=== PATIENT | male | born 1955 | race Caucasian/White ===

== ENCOUNTER → 2020-09-15 14:25 | Outpatient (BNVA) | payer BC, MEDICARE, SELFPAY | PROVIDERS: PCP Internal Medicine; Referring Provider Internal Medicine; Visit Provider Internal Medicine | DX: Z76.89 Persons encountering health services in other specified circumstances (principal) ==

== ENCOUNTER 2020-09-28 11:38 | Outpatient (REF) | payer MEDICARE, BC, SELFPAY ==
--- NOTE | 2020-09-28 11:44 | XR_ITS ---
EXAMINATION: XR HAND, LEFT CLINICAL INFORMATION: Left thumb injury COMPARISON: None TECHNIQUE: PA, lateral, and oblique views of the left hand. FINDINGS: Bone alignment is normal. No fracture or dislocation is seen. There is mild arthritis at the first FCI and MCP joints. There is a small soft tissue ossification or calcification adjacent to the medial side of the MCP joint probably related to old trauma. Soft tissues are otherwise unremarkable. XR/XR hand LT 2V IMPRESSION: Arthritis at the first MCP and FCI joints.
== END 2020-09-28 11:39 | disposition home or self-care (01) ==
LOC: HO.XRAY 11:38
PROVIDERS: PCP Internal Medicine; Visit Provider Internal Medicine
DX: S69.92XA Unspecified injury of left wrist, hand and finger(s), initial encounter (principal)
CPT/HCPCS: 73120

== ENCOUNTER 2020-09-29 10:48 | Outpatient (REF) | payer MEDICARE, BC, SELFPAY ==
--- NOTE | 2020-09-29 12:50 | PFT_ITS ---
INDICATION: MANDI. SPIROMETRY: The FEV1 to FVC of 71% with an FEV1 of 2.89 L, which is 71% predicted and an FVC of 4.08 L, which is 74% predicted. No significant response to bronchodilators noted. To note, the patient does have some small airways disease. Maximum voluntary ventilation 67% predicted. LUNG VOLUMES: Total lung capacity 90% predicted with a residual volume of 122% predicted. DIFFUSION CAPACITY: DLCO 70% predicted. Flow volume loop appears to have some concavity to the expiratory limb suggestive of an obstructive process. INTERPRETATION: There appears to be an obstructive process consistent with iqdv-oc-wgwxylsf chronic obstructive pulmonary disease. The patient also has some slight amount of small airways disease. No significant response to bronchodilators noted. There is a mild decrease in maximum voluntary ventilation secondary to deconditioning. Lung volumes did demonstrate a trend of air trapping and the patient also has a mild diffusion impairment. This could be secondary to emphysematous changes and all other parenchymal lung conditions should be considered. Clinical correlation warranted. MD ALEXANDR Lancaster/BIANKA / [phone]
== END 2020-09-29 10:49 | disposition home or self-care (01) ==
LOC: HO.RESP 10:48
PROVIDERS: Visit Provider Internal Medicine
DX: R59.0 Localized enlarged lymph nodes (principal); R91.8 Other nonspecific abnormal finding of lung field
CPT/HCPCS: 94060; 94727; 94729

== ENCOUNTER → 2020-11-05 12:28 | Outpatient (BNVA) | payer MEDICARE, BC, SELFPAY | PROVIDERS: PCP Internal Medicine; Referring Provider Internal Medicine; Visit Provider Internal Medicine Cardiovascular Disease | DX: I25.10 Atherosclerotic heart disease of native coronary artery without angina pectoris (principal) | CPT/HCPCS: 93005; 99212 ==

== ENCOUNTER 2020-11-09 06:19 | Outpatient (REF) | payer MEDICARE, BC, SELFPAY ==
[2020-11-09 07:21] LABS: Hematocrit 38.9 % (42-52); Mean Corpuscular HGB Conc 33.4 g/dl (31.0-36.0); Mean Corpuscular Hemoglobin 30.9 pg (27.0-33.0); Mean Corpuscular Volume 92.4 fL (80-98); Mean Platelet Volume 9.7 fL (9.4-12.4); Platelet Count 139 X10*3/uL (160-400); Red Blood Count 4.21 X10*6/uL (4.60-5.80); Red Cell Distribution Width 13.6 % (11.0-16.0); White Blood Count 4.1 X10*3/uL (4.8-10.8)
[2020-11-09 07:43] LABS: Anion Gap 10 (12-20); Blood Urea Nitrogen 16 mg/dL (9-16); Calcium 8.8 mg/dL (8.4-10.2); Carbon Dioxide 30 mmol/L (22-29); Chloride 102 mmol/L (96-108); Cholesterol 116 mg/dL; Estimated Glomerular Filt Rate > 60; Glucose Random 89 mg/dL (60-115); HDL Cholesterol 36 mg/dL; LDL Cholesterol Calculated 68 mg/dl; Sodium 138 mmol/L (135-145); Triglycerides 61 mg/dL
[2020-11-09 07:57] LABS: TSH reflex Free T4 1.31 mIU/mL (0.32-4.0)
== END 2020-11-09 06:20 | disposition home or self-care (01) ==
LOC: HO.LAB 06:19
PROVIDERS: PCP Internal Medicine; Visit Provider Internal Medicine Cardiovascular Disease
DX: I25.10 Atherosclerotic heart disease of native coronary artery without angina pectoris (principal); E78.5 Hyperlipidemia, unspecified
CPT/HCPCS: 36415; 80048; 80061; 84443; 85027

== ENCOUNTER → 2021-03-11 09:58 | Outpatient (BNVA) | payer MEDICARE, BC, SELFPAY | PROVIDERS: PCP Internal Medicine; Visit Provider Internal Medicine | DX: G47.33 Obstructive sleep apnea (adult) (pediatric) (principal); R91.8 Other nonspecific abnormal finding of lung field; J44.9 Chronic obstructive pulmonary disease, unspecified | CPT/HCPCS: 99212 ==

== ENCOUNTER → 2021-09-14 09:25 | Outpatient (BNVA) | payer MEDICARE, BC, SELFPAY | PROVIDERS: PCP Internal Medicine; Visit Provider Internal Medicine | DX: G47.33 Obstructive sleep apnea (adult) (pediatric) (principal); J44.9 Chronic obstructive pulmonary disease, unspecified | CPT/HCPCS: 99212 ==

== ENCOUNTER → 2021-11-23 14:42 | Outpatient (BNVA) | payer MEDICARE, BC, SELFPAY | PROVIDERS: PCP Internal Medicine; Referring Provider Internal Medicine; Visit Provider Internal Medicine Cardiovascular Disease | DX: I25.10 Atherosclerotic heart disease of native coronary artery without angina pectoris (principal) | CPT/HCPCS: 93005; 99212 ==

== ENCOUNTER 2022-01-20 15:04 | Outpatient (REF) | payer MEDICARE, BC, SELFPAY ==
--- NOTE | ~2022-01-20 | XR_ITS ---
EXAMINATION: XR CHEST CLINICAL INFORMATION: Cough COMPARISON: CT chest dated 07/25/2019 TECHNIQUE: 2 views of the chest were obtained. FINDINGS: Normal heart size. Kary are somewhat indistinct. Bilateral perihilar hazy opacity. No pleural effusion or pneumothorax. No acute or suspicious osseous abnormalities. XR/XR chest 2V IMPRESSION: Nonspecific mild perihilar hazy opacity could reflect an element of interstitial edema or atypical pneumonitis. Technique may be contributing. No focal consolidation
[2022-01-20 15:17] LABS: MANUAL DIFF FLAG NO
[2022-01-20 15:39] LABS: Basophils Percent Auto 0.4 % (0-2); Eosinophils Percent Auto 0.8 % (0-4); Hematocrit 36.9 % (42.0-52.0); Hemoglobin 12.3 g/dl (14.0-18.0); Imm Gran Abs Auto 0.02 X10*3/uL (0.00-0.03); Imm Gran Pct Auto 0.4 % (0.0-0.4); Lymphocytes Absolute Auto 0.5 X10*3/uL (1.2-4.9); Mean Corpuscular HGB Conc 33.3 g/dl (31.0-36.0); Mean Corpuscular Hemoglobin 30.8 pg (27.0-33.0); Mean Corpuscular Volume 92.3 fL (80.0-98.0); Mean Platelet Volume 9.2 fL (9.4-12.4); Monocytes Absolute Auto 0.4 X10*3/uL (0.1-1.2); Monocytes Percent Auto 7.9 % (2-11); Neutrophils Absolute Auto 4.2 x10*3/uL (2.0-8.3); Neutrophils Percent Auto 80.5 % (45-73); Platelet Count 214 X10*3/uL (160-400); Red Cell Distribution Width 12.1 % (11.0-16.0); White Blood Count 5.2 X10*3/uL (4.8-10.8)
[2022-01-20 16:11] LABS: Alanine Aminotransferase 25 U/L (0-40); Alkaline Phosphatase 82 U/L (39-117); Anion Gap 12 (12-20); Aspartate Amino Transferase 35 U/L (5-37); Bilirubin Total 0.9 mg/dL (0.0-1.0); Blood Urea Nitrogen 16 mg/dL (9-16); C Reactive Protein 4.93 mg/dL (< or = 0.50); Calcium 9.4 mg/dL (8.4-10.2); Carbon Dioxide 29 mmol/L (22-29); Chloride 99 mmol/L (96-108); Cholesterol 114 mg/dL; Estimated Glomerular Filt Rate > 60; Glucose Random 91 mg/dL (60-115); Potassium 4.9 mmol/L (3.3-5.1); Sodium 135 mmol/L (135-145); Total Protein 7.3 g/dL (6.5-8.0)
[2022-01-20 16:14] LABS: Influenza A PCR NEGATIVE (Negative); Influenza B PCR NEGATIVE (Negative); Resp Syncy Virus RNA Qual PCR NEGATIVE (Negative); SARS COV2 PCR INHOUSE NEGATIVE (Negative)
[2022-01-20 16:24] LABS: Appearance Urine CLEAR; Color Urine YELLOW; Glucose Urine UA NEG (NEG); Leukocyte Esterase Urine NEG (NEG); Nitrite Urine NEG (NEG); PH 6.5 (5.0-8.0); Specific Gravity - Urine <= 1.005 (1.005-1.025); Urine Blood NEG (NEG); Urine Ketones 5 MG/DL (NEG); Urine Protein NEG (NEG-TRACE)
[2022-01-20 16:33] LABS: Prostate Specific Antigen 0.76 ng/mL (<0.05-4.0)
== END 2022-01-20 15:05 | disposition home or self-care (01) ==
LOC: HO.XRAY 15:04
PROVIDERS: PCP Internal Medicine; Visit Provider Internal Medicine
DX: R50.9 Fever, unspecified (principal); R05.9 Cough, unspecified; I10 Essential (primary) hypertension; K21.9 Gastro-esophageal reflux disease without esophagitis; E78.00 Pure hypercholesterolemia, unspecified; Z12.5 Encounter for screening for malignant neoplasm of prostate
CPT/HCPCS: 0241U; 71046; 80053; 81003; 82465; 84153; 85025; 86140; 87086

== ENCOUNTER → 2022-01-25 13:42 | Outpatient (BNVA) | payer MEDICARE, BC, SELFPAY | PROVIDERS: PCP Internal Medicine; Visit Provider Internal Medicine | DX: J44.9 Chronic obstructive pulmonary disease, unspecified (principal); J18.9 Pneumonia, unspecified organism; R91.8 Other nonspecific abnormal finding of lung field; G47.33 Obstructive sleep apnea (adult) (pediatric) | CPT/HCPCS: 99212 ==

== ENCOUNTER 2022-02-15 14:41 | Outpatient (REF) | payer MEDICARE, BC, SELFPAY ==
--- NOTE | ~2022-02-15 | XR_ITS ---
EXAMINATION: XR CHEST CLINICAL INFORMATION: Pneumonia COMPARISON: Previous chest x-ray most recent 01/20/2022 TECHNIQUE: 2 views of the chest were obtained. FINDINGS: The cardiac and mediastinal contours are stable. There are still increased perihilar markings, particularly in the upper lobes questionable for airways disease or small pneumonia. This does not appear appreciably changed from recent exam. The lungs are otherwise clear. There is no pleural effusion or pneumothorax. There are mild degenerative changes of the spine. XR/XR chest 2V IMPRESSION: Increased perihilar markings similar to 01/20/2022 exam again suggestive of airways disease or mild pneumonia.
== END 2022-02-15 14:42 | disposition home or self-care (01) ==
LOC: HO.XRAY 14:41
PROVIDERS: PCP Internal Medicine; Visit Provider Internal Medicine
DX: J44.9 Chronic obstructive pulmonary disease, unspecified (principal); J18.9 Pneumonia, unspecified organism; G47.33 Obstructive sleep apnea (adult) (pediatric)
CPT/HCPCS: 71046; 99212

== ENCOUNTER 2022-03-08 11:48 | Outpatient (REF) | payer MEDICARE, BC, SELFPAY ==
--- NOTE | ~2022-03-08 | XR_ITS ---
EXAMINATION: XR LUMBOSACRAL SPINE CLINICAL INFORMATION: Left-sided pain COMPARISON: None TECHNIQUE: Three views of the lumbosacral spine. FINDINGS: No acute fracture or traumatic malalignment. There is a 1 anterolisthesis of L4 over L5 related to bulky hypertrophic facet arthropathy which is present throughout the lumbar spine. Near complete loss of disc space height at L2-3, L3-4 and L5-S1. Moderate loss of disc space height at L1-2. Associated endplate osteophytes and sclerosis present. Paraspinal soft tissues unremarkable. XR/XR lumbar spine 2-3V IMPRESSION: No acute findings. Lumbar spondylosis as described.
== END 2022-03-08 11:49 | disposition home or self-care (01) ==
LOC: HO.XRAY 11:48
PROVIDERS: PCP Internal Medicine; Visit Provider Internal Medicine
DX: M54.50 Low back pain, unspecified (principal)
CPT/HCPCS: 72100

== ENCOUNTER 2022-04-28 07:21 | Outpatient (REF) | payer MEDICARE, BC, SELFPAY ==
--- NOTE | ~2022-04-28 | MR_ITS ---
EXAMINATION: MR HIP WITHOUT CONTRAST, LEFT CLINICAL INFORMATION: Back pain radiating to left leg COMPARISON: None TECHNIQUE: MRI of the left hip was obtained using routine sequences on a high-field magnet. FINDINGS: BONE/JOINTS: There is acetabular rim osteophytes, with subchondral cyst/edema in the lateral acetabulum, areas of cartilage heterogeneity. Findings correlate with mild arthritis. No evidence of fracture, avascular necrosis or stress reaction. No subchondral cyst in the anterior femoral head and neck junction. No significant joint effusion. On the coronal sequence of the pelvis, there is normal alignment of the right hip joint. There is right hip arthritis present, appearing mild in nature. Symphysis pubis degeneration. SI joints are intact. There are degenerative changes in the visualized lower lumbar spine. LABRUM: Irregular undersurface degenerative tear in the anterosuperior labrum. Posterosuperior labral degeneration with undersurface fraying/ill-defined tear. MUSCLES/TENDONS: Gluteus minimus, gluteus medius, common hamstring, iliopsoas tendons intact. No evidence of significant muscle strain or tear. Visualized left piriformis muscle demonstrates signal within normal limits. MISCELLANEOUS: Subcentimeter left groin lymph nodes. Sigmoid diverticulosis.. MR/MR hip LT wo con IMPRESSION: 1. Mild left hip arthritis. 2. Irregular tearing of the anterosuperior labrum. Posterosuperior labral degeneration with undersurface fraying/ill-defined tear. 3. Additional findings and details as above.
== END 2022-04-28 07:22 | disposition home or self-care (01) ==
LOC: HO.MRI 07:21
PROVIDERS: Visit Provider Internal Medicine
DX: M54.50 Low back pain, unspecified (principal)
CPT/HCPCS: 73721

== ENCOUNTER 2022-08-02 08:11 | Outpatient (REF) | payer MEDICARE, BC, SELFPAY ==
--- NOTE | ~2022-08-02 | MR_ITS ---
EXAMINATION: MR LUMBAR SPINE WITHOUT CONTRAST CLINICAL INFORMATION: Low back pain and left-sided sciatica. COMPARISON: X-ray dated 03/08/2022. TECHNIQUE: Multiplanar, multisequence imaging was obtained. FINDINGS: VERTEBRAL BODIES AND PARASPINAL STRUCTURES: There is significant disc space narrowing with mild posterior subluxations and fatty marrow endplate changes at the L2-L3 and L3-L4 levels. Additional mild edematous endplate changes visible at the L3-L4 level. There is wqlvpvbn-bj-ghpfsd disc space narrowing and a posterior subluxation at the L1-L2 level. There are no compression fractures. A grade 1 anterolisthesis is noted at the L4-L5 level with unroofing of disc posteriorly. Severe loss of disc height and posterior subluxation noted at the L5-S1 level. The paraspinal soft tissues are unremarkable. Extensive sigmoid colonic diverticulosis noted. There are upga-rh-amtqbvsg degenerative changes of the sacroiliac joints bilaterally. CONUS MEDULLARIS AND CAUDA EQUINE: The distal cord, conus tip, and cauda equina nerve roots are normal. SPINAL LEVELS: L1-L2: Retrosubluxation and broad-based disc bulge with mild endplate spurring. No central canal stenosis. Patent foramina. L2-L3: Severe loss of disc height with chronic fatty marrow endplate changes and a diffuse disc bulge. Mild facet arthropathy. Mild bilateral foraminal narrowing. L3-L4: Mixed chronic and edematous endplate changes with a slight retrosubluxation and concentric disc bulge. Hypertrophic facet arthropathy and endplate spurring. No central canal stenosis. Aqvl-hb-uuvfwrwf bilateral foraminal narrowing. L4-L5: Anterolisthesis and unroofing of the disc with a broad-based left paracentral to left subarticular zone disc protrusion compressing the left L5 nerve root and distorting the ventral thecal sac. Severe facet arthropathy as well with a left-sided facet joint effusion. Findings in combination result in eldlmbrt-ar-fokesv central canal stenosis. Unroofed disc and facet spurring moderately encroach upon the right neural foramen with mild distortion of the exiting right L4 nerve root. Mild left foraminal narrowing. L5-S1: Posterior subluxation and mtzrelmf-ez-ibzdla loss of disc height with a generalized disc bulge and aewj-iw-gxlgesde facet arthropathy. No central canal stenosis. Vjuf-sd-qvzojvny bilateral foraminal narrowing. MR/MR lumbar spine wo con IMPRESSION: Grade 1 anterolisthesis with severe facet arthropathy at the L4-L5 level. Broad-based left paracentral to left subarticular zone disc protrusion distorting the ventral thecal sac and impinging upon the left L5 nerve root. Xvdjksnr-aq-asuodj central canal stenosis. Unroofed bulging disc and facet spurring moderately encroach upon the right neural foramen mildly distorting the right L4 nerve root. Severe chronic degenerative disc disease at the L2-L3 and L5-S1 levels without central canal stenosis. Mixed chronic and mild edematous endplate changes at the L3-L4 level with dvzy-nf-uchsatzg foraminal narrowing.
== END 2022-08-02 08:12 | disposition home or self-care (01) ==
LOC: HO.MRI 08:11
PROVIDERS: Visit Provider Physical Medicine & Rehabilitation Pain Medicine
DX: M54.16 Radiculopathy, lumbar region (principal); G47.33 Obstructive sleep apnea (adult) (pediatric); J44.9 Chronic obstructive pulmonary disease, unspecified
CPT/HCPCS: 72148; 99212

== ENCOUNTER → 2023-01-30 14:13 | Outpatient (BNVA) | payer MEDICARE, BC, SELFPAY | PROVIDERS: PCP Internal Medicine; Visit Provider Internal Medicine | DX: J44.9 Chronic obstructive pulmonary disease, unspecified (principal); R91.8 Other nonspecific abnormal finding of lung field; G47.33 Obstructive sleep apnea (adult) (pediatric); Z99.89 Dependence on other enabling machines and devices | CPT/HCPCS: 99212 ==

== ENCOUNTER 2023-05-02 10:23 | Outpatient (REF) | payer MEDICARE, BC, SELFPAY | END 2023-05-02 10:24 | disposition home or self-care (01) | LOC: HO.HOSX 10:23 | PROVIDERS: Visit Provider Physician Assistant | DX: Z13.89 Encounter for screening for other disorder (principal) ==

== ENCOUNTER 2023-05-03 07:27 | Outpatient (REF) | payer MEDICARE, BC, SELFPAY ==
--- NOTE | ~2023-05-03 | XR_ITS ---
EXAMINATION: XR PELVIS CLINICAL INFORMATION: Pain COMPARISON: MRI hip 04/28/2022 TECHNIQUE: AP view of the pelvis. FINDINGS: No acute fracture or dislocation appreciated on this limited single view. Atherosclerotic vascular calcification. Mild degenerative changes of the left hip with borderline loss of joint space. Moderate to advanced degenerative changes of the right hip with near complete loss of joint space, subchondral sclerosis and cystic change. Sacroiliac joint spaces are maintained. XR/XR pelvis 1-2V IMPRESSION: Mild degenerative changes of the left hip and moderate to advanced degenerative changes of the right hip with near complete loss of joint space.
== END 2023-05-03 07:28 | disposition home or self-care (01) ==
LOC: HO.HOSX 07:27
PROVIDERS: Visit Provider Physician Assistant
DX: M16.11 Unilateral primary osteoarthritis, right hip (principal); M76.891 Other specified enthesopathies of right lower limb, excluding foot
CPT/HCPCS: 72170; 99202

== ENCOUNTER 2023-05-30 09:28 | Outpatient (REF) | payer MEDICARE, BC, SELFPAY ==
[2023-05-30 09:55] LABS: MANUAL DIFF FLAG NO
[2023-05-30 10:27] LABS: Basophils Percent Auto 0.7 % (0-2); Eosinophils Absolute Auto 0.1 X10*3/uL (0.0-0.4); Eosinophils Percent Auto 2.3 % (0-4); Hematocrit 40.2 % (42.0-52.0); Hemoglobin 13.3 g/dl (14.0-18.0); Imm Gran Abs Auto 0.01 X10*3/uL (0.00-0.03); Imm Gran Pct Auto 0.3 % (0.0-0.4); Lymphocytes Absolute Auto 0.8 X10*3/uL (1.2-4.9); Lymphocytes Percent Auto 24.4 % (20-40); Mean Corpuscular HGB Conc 33.1 g/dl (31.0-36.0); Mean Corpuscular Hemoglobin 29.4 pg (27.0-33.0); Mean Corpuscular Volume 88.7 fL (80.0-98.0); Mean Platelet Volume 9.5 fL (9.4-12.4); Monocytes Absolute Auto 0.4 X10*3/uL (0.1-1.2); Monocytes Percent Auto 11.7 % (2-11); Neutrophils Absolute Auto 1.9 x10*3/uL (2.0-8.3); Neutrophils Percent Auto 60.6 % (45-73); Platelet Count 176 X10*3/uL (160-400); Red Blood Count 4.53 X10*6/uL (4.60-5.80); Red Cell Distribution Width 12.5 % (11.0-16.0); White Blood Count 3.1 X10*3/uL (4.8-10.8)
[2023-05-30 11:10] LABS: Alanine Aminotransferase 19 U/L (0-40); Alkaline Phosphatase 90 U/L (39-117); Anion Gap 14 (12-20); Aspartate Amino Transferase 23 U/L (5-37); Blood Urea Nitrogen 15 mg/dL (9-16); Calcium 9.4 mg/dL (8.4-10.2); Carbon Dioxide 26 mmol/L (22-29); Chloride 99 mmol/L (96-108); Cholesterol 131 mg/dL; Estimated Glomerular Filt Rate > 60; Glucose Fasting 91 mg/dL (60-99); HDL Cholesterol 36 mg/dL; LDL Cholesterol Calculated 83 mg/dl; Potassium 4.5 mmol/L (3.3-5.1); Sodium 134 mmol/L (135-145); Total Protein 7.4 g/dL (6.5-8.0); Triglycerides 61 mg/dL
[2023-05-30 11:21] LABS: Prostate Specific Antigen 0.64 ng/mL (<0.05-4.0)
== END 2023-05-30 09:29 | disposition home or self-care (01) ==
LOC: HO.LAB 09:28
PROVIDERS: PCP Internal Medicine; Visit Provider Internal Medicine
DX: Z12.5 Encounter for screening for malignant neoplasm of prostate (principal); K21.9 Gastro-esophageal reflux disease without esophagitis; E78.00 Pure hypercholesterolemia, unspecified; I10 Essential (primary) hypertension
CPT/HCPCS: 36415; 80053; 80061; 84153; 85025

== ENCOUNTER 2023-06-15 10:24 | Outpatient (AMB) | payer MEDICARE, BC, SELFPAY ==
--- NOTE | 2023-06-15 10:33 | MHC.OFFVIS ---
Intake Vital Signs 06/15/23 10:45 Height 6 ft 3 in Weight 182 lb BMI 22.7 Intake Visit Reasons: OV-Right hip injection Intake Note: Foster a 67 year old male who presents today for a follow up of right hip. Patient reports has tried working with PT but found no relief. He is requesting to have an injection. Allergies COW HAIR Allergy (Unknown, Uncoded 06/15/23 10:36) + IN ALLERGY TESTING HPI OV-Right hip injection HPI Details 67-year-old male who returns to the office today for a follow-up of right hip pain. He states he had undergone physical therapy with no relief. He continues to have pain with ambulating and getting in and out of a car. He states the pain is within the groin but he does not experience limited motion. [facility] Medical History CAD (coronary artery disease) COPD (chronic obstructive pulmonary disease) Hyperlipidemia Mediastinal lymphadenopathy MANDI (obstructive sleep apnea) Pneumonitis Pulmonary nodules Surgical History History of total knee replacement Family History Father Cancer Mother No problems noted. 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 Review of Systems Const All systems reviewed & are unremarkable except as noted in HPI and below Physical Exam Vital Signs: BMI result Body Mass Index 22.7 Const General: cooperative, healthy appearing, comfortable, no acute distress, well developed and alert Orientation/consciousness: patient oriented x3 HEENT Head: Yes normal to inspection, Yes normocephalic and Yes atraumatic Eyes General: appearance normal, both eyes and all related structures Resp Effort & Inspection: normal respiratory effort and able to speak in complete sentences Cardio Rate: regular rate Peripheral pulses: Peripheral pulses 2+ throughout GI Palpation (GI): Soft to palpation Skin Lesions: no lesions Rashes: no rashes Neuro General: patient oriented x3 Extrem Other: Right hip: Normal to inspection. No tenderness over great trochanter, no pain with ROM of the hip. He does have pain with hip flexion with or without resistance. NVI. Assessment & Plan Assessment & Plan (1) Osteoarthritis of right hip: Code(s): M16.11 - Unilateral primary osteoarthritis, right hip (2) Tendonitis of right hip flexor: Code(s): M76.891 - Other specified enthesopathies of right lower limb, excluding foot Plan We discussed options which include steroid injection which would be intraarticular along with an MRI to further evaluate the source of his pain. He does present today with pain that limit him with activity, however on exam I cannot reproduce this pain. Once the scan is complete, I will see him back to review the results. He is content with this plan. Orders: Orders FL arthrogram hip RT Today M16.11 - Unilateral primary osteoarthritis, right hip MR hip RT wo con Today M16.11 - Unilateral primary osteoarthritis, right hip Patient Instructions: Scribed for Sheeba Falcon PA-C, by Siddharth Peña durable medical equipment technician, on 06/15/2023 at 10:45 AM GREGORIA. Sheeba Hicks PA-C, have personally reviewed and agree with the information entered by the scribe. Coding Level of Care Code Est Pt Level 3 (28751) Diagnoses Osteoarthritis of right hip M16.11 Tendonitis of right hip flexor M76.891
[2023-06-15 10:45] VITALS: BMI 22.7
== END 2023-06-15 11:00 | disposition home or self-care (01) ==
PROVIDERS: PCP Internal Medicine; Visit Provider Physician Assistant
DX: M16.11 Unilateral primary osteoarthritis, right hip (principal); M76.891 Other specified enthesopathies of right lower limb, excluding foot
CPT/HCPCS: 99213

== ENCOUNTER → 2023-06-15 10:24 | Outpatient (BNVA) | payer MEDICARE, BC, SELFPAY | PROVIDERS: PCP Internal Medicine; Visit Provider Physician Assistant | DX: M16.11 Unilateral primary osteoarthritis, right hip (principal); M76.891 Other specified enthesopathies of right lower limb, excluding foot | CPT/HCPCS: 99212 ==

== ENCOUNTER 2023-06-30 10:41 | Outpatient (REF) | payer MEDICARE, BC, SELFPAY ==
--- NOTE | ~2023-06-30 | FL_ITS ---
EXAMINATION: XR ARTHROGRAM HIP, RIGHT CLINICAL INFORMATION: Unilateral primary osteoarthritis, right hip. COMPARISON: None available. TECHNIQUE: Following explaining fluoroscopy-guided right hip steroid injection procedure, benefits and risk, a written consent was obtained. Patient was placed supine on fluoroscopy table and preliminary imaging was obtained through the right hip and an optimal site was selected and marked on the skin. The marked site was cleaned and draped in the usual sterile manner with 2% chlorhexidine solution. 1% lidocaine was injected at puncture site. A 22-gauge spinal needle was then inserted from the skin into the lateral border of right femoral neck and 2-3 mL of nonionic contrast was injected and a single image obtained. After confirming contrast into the joint space, 80 mg of Celestone and 8 mL of 1% lidocaine was injected as combination and needle withdrawn. Complete hemostasis achieved at puncture site. Sterile Band-Aid applied postprocedure. Patient tolerated procedure extremely well. FINDINGS: On the right hip x-ray there is moderate periarticular spurring along the lateral hip joint. Also visualized is mild loss of right hip joint space. There is contrast visualized along the right base of the femoral neck following placement of needle in the joint space. 80 mg of Depo-Medrol was injected with 1% lidocaine in the right hip joint. FLUOROSCOPY TIME: 1.1 minutes DOSE AREA PRODUCT: 6.331 uGy-m2 (microgray-meter squared) FL/FL arthrogram hip RT IMPRESSION: Successful fluoroscopy-guided right hip steroid injection performed without immediate complications.
== END 2023-06-30 10:42 | disposition home or self-care (01) ==
LOC: HO.XRAY 10:41
PROVIDERS: PCP Internal Medicine; Visit Provider Physician Assistant
DX: M16.11 Unilateral primary osteoarthritis, right hip (principal)
CPT/HCPCS: 27093; 73525

== ENCOUNTER → 2023-06-30 10:41 | Outpatient (BNV) | payer MEDICARE, BC, SELFPAY | PROVIDERS: PCP Internal Medicine; Visit Provider Radiology Diagnostic Radiology | DX: M16.11 Unilateral primary osteoarthritis, right hip (principal) | CPT/HCPCS: 27093; 73525 ==

== ENCOUNTER 2023-07-21 10:25 | Outpatient (REF) | payer MEDICARE, BC, SELFPAY ==
[2023-07-21 11:02] LABS: MANUAL DIFF FLAG NO
[2023-07-21 11:06] LABS: Basophils Percent Auto 0.6 % (0-2); Eosinophils Percent Auto 1.1 % (0-4); Hematocrit 40.4 % (42.0-52.0); Hemoglobin 13.6 g/dl (14.0-18.0); Imm Gran Abs Auto 0.03 X10*3/uL (0.00-0.03); Imm Gran Pct Auto 0.9 % (0.0-0.4); Lymphocytes Absolute Auto 0.7 X10*3/uL (1.2-4.9); Lymphocytes Percent Auto 19.4 % (20-40); Mean Corpuscular HGB Conc 33.7 g/dl (31.0-36.0); Mean Corpuscular Hemoglobin 30.2 pg (27.0-33.0); Mean Corpuscular Volume 89.8 fL (80.0-98.0); Mean Platelet Volume 8.9 fL (9.4-12.4); Monocytes Absolute Auto 0.3 X10*3/uL (0.1-1.2); Monocytes Percent Auto 9.1 % (2-11); Neutrophils Absolute Auto 2.4 x10*3/uL (2.0-8.3); Neutrophils Percent Auto 68.9 % (45-73); Platelet Count 138 X10*3/uL (160-400); Red Cell Distribution Width 13.8 % (11.0-16.0); White Blood Count 3.5 X10*3/uL (4.8-10.8)
[2023-07-21 11:09] LABS: Appearance Urine Clear; Color Urine Yellow; Glucose Urine UA Negative (Negative); Leukocyte Esterase Urine Negative (Negative); Nitrite Urine Negative (Negative); Urine Blood Negative (Negative); Urine Ketones Negative (Negative); Urine Protein Negative (Neg-Trace)
[2023-07-21 11:36] LABS: Anion Gap 16 (12-20); Blood Urea Nitrogen 19 mg/dL (9-16); Calcium 9.5 mg/dL (8.4-10.2); Carbon Dioxide 25 mmol/L (22-29); Chloride 99 mmol/L (96-108); Estimated Glomerular Filt Rate > 60; Glucose Random 86 mg/dL (60-115); Potassium 3.8 mmol/L (3.3-5.1); Sodium 136 mmol/L (135-145)
[2023-07-21 11:45] LABS: Free T4 (Free Thyroxine) 1.05 ng/dL (0.71-1.85); Thyroid Stimulating Hormone 1.36 uIU/mL (0.32-4.0)
[2023-07-21 11:50] LABS: Vitamin B12 345 pg/mL (200-900)
== END 2023-07-21 10:26 | disposition home or self-care (01) ==
LOC: HO.10HDL 10:25
PROVIDERS: Visit Provider Internal Medicine
DX: R63.4 Abnormal weight loss (principal); I10 Essential (primary) hypertension; K21.9 Gastro-esophageal reflux disease without esophagitis; E87.1 Hypo-osmolality and hyponatremia
CPT/HCPCS: 36415; 80048; 81003; 82550; 82607; 84439; 84443; 85025; 86140

== ENCOUNTER 2023-07-28 09:05 | Outpatient (REF) | payer MEDICARE, BC, SELFPAY ==
--- NOTE | ~2023-07-28 | MR_ITS ---
EXAMINATION: MR LUMBAR SPINE WITHOUT CONTRAST CLINICAL INFORMATION: Lumbar radiculopathy. Low back pain on left side. Leg pain. COMPARISON: MRI dated 08/02/2022. TECHNIQUE: Multiplanar, multisequence imaging was obtained. FINDINGS: VERTEBRAL BODIES AND PARASPINAL STRUCTURES: Anterolisthesis at the L4-L5 level has slightly worsened with a 9 mm slippage, previously measuring 8 mm. Mild edematous endplate changes are lateralized to the right side. There is also mild marrow edema in the right articular processes and adjacent right posterior paraspinal soft tissues, presumably stress-related in etiology. Advanced degenerative endplate changes and disc space narrowing again evident at the L2-L3 and L3-L4 levels with mild posterior subluxations. Moderate degenerative disc disease and posterior subluxation are stable at the L1-L2 level. Posterior subluxation and significant loss of disc height also is relatively stable at the L5-S1 level. There are no compression fractures or new subluxations elsewhere. Aside from chronic fatty marrow degenerative endplate changes in the lumbar spine, the remainder of the marrow signal is within normal limits. The paraspinal soft tissues are unremarkable. There are ugwe-wz-uafjfgqe degenerative changes of the sacroiliac joints. CONUS MEDULLARIS AND CAUDA EQUINA: The distal cord, conus tip, and cauda equina nerve roots are normal. SPINAL LEVELS: L1-L2: Significant loss of disc height and retrosubluxation with a disc bulge again evident. Stable mild right foraminal narrowing. No central canal stenosis. L2-L3: Severe loss of disc height with endplate ridging and a posterior subluxation. No central canal stenosis. Stable mild bilateral foraminal narrowing. L3-L4: Severe loss of disc height and posterior subluxation again evident with a generalized disc bulge and facet arthropathy. No central canal stenosis. Stable walr-wf-quurvrgq foraminal narrowing, worse on the right side. L4-L5: Worsened anterolisthesis and unroofing of the disc with increased size of a broad-based central to left subarticular zone disc protrusion moderately compressing the thecal sac and impinging upon the left greater than right L5 nerve roots. Advanced facet arthropathy and moderate to severe central canal stenosis. Unroofed right foraminal disc protrusion and severe facet arthropathy results in significant right foraminal encroachment and slightly worsened mass effect upon the exiting right L4 nerve root. L5-S1: Retrosubluxation and significant loss of disc height with a mild disc bulge. No central canal stenosis. Stable kczm-sy-utrmgxci foraminal narrowing. MR/MR lumbar spine wo con IMPRESSION: 1. Slightly worsened anterolisthesis at the L4-L5 level with increased size of a broad-based central to left subarticular zone disc protrusion moderately compressing the thecal sac and impinging upon the left greater than right L5 nerve roots. Moderate to severe central canal stenosis and advanced facet arthropathy. Unroofed right foraminal disc protrusion and severe facet arthropathy with significant right foraminal encroachment and mass effect upon the right L4 nerve root. New edema in the right articular processes and right posterior paraspinal soft tissues, presumably stress-related in etiology. 2. Moderate multilevel lumbar spondylosis at the remaining levels is relatively stable compared to prior imaging.
== END 2023-07-28 09:06 | disposition home or self-care (01) ==
LOC: HO.MRI 09:05
PROVIDERS: PCP Internal Medicine; Visit Provider Physical Medicine & Rehabilitation Pain Medicine
DX: M54.16 Radiculopathy, lumbar region (principal)
CPT/HCPCS: 72148

== ENCOUNTER 2023-09-06 13:10 | Outpatient (REF) | payer MEDICARE, BC, SELFPAY ==
--- NOTE | ~2023-09-06 | XR_ITS ---
EXAMINATION: XR LUMBOSACRAL SPINE WITH OBLIQUES CLINICAL INFORMATION: Spondylolisthesis lumbar region. COMPARISON: MR lumbar spine 07/28/2023. X-ray lumbar spine 03/08/2022. TECHNIQUE: 4 views of the lumbar spine including AP, lateral, flexion and extension. FINDINGS: Levoscoliosis of the lumbar spine. Facet arthritis in the mid to lower lumbar spine. Advanced multilevel degenerative changes in the lumbar spine with loss of disc space height and subchondral sclerosis most notable at L2-L3, L3-L4 and L5-S1. Mild retrolisthesis of L1 on L2, L2 on L3 and L3 on L4. Anterolisthesis of L4 on L5 measures approximately 1.1 cm with flexion and extension. Mild retrolisthesis of L5 on S1. Multilevel spondylolysis difficult to confirm. XR/XR lumbar spine 4V min IMPRESSION: Advanced multilevel degenerative changes with multilevel spondylolisthesis in the lumbar spine as detailed above.
== END 2023-09-06 13:11 | disposition home or self-care (01) ==
LOC: HO.HOSX 13:10
PROVIDERS: PCP Internal Medicine; Visit Provider Neurological Surgery
DX: M48.062 Spinal stenosis, lumbar region with neurogenic claudication (principal); M43.16 Spondylolisthesis, lumbar region
CPT/HCPCS: 72110

== ENCOUNTER 2023-09-06 13:10 | Outpatient (AMB) | payer MEDICARE, BC, SELFPAY ==
--- NOTE | 2023-09-06 13:55 | HO.SPINEOV ---
Intake Intake Visit Reasons: Lt. Sciatica Intake Note: Mr. Clarke is here today c/o left-sided sciatica pain. MRI done @ [facility]. 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 HPI: This 67-year-old male developed pain radiating down his left leg 19 months ago. He was carrying a stereo amp up the stairs and felt a sudden pain in his left buttock. This progressed to pain radiating down his leg. The pain radiates to the outside of his left thigh to the joiner and top of his foot. He had an injection done in September 2022 which gave him 30% improvement. Second injection provided no further relief. The pain increases with walking and standing. Sitting, cycling or bending forward improves the pain. He denies back pain. The following conservative treatment options were tried without success antiinflammatories, tylenol, physical therapy, cortisone shots PMH: Hypertension, hyperlipidemia, osteoarthritis. Medications: Lisinopril, add Avastin, omeprazole, aspirin Allergies: NKDA Social history: . Retired. Nonsmoker Review of systems: Never chest pain or shortness of breath. Was seen by a mine laborer in the past for incidental finding on a chest x-ray. Last visit was more than 1 year ago and no follow-up scheduled as he has no cardiological symptoms. Physical Exam: Pleasant male. Walks in a flexed position. Straight leg raise is negative. No sensory or motor changes. No pathological reflexes. Radiological Studies: MRI done at a [facility] on 07/28/2023 shows severe lumbar degenerative disc disease L2-3 L3-4 and L5-S1 and more importantly severe spinal stenosis L4-5 due to an anterolisthesis with a disc herniation compressing the central canal and exiting nerve root. An x-ray of the lumbar spine with dynamic views was obtained today and compared to an x-ray of the lumbar spine 03/08/2022. Today's x-ray shows an unstable L4-5 grade 2 anterolisthesis that has progressed compared to the x-ray of 2021 Impression/Plan: This patient is suffering from unilateral neurogenic claudication due to an unstable L4-5 progressive lumbar spondylolisthesis the causes severe L5 nerve root compression. The instability of the lumbar spine prevents me from offering a simple decompression of the nerve root. Unfortunately, a fusion is required to realign the spine and to indirectly decompress the central canal and nerve root. Therefore offered him an oblique lumbar interbody fusion L4-5. He is going to see Dr. Reno at [facility] for 2nd opinion on September 20. He did want to secure surgical date for 11/07/2023 in the meantime. He will cancel if he decides to go to [facility]. Thank you for allowing me to participate in your patients care. total time spent was 50 minutes in counseling ,coordination of plan, personal review of imaging, surgical decision making and subsequent plan Carroll Ozuna MD, PhD Spine Fellowship Trained Neurosurgeon Director, [facility] Code(s): M48.062 - Spinal stenosis, lumbar region with neurogenic claudication (2) Spondylolisthesis, lumbar region: Code(s): M43.16 - Spondylolisthesis, lumbar region Orders: Orders XR lumbar spine 4V min Today M43.16 - Spondylolisthesis, lumbar region, M48.062 - Spinal stenosis, lumbar region with neurogenic claudication Coding Level of Care Code New Pt Level 4 (77339) Diagnoses Lumbar stenosis with neurogenic claudication M48.062 Spondylolisthesis, lumbar region M43.16
== END 2023-09-06 15:25 | disposition home or self-care (01) ==
PROVIDERS: PCP Internal Medicine; Visit Provider Neurological Surgery
DX: M48.062 Spinal stenosis, lumbar region with neurogenic claudication (principal); M43.16 Spondylolisthesis, lumbar region
CPT/HCPCS: 99204

== ENCOUNTER → 2023-10-20 13:08 | Outpatient (BNV) | payer MEDICARE, BC, SELFPAY | PROVIDERS: PCP Internal Medicine; Visit Provider Internal Medicine Cardiovascular Disease | DX: I44.4 Left anterior fascicular block (principal); R94.31 Abnormal electrocardiogram [ECG] [EKG] | CPT/HCPCS: 93010 ==

== ENCOUNTER 2023-11-11 12:48 | Outpatient (REF) | payer MEDICARE, BC, SELFPAY ==
--- NOTE | ~2023-11-11 | MR_ITS ---
EXAMINATION: MR HIP WITHOUT CONTRAST, RIGHT CLINICAL INFORMATION: Osteoarthritis. COMPARISON: None available. TECHNIQUE: MRI of the right hip was obtained using routine sequences on a high-field strength magnet. FINDINGS: BONE/JOINTS: Severe right hip joint space narrowing, with diffuse nonuniform, high-grade/full-thickness cartilage loss, subchondral cysts and edema. There is lateral uncovering of the femoral head. Findings are consistent with severe osteoarthritis. In the subchondral femoral head, there is a confluent T2 bright focus with well-defined margins measuring 1.3 x 1.6 cm which appears to be related to confluent subchondral cysts, less likely focus of avascular necrosis. There is edema extending into the femoral neck. No evidence of acute fracture. LABRUM: Diffuse labral degenerative tearing, more prominently involving the anterosuperior and posterosuperior labrum. MUSCLES/TENDONS: Mild distal gluteus medius tendinosis. Minimal right common hamstring tendinosis. Mild iliopsoas tendinosis. No muscle tear is seen. JOINT FLUID/BURSA: Small hip joint effusion with low signal foci in the joint space from synovitis/debris/loose bodies. No significant greater trochanteric or iliopsoas bursitis. INTRAPELVIS STRUCTURES: Subcentimeter right groin lymph nodes. Urinary bladder appears unremarkable. On the coronal T1 sequence of the pelvis, there appears be left hip arthritis. SI joints and symphysis pubis intact. Spondylosis in the visualized lower lumbar spine. Sigmoid diverticulosis. MR/MR hip RT wo con IMPRESSION: 1. Severe right hip arthritis. Confluent T2 bright foci in the subchondral femoral head, appearance more suggestive of confluent degenerative cysts rather than focus of avascular necrosis. Follow-up imaging for reassessment as clinically indicated. 2. Small hip joint effusion with synovitis/debris/loose bodies. 3. Anterosuperior and posterosuperior labral degenerative tearing. 4. Mild distal gluteus medius tendinosis. Minimal right common hamstring tendinosis. Mild right iliopsoas tendinosis.
== END 2023-11-11 12:49 | disposition home or self-care (01) ==
LOC: HO.MRI 12:48
PROVIDERS: PCP Internal Medicine; Visit Provider Physician Assistant
DX: M16.11 Unilateral primary osteoarthritis, right hip (principal)
CPT/HCPCS: 73721

== ENCOUNTER 2023-11-24 10:46 | Outpatient (AMB) | payer MEDICARE, BC, SELFPAY ==
[2023-11-24 10:50] VITALS: BP 160/90; PULSE 86; BMI 23.1
--- NOTE | 2023-11-24 10:50 | MHC.OFFVIS ---
Intake Vital Signs 11/24/23 10:50 Height 6 ft 3 in Weight 184 lb 11.958 oz BMI 23.1 BP 160/90 H Blood Pressure Location Lt brachial Position Sitting Pulse 86 Intake Visit Reasons: 2 years followup w/ekg dx: cad Intake Note: 2 yr f/up pt is feeling fine Freight Manager Required: No Accompanied by: Self / Same As Patient Allergies COW HAIR Allergy (Unknown, Uncoded 10/20/23 12:03) + IN ALLERGY TESTING Medication List - Last Reconciled 11/24/23 by Christian Ellis MD albuterol sulfate 90 mcg/actuation (ProAir HFA) 2 puffs inhalation Q4-6H PRN amlodipine 2.5 mg PO DAILY aspirin 81 mg PO DAILY 90 days atorvastatin 40 mg PO BEDTIME betamethasone valerate 0.1% appl topical BID PRN lisinopril 30 mg PO DAILY omeprazole 20 mg PO .qod HPI HPI Comments History of Present Illness Details Foster comes for follow-up. This is a 2 year follow-up for his coronary artery disease although he has significant issues with his lumbar spine with neurogenic claudication. He said this problem started January of 2022 and has been intermittently progressive. He said starting September he has had flare-up of his discomfort and his very minimal functionality and has been seen [facility] and is recommended surgery. However preoperatively was noted to have significantly elevated blood pressure and was advised at this needs better control. His surgery is scheduled now in December. His lisinopril was increased to 30 mg daily and amlodipine was added. However blood pressure still remains elevated and is labile. He said he has had lot of pain and is stressed out over due to pain as well as upcoming surgery. This might be contributing to his elevated blood pressure. He has been watching the salt in his diet. He denies any significant cardiac symptoms although is limited activity level. EKG done in October at shown left anterior fascicular block. EKG done today actually shows bifascicular block including right bundle-branch block and left anterior fascicular block which is a new finding for him. He denies any lightheadedness, syncope. Denies any heart failure symptoms. [facility] Medical History (Updated 11/24/23 @ 11:29 by Christian Ellis MD) HTN (hypertension) GERD (gastroesophageal reflux disease) Pneumonitis COPD (chronic obstructive pulmonary disease) Hyperlipidemia CAD (coronary artery disease) Mediastinal lymphadenopathy Pulmonary nodules MANDI (obstructive sleep apnea) Surgical History History of arthroscopy of both knees Hx of colonoscopy Hx of vein stripping Hx of bilateral cataract extraction Hx of bilateral inguinal hernia repair History of total knee replacement Family History Father Cancer Mother No problems noted. 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 Review of Systems Const Reports chills, Reports fatigue, Reports fever(s), Reports frequent falls, Reports weakness, Reports weight gain and Reports weight loss ENT Reports dizziness Card Reports chest pain, Reports leg edema, Reports lightheadedness, Reports palpitations, Reports dyspnea and Reports dyspnea on exertion Resp Reports cough, Reports dyspnea and Reports dyspnea on exertion GI Reports hematochezia Musc Reports abnormal gait, Reports muscle weakness, Reports numbness, Reports radiating pain into limb and Reports tingling Neuro Reports abnormal gait, Reports dizziness, Reports frequent falls, Reports numbness, Reports tingling and Reports weakness Endo Reports fatigue and Reports palpitations Physical Exam Vital Signs: Last Vital Signs Pulse 86 11/24/23 10:50 BP 160/90 H 11/24/23 10:50 BMI result Body Mass Index 23.1 Const General: cooperative, comfortable, no acute distress, alert, awake and anxious Nutritional Appearance: thin Orientation/consciousness: patient oriented x3 Limitations: no limitations Neck Neck: Yes trachea midline, Yes supple and Yes no JVD Resp Effort & Inspection: normal respiratory effort Auscultation: clear to auscultation bilaterally Cardio Jugular venous distension: no JVD Palpation: normal PMI Rate: regular rate Rhythm: regular rhythm Heart sounds: S1 normal heart sound present, S2 normal heart sound present, no click, no gallops and no murmurs GI Auscultation: normal bowel sounds Skin General skin exam: no rashes or lesions noted Neuro General: patient oriented x3 and no focal motor deficits Extrem General: Yes no clubbing, cyanosis or edema Assessment & Plan Assessment & Plan (1) Preoperative cardiovascular examination: Code(s): Z01.810 - Encounter for preprocedural cardiovascular examination Plan: Patient presents here for follow-up of CAD but is scheduled for undergoing spine surgery under general anesthesia, intermediate risk surgery with new findings of bifascicular block on the EKG with prior history of nonobstructive CAD by coronary calcium score with limited exercise activity. I would suggest him to undergo vasodilating myocardial perfusion imaging for further risk stratification to rule out myocardial ischemia as a cause of his abnormal EKG as well as an echocardiogram to evaluate for any LV systolic dysfunction and suggestion of infiltrative cardiac disease as a cause of his abnormal EKG. These tests will be scheduled in near future. These are within reasonable limits, he would be considered low risk for perioperative cardiovascular morbidity mortality. However given his high blood pressure and elevated heart rate will add Toprol-XL 50 mg to his regimen to keep his resting heart rate on 60-70 beats per minute. We discussed about stress mitigation strategies as well. (2) CAD (coronary artery disease): Code(s): I25.10 - Atherosclerotic heart disease of [place] coronary artery without angina pectoris Plan: CAD in the past based on coronary calcium score. No recent symptoms although new abnormal EKG. Will suggest vasodilating myocardial perfusion imaging as above. Meanwhile continue low-dose aspirin therapy and statin therapy with target goal LDL closer to 60 mg/dL. Aggressive blood pressure control, see below. (3) Bifascicular block: Code(s): I45.2 - Bifascicular block Plan: Bifascicular block which is new finding. Patient had normal EKG about 2 years ago followed by EKG in October showing left anterior fascicular block an EKG today showing bifascicular block. Structural heart disease needs to be ruled out. Echocardiogram to evaluate for LV systolic function to evaluate for infiltrative cardiomyopathy such as sarcoidosis given his prior COPD and pneumonitis and mediastinal lymphadenopathy this is a possibility and may need workup further for the same. No intervention per se for bifascicular block was discussed with him. (4) HTN (hypertension): Code(s): I10 - Essential (primary) hypertension Plan: Hypertension which is labile and could be difficult control probably suggestive of diffuse vascular disease. I have discussed stress mitigation strategies. Most likely precipitated due to stress of pain as well as upcoming surgery. Have advised him to split his lisinopril to 20 mg b.i.d. and amlodipine 2.5 mg b.i.d. and add Toprol-XL 50 mg to his regimen. He is not very happy that he has to use multiple medications to control blood pressure although suggested that this might be temporary related to his ongoing stress and pain. Will follow up in 3 months time, sooner p.r.n.. Thank you for allowing me to partake in his care Orders: Orders CA echo transthoracic complete Today I45.2 - Bifascicular block CA lexiscan stress w aba Today Z01.810 - Encounter for preprocedural cardiovascular examination Medications: New lisinopril 20 mg PO BID 60 tabs 2RF amlodipine 2.5 mg PO BID 60 tabs 2RF metoprolol succinate ER (Toprol XL) 50 mg PO DAILY 30 tabs 1RF Coding Level of Care Code Est Pt Level 4 (54071) Diagnoses Preoperative cardiovascular examination Z01.810 CAD (coronary artery disease) I25.10 Bifascicular block I45.2 HTN (hypertension) I10
== END 2023-11-24 11:27 | disposition home or self-care (01) ==
PROVIDERS: PCP Internal Medicine; Visit Provider Internal Medicine Cardiovascular Disease
DX: Z01.810 Encounter for preprocedural cardiovascular examination (principal); I25.10 Atherosclerotic heart disease of native coronary artery without angina pectoris; I45.2 Bifascicular block; I10 Essential (primary) hypertension
CPT/HCPCS: 99214

== ENCOUNTER → 2023-11-24 10:46 | Outpatient (BNVA) | payer MEDICARE, BC, SELFPAY | PROVIDERS: PCP Internal Medicine; Visit Provider Internal Medicine Cardiovascular Disease | DX: Z01.810 Encounter for preprocedural cardiovascular examination (principal); I25.10 Atherosclerotic heart disease of native coronary artery without angina pectoris; I45.2 Bifascicular block; I10 Essential (primary) hypertension | CPT/HCPCS: 99212 ==

== ENCOUNTER 2023-12-04 13:13 | Outpatient (AMB) | payer MEDICARE, BC, SELFPAY ==
--- NOTE | 2023-12-04 13:18 | MHC.OFFVIS ---
Intake Vital Signs 12/04/23 13:20 Height 6 ft 3 in Weight 184 lb BMI 23.0 Intake Visit Reasons: OV- MRI Review RT Hip Intake Note: Foster is a 68 year old male who presents today for an MRI follow up of his right hip. MRI Arthrogram 06/30/23. Patient reports that the injection provided mild relief, but he continues to have pain with walking and daily acitivty. Allergies COW HAIR Allergy (Unknown, Uncoded 10/20/23 12:03) + IN ALLERGY TESTING HPI OV- MRI Review RT Hip HPI Details Foster is a 68 year old man who returns for an MRI review of his right hip pain. He is S/P hip arthrogram on 06/30/23. He complains of pain with daily activity, localized to the groin, and worse with activities such as climbing in/out of a car or prolonged walking. He found no relief from PT in the past, and temporary relief from the arthrogram injection. [facility] Medical History HTN (hypertension) GERD (gastroesophageal reflux disease) Pneumonitis COPD (chronic obstructive pulmonary disease) Hyperlipidemia CAD (coronary artery disease) Mediastinal lymphadenopathy Pulmonary nodules MANDI (obstructive sleep apnea) Surgical History History of arthroscopy of both knees Hx of colonoscopy Hx of vein stripping Hx of bilateral cataract extraction Hx of bilateral inguinal hernia repair History of total knee replacement Family History Father Cancer Mother No problems noted. 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 Review of Systems Const All systems reviewed & are unremarkable except as noted in HPI and below Physical Exam Vital Signs: BMI result Body Mass Index 23.0 Const General: no acute distress, alert and awake Orientation/consciousness: patient oriented x3 HEENT Head: Yes normocephalic and Yes atraumatic Eyes EOM: EOMs intact bilaterally Resp Effort & Inspection: normal respiratory effort and able to speak in complete sentences Cardio Jugular venous distension: no JVD Skin General skin exam: turgor normal Rashes: no rashes Neuro General: patient oriented x3 Extrem Other: + Impingement and + [place] Psych Appearance: grossly normal Affect: normal affect Attitude: cooperative Results Reviewed Results Reviewed: I personally reviewed relevant radiographs. Mild degenerative changes of the left hip and moderate to advanced degenerative changes of the right hip with near complete loss of joint space. Assessment & Plan Assessment & Plan (1) Osteoarthritis of right hip: Code(s): M16.11 - Unilateral primary osteoarthritis, right hip Plan: This is an active 68 yo M with right hip OA that is severe and affects his daily life adversely. He also has L4/5 spondylolisthesis with claudication and is scheduled for lumbar fusion. I had a long discussion with him regarding his hip. He describes having has a steroid injection that was helpful very minimally. I reviewed the images and I am not convinced that the injection was in the joint. I will schedule an injection for his right hip again. With respect to the assisted plan for his right hip, I believe he will want a SHRUTHI after his lumbar fusion especially as his goals are to return to tennis. He is scheduled to undergo lumbar fusion ~ December and I would expect hip arthroplasty to be possible about 6 weeks after lumbar fusion. I will see him back in ~ 3 months or sooner should questions arise. Plan Scribed for Gordo Ibarra MD by Shabbir Corbett, medical records secretary, on 12/04/23 at 1:24 PM, EST. Coding Level of Care Code Est Pt Level 4 (07811) Diagnoses Osteoarthritis of right hip M16.11
[2023-12-04 13:20] VITALS: BMI 23.0
== END 2023-12-04 13:53 | disposition home or self-care (01) ==
PROVIDERS: PCP Internal Medicine; Visit Provider Orthopaedic Surgery
DX: M16.11 Unilateral primary osteoarthritis, right hip (principal)
CPT/HCPCS: 99213

== ENCOUNTER → 2023-12-04 13:13 | Outpatient (BNVA) | payer MEDICARE, BC, SELFPAY | PROVIDERS: PCP Internal Medicine; Visit Provider Orthopaedic Surgery | DX: M16.11 Unilateral primary osteoarthritis, right hip (principal) | CPT/HCPCS: 99212 ==

== ENCOUNTER 2023-12-22 12:36 | Outpatient (AMB) | payer MEDICARE, BC, SELFPAY ==
--- NOTE | 2023-12-22 12:36 | A.OFFVIS_ITS ---
Intake Intake Visit Reasons: Tel-discuss injection/Dr. herrera, RT hip Intake Note: Foster is a 68 year old male who presents today VIA telehealth for an MRI review . Allergies COW HAIR Allergy (Unknown, Uncoded 12/22/23 12:37) + IN ALLERGY TESTING HPI Tel-discuss injection/Dr. herrera, RT hip HPI Details Foster having worsening right hip pain. Is very uncomfortable. Spine surgery planned for ~3 weeks [facility] Medical History HTN (hypertension) GERD (gastroesophageal reflux disease) Pneumonitis COPD (chronic obstructive pulmonary disease) Hyperlipidemia CAD (coronary artery disease) Mediastinal lymphadenopathy Pulmonary nodules MANDI (obstructive sleep apnea) Surgical History History of arthroscopy of both knees Hx of colonoscopy Hx of vein stripping Hx of bilateral cataract extraction Hx of bilateral inguinal hernia repair History of total knee replacement Family History Father Cancer Mother No problems noted. 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 I spoke with Dr Herrera and he estimates 4-6 weeks post op will be able to undergo SHRUTHI. I will have our nurse navigator reach out to Foster and schedule right SHRUTHI for ~ mid february. I spoke with Foster about this and we eugenio lcnacel the hip injection. Telehealth Telehealth Location of provider rendering services: practice address Location of patient: address on file Patient Identification confirmed using: Name, : Yes Telehealth method: voice only Patient verbally consented to treatment: Yes Patient verbally consented to billing insurance company: Yes Patient informed of any privacy concerns related to visit: Yes Coding Level of Care Code Tele Est Pt Level 4 (71885) Diagnoses Osteoarthritis of right hip M16.11
== END 2023-12-22 13:02 | disposition home or self-care (01) ==
LOC: HO.HOS 12:36
PROVIDERS: PCP Internal Medicine; Visit Provider Orthopaedic Surgery
DX: M16.11 Unilateral primary osteoarthritis, right hip (principal)
CPT/HCPCS: 99441

== ENCOUNTER → 2023-12-22 12:36 | Outpatient (BNVA) | payer MEDICARE, BC, SELFPAY | PROVIDERS: PCP Internal Medicine; Visit Provider Orthopaedic Surgery ==

== ENCOUNTER → 2024-01-04 09:00 | Outpatient (REF) | payer MEDICARE, BC, SELFPAY ==
--- NOTE | ~2024-01-04 | NM_ITS ---
Myocardial perfusion study Indication: Preoperative cardiovascular risk stratification Technique: The patient was brought in for a Lexiscan perfusion study on 01/04/2024. Patient performed low-level exercise and was injected 0.4 mg of Lexiscan intravenously. Within a minute of injection, 30 mCi of sestamibi was given intravenously. Images were obtained using the SPECT gamma camera interlaced with the gating device. Images were obtained in supine position. Resting perfusion study was performed on 01/05/2024. Patient was administered 30 mCi of sestamibi intravenously at rest. Images were then obtained in supine position. Images obtained with and without CT attenuation. Total DLP 108 mGy-cm. Images were processed with the software and compared side to side in short axis, horizontal long axis and vertical long axis views. Findings: Both stress and rest perfusion studies are somewhat suboptimal due to subdiaphragmatic uptake interfering with inferior wall uptake The stress perfusion study showed non attenuated study show moderately reduced uptake in the inferior wall of the LV myocardium. Attenuation corrected images show minimal thinning of the apex of the LV myocardium.. The gated study shows normal LV systolic function with calculated LVEF of 60%. LV cavity is normal in size. The gated study shows normal systolic wall thickening and contraction of segments. Resting study shows no significant change in perfusion pattern compared to stress perfusion study. Gating at rest reveals normal systolic wall motion with ejection fraction at 62%. The findings are consistent with no clear reversible defect suggestive of ischemia. Likely normal myocardial perfusion. NM/NM aba perf SPECT rest & str Impression: 1. Myocardial perfusion imaging study shows likely normal myocardial perfusion 2. Gated LVEF is 60% 3. Transient ischemic dilatation not present EKG is nondiagnostic for ischemia
--- NOTE | 2024-01-04 09:03 | CA_ITS ---
Acquisition Time: 2024-01-04 10:01:26 Total Exercise Time: 00:02:00 Test Indications: CAD Medications: Protocol: LEXISCAN Max HR: 100 BPM 66% of Pred: 151 BPM Max BP: 158/084 mmHG Max Work Load: 1.0 METS Pharmacological stress test with Lexiscan injection while sitting and kicking his legs, without anginal symptoms, with PVCs, Ventricular Bigeminy, ventricular cuplet, with normotensive response to injection, with nondiagnoisitic EKGs. Aminophylline 75mg IVP given to reverse Lexiscan. Nuclear images pending. Test reviewed with Dr. Mathur. Referred By: Christian Ellis Overread By: Lilo Amado
--- NOTE | 2024-01-04 09:03 | CA_ITS ---
Transthoracic Echocardiogram Patient (Last, First, Middle): Foster Clarke J Gender: Male Date of : 1955 Age: 68 Procedure Date: 01/04/2024 Procedure Type: Transthoracic Echocardiogram Location: OP Height: 190.5 cm Weight: 81.65 kg BSA: 2.10 m2 Heart Rate: bpm BP: 165 / 90 mmHg [employer]ine [employer] Equipment Technician: TO Referring MD: Christian Ellis MD Symptoms: I45.2 - Bifascicular block Study Quality: Adequate Conclusions: - 1. Normal LV ejection fraction 55-60% 2. Mild mitral regurgitation 3. Mildly dilated ascending aorta at 3.8 cm 4. Normal RV systolic pressure 5. No pericardial effusion Findings Left Ventricle Normal left ventricular size, thickness, and systolic function. The visually estimated ejection fraction is between 55-60%. Spectral Doppler is indicative of a normal filling pattern. E/E prime ratio is <8, consistent with normal filling pressures. Possible basal inferior wall motion abnormality. Peak GLS is -18.3%, within normal limits. Right Ventricle Normal right ventricular cavity size and systolic function. Atria The left atrium is likely dilated. There is no evidence of interatrial shunt. The right atrium is normal in size. Aortic Valve The aortic valve structure and function is likely normal. There is no aortic valve stenosis. There is no aortic valve regurgitation. Mitral Valve There is mild anterior mitral leaflet thickening. There is trace mitral valve regurgitation. There is no mitral valve stenosis. Pulmonic Valve The pulmonic valve is likely normal. There is trace pulmonic valve regurgitation. Tricuspid Valve Normal tricuspid valve structure. There is trace tricuspid valve regurgitation. The right ventricular systolic pressure is normal. The right ventricular systolic pressure is 28 mmHg. Normal right atrial pressure. There is no evidence of pulmonary hypertension. Great Vessels The pulmonary artery was not well visualized. There is mild dilatation of the ascending aorta measuring 3.80 cm. Venous The inferior vena cava is normal in size and collapses greater than 50% with inspiration. Pericardium/Pleural There is no evidence of pericardial effusion. Prior Study Comparison Changes noted compared to prior study dated: 09/30/2019. ascending aortic size is mildly enlarged on this study Measurements 2D Linear Measurements IVSd: 1.15 0.6-0.9/0.6-1.0 cm LVIDd: 5.10 3.9-5.3/4.2-5.9 cm LVIDd Index: 2.43 2.4-3.2/2.2-3.1 cm/m2 LVIDs: 3.17 2.0-3.6 cm LVPWd: 1.15 0.7-1.1 cm LA Diam: 3.90 2.7-3.8/3.0-4.0 cm LAIDs Index: 1.86 1.5-2.3 cm/m2 LV Mass: 342.41 67-162/88-224 g LV Mass Index: 163.05 43-95/49-115 g/m2 LVOT Diam: 2.60 3.0+(-)1.3 cm 2D Systolic Function EF 4C: 56.50 >55% EF 2C: 60.50 >55% EF BiP: 58.80 >55% Mitral Valve MV Pk E: 0.74 MV PK A: 0.60 MV Decel Time: 249.00 E/A: 1.20 E'Lateral: 9.79 E'Medial: 6.96 E/E' Med: 10.60 E/E' Lat: 7.60 PHT: 73.00 MVA PHT: 3.01 Decel Grady: 2.97 Aortic Valve AoV Pk Rommel: 1.21 AoV Mn Rommel: 0.85 AoV VTI: 0.29 AoV Pk Grad: 6.00 Aov Mn Grad: 3.00 ALYCIA Cont.VTI: 3.44 LVOT LVOT Pk Rommel: 0.73 LVOT Mn Rommel: 0.48 LVOT VTI: 0.19 LVOT Pk Grad: 2.00 LVOT Mn Grad: 1.00 LVOT Diam: 2.60 LVOT Area: 5.31 Diastolic Function MV Pk E: 0.74 MV Pk A: 0.60 E/A: 1.20 E'Medial: 6.96 E/E' Med: 10.60 E' Laterial: 9.79 E/E' Lat: 7.60 Right Ventricle TAPSE (mm): 23.30 TVS' Rommel: 12.70 Tricuspid Valve TR Pk Rommel: 2.26 TR Pk Grad: 20.00 RA Press: 8.00 RVSP: 28.00 Great Vessels Aorta Sinus of Valsalva: 3.70 2.0-3.5 cm Ao Asc: 3.80 2.1-3.4 cm Updated in Other Vendor System with Status of Final Christian Ellis MD electronically signed on 01/05/2024 2:16:58 PM with status of Final
== END ==
LOC: HO.CARD 09:00
PROVIDERS: PCP Internal Medicine; Visit Provider Internal Medicine Cardiovascular Disease
DX: Z01.810 Encounter for preprocedural cardiovascular examination (principal); I45.2 Bifascicular block
CPT/HCPCS: 78452; 93017; 93306; 93356; A9500; J0280; J2785

== ENCOUNTER → 2024-01-04 09:03 | Outpatient (BNV) | payer MEDICARE, BC, SELFPAY | PROVIDERS: PCP Internal Medicine; Visit Provider Internal Medicine Cardiovascular Disease | DX: I25.10 Atherosclerotic heart disease of native coronary artery without angina pectoris (principal) | CPT/HCPCS: 78452; 93016; 93018; 93306 ==

== ENCOUNTER → 2024-01-15 06:05 | Outpatient (BNV) | payer MEDICARE, BC, SELFPAY | PROVIDERS: PCP Internal Medicine; Visit Provider Neurological Surgery | DX: M48.062 Spinal stenosis, lumbar region with neurogenic claudication (principal); Z48.89 Encounter for other specified surgical aftercare | CPT/HCPCS: 20930; 22558; 22612; 22840; 22853; 99024; 99499 ==

== ENCOUNTER 2024-01-15 15:14 | Inpatient (IN) | payer MEDICARE, BC, SELFPAY ==
--- NOTE | 2023-10-20 | ECG_ITS ---
Test Reason : preop Blood Pressure : / mmHG Vent. Rate : 078 BPM Atrial Rate : 078 BPM P-R Int : 194 ms QRS Dur : 122 ms QT Int : 386 ms P-R-T Axes : 048 -45 053 degrees QTc Int : 440 ms Normal sinus rhythm Left anterior fascicular block Abnormal ECG When compared with ECG of 23-FEB-2017 15:24, No significant change was found Referred By: Olivia Wilcox Electronically Signed By:GUANAKITO MCKEON MD
[2023-10-20 12:07] VITALS: BP 180/103; PULSE 89; RESP 16; O2SAT 99; BMI 22.7
--- NOTE | 2023-10-20 12:31 | P.CONAN_ITS ---
HPI - Anesthesia Eval Consult details Narrative: Rescheduled to Dec 2023 67yo M for L4-5, Oblique Lumbar Interbody Fusion No recent illness No CP/SOB with weekly tennis and walking. Pulled left upper back muscle. HTN. BP elevated at PAT and pt reports increased readings on home bp checks. Lisinopril recently increased by PCP. Requesting optimization prior to surgery. COPD. Mild. No inhaler use CAD. Stable. [place] [facility] [place]. Last office visit 11/2021. MANDI. CPAP nightly PMFSH Active Problems Active Problems: All Active Problems (Updated 10/20/23 @ 12:29 by Francine Roper RN) Lumbar stenosis with neurogenic claudication (Acute) Spondylolisthesis, lumbar region (Acute) Tendonitis of right hip flexor (Acute) Osteoarthritis of right hip (Acute) HLD (hyperlipidemia) (Acute) Pneumonitis (Acute) COPD (chronic obstructive pulmonary disease) (Acute) CAD (coronary artery disease) (Acute) Hyperlipidemia (Acute) Mediastinal lymphadenopathy (Acute) Pulmonary nodules (Acute) MANDI (obstructive sleep apnea) (Acute) Past Medical History Medical History (Updated 10/20/23 @ 12:29 by Francine Roper RN) HTN (hypertension) GERD (gastroesophageal reflux disease) Pneumonitis COPD (chronic obstructive pulmonary disease) Hyperlipidemia CAD (coronary artery disease) Mediastinal lymphadenopathy Pulmonary nodules MANDI (obstructive sleep apnea) Family History Family History Father Cancer Mother No problems noted. Family history of problems with anesthesia: No Surgical History Surgical History (Updated 10/20/23 @ 11:58 by Francine Roper RN) History of arthroscopy of both knees Hx of colonoscopy Hx of vein stripping Hx of bilateral cataract extraction Hx of bilateral inguinal hernia repair History of total knee replacement History of Problems with Anesthesia: No Social History Social History Are you a primary out of school hours care worker to a significant other at home: No Do you presently have visiting nurse or other home services: No Alcohol intake: current Alcohol intake frequency: a few times a week Comment: aware of trip hazard Patient Tobacco Use Status: Never used Tobacco Current occupational status: employed 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 Meds Allergies Allergy/AdvReac Type Severity Reaction Status Date / Time COW HAIR Allergy Unknown + IN Uncoded 10/20/23 12:03 ALLERGY TESTING Home Medications Medication Instructions Recorded Confirmed Last Taken Type betamethasone valerate 0.1 % applic topical BID PRN Rash 09/15/20 08/02/22 Unknown History topical cream omeprazole 20 mg capsule,delayed 20 mg PO .qod 03/11/21 10/20/23 Unknown History release albuterol sulfate 90 mcg/actuation 2 puff inhalation Q4-6H PRN 10/20/23 10/20/23 Unknown History aerosol inhaler (ProAir HFA) Shortness Of Breath Or Wheezing atorvastatin 40 mg tablet 40 mg PO BEDTIME 10/20/23 10/20/23 Unknown History lisinopril 30 mg tablet 30 mg PO DAILY 10/20/23 10/20/23 Unknown History Exam Height,Weight and Vital Signs: Height 6 ft 3 in Weight 82.554 kg Last Vital Signs Pulse 89 10/20/23 12:07 Resp 16 10/20/23 12:07 BP 180/103 H 10/20/23 12:07 Pulse Ox 99 10/20/23 12:07 O2 Del Method Room Air 10/20/23 12:07 Airway Mallampati Class: III TM Dist: >3cm Neck ROM: Full Loose/Missing/Broken Teeth: No (Crowned molar) Heart: RRR Lungs: CTAB Assessment and Plan Assessment Anesthesia Assessment: Anesthesia Plan Discussed and PAT Visit Final Anesthetic Review Family History of Problems with Anesthesia: No History of Problems with Anesthesia: No
[2024-01-11 12:14] VITALS: BP 149/88; PULSE 76; RESP 16; O2SAT 98; BMI 22.9
--- NOTE | 2024-01-11 12:35 | P.CONAN_ITS ---
Documented by User: Olivia Wilcox NP 01/12/24 09:00 HPI - Anesthesia Eval Consult details Narrative: 67yo M for L4-5, Oblique Lumbar Interbody Fusion No recent illness No CP/SOB with weekly tennis (prior to injury) and walking. Pulled left upper back muscle. HTN. BP elevated at PAT and pt reports increased readings on home bp checks. Lisinopril recently increased by PCP. Requesting optimization prior to surgery. COPD. Mild. No inhaler use CAD. Stable. Follows [facility] [place] cardiology Q2 years. Last office visit 11/2021. MANDI. CPAP nightly [facility] Active Problems Active Problems: All Active Problems (Updated 11/24/23 @ 11:29 by Christian Ellis MD) HTN (hypertension) (Acute) Preoperative cardiovascular examination (Acute) Bifascicular block (Acute) Lumbar stenosis with neurogenic claudication (Acute) Spondylolisthesis, lumbar region (Acute) Tendonitis of right hip flexor (Acute) Osteoarthritis of right hip (Acute) HLD (hyperlipidemia) (Acute) Pneumonitis (Acute) COPD (chronic obstructive pulmonary disease) (Acute) CAD (coronary artery disease) (Acute) Hyperlipidemia (Acute) Mediastinal lymphadenopathy (Acute) Pulmonary nodules (Acute) MANDI (obstructive sleep apnea) (Acute) Past Medical History Medical History HTN (hypertension) GERD (gastroesophageal reflux disease) Pneumonitis COPD (chronic obstructive pulmonary disease) Hyperlipidemia CAD (coronary artery disease) Mediastinal lymphadenopathy Pulmonary nodules MANDI (obstructive sleep apnea) Family History Family History Father Cancer Mother No problems noted. Family history of problems with anesthesia: No Surgical History Surgical History History of arthroscopy of both knees Hx of colonoscopy Hx of vein stripping Hx of bilateral cataract extraction Hx of bilateral inguinal hernia repair History of total knee replacement History of Problems with Anesthesia: No Social History Social History (Updated 01/11/24 @ 12:28 by Francine Roper RN) Household Members: Family Housing: House Are you a primary care transition manager to a significant other at home: No Do you presently have visiting nurse or other home services: No Alcohol intake: current Alcohol intake frequency: holidays/special occasions only Comment: aware of trip hazard Patient Tobacco Use Status: Never used Tobacco Advance Directives: No Advance Directives Information Provided: No service: No Current occupational status: employed and retired 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 Meds Allergies Allergy/AdvReac Type Severity Reaction Status Date / Time COW HAIR Allergy Unknown + IN Uncoded 01/15/24 06:13 ALLERGY TESTING Home Medications Medication Instructions Recorded Confirmed Last Taken Type betamethasone valerate 0.1 % applic topical BID PRN Rash 09/15/20 11/24/23 Unknown History topical cream omeprazole 20 mg capsule,delayed 20 mg PO .qod 03/11/21 11/24/23 01/15/24 History release albuterol sulfate 90 mcg/actuation 2 puff inhalation Q4-6H PRN 10/20/23 11/24/23 Unknown History aerosol inhaler (ProAir HFA) Shortness Of Breath Or Wheezing atorvastatin 40 mg tablet 40 mg PO BEDTIME 10/20/23 11/24/23 Unknown History aspirin 81 mg tablet,delayed 81 mg PO BEDTIME 01/11/24 01/11/24 Unknown History release metoprolol succinate 50 mg 50 mg PO BEDTIME 01/11/24 01/11/24 Unknown History tablet,extended release 24 hr (Toprol XL) psyllium husk (with sugar) 3 2 tbsp PO DAILY 01/11/24 01/11/24 Unknown History gram/7 gram oral powder (Metamucil (with sugar)) Exam Height,Weight and Vital Signs: Height 6 ft 3 in Weight 83.007 kg Last Vital Signs Pulse 76 01/11/24 12:14 Resp 16 01/11/24 12:14 BP 149/88 H 01/11/24 12:14 Pulse Ox 98 01/11/24 12:14 O2 Del Method Room Air 01/11/24 12:14 Pertinent Lab Results Pertinent Lab Results: Laboratory Tests 10/24/23 15:05 Blood Type B Positive Antibody Screen NEGATIVE Lab Results 10/24/23 01/11/24 01/11/24 Range/Units 15:05 13:03 13:08 WBC 3.6 L (4.8-10.8) X10*3/uL RBC 4.27 L (4.60-5.80) X10*6/uL Hgb 13.0 L (14.0-18.0) g/dl Hct 38.2 L (42.0-52.0) % MCV 89.5 (80.0-98.0) fL MCH 30.4 (27.0-33.0) pg MCHC 34.0 (31.0-36.0) g/dl RDW 12.7 (11.0-16.0) % Plt Count 143 L (160-400) X10*3/uL MPV 9.2 L (9.4-12.4) fL Absolute Nucleated RBC 0.000 (0.0-0.012) X10*3/uL Nucleated RBC % (auto) 0.0 (0.0-0.2) /100WBC Sodium 136 (135-145) mmol/L Potassium 4.0 (3.3-5.1) mmol/L Chloride 100 (96-108) mmol/L Carbon Dioxide 30 H (22-29) mmol/L Anion Gap 10 L (12-20) BUN 17 H (9-16) mg/dL Creatinine 0.79 (0.5-1.4) mg/dL Estim Creat Clear Calc 103.6 Estimated GFR > 60 Random Glucose 87 (60-115) mg/dL Calcium 9.1 (8.4-10.2) mg/dL Blood Type B Positive B Positive Antibody Screen NEGATIVE NEGATIVE Narrative Narrative: EKG 12/2023 NSR @ 86 RBBB LAFB Bifasicular block NM aba perf SPECT rest & str 12/2023 Impression: 1. Myocardial perfusion imaging study shows likely normal myocardial perfusion 2. Gated LVEF is 60% 3. Transient ischemic dilatation not present EKG is nondiagnostic for ischemia ECHO 12/2023 Conclusions: - 1. Normal LV ejection fraction 55-60% 2. Mild mitral regurgitation 3. Mildly dilated ascending aorta at 3.8 cm 4. Normal RV systolic pressure 5. No pericardial effusion Airway Mallampati Class: III TM Dist: >3cm Neck ROM: Full Loose/Missing/Broken Teeth: No (Crowned molar) Heart: RRR Lungs: CTAB Assessment and Plan Assessment Anesthesia Assessment: Anesthesia Plan Discussed and PAT Visit Final Anesthetic Review Family History of Problems with Anesthesia: No History of Problems with Anesthesia: No Documented by User: Herson Vences MD 01/15/24 07:09 [facility] Past Medical History Medical History HTN (hypertension) GERD (gastroesophageal reflux disease) Pneumonitis COPD (chronic obstructive pulmonary disease) Hyperlipidemia CAD (coronary artery disease) Mediastinal lymphadenopathy Pulmonary nodules MANDI (obstructive sleep apnea) Family History Family History Father Cancer Mother No problems noted. Surgical History Surgical History History of arthroscopy of both knees Hx of colonoscopy Hx of vein stripping Hx of bilateral cataract extraction Hx of bilateral inguinal hernia repair History of total knee replacement Social History Social History (Updated 01/11/24 @ 12:28 by Francine Roper RN) Household Members: Family Housing: House Are you a primary care transition manager to a significant other at home: No Do you presently have visiting nurse or other home services: No Alcohol intake: current Alcohol intake frequency: holidays/special occasions only Comment: aware of trip hazard Patient Tobacco Use Status: Never used Tobacco Advance Directives: No Advance Directives Information Provided: No service: No Current occupational status: employed and retired 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 Meds Allergies Allergy/AdvReac Type Severity Reaction Status Date / Time COW HAIR Allergy Unknown + IN Uncoded 01/15/24 06:13 ALLERGY TESTING Home Medications Medication Instructions Recorded Confirmed Last Taken Type betamethasone valerate 0.1 % applic topical BID PRN Rash 09/15/20 11/24/23 Unknown History topical cream omeprazole 20 mg capsule,delayed 20 mg PO .qod 03/11/21 11/24/23 01/15/24 History release albuterol sulfate 90 mcg/actuation 2 puff inhalation Q4-6H PRN 10/20/23 11/24/23 Unknown History aerosol inhaler (ProAir HFA) Shortness Of Breath Or Wheezing atorvastatin 40 mg tablet 40 mg PO BEDTIME 10/20/23 11/24/23 Unknown History aspirin 81 mg tablet,delayed 81 mg PO BEDTIME 01/11/24 01/11/24 Unknown History release metoprolol succinate 50 mg 50 mg PO BEDTIME 01/11/24 01/11/24 Unknown History tablet,extended release 24 hr (Toprol XL) psyllium husk (with sugar) 3 2 tbsp PO DAILY 01/11/24 01/11/24 Unknown History gram/7 gram oral powder (Metamucil (with sugar)) Exam Airway Mallampati Class: I Assessment and Plan Final Anesthetic Review NPO: Yes ASA Class: III Final Preanesthetic Review: No Changes in Pt Med Stat, Meds/Allgs Chart Reviewed, Consent Obtained/Reviewed and Anes Risks/Benef Reviewed Patient Risk: Intermediate Procedure Risk: Intermediate Anesthetic Plan Anesthetic Plan: GA Disposition: Standard PACU
[2024-01-11 13:27] LABS: Hematocrit 38.2 % (42.0-52.0); Mean Corpuscular Hemoglobin 30.4 pg (27.0-33.0); Mean Corpuscular Volume 89.5 fL (80.0-98.0); Mean Platelet Volume 9.2 fL (9.4-12.4); Platelet Count 143 X10*3/uL (160-400); Red Blood Count 4.27 X10*6/uL (4.60-5.80); Red Cell Distribution Width 12.7 % (11.0-16.0); White Blood Count 3.6 X10*3/uL (4.8-10.8)
[2024-01-11 13:52] LABS: Anion Gap 10 (12-20); Blood Urea Nitrogen 17 mg/dL (9-16); Calcium 9.1 mg/dL (8.4-10.2); Carbon Dioxide 30 mmol/L (22-29); Chloride 100 mmol/L (96-108); Creatinine Clr Calc Pharmacy 103.6; Estimated Glomerular Filt Rate > 60; Glucose Random 87 mg/dL (60-115); Sodium 136 mmol/L (135-145)
[2024-01-15] VITALS (20 sets, daily range): BP systolic 102–154; BP diastolic 62–100; PULSE 60–86; RESP 12–20; TEMP 36–37.1; O2SAT 95–100; BMI 23.0
--- NOTE | ~2024-01-15 | FL_ITS ---
EXAMINATION: XR FLUOROSCOPY WITH IMAGES CLINICAL INFORMATION: Interbody fusion COMPARISON: 09/06/2023 TECHNIQUE: Fluoroscopy Supervised By: Dr. Ozuna Fluoroscopy Time: 1 minute 46.3 seconds. Cumulative Dose: 59.126 mGy. DAP: 18.47 Gycm2. Images: 3. FINDINGS: 3 images obtained by C-arm camera during placement of interbody spacer by Dr. Ozuna at FL/FL guidance in OR IMPRESSION: Interbody spacer placement.
[2024-01-15] MEDS: Lactated Ringers 1,000 ML 100 ML IVCONT (06:22)
--- NOTE | 2024-01-15 06:55 | MHC.SHP ---
Pre-Procedural Eval Section A - 24 Hr Update-Section A only Date of Service: 01/15/24 The patient is an INPATIENT: No Changes since office visit: No Cold of Flu in the past 2 weeks, No New Medical Problems, No Changes in Medication and No Patient answered all questions The patient has been examined within 24 hours of the surgical procedure. The History & Physical has been completed within 30 days and I have reviewed it.: No Section B - Complete if H&P > 30 days Chief Complaint: Spinal stenosis, lumbar region with neurogenic cla Allergies: Allergies Allergy/AdvReac Type Severity Reaction Status Date / Time COW HAIR Allergy Unknown + IN Uncoded 01/15/24 06:13 ALLERGY TESTING Review of Systems Sugical H&P ROS: Negative: Constitution, Cardiovascular, Respiratory, Neurological, Psychiatric, Hem-Onc, Allergic/Immunologic, Gastrointestinal, Genitourinary, Musculoskeletal, Integumentary, Endocrine and Eyes/Ears/Nose/Throat Exam Surgical H&P Exam: Not Evaluated: HEENT, Not Evaluated: Heart, Not Evaluated: Lungs, Not Evaluated: Extremities, Not Evaluated: Abdomen, Not Evaluated: Skin and Not Evaluated: Neurological Plan Diagnosis/Plan: Unchanged L4-5 oblique lumbar interbody fusion Time Spent With Patient Time: Total time managing care of this patient today __5__ minutes.
[2024-01-15] MEDS: methocarbamoL 750 MG TABLET PO (07:06)
[2024-01-15] MEDS: Gabapentin 300 MG CAPSULE PO (07:06)
--- NOTE | 2024-01-15 09:51 | P.OP_ITS ---
Operative Note Operative Note Date of Service: 01/15/24 Narrative: Preop Diagnosis: 1.) Lumbar spondylolisthesis Procedure: L4-5 discectomy, arthrodesis and implantation cage through an anterolateral, retroperitoneal approach; posterior instrumented fusion L4-5; allograft Consent Informed Consent was obtained for this operation. I have explained the nature, purpose and benefits of the operation. I have discussed the risks and benefit of the operation including possible complications or adverse events with patient/family. Alternative(s) were discussed with the patient with their relative benefits and risks as well as the consequences of not accepting the operation were included in obtaining consent. Surgeon: JEAN HARP MD, PHD Procedure Assisted By: Dustin zelaya Description of Procedure This patient is suffering from back pain and lumbar radiculopathy due to a grade 2 L4-5 spondylolisthesis. The patient was offered an oblique lumbar interbody fusion L4-5. The procedure complications were explained. The patient was consented. The patient was brought to the operating room and endotracheally intubated. The patient was turned in a lateral position with the left side up. Prep and drape was done followed by timeout. A small incision was made in the left lower abdominal quadrant. The muscle fascia was opened after which the 3 muscle layer was split to enter the retroperitoneal space. Dilators were docked in the anterior one third of the L4-5 disc space followed by a retractor. The retractor was opened. The L4-5 disc space was exposed. An annulotomy was done after which an elevator Escobar was used to release the disc material from its endplates and to perforate the contralateral side. A partial discectomy was done. An 8 and 10 mm height trial implant was inserted. The discectomy was completed. The endplates were prepared. An 10 x 55 mm with his there degree lordosis 4 web cage filled with allograft was inserted into the disc space under fluoroscopic guidance. This resulted in partial reduction of the spondylolisthesis. The retractor was removed. Hemostasis was done. The incision was closed in 2 layers. Steri-Strips used to approximate incision. An OpSite with Tegaderm was used to cover the incision. This marked first part of the procedure. The patient was turned prone on the Pan spine table. 2C arms were installed for fluoroscopy. Prep and drape was done followed by a second timeout. 2 paramedian incisions were made lateral from the L4 and L5 pedicles. The muscle fascia was opened after which the muscle layer was split bluntly to expose the posterolateral gutter. The following steps were taken. A pediguard tap was used to create a transpedicular trajectory into the vertebral body. A K wire was placed. A specially designed instrument was advanced over the K wire to decorticate the posterolateral gutter in preparation for the posterolateral fusion. A pedicle screw was advanced over the K wire and the K wire was removed. The steps were done for the bilateral L4 and L5 pedicles. A total of 4 screws were placed with a diameter of 6.5 x 45 and a 6.5 x 50 mm in the right L4 pedicle. The pedicle screws were connected with 45 mm glenna bilaterally and locked down with locking caps. The extension towers were removed. The po sterolateral gutter was filled with allograft to complete the posterolateral L4- 5 fusion Hemostasis was done and the incision was closed in 2 layers. Steri- Strips were used to approximate the incision. An OpSite were taken and was used to cover the incision. All sponge and needle counts were correct. Patient was extubated and transferred in stable is to recovery room. Anesthesia: General Estimated Blood Loss (ml): 40 mL Duration of Surgery: 1 hour 45 Complications: None Postoperative Plan: Admit to inpatient for observation
[2024-01-15] MEDS: oxyCODONE HCl Immed Release 5 MG TABLET 10 MG PO (10:52)
[2024-01-15] MEDS: 0.9 % Sodium Chloride 1,000 ML 75 ML IVCONT (17:16)
[2024-01-15] MEDS: Ketorolac Tromethamine 15 MG/ML VIAL IVPUSH ×2 (17:23→21:55)
--- NOTE | 2024-01-15 17:23 | PHA.MEDREC ---
Pharmacy Consult ? Medication Reconciliation Pharmacy has completed the medication reconciliation. Patient confirmed medications. Reported that he did not take his Lisinopril this AM per Drs instructions.
[2024-01-15] MEDS: Acetaminophen 1,000 MG/100 ML PIGGYBACK 400 MG IV ×2 (17:29→22:45)
[2024-01-15] MEDS: ceFAZolin Sodium/Dextrose,Iso 2 GM/50 ML PIGGYBACK IV ×2 (18:20→23:17)
[2024-01-15] MEDS: lisinopriL 20 MG TABLET PO (20:06)
[2024-01-15] MEDS: Atorvastatin Calcium 40 MG TABLET PO (20:07)
[2024-01-15] MEDS: amLODIPine Besylate 2.5 MG TABLET PO (20:07)
[2024-01-15] MEDS: Metoprolol Succinate ER 50 MG TAB.ER.24H PO (20:07)
[2024-01-16 03:27] VITALS: BP 120/57; PULSE 79; RESP 18; TEMP 36.8; O2SAT 94
[2024-01-16] MEDS: Ketorolac Tromethamine 15 MG/ML VIAL IVPUSH (04:48)
[2024-01-16] MEDS: Acetaminophen 1,000 MG/100 ML PIGGYBACK 400 MG IV (04:49)
[2024-01-16] MEDS: 0.9 % Sodium Chloride 1,000 ML 75 ML IVCONT (06:06)
[2024-01-16] MEDS: ceFAZolin Sodium/Dextrose,Iso 2 GM/50 ML PIGGYBACK IV (06:06)
--- NOTE | 2024-01-16 07:37 | HO.NEURO.PN ---
Neurosurgery Operative Note Date of Service: 01/16/24 Narrative: Top day 1. L4-5 oblique lumbar interbody fusion Patient reports minimal back pain, he is voiding okay and tolerating a diet. His preoperative left leg pain is gone. Otherwise his 1st night was unremarkable Afebrile, vital signs stable Physical exam: Patient is awake alert oriented no acute distress full strength of bilateral lower extremities, abdomen soft nondistended nontender, left lower quadrant incision clean and dry, back dressings clean and dry Impression: Postop day 1. L4-5 oblique lumbar interbody fusion, clinically doing well, seen at bedside with Dr. Ozuna. He is met criteria for discharge will be sent home. Discharge instructions briefly discussed.
[2024-01-16 08:00] VITALS: BP 119/62; PULSE 73; RESP 12; TEMP 36.7; O2SAT 96
--- NOTE | 2024-01-16 08:48 | P.DS_ITS ---
DS: Providers Provider Date of Service: 01/15/24 Date of admission: 01/15/24 15:14 Date of discharge: 01/16/24 Primary care physician: Rajiv Martino MD Admitting clinician: Carroll Ozuna DS: Diagnosis Discharge Diagnosis (1) Lumbar stenosis with neurogenic claudication: Status: Acute DS: Summary Time Attestation Discharge coordination time: Less than 30 minutes Quality: Safe Use of Opioids Does Pt have an Active Cancer Diagnosis on the Problem List?: No Quality: Stroke Does the patient have a stroke diagnosis?: No Physical Exam Vital Signs: Vital Signs: Last Vital Signs Temp 98.1 F 01/16/24 08:00 Pulse 73 01/16/24 08:00 Resp 12 01/16/24 08:00 BP 119/62 01/16/24 08:00 Pulse Ox 96 01/16/24 08:00 O2 Del Method Room Air 01/16/24 08:00 O2 Flow Rate 2 01/15/24 14:15 BMI result Body Mass Index 23.0 Discharge Plan Discharge Anticipated Discharge Date/Time: 01/16/24 13:49 Patient Disposition: Home, Self-Care Discharge Diagnosis: L4-5 spondylolisthesis Referrals: Rajiv Martino MD [Primary Care Provider] - 1 Week Discharge Medications: New oxycodone 5 mg tablet See Rx Instructions .ROUTE .COMPLEX PRN (Reason: pain) Qty: 40 0RF Rx Instructions: 1-2 tabs po q4 hours prn pain; Partial Fill upon patient request. Continued atorvastatin 40 mg tablet 40 mg PO BEDTIME metoprolol succinate [Toprol XL] 50 mg tablet extended release 24 hr 50 mg PO BEDTIME aspirin 81 mg tablet,delayed release (DR/EC) 81 mg PO BEDTIME psyllium husk (with sugar) [Metamucil (with sugar)] 3 gram/7 gram Powder 2 tbsp PO DAILY betamethasone valerate 0.1 % cream 1 applic topical BID PRN (Reason: Rash) omeprazole 20 mg capsule,delayed release(DR/EC) 20 mg PO .qod lisinopril 20 mg tablet 20 mg PO BID Qty: 60 2RF amlodipine 2.5 mg tablet 2.5 mg PO BID Qty: 60 2RF Discharge Orders: Discharge Order (Routine); Ordered 01/16/24 Ordered By: Dustin Arora Diet: Advance to usual diet Activity on Discharge: As tolerated Stand Alone Forms: Patient Portal Discharge page Activity Restrictions/Additional Instructions: After your spinal surgery we ask you to observe the following restrictions/guidelines: Activity: It is normal to feel some discomfort as you increase your activity, but that will improve with time. We ask you avoid heavy lifting or acitivities that cause pain. As a general r ule, 8lbs is a safe limit for lifting right after surgery. Walk as much as you feel comfortable but not to exhaustion. You will feel extra tired the first few days after surgery. Stay well hydrated. It is OK to walk up and down stairs You may return to driving when you are off narcotics (such as vicodin, oxycodone, dilaudid, etc), and you are back to normal functional capacity. If you have any concerns please check with office before driving. Return to work is specific to each patient and each surgery, so please speak with your doctor/PA at first follow up. Please bring paperwork such as FMLA at that time if you need it filled out. Medications: For optimum pain control, it is best to start with a combination of 500 mg of Tylenol every 4 hours with 600 mg of Motrin every 8 hours, and use narcotics as needed in between for breakthrough pain. We will give you a short supply of narcotics after surgery (usually one weeks worth). If you need more please call the office but do not use more than prescribed. You will need to give our office 48 hours notice if you need narcotics refilled and we do not fill narcotics on weekends or evenings. If you are on a narcotic, it is a good idea to take a stool softener such as colace or senna to avoid constipation If you take blood thinner such as aspirin, Plavix, Coumadin, Effient, Eliquis e tc for conditions such as Afib, DVT, Pulmonary embolus, coronary disease, stents etc please speak with your surgeon about specific details as to when you can resume these medications. You can resume NSAIDs on post op day 1 (eg: Motrin, Naproxen, etc). Follow up: Please call the office, , after surgery to arrange a 3 week follow up for wound check. Wound Care: You may remove your dressing on the first day after surgery. ?You may ?leave open to air. Please do not remove the steri strips underneath. they will fall off on their own in one week. IT IS NORMAL FOR THE WOUND TO OOZE OR BE BLOODY FOR A FEW DAYS AFTER SURGERY. ?IF THIS HAPPENS JUST PLACE NEW DRESSING OVER IT TO AVOID STAINING CLOTHES. You may shower on post op day # 1 We ask that you do not let the water soak the wound. If it does get wet, just towel dry lightly. Please do not scrub your incision or place any type of chemical/ointment on the wound. No tub baths, pools or jacuzzis for one month. If you have any leaking or redness from your wound, or fevers, please call office Care Plan Goals: Discharge home Health Concerns: None Plan of Treatment: Discharge home Assessment: Stable
[2024-01-16] MEDS: Psyllium seed 3.7 GM PACKET PO (08:57)
[2024-01-16] MEDS: lisinopriL 20 MG TABLET PO (08:57)
[2024-01-16] MEDS: amLODIPine Besylate 2.5 MG TABLET PO (08:57)
--- NOTE | 2024-01-16 10:27 | MHC.CM.PN ---
PT DCD HOME NO SERVIES PT IS INDEPENDENT
--- NOTE | 2024-01-16 12:30 | HO.POSTANES ---
Post Anesthesia Evaluation Post Anesthesia Evaluation Date of Service: 01/16/24 Vital Signs: Vital Signs Temp Pulse Resp BP Pulse Ox O2 Del Method 01/16/24 08:00 98.1 F 73 12 119/62 96 Room Air 01/16/24 03:27 98.2 F 79 18 120/57 L 94 Room Air Anesthesia: General Endotracheal-GETA Mental Status: Awake Pain Control: Satisfactory Nausea/Vomiting: None Hydration: Adequate Anesthesia-Related Issues: No Anes. Related Issues
== END 2024-01-16 09:35 | disposition home or self-care (01) | DRG 460 ==
LOC: HO.SSSA 15:15 → HO.S3 15:16
PROVIDERS: Neurological Surgery; Nurse Practitioner; Admitting Provider Physician Assistant; PCP Internal Medicine; Visit Provider Physician Assistant
PROC: 0SG00A0 Fusion of Lumbar Vertebral Joint with Interbody Fusion Device, Anterior Approach, Anterior Column, Open Approach (ICD-10-PCS; principal; 2024-01-15 07:30)
DX: M48.062 Spinal stenosis, lumbar region with neurogenic claudication (principal); I25.10 Atherosclerotic heart disease of native coronary artery without angina pectoris; Z79.82 Long term (current) use of aspirin; Z79.899 Other long term (current) drug therapy
CPT/HCPCS: 36415; 80048; 85027; 86850; 86900; 86901; 93005; 97161; C1713; C9290; J0131; J0665; J0690; J1100; J1885; J2250; J2405; J2704; J3010; L8699

== ENCOUNTER 2024-01-29 07:42 | Outpatient (REF) | payer MEDICARE, BC, SELFPAY ==
--- NOTE | ~2024-01-29 | XR_ITS ---
EXAMINATION: XR PELVIS CLINICAL INFORMATION: Pain in unspecified hip COMPARISON: AP pelvis 05/03/2023 TECHNIQUE: AP view of the pelvis. FINDINGS: No fracture. There is severe narrowing of the superior-lateral aspect of the joint space of the right hip with [id number] bone appearance, subchondral sclerosis, cystic change and large osteophyte extending off the femoral head. There is mild degenerative change of the left hip. Alignment is anatomic. Sacroiliac joints and pubic symphysis are normal. No abnormal soft tissue calcifications. Intrapedicular screws and fusion rods with disc spacer is seen at L4-L5. No evidence of hardware complication. XR/XR pelvis 1-2V IMPRESSION: 1. Severe osteoarthritis of the right hip. 2. Mild osteoarthritis of the left hip. 3. Status post fusion L4-L5 without evidence of hardware complication.
== END 2024-01-29 07:43 | disposition home or self-care (01) ==
LOC: HO.HOSX 07:42
PROVIDERS: Visit Provider Orthopaedic Surgery
DX: M16.11 Unilateral primary osteoarthritis, right hip (principal); Z98.1 Arthrodesis status
CPT/HCPCS: 72170; 99212

== ENCOUNTER 2024-01-29 09:31 | Outpatient (AMB) | payer MEDICARE, BC, SELFPAY ==
--- NOTE | 2024-01-29 09:36 | MHC.OFFVIS ---
Intake Intake Visit Reasons: OV per NE RT SHRUTHI 03/12/24 Intake Note: Foster is a 68 year old male who presents today for a follow up of his right hip OA to discuss upcoming surgery. He is booked for a Right SHRUTHI 03/12/24 Allergies COW HAIR Allergy (Unknown, Uncoded 01/15/24 06:13) + IN ALLERGY TESTING HPI OV per NE RT SHRUTHI 03/12/24 HPI Details Foster is a 68 year old male who presents today for a follow up of his right hip OA to discuss upcoming surgery. He is booked for a Right SHRUTHI 03/12/24. He had a L4-5 fusion recently and feels much better than prior. His buttock and radicular pain have improved and he is been walking regularly. His only complaint of pain is his right groin and extending into the medial aspect of his right leg. He is scheduled for surgery in about 6 weeks and he is here today just to discuss and make sure we are on track. [facility] Medical History HTN (hypertension) GERD (gastroesophageal reflux disease) Pneumonitis COPD (chronic obstructive pulmonary disease) Hyperlipidemia CAD (coronary artery disease) Mediastinal lymphadenopathy Pulmonary nodules MANDI (obstructive sleep apnea) Surgical History History of arthroscopy of both knees Hx of colonoscopy Hx of vein stripping Hx of bilateral cataract extraction Hx of bilateral inguinal hernia repair History of total knee replacement Family History Father Cancer Mother No problems noted. 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 Resp Other: No audible wheezing Effort & Inspection: normal respiratory effort Back/Spine/Pelvis Cervical Spine: normal cervical lordosis Skin General skin exam: no rashes or lesions noted Neuro General: no focal motor deficits Extrem Other: Antalgic Trendelenburg gait on the right Positive impingement limited internal rotation on the right Psych Appearance: grossly normal and well kempt Mental Status: mental status grossly normal Speech and movement: Normal speech and movement present Affect: normal affect Attitude: cooperative Results Reviewed Results Reviewed: I personally reviewed relevant radiographs. Lumbar fusion instrumentation present Severe right hip osteoarthritis Assessment & Plan Assessment & Plan (1) Osteoarthritis of right hip: Code(s): M16.11 - Unilateral primary osteoarthritis, right hip Plan: Foster and I discussed the radiographic findings and the upcoming surgery. I think he continues to be on track and a good surgical candidate. He understands the procedure as well as risks benefits and alternatives. We will see him again for a preoperative appointment. He is also seeing his primary care doctor and doing the standard preoperative clearance protocol. Orders: Orders XR pelvis 1-2V Today M25.559 - Pain in unspecified hip Coding Level of Care Code Est Pt Level 3 (38524) Diagnoses Osteoarthritis of right hip M16.11
== END 2024-01-31 14:43 | disposition home or self-care (01) ==
PROVIDERS: PCP Internal Medicine; Visit Provider Orthopaedic Surgery
DX: M16.11 Unilateral primary osteoarthritis, right hip (principal)
CPT/HCPCS: 99213

== ENCOUNTER 2024-02-01 15:20 | Outpatient (AMB) | payer MEDICARE, BC, SELFPAY ==
--- NOTE | 2024-02-01 15:24 | A.OFFVIS_ITS ---
Intake Vital Signs 02/01/24 15:25 Height 6 ft 3 in Weight 187 lb 6.287 oz BMI 23.4 BP 150/70 H Blood Pressure Location Lt brachial Position Sitting Pulse 79 Pulse Source Pulse Oximeter Pulse Oximetry (%) 99 Oxygen Delivery Method Room Air Intake Visit Reasons: pre-op total hip arthoplasty Intake Note: pre-op clearance right hip at Dr. Ibarra 03/12/24. Clinical Associate Required: No Allergies COW HAIR Allergy (Unknown, Uncoded 02/01/24 15:27) + IN ALLERGY TESTING Medication List - Last Reconciled 02/01/24 by Eldon Fenton MD amlodipine 2.5 mg PO BID aspirin 81 mg PO BEDTIME atorvastatin 40 mg PO BEDTIME betamethasone valerate 0.1% 1 appl topical BID PRN lisinopril 20 mg PO BID metoprolol succinate ER (Toprol XL) 50 mg PO BEDTIME omeprazole 20 mg PO .qod psyllium husk (with sugar) 3 gram/7 gram (Metamucil (with sugar)) 2 tbsp PO DAILY [Raised toilet seat DURATION-99 DAYS] walker Folding Front wheeled walker -DURATION 99 DAYS Do you need a note to return to daycare/school/sports/work: No HPI pre-op total hip arthoplasty HPI Details This 68 years old very pleasant gentleman of relatively thin build, has chronic obstructive sleep apnea 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 He has been using CPAP for the past many many years, his CPAP device is quite old, and he is not getting supplies, which he has to by himself. However he does use the CPAP every night and sleeps well. He does not smoke. Denies history of cough wheezing or shortness of breath. He does have ProAir on hand which he hardly needs to use. He can walk around without getting much short of breath. Patient underwent to minimal spinal surgery a few weeks ago and recovered well. Now he is going to undergo left hip replacement under general anesthesia, and has been referred for pulmonary evaluation/Clearance . [facility] Medical History HTN (hypertension) GERD (gastroesophageal reflux disease) Pneumonitis COPD (chronic obstructive pulmonary disease) Hyperlipidemia CAD (coronary artery disease) Mediastinal lymphadenopathy Pulmonary nodules MANDI (obstructive sleep apnea) Surgical History History of arthroscopy of both knees Hx of colonoscopy Hx of vein stripping Hx of bilateral cataract extraction Hx of bilateral inguinal hernia repair History of total knee replacement Family History Father Cancer Mother No problems noted. 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 Review of Systems Const All systems reviewed & are unremarkable except as noted in HPI and below Eyes Reports no additional complaints ENT Reports nasal congestion (MILD INTERMITTENT) Resp Reports cough (VERY LITTLE IN THE MORNING.) and Denies wheezing GI Reports no additional complaints Reports no additional complaints Musc Reports no additional complaints Neuro Reports no additional complaints Aller/Immun Denies wheezing Physical Exam Vital Signs: Last Vital Signs Pulse 79 02/01/24 15:25 BP 150/70 H 02/01/24 15:25 Pulse Ox 99 02/01/24 15:25 Oxygen Delivery Method Room Air 02/01/24 15:25 BMI result Body Mass Index 23.4 Const General: healthy appearing, comfortable, no acute distress, alert and awake Orientation/consciousness: patient oriented x3 HEENT Head: Yes normal to inspection General nose exam: No nasal polyps present and No nasal discharge present Face and sinus: Yes sinuses nontender Mouth: oropharynx normal Throat: Yes posterior oropharynx normal Eyes General: appearance normal, both eyes and all related structures Neck Neck: Yes normal visual inspection, Yes no lymphadenopathy, Yes trachea midline and Yes no JVD Thyroid: Thyroid normal Chest Chest palpation & inspection: normal inspection of the chest, normal palpation of entire chest wall and no tenderness Resp Other: PERCUSSION NOTE HYPER-RESONANT, BREATH SOUNDS ARE EQUAL ON BOTH SIDES. NO WHEEZES RHONCHI OR CREPITATIONS ARE HEARD TODAY. Cardio Palpation: normal PMI Rate: regular rate Rhythm: regular rhythm Heart sounds: no gallops and no murmurs Peripheral pulses: Peripheral pulses 2+ throughout GI Palpation (GI): Soft to palpation, nontender, No hepatosplenomegaly present and no masses Auscultation: normal bowel sounds Back/Spine/Pelvis Thoracic/Lumbar Spine: thoracic and lumbar spine normal to inspection Skin General skin exam: no rashes or lesions noted Neuro General: patient oriented x3 and no focal motor deficits Cranial nerves: Yes CN's II-XII intact bilaterally Extrem General: Yes normal to inspection, Yes no clubbing, cyanosis or edema and Yes no calf tenderness Psych Appearance: grossly normal and well kempt Speech and movement: Normal speech and movement present Office Procedures Spirometry Testing Spirometry Comments: In office spirometry completed with printed results to Dr Fenton. [id number]- Spirometry Results Reviewed Results Reviewed: SPIROMETRY FVC= 77 % FEV!= 58 % FEV1/FVC= 56 FEF 25-75 = 32 % Assessment & Plan Assessment & Plan (1) COPD (chronic obstructive pulmonary disease): Comment: THIS 68 YEARS OLD GENTLEMAN DOES NOT HAVE HISTORY OF SMOKING, BUT HIS PARENTS SMOKED AND HE WAS EXPOSED TO SECONDHAND SMOKING. PER SPIROMETRY HE HAS MODERATELY SEVERE OBSTRUCTIVE AIRWAY DISORDER. CLINICALLY HE IS TOTALLY ASYMPTOMATIC Code(s): J44.9 - Chronic obstructive pulmonary disease, unspecified Plan: TX : PROAIR TO USE 2 PUFFS Q 6 HOURS ONLY P.R.N. FOR INCREASED SHORTNESS OF BREATH OR SUSTAINED COUGH. MAY ALSO USE CLARITIN OR ZYRTEC 10 MG ONCE A DAY PRN , IF HE FEELS LIKE HAVING POST NASAL DISCHARGE . 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 WELL TRETAED WITH CPAP, WHICH HE USES VERY REGULARLY , NASAL PILLOWS -9 CMs . IN BETWEEN HE HAS TRIED DENTAL BRACES BUT TO FELT MORE UNCOMFORTABLE. HE IS NOW BACK TO CPAP. HIS CPAP DEVICE IS VERY OLD AND WOULD NEED REPLACEMENT. GETTING A NEW CPAP DEVICE HE IS REQUIRED TO HAVE ANOTHER SLEEP STUDY. I DISCUSSED WITH HIM AND PLAN IS TO ORDER A HOME-BASED SLEEP STUDY, ONCE HE HAS RECOVERED FROM HIS HIP SURGERY. Code(s): G47.33 - Obstructive sleep apnea (adult) (pediatric) Plan: ABOVE Plan FAR PULMONARY CLEARANCE FOR UNDERGOING THE HIP SURGERY, I SEE NO CONTRAINDICATION. SO HE IS CLEARED FOR GENERAL ANESTHESIA AND SURGERY. POSTOPERATIVELY HE MAY NEED TO USE THE CPAP WITH NASAL PILLOWS, FOR HIS BREATHING HE MAY NEED TO USE THE ALBUTEROL SOLUTION IN THE NEBULIZER Q 4-6 HOURS P.R.N.. Orders: Orders AMB Spirometry Testing Today J44.9 - Chronic obstructive pulmonary disease, unspecified Coding Level of Care Code Est Pt Level 4 (60855) Diagnoses COPD (chronic obstructive pulmonary disease) J44.9 MANDI (obstructive sleep apnea) G47.33 CPT Codes Spirometry - CPT: 27835- Spirometry ([id number])
[2024-02-01 15:25] VITALS: BP 150/70; PULSE 79; O2SAT 99; BMI 23.4
== END 2024-02-01 16:00 | disposition home or self-care (01) ==
PROVIDERS: PCP Internal Medicine; Visit Provider Internal Medicine
DX: J44.9 Chronic obstructive pulmonary disease, unspecified (principal); G47.33 Obstructive sleep apnea (adult) (pediatric)
CPT/HCPCS: 94010; 99214

== ENCOUNTER → 2024-02-01 15:20 | Outpatient (BNVA) | payer MEDICARE, BC, SELFPAY | PROVIDERS: PCP Internal Medicine; Visit Provider Internal Medicine | DX: J44.9 Chronic obstructive pulmonary disease, unspecified (principal); G47.33 Obstructive sleep apnea (adult) (pediatric) | CPT/HCPCS: 94010; 99212 ==

== ENCOUNTER 2024-02-06 12:46 | Outpatient (AMB) | payer MEDICARE, BC, SELFPAY ==
--- NOTE | 2024-02-06 12:58 | HO.SPINEOV ---
Intake Intake Visit Reasons: 1st post op Intake Note: Mr. Clarke is here today for 1st post op. Appraiser Art Required: No Allergies COW HAIR Allergy (Unknown, Uncoded 02/01/24 15:27) + IN ALLERGY TESTING Assessment & Plan Assessment & Plan (1) S/P spinal fusion: Code(s): Z98.1 - Arthrodesis status Plan Procedure: L4-5 OLIF Foster comes in today for his 1st postoperative visit. He reports he is satisfied with the surgery and feels better than he did pre-operatively. The patient reports he is up walking around and completing the majority of his ADLs. He reports that he has been walking greater than 1 mi per day, and continues to remain as active as he can. He does still report some mild low back pain which is low-grade in nature and does not bother him significantly. He attributes this to the postoperative healing course, which I reassured him is the case. Of note he was recently [place] [facility] [place] he has a procedure scheduled to have his right hip pain addressed. No new neurological deficits. Patient is able to ambulate well with a cane, rises from a seated position with assistance of a cane. Anterolateral and posterior incision sites are closed, well healing, with no signs of drainage. We will follow-up with the patient in 6 weeks for his 2nd postoperative visit. At that time we will get x-rays to review with the patient. He was informed that it is okay to make the appointment later if he needs to have his orthopedics procedure addressed prior to seeing us again. Mohit Ozuna MD,PhD [facility] Coding Level of Care Code Global (36477) Diagnoses S/P spinal fusion Z98.1
== END 2024-02-06 13:11 | disposition home or self-care (01) ==
PROVIDERS: PCP Internal Medicine; Visit Provider Physician Assistant
DX: Z98.1 Arthrodesis status (principal)
CPT/HCPCS: 99024

== ENCOUNTER → 2024-02-06 12:46 | Outpatient (BNVA) | payer MEDICARE, BC, SELFPAY | PROVIDERS: PCP Internal Medicine; Visit Provider Physician Assistant | DX: Z98.1 Arthrodesis status (principal) | CPT/HCPCS: 99212 ==

== ENCOUNTER 2024-03-06 09:18 | Outpatient (AMB) | payer MEDICARE, BC, SELFPAY ==
--- NOTE | 2024-03-06 09:31 | MHC.OFFVIS ---
Intake Vital Signs 03/06/24 09:32 Height 6 ft 3 in Weight 191 lb 12.835 oz BMI 24.0 BP 134/76 Blood Pressure Location Lt brachial Position Sitting Pulse 67 Intake Visit Reasons: pre-op/ Fred /after tonio/mibi & echo Intake Note: Pre-op clearance after stress and echo surgery is booked 03/07 Temperature Regulator Pyrometer Required: No Allergies COW HAIR Allergy (Unknown, Uncoded 03/01/24 12:03) + IN ALLERGY TESTING Medication List - Last Reconciled 03/06/24 by Christian Ellis MD amlodipine 2.5 mg PO BID aspirin 81 mg PO BEDTIME atorvastatin 40 mg PO BEDTIME betamethasone valerate 0.1% 1 appl topical BID PRN ibuprofen 600 mg PO Q8H PRN lisinopril 20 mg PO BID 90 days metoprolol succinate ER (Toprol XL) 50 mg PO BEDTIME omeprazole 20 mg PO .qod psyllium husk (with sugar) 3 gram/7 gram (Metamucil (with sugar)) 2 tbsp PO DAILY [Raised toilet seat DURATION-99 DAYS] walker Folding Front wheeled walker -DURATION 99 DAYS HPI HPI Comments History of Present Illness Details Jah comes for follow-up. 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 He said he went to sit down and then felt like he was going to passed out. EMS was called. He was profusely sweating and pale. He was then given a bunch of water and by the time his symptoms had resolved. However he went to [facility]. Subsequently he has been doing okay. Blood pressures been better. His spine surgery was performed then his pain is improved. He is now planning to undergo hip surgery in near future. His cardiac workup has been so far within normal limits. [facility] Medical History Retrognathia Bifascicular block HTN (hypertension) GERD (gastroesophageal reflux disease) Pneumonitis COPD (chronic obstructive pulmonary disease) Hyperlipidemia CAD (coronary artery disease) Mediastinal lymphadenopathy Pulmonary nodules MANDI (obstructive sleep apnea) Surgical History History of lumbar surgery (01/15/24) History of arthroscopy of both knees Hx of colonoscopy Hx of vein stripping Hx of bilateral cataract extraction Hx of bilateral inguinal hernia repair History of total knee replacement Family History Father Cancer Mother No problems noted. 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 Review of Systems Const Denies chills, Denies daytime sleepiness, Denies fatigue, Denies fever(s), Denies frequent falls, Denies poor appetite, Denies snoring, Denies stops breathing during sleep, Denies weakness, Denies weight gain and Denies weight loss Eyes Denies loss of vision ENT Denies dizziness and Denies hearing loss Card Denies chest pain, Denies claudication, Denies leg edema, Denies lightheadedness, Denies palpitations, Denies dyspnea, Denies dyspnea on exertion and Denies orthopnea Resp Denies cough, Denies excessive phlegm production, Denies dyspnea, Denies dyspnea on exertion, Denies snoring and Denies wheezing GI Denies abdominal pain, Denies hematochezia, Denies change in bowel habits, Denies nausea and Denies vomiting Denies dysuria and Denies urinary frequency Musc Denies arthralgias, Denies muscle weakness, Denies numbness and Denies other (frequent falls) Skin/Breast Denies nail changes and Denies rash Neuro Denies Abnormal speech present, Denies dizziness, Denies frequent falls, Denies loss of vision, Denies memory loss, Denies numbness and Denies weakness Psych Denies depression and Denies memory loss Endo Denies fatigue and Denies palpitations Uvaldo/Lymph Reports easy bruising and Reports other (anemia) Aller/Immun Denies wheezing Physical Exam Vital Signs: Last Vital Signs Pulse 67 03/06/24 09:32 BP 134/76 03/06/24 09:32 BMI result Body Mass Index 24.0 Const General: cooperative, comfortable, no acute distress, alert, awake and anxious Nutritional Appearance: thin Orientation/consciousness: patient oriented x3 Limitations: no limitations Neck Neck: Yes trachea midline, Yes supple and Yes no JVD Resp Effort & Inspection: normal respiratory effort Auscultation: clear to auscultation bilaterally Cardio Jugular venous distension: no JVD Palpation: normal PMI Rate: regular rate Rhythm: regular rhythm Heart sounds: S1 normal heart sound present, S2 normal heart sound present, no click, no gallops and no murmurs GI Auscultation: normal bowel sounds Skin General skin exam: no rashes or lesions noted Neuro General: patient oriented x3 and no focal motor deficits Speech: No Abnormal speech present Extrem General: Yes no clubbing, cyanosis or edema Assessment & Plan Assessment & Plan (1) Preoperative cardiovascular examination: Code(s): Z01.810 - Encounter for preprocedural cardiovascular examination Plan: Preoperative cardiovascular risk stratification for noncardiac surgery for hip replacement which is considered intermediate risk surgery. Recent cardiac workup has been within normal limits. Patient is currently optimized to undergo surgery with low risk for perioperative cardiovascular morbidity mortality. Aspirin can be withheld as per surgeon's discretion. Continue all other medications in the perioperative time. (2) CAD (coronary artery disease): Code(s): I25.10 - Atherosclerotic heart disease of [place] coronary artery without angina pectoris Plan: CAD which is nonobstructive and recent myocardial perfusion imaging confirms that. Currently not having any anginal symptoms. Continue aggressive vascular risk factor modification. Lifelong aspirin therapy. Continue high-intensity statin therapy with target goal LDL less than 70 mg/dL. Continue aggressive control blood pressure. This is currently well optimized. (3) HTN (hypertension): Code(s): I10 - Essential (primary) hypertension Plan: Labile blood pressure. Blood pressure is currently within normal range. Once surgery is completed his pain is better control and blood pressure runs on the lower side, can taper slowly his blood pressure regimen starting with amlodipine. Was discussed with him. He is advised to maintain adequate hydration. Will follow up in the clinic in 1 year's time, sooner p.r.n.. Thank you for allowing me to partake in his care Coding Level of Care Code Est Pt Level 4 (81750) Diagnoses Preoperative cardiovascular examination Z01.810 CAD (coronary artery disease) I25.10 HTN (hypertension) I10
[2024-03-06 09:32] VITALS: BP 134/76; PULSE 67; BMI 24.0
== END 2024-03-06 09:51 | disposition home or self-care (01) ==
PROVIDERS: PCP Internal Medicine; Visit Provider Internal Medicine Cardiovascular Disease
DX: Z01.810 Encounter for preprocedural cardiovascular examination (principal); I25.10 Atherosclerotic heart disease of native coronary artery without angina pectoris; I10 Essential (primary) hypertension
CPT/HCPCS: 99214

== ENCOUNTER → 2024-03-06 09:18 | Outpatient (BNVA) | payer MEDICARE, BC, SELFPAY | PROVIDERS: PCP Internal Medicine; Visit Provider Internal Medicine Cardiovascular Disease | DX: Z01.810 Encounter for preprocedural cardiovascular examination (principal); I25.10 Atherosclerotic heart disease of native coronary artery without angina pectoris; I10 Essential (primary) hypertension | CPT/HCPCS: 99212 ==

== ENCOUNTER 2024-03-07 08:30 | Outpatient (REF) | payer MEDICARE, BC, SELFPAY ==
--- NOTE | ~2024-03-07 | XR_ITS ---
EXAMINATION: XR HIP, RIGHT CLINICAL INFORMATION: Pain. COMPARISON: AP pelvis dated 02/01/2024. TECHNIQUE: AP and frog-leg lateral views of the right hip. FINDINGS: There is bony demineralization. There is marked asymmetric narrowing of the right acetabular joint space, most pronounced superiorly. There is subchondral sclerosis and cyst formation of the articular surfaces of the right hip. There is mild narrowing of the medial left acetabular joint space. The bilateral femoral heads are smooth. No acute fracture or dislocation is seen. There is a right pelvic phlebolith. Lumbar orthopedic hardware is noted. XR/XR hip RT min 2V IMPRESSION: Marked right hip and mild left hip osteoarthritic change is seen. No acute fracture or dislocation is seen.
== END 2024-03-07 08:31 | disposition home or self-care (01) ==
LOC: HO.HOSX 08:30
PROVIDERS: Visit Provider Physician Assistant
DX: Z01.818 Encounter for other preprocedural examination (principal); M16.11 Unilateral primary osteoarthritis, right hip
CPT/HCPCS: 73502; 99212

== ENCOUNTER 2024-03-07 10:20 | Outpatient (AMB) | payer MEDICARE, BC, SELFPAY ==
--- NOTE | 2024-03-07 10:22 | A.OFFVIS_ITS ---
Intake Vital Signs 03/07/24 10:23 Height 6 ft 3 in Weight 191 lb BMI 23.9 Intake Visit Reasons: Pre Op RT SHRUTHI 03/12/24 NE Intake Note: Foster a 68 year old male who presents today for a preoperative right SHRUTHI on 03/12/24 NE. Pain management agreement reviewed and signed. Allergies COW HAIR Allergy (Unknown, Uncoded 03/07/24 10:24) + IN ALLERGY TESTING Medication List - Last Reconciled 03/07/24 by Sheeba Falcon PA-C amlodipine 2.5 mg PO BID aspirin 81 mg PO BEDTIME atorvastatin 40 mg PO BEDTIME betamethasone valerate 0.1% 1 appl topical BID PRN ibuprofen 600 mg PO Q8H PRN lisinopril 20 mg PO BID 90 days metoprolol succinate ER (Toprol XL) 50 mg PO BEDTIME omeprazole 20 mg PO .qod psyllium husk (with sugar) 3 gram/7 gram (Metamucil (with sugar)) 2 tbsp PO DAILY [Raised toilet seat DURATION-99 DAYS] walker Folding Front wheeled walker -DURATION 99 DAYS HPI HPI Comments History of Present Illness Details Mr. Clarke presents to the office today for preop visit. He is scheduled for right total hip arthroplasty with Dr. Ibarra. He continues to have ongoing pain and difficulty with ambulation in the right hip, which is affecting his quality of life; therefore, he has elected to move forward with surgery. [facility] Medical History (Updated 03/07/24 @ 12:14 by Sheeba Falcon PA-C) Osteoarthritis of right hip Retrognathia Bifascicular block HTN (hypertension) GERD (gastroesophageal reflux disease) Pneumonitis COPD (chronic obstructive pulmonary disease) Hyperlipidemia CAD (coronary artery disease) Mediastinal lymphadenopathy Pulmonary nodules MANDI (obstructive sleep apnea) Surgical History (Updated 03/07/24 @ 11:01 by Sheeba Falcon PA-C) History of lumbar surgery (01/15/24) History of arthroscopy of both knees Hx of colonoscopy Hx of vein stripping Hx of bilateral cataract extraction Hx of bilateral inguinal hernia repair History of total knee replacement Family History Father Cancer Mother No problems noted. Social History Household Members: Family Caregiver staying overnight: No Housing: House Are you a primary home care physical therapist to a significant other at home: No Do you presently have visiting nurse or other home services: No 75 years or older and lives alone: No Alcohol intake: current Alcohol intake frequency: holidays/special occasions only Comment: aware of trip hazard Patient Tobacco Use Status: Never used Tobacco Use of substances other than those prescribed or required for medical reasons: No Have you been hit, kicked, punched, or otherwise hurt by someone within the past year? 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 Review of Systems Const All systems reviewed & are unremarkable except as noted in HPI and below Physical Exam Vital Signs: BMI result Body Mass Index 23.9 Const General: cooperative, healthy appearing, comfortable, no acute distress, well developed and alert Orientation/consciousness: patient oriented x3 HEENT Head: Yes normal to inspection, Yes normocephalic and Yes atraumatic Mouth: moist mucous membranes Eyes General: appearance normal, both eyes and all related structures EOM: EOMs intact bilaterally Neck Neck: Yes normal visual inspection and Yes no lymphadenopathy Chest Other: no audible wheezing. Resp Other: No audible wheezing Effort & Inspection: normal respiratory effort and able to speak in complete sentences Cardio Rate: regular rate Peripheral pulses: Peripheral pulses 2+ throughout GI Inspection: Yes normal to inspection Palpation (GI): Soft to palpation Back/Spine/Pelvis Cervical Spine: normal cervical lordosis Skin General skin exam: no rashes or lesions noted Neuro General: patient oriented x3 Extrem Other: Antalgic Trendelenburg gait on the right Positive impingement limited internal rotation on the right Psych Appearance: grossly normal Mental Status: mental status grossly normal Speech and movement: Normal speech and movement present Affect: normal affect Attitude: cooperative Results Reviewed Results Reviewed: Cardiology clearance note: Dr Ellis 03/06/24 Preoperative cardiovascular risk stratification for noncardiac surgery for hip replacement which is considered intermediate risk surgery. Recent cardiac workup has been within normal limits. Patient is currently optimized to undergo surgery with low risk for perioperative cardiovascular morbidity mortality. Aspirin can be withheld as per surgeon's discretion. Continue all other medications in the perioperative time. Pulminology clearance note: Dr Fenton 02/01/24 FAR PULMONARY CLEARANCE FOR UNDERGOING THE HIP SURGERY, I SEE NO CONTRAINDICATION. SO HE IS CLEARED FOR GENERAL ANESTHESIA AND SURGERY. POSTOPERATIVELY HE MAY NEED TO USE THE CPAP WITH NASAL PILLOWS, FOR HIS BREATHING HE MAY NEED TO USE THE ALBUTEROL SOLUTION IN THE NEBULIZER Q 4-6 HOURS P.R.N.. X-rays of the right hip obtained in the office today for preoperative planning show end-stage osteoarthritis with osteophyte formation Assessment & Plan Assessment & Plan (1) Osteoarthritis of right hip: Code(s): M16.11 - Unilateral primary osteoarthritis, right hip Qualifiers: Osteoarthritis type: primary Qualified Code(s): M16.11 - Unilateral primary osteoarthritis, right hip Plan: I discussed in detail the procedure and what to expect pre and post operatively. We discussed the risks, benefits and alternatives to the surgery as well as the rehabilitation course. The risks; which include, but are not limited to infection, bleeding, nerve injury, ongoing pain, swelling, and stiffness, perioperative risk of injury to bones and soft tissues, and blood clots. I?ve answered all questions and with their understanding they have consented to move forward with Right total hip arthroplasty with Dr. Ibarra PT ordered-patient would like to attend therapy at an outside facility. He was given an order today to make an appointment for after March 28 which is his postop appointment. Orders: Orders XR hip RT min 2V Today M25.551 - Pain in right hip PT Evaluation and Treatment Today Z96.641 - Presence of right artificial hip joint Coding Level of Care Code Est Pt Level 3 (57565) Diagnoses Primary osteoarthritis of right hip M16.11 Osteoarthritis type: primary
[2024-03-07 10:23] VITALS: BMI 23.9
== END 2024-03-07 11:06 | disposition home or self-care (01) ==
PROVIDERS: PCP Internal Medicine; Visit Provider Physician Assistant
DX: M16.11 Unilateral primary osteoarthritis, right hip (principal)
CPT/HCPCS: 99024

== ENCOUNTER 2024-03-12 07:30 | Inpatient (IN) | payer MEDICARE, BC, SELFPAY ==
[2024-03-01 12:04] VITALS: BP 169/81; PULSE 69; RESP 16; O2SAT 99; BMI 23.0
[2024-03-01 13:46] LABS: Hematocrit 37.9 % (42.0-52.0); Hemoglobin 12.7 g/dl (14.0-18.0); Mean Corpuscular HGB Conc 33.5 g/dl (31.0-36.0); Mean Corpuscular Hemoglobin 30.5 pg (27.0-33.0); Mean Corpuscular Volume 90.9 fL (80.0-98.0); Platelet Count 166 X10*3/uL (160-400); Red Blood Count 4.17 X10*6/uL (4.60-5.80); Red Cell Distribution Width 13.7 % (11.0-16.0); White Blood Count 3.3 X10*3/uL (4.8-10.8)
[2024-03-01 14:21] LABS: MRSA Nasal PCR NEGATIVE (Negative); SA Nasal PCR NEGATIVE (Negative)
[2024-03-12] VITALS (25 sets, daily range): BP systolic 142–198; BP diastolic 66–107; PULSE 64–99; RESP 12–18; TEMP 36.4–36.9; O2SAT 96–100
--- NOTE | ~2024-03-12 | XR_ITS ---
EXAMINATION: XR PELVIS CLINICAL INFORMATION: Evaluation arthroplasty COMPARISON: 03/07/2024 TECHNIQUE: AP view of the pelvis. FINDINGS: Right hip bipolar prosthesis appears in anatomic alignment. Overlying postsurgical soft tissue alterations noted. XR/XR pelvis 1-2V IMPRESSION: Unremarkable right hip prosthesis.
--- OUTSIDE RECORDS SUMMARY | 2024-03-12 07:37 | XMS_ITS | Continuity of Care Document ---
Author Organization [facility] Address [address] [place] [address] Phone Care Team Providers Care Manager Country Name Role Phone PCP, UNKNOWN Primary Care Provider MD Sagrario Ji Attending Provider Chief Complaint and Reason for Visit Chief Complaint INJ Social History Smoking Status Unknown if ever smoked Additional Data Assigned Sex Male Advance Directives Advance Directive Response Recorded Date/ Time Advance Directives No September 10:52am Health Care Proxy No September 29, 2022 10:52am Insurance Providers Guarantor KATIE ALEX Address [address] [address] Contact Info. Home Phone: Payer Policy Id Coverage Id Subscriber's Name Subscriber Id Effective Date Expiration Date [facility] [id number] KATIE ALEX [id number] [facility] OOS Indemnity [id number] KATIE ALEX [id number] Medicare A&B [id number] KATIE ALEX [id number] Encounters Encounter Location(s) Arrival/Admit Date Discharge/Depart Date Provider(s) Departed Clinical [facility]uro[facility] jayme [facility] December 13, 2022 10:05am December 13, 2022 10:06am Sagrario Godfrey MD
--- OUTSIDE RECORDS SUMMARY | 2024-03-12 07:37 | XMS_ITS | Continuity of Care Document ---
Author Organization [facility] Address [address] [place] [address] Phone Care Team Providers Care Streetcar Conductor Name Role Phone PCP, UNKNOWN Primary Care Provider MD Sagrario Ji Attending Provider [phone] CAROLEE Yeh Attending Provider MD Sagrario Godfrey Family Provider Chief Complaint and Reason for Visit Chief Complaint INJ INJ TH Social History Smoking Status Unknown if ever smoked Additional Data Assigned Sex Male Advance Directives Advance Directive Response Recorded Date/ Time Advance Directives UNK December 13, 2022 10:08am Health Care Proxy UNK December 13, 2022 10:08am Advance Directives No September 10:52am Health Care Proxy No September 29, 2022 10:52am Insurance Providers Guarantor KATIE LYMANARY Address [address] [address] Contact Info. Home Phone: Payer Policy Id Coverage Id Subscriber's Name Subscriber Id Effective Date Expiration Date [facility] [id number] KATIE ALEX [id number] [facility] OOS Indemnity [id number] KATIE ALEX [id number] Medicare A&B [id number] 88 [id number] KATIE ALEX [id number] Encounters Encounter Location(s) Arrival/Admit Date Discharge/Depart Date Provider(s) Departed Clinical [facility] December 13, 2022 10:05am December 13, 2022 10:06am Sagrario Godfrey MD Registered Surgical Day Care [facility] December 15, 2022 10:43am Sagrario Godfrey MD Departed Clinical [facility]uro[facility] jayme [facility] December 16, 2022 8:41am December 16, 2022 8:42am Lynn Yeh , SENIOR GAME DESIGNER
--- OUTSIDE RECORDS SUMMARY | 2024-03-12 07:37 | XMS_ITS | Continuity of Care Document ---
Author Name [facility] Address [address] [place] [address] Organization [facility] Address [address] [place] [address] Allergies, Adverse Reactions, Alerts No allergy information available. Medications No medication information available. Problem List No problem information available. Procedures No known history of procedures. Relevant Diagnostic Tests and/or Laboratory Data No known relevant diagnostic tests, laboratory data, and/or discharge summary. Hospital Discharge Instructions No known hospital discharge instructions. Functional Status No known functional status. Immunizations No known immunizations. Plan of Care No Known Plan of Care Information Social History No known social history. Vital Signs No known vital signs results.
--- OUTSIDE RECORDS SUMMARY | 2024-03-12 07:37 | XMS_ITS | Continuity of Care Document ---
Author Organization [facility] Address [address] [place] [address] Phone Care Team Providers Care Production Cloth Cutter Name Role Phone PCP, UNKNOWN Primary Care Provider MD Sagrario Ji Attending Provider [phone] Chief Complaint and Reason for Visit Chief Complaint INJ Social History Smoking Status Unknown if ever smoked Additional Data Assigned Sex Male Advance Directives Advance Directive Response Recorded Date/ Time Advance Directives UNK December 13, 2022 11:08am Health Care Proxy UNK December 13, 2022 11:08am Advance Directives No September 11:52am Health Care Proxy No September 29, 2022 11:52am Advance Directives UNK June 21 023 10:40pm Health Care Proxy UNK June 21 10:40pm Insurance Providers Guarantor KATIE ISAI Address [address] [address] Contact Info. Home Phone: Payer Policy Id Coverage Id Subscriber's Name Subscriber Id Effective Date Expiration Date [facility] [id number] KATIE ALEX [id number] [facility] OOS Indemnity [id number] KATIE ALEX [id number] Medicare A&B [id number] 88 [id number] KATIE ALEX [id number] Encounters Encounter Location(s) Arrival/Admit Date Discharge/Depart Date Provider(s) Registered Surgical Day Care [facility] June 23, 2023 7:49am Sagrario Godfrey MD
--- OUTSIDE RECORDS SUMMARY | 2024-03-12 07:37 | XMS_ITS | Continuity of Care Document ---
Author Organization [facility] Address [address] [place] [address] Phone Care Team Providers Care Fine Sander Name Role Phone PCP, UNKNOWN Primary Care Provider MD Sagrario Ji Attending Provider Chief Complaint and Reason for Visit Chief Complaint M54.17 INJ Social History Smoking Status Unknown if [...] Insurance Providers Guarantor KATIE ISAI Address [address] [address] Contact Info. Home Phone: Payer Policy Id Coverage Id Subscriber's Name Subscriber Id Effective Date Expiration Date Federal [id number] KATIE ALEX [id number] [facility] OOS Indemnity [id number] KATIE ALEX [id number] Medicare A&B [id number] KATIE ALEX [id number] Encounters Encounter Location(s) Arrival/Admit Date Discharge/Depart Date Provider(s) Departed Surgical Day Care [facility] June 22, 2023 7:49am June 22, 2023 12:00am Sagrario Godfrey MD Departed Clinical [facility]-Neurosurg jayme [facility] June 23, 2023 7:49am June 23, 2023 7:50am Sagrario Godfrey MD
--- OUTSIDE RECORDS SUMMARY | 2024-03-12 07:37 | XMS_ITS | Continuity of Care Document ---
Author Organization [facility] Address [address] [place] [address] Phone Care Team Providers Care Mobile Home Park Manager Name Role Phone PCP, UNKNOWN Primary Care Provider MD Sagrario Ji Attending Provider [phone] Chief Complaint and Reason for Visit Chief Complaint M54.17 Social History Smoking Status Unknown if ever [...] June 21 10:40pm Insurance Providers Guarantor KATIE LYMANARY Address [address] [address] Contact Info. Home Phone: Payer Policy Id Coverage Id Subscriber's Name Subscriber Id Effective Date Expiration Date Federal [id number] KATIE ALEX [id number] [facility] OOS Indemnity [id number] KATIE ALEX [id number] Medicare A&B [id number] 88 [id number] KATIE ALXE [id number] Encounters Encounter Location(s) Arrival/Admit Date Discharge/Depart Date Provider(s) Departed Surgical Day Care [facility] June 23, 2023 7:49am June 23, 2023 12:00am Sagrario Godfrey MD
--- OUTSIDE RECORDS SUMMARY | 2024-03-12 07:37 | XMS_ITS | Continuity of Care Document ---
Author Name [facility] Address [address] [place] [address] Organization [facility] Address [address] [place] [address] Allergies, Adverse Reactions, Alerts No allergy information [...]
--- OUTSIDE RECORDS SUMMARY | 2024-03-12 07:37 | XMS_ITS | Continuity of Care Document ---
Author Name [facility] Address [address] [place] [address] Organization [facility] Address [address] [place] [address] Care Team Providers Care Bicycle Rental Clerk Name Role Phone PCP, UNKNOWN Primary Care Provider Sagrario Ji Attending Provider Allergies, Adverse Reactions, Alerts No allergy information available. Medications No medication information available. Problem List No problem information available. Procedures Procedure Date Status MR Body Comparison August 15, 2023 completed Relevant Diagnostic Tests and/or Laboratory Data No known relevant diagnostic tests, laboratory data, and/or discharge summary. Hospital Discharge Instructions No known hospital discharge instructions. Encounters Encounter Facility Location Admit/Visit Date Discharge/Departure Date Attending Provider Departed Referred [facility] Location August 15, 2023 1:54pm August 15, 2023 1:55pm Sagrario Godfrey Functional Status No known functional status. Immunizations No known immunizations. Plan of Care No Known Plan of Care Information Social History No known social history. Vital Signs No known vital signs results.
--- OUTSIDE RECORDS SUMMARY | 2024-03-12 07:37 | XMS_ITS | Continuity of Care Document ---
Author Organization [facility] Address [address] [place] [address] Phone Care Team Providers Care Wash Tub Machine Operator Name Role Phone PCP, UNKNOWN Primary Care Provider MD Sagrario Ji Attending Provider [phone] CAROLEE Yeh Attending Provider [phone] MD Sagrario Godfrey Family Provider Chief Complaint [...] Insurance Providers Guarantor KATIE LYMANARY Address [address] [address] Contact Info. Home Phone: Payer Policy Id Coverage Id Subscriber's Name Subscriber Id Effective Date Expiration Date [facility] [id number] KATIE ALEX [id number] [facility] OOS Indemnity [id number] KATIE ALEX [id number] Medicare A&B [id number] KATIE ALEX [id number] Encounters Encounter Location(s) Arrival/Admit Date Discharge/Depart Date Provider(s) Departed Clinical [facility] December 13, 2022 10:05am December 13, 2022 10:06am Sagrario Godfrey MD Departed Surgical Day Care [facility] December 15, 2022 10:43am December 15, 2022 12:00am Sagrario Godfrey MD Departed Clinical [facility] jayme [facility] December 16, 2022 8:41am December 16, 2022 8:42am Lynn Yeh , ICER MACHINE OPERATOR
--- OUTSIDE RECORDS SUMMARY | 2024-03-12 07:37 | XMS_ITS | Continuity of Care Document ---
Author Organization [facility] Address [address] [place] [address] Phone Care Team Providers Care Electrician Radio Name Role Phone PCP, UNKNOWN Primary Care Provider MD Sagrario iJ Attending Provider Chief Complaint and Reason for Visit Chief Complaint film comparison Social History Smoking Status Unknown if ever smoked Additional Data Assigned Sex Male Procedures Procedure Date Performed Status MR Body Comparison September 13, 2022 8:35am com pleted Encounters Encounter Location(s) Arrival/Admit Date Discharge/Depart Date Provider(s) Departed Referred [facility] Location September 13, 2022 8:18am September 13, 2022 8:19am Sagrario Godfrey MD
--- OUTSIDE RECORDS SUMMARY | 2024-03-12 07:37 | XMS_ITS | Continuity of Care Document ---
Author Organization [facility] Address [address] [place] [address] Phone Care Team Providers Care Farmworker Brooder Farm Name Role Phone PCP, UNKNOWN Primary Care Provider MD Sagrario Ji Attending Provider Chief Complaint and Reason for Visit Chief Complaint film comparison TFESI Social History Smoking Status Unknown if ever smoked Additional Data Assigned Sex Male Procedures Procedure Date Performed Status MR Body Comparison September 13, 2022 7:35am com pleted Advance Directives Advance Directive Response Recorded Date/ Time Advance Directives No September 10:52am Health Care Proxy No September 29, 2022 10:52am Insurance Providers Guarantor KATIE ALEX Address [address] [address] Contact Info. Home Phone: Payer Policy Id Coverage Id Subscriber's Name Subscriber Id Effective Date Expiration Date [facility] [id number] KATIE ALEX [id number] [employer] OOS Indemnity [id number] KATIE ALEX [id number] Medicare A&B [id number] KATIE ALEX [id number] Encounters Encounter Location(s) Arrival/Admit Date Discharge/Depart Date Provider(s) Departed Referred [facility] Location September 13, 2022 7:18am September 13, 2022 7:19am Sagrario Godfrey MD Departed Surgical Day Care [facility] September 29, 2022 10:47am September 29, 2022 12:00am Sagrario Godfrey MD
--- OUTSIDE RECORDS SUMMARY | 2024-03-12 07:37 | XMS_ITS | Continuity of Care Document ---
Author Organization [facility] Address [address] [place] [address] Phone Care Team Providers Care Mechanic Senior Name Role Phone PCP, UNKNOWN Primary Care Provider MD Sagrario Ji Attending Provider [phone] Social History Smoking Status Unknown if ever smoked Additional Data Assigned Sex Male Procedures Procedure Date Performed Status MR Body Comparison August 15, 2023 2:05pm c ompleted Advance Directives Advance Directive Response Recorded Date/ Time Advance Directives UNK December 13, 2022 11:08am Health Care Proxy UNK December 13, 2022 11:08am Advance Directives No September 11:52am Health Care Proxy No September 29, 2022 11:52am Advance Directives UNK June 21, 2 023 10:40pm Health Care Proxy UNK June 21 10:40pm Insurance Providers Guarantor KATIE ALEX Address [address] [address] Contact Info. Home Phone: Payer Policy Id Coverage Id Subscriber's Name Subscriber Id Effective Date Expiration Date Federal [id number] KATIE ALEX [id number] [employer] OOS Indemnity [id number] KATIE ALEX [id number] Medicare A&B [id number] KATIE ALEX [id number] Encounters Encounter Location(s) Arrival/Admit Date Discharge/Depart Date Provider(s) Departed Referred [facility] Location August 15, 2023 1:54pm August 15, 2023 1:55pm Sagrario Godfrey MD
--- OUTSIDE RECORDS SUMMARY | 2024-03-12 07:37 | XMS_ITS | Continuity of Care Document ---
Author Organization [facility] Address [address] [place] [address] Phone Care Team Providers Care Crop Duster Helper Name Role Phone PCP, UNKNOWN Primary Care [...] Insurance Providers Guarantor KATIE ISAI Address [address] [address] Contact Info. Home Phone: Payer Policy Id Coverage Id Subscriber's Name Subscriber Id Effective Date Expiration Date Federal [id number] KATIE ALEX [id number] [facility] OOS Indemnity [id number] KATIE ALEX [id number] Medicare A&B [id number] 88 [id number] KATIE ALEX [id number] Encounters Encounter Location(s) Arrival/Admit Date Discharge/Depart Date Provider(s) Departed Surgical Day Care [facility] June 22, 2023 7:49am June 22, 2023 12:00am Sagrario Godfrey MD Departed Clinical [facility]ay[facility] June 23, 2023 7:49am June 23, 2023 7:50am Sagrario Godfrey MD
--- OUTSIDE RECORDS SUMMARY | 2024-03-12 07:37 | XMS_ITS | Continuity of Care Document ---
Author Name [facility] Address [address] [place] [address] Organization [facility] Address [address] [place] [address] Care Team Providers Care Client Development Director Name Role Phone PCP, UNKNOWN Primary Care [...] Date Discharge/Departure Date Attending Provider Departed Referred [facility] Location August 15, 2023 1:54pm August 15, 2023 1:55pm Sagrario Godfrey Functional Status No known functional status. Immunizations No known immunizations. Plan of Care No Known Plan of Care Information Social History No known social history. Vital Signs No known vital signs results.
--- OUTSIDE RECORDS SUMMARY | 2024-03-12 07:37 | XMS_ITS | Continuity of Care Document ---
Author Name [facility] Address [address] [place] [address] Organization [facility] Address [address] [place] [address] Care Team Providers Care Time Buyer Name Role Phone PCP, UNKNOWN Primary Care [...] Date Discharge/Departure Date Attending Provider Departed Referred [facility] Location August 15, 2023 1:54pm August 15, 2023 1:55pm Sagrario Godfrey Functional Status No known functional status. Immunizations No known immunizations. Plan of Care No Known Plan of Care Information Social History No known social history. Vital Signs No known vital signs results.
[2024-03-12] MEDS: oxyCODONE HCl ER 10 MG TAB.ER.12H PO (08:12)
--- NOTE | 2024-03-12 08:12 | MHC.SHP ---
Pre-Procedural Eval Section A - 24 Hr Update-Section A only Date of Service: 03/12/24 The patient is an INPATIENT: No Changes since office visit: No Cold of Flu in the past 2 weeks, No New Medical Problems, No Changes in Medication and No Patient answered all questions The patient has been examined within 24 hours of the surgical procedure. The History & Physical has been completed within 30 days and I have reviewed it.: Yes Section B - Complete if H&P > 30 days Chief Complaint: RT SHRUTHI Allergies: Allergies Allergy/AdvReac Type Severity Reaction Status Date / Time COW HAIR Allergy Unknown + IN Uncoded 03/12/24 07:39 ALLERGY TESTING Plan I have reviewed the history and physical and performed a pertinent physical examination on my patient. No changes have occurred unless specified. Time Spent With Patient Time: Total time managing care of this patient today ____ minutes.
[2024-03-12] MEDS: Lactated Ringers 1,000 ML 100 ML IVCONT ×2 (08:23→16:01)
--- NOTE | 2024-03-12 09:20 | HO.ANESPROP2 ---
Documented by User: Olivia Wilcox NP 03/11/24 11:46 HPI - Anesthesia Eval Consult details Narrative: 67yo M for Right Total Hip PAT with Dr Eldridge 03/01/24 Cardiac cleared Pulmo cleared s/p OLIF 12/2023 with GA-ETT 7 From 12/2023 PAT: HTN. BP elevated at PAT and pt reports increased readings on home bp checks. Lisinopril recently increased by PCP. Requesting optimization prior to surgery. COPD. Mild. No inhaler use CAD. Stable. Follows [facility] cardi[facility] Q2 years. Last office visit 11/2021. MANDI. CPAP nightly PMF Active Problems Active Problems: All Active Problems (Updated 03/07/24 @ 12:14 by Sheeba Falcon PA-C) History of total right hip replacement (Acute) S/P spinal fusion (Acute) Preoperative cardiovascular examination (Acute) Bifascicular block (Acute) Lumbar stenosis with neurogenic claudication (Acute) Spondylolisthesis, lumbar region (Acute) Tendonitis of right hip flexor (Acute) Osteoarthritis of right hip (Acute) HLD (hyperlipidemia) (Acute) HTN (hypertension) (Acute) Pneumonitis (Acute) COPD (chronic obstructive pulmonary disease) (Acute) CAD (coronary artery disease) (Acute) Hyperlipidemia (Acute) Mediastinal lymphadenopathy (Acute) Pulmonary nodules (Acute) MANDI (obstructive sleep apnea) (Acute) Past Medical History Medical History (Updated 03/07/24 @ 12:14 by Sheeba Falcon PA-C) Osteoarthritis of right hip Retrognathia Bifascicular block HTN (hypertension) GERD (gastroesophageal reflux disease) Pneumonitis COPD (chronic obstructive pulmonary disease) Hyperlipidemia CAD (coronary artery disease) Mediastinal lymphadenopathy Pulmonary nodules MANDI (obstructive sleep apnea) Family History Family History Father Cancer Mother No problems noted. Family history of problems with anesthesia: No Surgical History Surgical History (Updated 03/07/24 @ 11:01 by Sheeba Falcon PA-C) History of lumbar surgery (01/15/24) History of arthroscopy of both knees Hx of colonoscopy Hx of vein stripping Hx of bilateral cataract extraction Hx of bilateral inguinal hernia repair History of total knee replacement History of Problems with Anesthesia: No Social History Social History Household Members: Family Housing: House Are you a primary md do resident urgent care to a significant other at home: No Do you presently have visiting nurse or other home services: No Alcohol intake: current Alcohol intake frequency: holidays/special occasions only Comment: aware of trip hazard Patient Tobacco Use Status: Never used Tobacco Use of substances other than those prescribed or required for medical reasons: No Have you been hit, kicked, punched, or otherwise hurt by someone within the past year? 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 Meds Allergies Allergy/AdvReac Type Severity Reaction Status Date / Time COW HAIR Allergy Unknown + IN Uncoded 03/12/24 07:39 ALLERGY TESTING Home Medications ?Medication ?Instructions ?Recorded ?Confirmed ?Last Taken ?Type betamethasone valerate 0.1 % 1 applic topical BID PRN Rash 09/15/20 03/12/24 01/15/24 History topical cream omeprazole 20 mg capsule,delayed 20 mg PO .qod 03/11/21 03/12/24 03/11/24 History release atorvastatin 40 mg tablet 40 mg PO BEDTIME 10/20/23 03/12/24 03/11/24 History aspirin 81 mg tablet,delayed 81 mg PO BEDTIME 01/11/24 03/12/24 03/05/24 History release metoprolol succinate 50 mg 50 mg PO BEDTIME 01/11/24 03/12/24 03/11/24 History tablet,extended release 24 hr (Toprol XL) psyllium husk (with sugar) 3 2 tbsp PO DAILY 01/11/24 03/12/24 01/15/24 History gram/7 gram oral powder (Metamucil (with sugar)) ibuprofen 600 mg tablet 600 mg PO Q8H PRN Pain 03/01/24 03/12/24 03/05/24 History Exam Height,Weight and Vital Signs: Height 6 ft 3 in Weight 83.461 kg Last Vital Signs Pulse 69 03/01/24 12:04 Resp 16 03/01/24 12:04 BP 169/81 H 03/01/24 12:04 Pulse Ox 99 03/01/24 12:04 O2 Del Method Room Air 03/01/24 12:04 Pertinent Lab Results Pertinent Lab Results: Laboratory Tests 03/01/24 03/01/24 03/01/24 12:30 12:57 13:01 WBC 3.3 L RBC 4.17 L Hgb 12.7 L Hct 37.9 L MCV 90.9 MCH 30.5 MCHC 33.5 RDW 13.7 Plt Count 166 MPV 9.0 L Absolute Nucleated RBC 0.000 Nucleated RBC % (auto) 0.0 Nasal Screen MRSA (PCR) NEGATIVE Nasal S. aureus Screen NEGATIVE Nasal MRSA/S.aureus Interp SEE NOTE Blood Type B Positive Antibody Screen NEGATIVE Narrative Narrative: EKG 12/2023 NSR @ 86 RBBB LAFB Bifasicular block NM aba perf SPECT rest & str 12/2023 Impression: 1. Myocardial perfusion imaging study shows likely normal myocardial perfusion 2. Gated LVEF is 60% 3. Transient ischemic dilatation not present EKG is nondiagnostic for ischemia ECHO 12/2023 Conclusions: - 1. Normal LV ejection fraction 55-60% 2. Mild mitral regurgitation 3. Mildly dilated ascending aorta at 3.8 cm 4. Normal RV systolic pressure 5. No pericardial effusion Airway Loose/Missing/Broken Teeth: No (Crowned molar) Assessment and Plan Assessment Anesthesia Assessment: Chart Reviewed Final Anesthetic Review Family History of Problems with Anesthesia: No History of Problems with Anesthesia: No Documented by User: Uma Mckinney DO 03/12/24 09:24 [facility] Past Medical History Medical History (Updated 03/07/24 @ 12:14 by Sheeba Falcon PA-C) Osteoarthritis of right hip Retrognathia Bifascicular block HTN (hypertension) GERD (gastroesophageal reflux disease) Pneumonitis COPD (chronic obstructive pulmonary disease) Hyperlipidemia CAD (coronary artery disease) Mediastinal lymphadenopathy Pulmonary nodules MANDI (obstructive sleep apnea) Family History Family History Father Cancer Mother No problems noted. Family history of problems with anesthesia: No Surgical History Surgical History (Updated 03/07/24 @ 11:01 by Sheeba Falcon PA-C) History of lumbar surgery (01/15/24) History of arthroscopy of both knees Hx of colonoscopy Hx of vein stripping Hx of bilateral cataract extraction Hx of bilateral inguinal hernia repair History of total knee replacement History of Problems with Anesthesia: No Social History Social History Household Members: Family Housing: House Are you a primary md do resident urgent care to a significant other at home: No Do you presently have visiting nurse or other home services: No Alcohol intake: current Alcohol intake frequency: holidays/special occasions only Comment: aware of trip hazard Patient Tobacco Use Status: Never used Tobacco Use of substances other than those prescribed or required for medical reasons: No Have you been hit, kicked, punched, or otherwise hurt by someone within the past year? 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 Meds Allergies Allergy/AdvReac Type Severity Reaction Status Date / Time COW HAIR Allergy Unknown + IN Uncoded 03/12/24 07:39 ALLERGY TESTING Home Medications ?Medication ?Instructions ?Recorded ?Confirmed ?Last Taken ?Type betamethasone valerate 0.1 % 1 applic topical BID PRN Rash 09/15/20 03/12/24 01/15/24 History topical cream omeprazole 20 mg capsule,delayed 20 mg PO .qod 03/11/21 03/12/24 03/11/24 History release atorvastatin 40 mg tablet 40 mg PO BEDTIME 10/20/23 03/12/24 03/11/24 History aspirin 81 mg tablet,delayed 81 mg PO BEDTIME 01/11/24 03/12/24 03/05/24 History release metoprolol succinate 50 mg 50 mg PO BEDTIME 01/11/24 03/12/24 03/11/24 History tablet,extended release 24 hr (Toprol XL) psyllium husk (with sugar) 3 2 tbsp PO DAILY 01/11/24 03/12/24 01/15/24 History gram/7 gram oral powder (Metamucil (with sugar)) ibuprofen 600 mg tablet 600 mg PO Q8H PRN Pain 03/01/24 03/12/24 03/05/24 History Exam Exam Date and Time: March 12, 2024919 Height,Weight and Vital Signs: Height 6 ft 3 in Weight 83.461 kg Last Vital Signs Pulse 69 03/01/24 12:04 Resp 16 03/01/24 12:04 BP 169/81 H 03/01/24 12:04 Pulse Ox 99 03/01/24 12:04 O2 Del Method Room Air 03/01/24 12:04 Height 6 ft 3 in Weight 83.461 kg Vital Signs Pulse Rate 69 03/01/24 12:04 Respiratory Rate 16 03/01/24 12:04 Blood Pressure 169/81 H 03/01/24 12:04 Pulse Oximetry 99 03/01/24 12:04 Oxygen Delivery Method Room Air 03/01/24 12:04 Temperature 98.1 F 03/12/24 08:06 Pulse Rate 64 03/12/24 08:06 Respiratory Rate 16 03/12/24 08:06 Blood Pressure 150/85 H 03/12/24 08:06 Pulse Oximetry 98 03/12/24 08:06 Oxygen Delivery Method Room Air 03/12/24 08:06 Airway Mallampati Class: III TM Dist: >3cm Neck ROM: Full Loose/Missing/Broken Teeth: No (Crowned molar, patient denies any loose or broken teeth) Heart: S1S2 Lungs: CTAB Assessment and Plan Assessment Anesthesia Assessment: Anesthesia Plan Discussed and Chart Reviewed Final Anesthetic Review Family History of Problems with Anesthesia: No History of Problems with Anesthesia: No NPO: Yes ASA Class: III Final Preanesthetic Review: No Changes in Pt Med Stat, Meds/Allgs Chart Reviewed, Consent Obtained/Reviewed and Anes Risks/Benef Reviewed Patient Risk: Intermediate Procedure Risk: Intermediate Anesthetic Plan Anesthetic Plan: GA and Agree w/ Assess. and Plan Disposition: Standard PACU
--- NOTE | 2024-03-12 10:30 | PHA.MEDREC ---
Pharmacy Consult ? Medication Reconciliation Pharmacy has reviewed the medication reconciliation done by nursing.
--- NOTE | 2024-03-12 11:15 | P.CONHOSP_ITS ---
History of Present Illness Data of Consult Service Date: 03/12/24 Requesting physician: Gordo Ibarra Primary Care Provider: Rajiv Martino MD HPI Reason for consult: medical management 68-year-old male with history of CAD, GERD, hypertension, hyperlipidemia, pulmonary nodules, MANDI on CPAP, COPD admitted to orthopedic surgery for management of osteoarthritis of the right hip s/p SHRUTHI with consult placed hospitalist service for medical management. Pt recently arrived to floor after prolonged stay in pacu due to uncontrolled htn. Pt reports he missed his dose of amlodipine this morning and pain levels were uncontrolled. BP currently improved though remains hypertensive at 163/79. He reports intermittent discomfort now but pain overall controlled. Feels slightly lightheadeded and intermittently nauseas. No other complaints. Review of Systems 2 Review of Systems: General: No fevers, malaise, unintentional weight loss HEENT: No blurred vision, diplopia. No sore throat, nasal congestion, rhinorrhea, sinus pain, ear pain Cardiovascular: No chest pain, palpitations, or leg edema Respiratory: No shortness of breath, wheezing, cough GI: No abdominal pain, nausea, vomiting, diarrhea, constipation, melena, hematochezia : No dysuria, hematuria, increased urinary frequency, decreased urinary output MSK: No myalgia, back pain. +right hip pain Neuro: No headaches, weakness, paresthesias Skin: No rashes or lesions [facility] Medical History Osteoarthritis of right hip Retrognathia Bifascicular block HTN (hypertension) GERD (gastroesophageal reflux disease) Pneumonitis COPD (chronic obstructive pulmonary disease) Hyperlipidemia CAD (coronary artery disease) Mediastinal lymphadenopathy Pulmonary nodules MANDI (obstructive sleep apnea) Family History Father Cancer Mother No problems noted. Surgical History History of lumbar surgery (01/15/24) History of arthroscopy of both knees Hx of colonoscopy Hx of vein stripping Hx of bilateral cataract extraction Hx of bilateral inguinal hernia repair History of total knee replacement Social History Household Members: Spouse and Family Housing: House Are you a primary home health care physician to a significant other at home: No Do you presently have visiting nurse or other home services: No Alcohol intake: current Alcohol intake frequency: holidays/special occasions only Comment: aware of trip hazard Patient Tobacco Use Status: Never used Tobacco Use of substances other than those prescribed or required for medical reasons: No Have you been hit, kicked, punched, or otherwise hurt by someone within the past year? 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 Meds Allergies Allergy/AdvReac Type Severity Reaction Status Date / Time COW HAIR Allergy Unknown + IN Uncoded 03/12/24 07:39 ALLERGY TESTING Active Medications: Current Medications Acetaminophen (Acetaminophen 325 Mg Tablet) 650 mg PO Q6H PRN PRN Reason: Pain, Mild (Pain Scale 1-3) Albuterol Sulfate (Albuterol Sulfate (0.083%) 2.5 Mg/3 Ml Vial.Neb) 2.5 mg INHALE ONCE PRN PRN Reason: Shortness of Breath/Wheezing Aspirin (Aspirin 325 Mg Tablet) 325 mg PO BID DONY Celecoxib (Celecoxib 200 Mg Capsule) 200 mg PO BID DONY Docusate Sodium (Docusate Sodium 100 Mg Capsule) 100 mg PO BID [facility] Haloperidol Lactate (Haloperidol Lactate 5 Mg/Ml Vial) 0.5 mg IVPUSH ONCE PRN PRN Reason: Nausea and Vomiting Hydromorphone HCl (Hydromorphone Hcl 0.5 Mg/0.5 Ml Syringe) 0.5 mg IVPUSH Q5M PRN; Protocol PRN Reason: Pain, Severe (Pain Scale 7-10) Stop: 03/12/24 15:24 Hydromorphone HCl (Hydromorphone Hcl 0.5 Mg/0.5 Ml Syringe) 0.25 mg IVPUSH Q4H PRN; Protocol PRN Reason: Pain, Severe (Pain Scale 7-10) Lactated Ringer's (Lr) 1,000 mls @ 100 mls/hr IVCONT .Q10H [facility] Last Admin: 03/12/24 08:23 Dose: 100 mls/hr Lactated Ringer's (Lr) 1,000 mls @ 100 mls/hr IVCONT .Q10H [facility] Cefazolin Sodium/Dextrose (Ancef) 2 gm in 50 mls @ 100 mls/hr IV POSTOP ONE Stop: 03/12/24 11:08 Ondansetron HCl (Ondansetron Hcl 4 Mg/2 Ml Vial) 4 mg IVPUSH Q8H PRN PRN Reason: Nausea and Vomiting Oxycodone HCl (Oxycodone Hcl Immed Release 5 Mg Tablet) 5 mg PO Q4H PRN PRN Reason: Pain, Moderate(Pain Scale 4-6) Oxycodone HCl (Oxycodone Hcl Er 10 Mg Tab.Er.12h) 10 mg PO BID [facility] Sodium Chloride (0.9 % Sodium Chloride Flush 3 Ml Syringe) 3 ml IVFLUSH QSHIFT [facility] Home Medications ?Medication ?Instructions ?Recorded ?Confirmed ?Last Taken ?Type betamethasone valerate 0.1 % 1 applic topical BID PRN Rash 09/15/20 03/12/24 01/15/24 History topical cream omeprazole 20 mg capsule,delayed 20 mg PO .qod 03/11/21 03/12/24 03/11/24 History release atorvastatin 40 mg tablet 40 mg PO BEDTIME 10/20/23 03/12/24 03/11/24 History aspirin 81 mg tablet,delayed 81 mg PO BEDTIME 01/11/24 03/12/24 03/05/24 History release metoprolol succinate 50 mg 50 mg PO BEDTIME 01/11/24 03/12/24 03/11/24 History tablet,extended release 24 hr (Toprol XL) psyllium husk (with sugar) 3 2 tbsp PO DAILY 01/11/24 03/12/24 01/15/24 History gram/7 gram oral powder (Metamucil (with sugar)) ibuprofen 600 mg tablet 600 mg PO Q8H PRN Pain 03/01/24 03/12/24 03/05/24 History Physical Exam 2 Vital Signs and Narrative: Vital Signs: Last Vital Signs Temp 98.1 F 03/12/24 08:06 Pulse 64 03/12/24 08:06 Resp 16 03/12/24 08:06 BP 150/85 H 03/12/24 08:06 Pulse Ox 98 03/12/24 08:06 O2 Del Method Room Air 03/12/24 08:06 BMI result Body Mass Index 23.0 Constitutional - Awake and Alert, No apparent distress Eyes - PERRLA, EOMI Cardiovascular - S1S2, RRR, No edema Respiratory - Normal lung expansion, Normal respiratory effort, No respiratory distress, CTA bilaterally Gastrointestinal - NT / ND; +BS; No rebound or guarding Extremities - no calf tenderness bilaterally, no swelling Skin - Warm/Dry Neurological - Alert & oriented x3 Psychological - Appropriate affect Results Labs 03/01/24 13:01 Assessment and Plan (1) History of total right hip replacement: Status: Acute Plan 68-year-old male with history of CAD, GERD, hypertension, hyperlipidemia, pulmonary nodules, MANDI on CPAP, COPD admitted to orthopedic surgery for management of osteoarthritis of the right hip s/p SHRUTHI with consult placed hospitalist service for medical management. #OA R hip s/p SHRUTHI -plan per ortho surgery #HTN -bp control improved -optimize pain control -given 2.5mg amlodpine in pacu. Missed dose this morning and did not take lisinopril today -resume amlodipine 2.5mg am -Resume toprol 50mg this evening -Resume lisinopril am if BP allows #CAD/HLD -resume asa per surgery. Continue bb, statin #HLD -statin #GERD -ppi #MANDI -cpap bedtime Thank you for this consult. Will continue following along with you
--- NOTE | 2024-03-12 12:11 | PM.OP ---
Brief Operative Note Date of Service: 03/12/24 Pre-op diagnosis: Right hip OA Post-op diagnosis: same Procedure: Right SHRUTHI Implants: Styrker Trident 2 multi hole 62 [place] Accolade 2 # 7 127 deg, +2.5 36 ceramic Surgeon: Gordo Ibarra MD Anesthesia: GETA and regional Was an Hide Grader used for this Procedure?: Yes Hide Grader: Linda Vo Estimated blood loss (mL): 250 IV fluids (mL): 1,000 Pathology: other Condition: stable Disposition: PACU
[2024-03-12] MEDS: HYDROmorphone HCl 0.5 MG/0.5 ML SYRINGE IVPUSH ×4 (13:08→13:35)
[2024-03-12] MEDS: amLODIPine Besylate 2.5 MG TABLET PO ×2 (14:18→21:43)
[2024-03-12] MEDS: ondansetron HCL 4 MG/2 ML VIAL IVPUSH (14:57)
[2024-03-12] MEDS: ceFAZolin Sodium/Dextrose,Iso 2 GM/50 ML PIGGYBACK IV (16:01)
[2024-03-12] MEDS: 0.9 % Sodium Chloride Flush 3 ML SYRINGE IVFLUSH (16:01)
--- NOTE | 2024-03-12 18:54 | PC.NURSE ---
No void from patient post-op by 1800. Bladdder scan of 715mL. Straight catheterization attempted twice by this RN with a secondary RN present, with no success. Patient with mild bloody discharge from urethra. Brittany-care provided. Patient tolerated procedures well. KEELY Navarro notified at 1850 of patient status with instruction to attempt again utilizing a different catheter.
--- NOTE | 2024-03-12 21:08 | PC.NURSE ---
Addendum entered by Omari Pinedo RN 03/13/24 05:48: coude indwelling catheter placed. draining CYU with some scant bleeding and small/medium sized blood clots order in. Addendum entered by Omari Pinedo RN 03/13/24 00:46: f/u bladder scan at 0000 showed 382 mL. Pt ambulated to bathroom and experienced dysuria and hesitancy accompanied by some mild bleeding. post void residual scan showed 350 mL. pt denies any complaints or bladder discomfort. pt expresses not wanting to be catheterized at this time. MD aware. plan to hold heparin and ASA. plan of care continues. call chen in reach Original Note: patient bladder scanned by previous nurse with 715 mL volume seen. two straight caths previously attempted without success. this nurse attempted Coude with effect - 900 mL output CYU. Pt alert and oriented x 4, calm, and expresses relief. provider aware. call chen in reach. plan of care ongoing.
[2024-03-12] MEDS: Docusate Sodium 100 MG CAPSULE PO (21:44)
[2024-03-12] MEDS: Metoprolol Succinate ER 50 MG TAB.ER.24H PO (21:45)
[2024-03-12] MEDS: Atorvastatin Calcium 40 MG TABLET PO (21:46)
[2024-03-12] MEDS: Aspirin 325 MG TABLET PO (21:46)
[2024-03-12] MEDS: Celecoxib 200 MG CAPSULE PO (21:46)
[2024-03-13 00:05] VITALS: BP 155/76; PULSE 82; RESP 18; TEMP 37.4; O2SAT 96
[2024-03-13 02:57] VITALS: BP 142/67; PULSE 77; RESP 18; TEMP 37.2; O2SAT 97
[2024-03-13] MEDS: Lactated Ringers 1,000 ML 100 ML IVCONT (03:01)
[2024-03-13] MEDS: Omeprazole 20 MG CAPSULE.DR PO (06:11)
[2024-03-13 06:33] LABS: MANUAL DIFF FLAG NO
[2024-03-13 06:54] LABS: Basophils Percent Auto 0.1 % (0-2); Hematocrit 29.5 % (42.0-52.0); Imm Gran Abs Auto 0.03 X10*3/uL (0.00-0.03); Imm Gran Pct Auto 0.4 % (0.0-0.4); Lymphocytes Absolute Auto 0.6 X10*3/uL (1.2-4.9); Lymphocytes Percent Auto 7.7 % (20-40); Mean Corpuscular HGB Conc 33.9 g/dl (31.0-36.0); Mean Corpuscular Hemoglobin 30.5 pg (27.0-33.0); Mean Corpuscular Volume 89.9 fL (80.0-98.0); Mean Platelet Volume 9.5 fL (9.4-12.4); Monocytes Absolute Auto 0.6 X10*3/uL (0.1-1.2); Monocytes Percent Auto 8.5 % (2-11); Neutrophils Absolute Auto 6.1 x10*3/uL (2.0-8.3); Neutrophils Percent Auto 83.3 % (45-73); Platelet Count 144 X10*3/uL (160-400); Red Blood Count 3.28 X10*6/uL (4.60-5.80); Red Cell Distribution Width 13.1 % (11.0-16.0); White Blood Count 7.3 X10*3/uL (4.8-10.8)
[2024-03-13 06:55] LABS: Anion Gap 11 (12-20); Blood Urea Nitrogen 19 mg/dL (9-16); Calcium 8.6 mg/dL (8.4-10.2); Carbon Dioxide 25 mmol/L (22-29); Chloride 103 mmol/L (96-108); Creatinine Clr Calc Pharmacy 128.5; Estimated Glomerular Filt Rate > 60; Glucose Fasting 119 mg/dL (60-99); Potassium 4.2 mmol/L (3.3-5.1); Sodium 135 mmol/L (135-145)
[2024-03-13 07:48] VITALS: BP 142/67; PULSE 77; O2SAT 97
[2024-03-13 08:00] VITALS: BP 146/78; PULSE 73; RESP 17; TEMP 36.7; O2SAT 100
[2024-03-13] MEDS: Celecoxib 200 MG CAPSULE PO (08:02)
[2024-03-13] MEDS: Aspirin 325 MG TABLET PO (08:02)
[2024-03-13] MEDS: Docusate Sodium 100 MG CAPSULE PO (08:02)
[2024-03-13] MEDS: amLODIPine Besylate 2.5 MG TABLET PO (08:02)
--- NOTE | 2024-03-13 09:41 | MHC.CM.PN ---
IMM delivered. Patient from home w/ . Ambulates w/ cane. Has CPAP - unknown supplier. PCP Rajiv Martino MD Patient completed HCP naming as agent. DP: PT rec home w/ services. [facility] has accepted. Patient agreeable to plan. to transport. CM will continue to follow.
[2024-03-13] MEDS: Tamsulosin HCL 0.4 MG CAPSULE PO (11:38)
--- NOTE | 2024-03-13 12:11 | HO.POSTANES ---
Post Anesthesia Evaluation Post Anesthesia Evaluation Date of Service: 03/12/24 Vital Signs: Vital Signs Temp Pulse Resp BP Pulse Ox O2 Del Method 03/13/24 08:00 98.1 F 73 17 146/78 H 100 Room Air 03/13/24 07:48 77 142/67 H 97 03/13/24 02:57 98.9 F 77 18 142/67 H 97 Room Air Anesthesia: General Mental Status: Awake Pain Control: Satisfactory Nausea/Vomiting: None Hydration: Adequate Anesthesia-Related Issues: No Anes. Related Issues
--- NOTE | 2024-03-13 13:26 | HO.PM.IMPN ---
Subjective Subjective Date of Service: 03/13/24 Interval History: Developed urine retention participated with PT Review of Systems Review of Systems: Yes all other systems are reviewed and are negative Physical Exam Vital Signs: Vital Signs: Last Vital Signs Temp 98.1 F 03/13/24 08:00 Pulse 73 03/13/24 08:00 Resp 17 03/13/24 08:00 BP 146/78 H 03/13/24 08:00 Pulse Ox 100 03/13/24 08:00 O2 Del Method Room Air 03/13/24 08:00 O2 Flow Rate 2 03/12/24 14:51 FiO2 32 03/12/24 13:50 BMI result Body Mass Index 23.0 Const: Other: Constitutional : Awake, interactive, not in distress Neck : Normal inspection, Supple Cardiovascular : RRR, no JVP, no lower extremity edema Respiratory : good bilateral air entry, no crackles, wheezes or rhonchi Gastrointestinal: soft, lax, Normal bowel sounds, Non tender Skin : Warm, Dry, wound in dressing Urology: Marshall catheter in place Neurological : Alert & oriented x3, No focal deficit , Objective Data Active Medications Acetaminophen (Acetaminophen 325 Mg Tablet) 650 mg PO Q6H PRN PRN Reason: Pain, Mild (Pain Scale 1-3) Albuterol Sulfate (Albuterol Sulfate (0.083%) 2.5 Mg/3 Ml Vial.Neb) 2.5 mg INHALE ONCE PRN PRN Reason: Shortness of Breath/Wheezing Amlodipine Besylate (Amlodipine Besylate 2.5 Mg Tablet) 2.5 mg PO BID [facility]; Protocol Last Admin: 03/13/24 08:02 Dose: 2.5 mg Documented By: MADY Aspirin (Aspirin 325 Mg Tablet) 325 mg PO BID [facility] Last Admin: 03/13/24 08:02 Dose: 325 mg Documented By: MADY Atorvastatin Calcium (Atorvastatin Calcium 40 Mg Tablet) 40 mg PO BEDTIME [facility] Last Admin: 03/12/24 21:46 Dose: 40 mg Documented By: RANI Celecoxib (Celecoxib 200 Mg Capsule) 200 mg PO BID [facility] Last Admin: 03/13/24 08:02 Dose: 200 mg Documented By: MADY Docusate Sodium (Docusate Sodium 100 Mg Capsule) 100 mg PO BID [facility] Last Admin: 03/13/24 08:02 Dose: 100 mg Documented By: MADY Haloperidol Lactate (Haloperidol Lactate 5 Mg/Ml Vial) 0.5 mg IVPUSH ONCE PRN PRN Reason: Nausea and Vomiting Hydromorphone HCl (Hydromorphone Hcl 0.5 Mg/0.5 Ml Syringe) 0.25 mg IVPUSH Q4H PRN; Protocol PRN Reason: Pain, Severe (Pain Scale 7-10) Lactated Ringer's (Lr) 1,000 mls @ 100 mls/hr IVCONT .Q10H [facility] Last Admin: 03/13/24 13:05 Dose: Not Given Documented By: RENY Non-Admin Reason: patient ambulatory. fluids unhooked. Metoprolol Succinate (Metoprolol Succinate Er 50 Mg Tab.Er.24h) 50 mg PO BEDTIME [facility]; Protocol Last Admin: 03/12/24 21:45 Dose: 50 mg Documented By: RANI Omeprazole (Omeprazole 20 Mg Capsule.Dr) 20 mg PO Q2D@0630 [facility] Last Admin: 03/13/24 06:11 Dose: 20 mg Documented By: RANI Ondansetron HCl (Ondansetron Hcl 4 Mg/2 Ml Vial) 4 mg IVPUSH Q8H PRN PRN Reason: Nausea and Vomiting Last Admin: 03/12/24 14:57 Dose: 4 mg Documented By: DANGELKristyn Oxycodone HCl (Oxycodone Hcl Immed Release 5 Mg Tablet) 5 mg PO Q4H PRN PRN Reason: Pain, Moderate(Pain Scale 4-6) Oxycodone HCl (Oxycodone Hcl Er 10 Mg Tab.Er.12h) 10 mg PO BID [facility] Last Admin: 03/13/24 08:04 Dose: Not Given Documented By: MADY Non-Admin Reason: Patient Refused Sodium Chloride (0.9 % Sodium Chloride Flush 3 Ml Syringe) 3 ml IVFLUSH QSHIFT [facility] Last Admin: 03/13/24 08:03 Dose: Not Given Documented By: AMDY Non-Admin Reason: IV Running Tamsulosin HCl (Tamsulosin Hcl 0.4 Mg Capsule) 0.4 mg PO DAILY [facility] Last Admin: 03/13/24 11:38 Dose: 0.4 mg Documented By: RENY Dillard 03/13/24 05:37 03/13/24 05:37 Labs: Laboratory Results - last 24 hr 03/13/24 05:37 MCV 89.9 MCH 30.5 MCHC 33.9 RDW 13.1 Plt Count 144 L MPV 9.5 Immature Gran % (Auto) 0.4 Neut % (Auto) 83.3 H Lymph % (Auto) 7.7 L [place] % (Auto) 8.5 Eos % (Auto) 0.0 Baso % (Auto) 0.1 Lymph # (Auto) 0.6 L [place] # (Auto) 0.6 Eos # (Auto) 0.0 Baso # (Auto) 0.0 Abs Immat Gran (auto) 0.03 Absolute Neuts (auto) 6.1 Absolute Nucleated RBC 0.000 Nucleated RBC % (auto) 0.0 Anion Gap 11 L Estim Creat Clear Calc 128.5 Estimated GFR > 60 Fasting Glucose 119 H Calcium 8.6 Assessment and Plan (1) HTN (hypertension): Status: Acute Plan 68-year-old male with history of CAD, GERD, hypertension, hyperlipidemia, pulmonary nodules, MANDI on CPAP, COPD admitted to orthopedic surgery for management of osteoarthritis of the right hip s/p SHRUTHI with consult placed hospitalist service for medical management. # Urine retention, acute Marshall placed started on Tamsulosin To be followed w [facility] for void trial follow Urology as outpatient #OA R hip s/p SHRUTHI -plan per ortho surgery #HTN -resume amlodipine 2.5mg am toprol 50mg and lisinopril am #CAD/HLD -resume asa per surgery. Continue bb, statin #HLD -statin #GERD -ppi #MANDI -cpap bedtime Thank you for this consult. Will sign off. Quality Stroke Does the patient have a stroke diagnosis?: No VTE Prior VTE?: No VTE Risk Level:: Medical - moderate - high VTE Device Contraindication: N/A - Device Ordered VTE Drug Contraindication: N/A - Med Ordered
--- NOTE | 2024-03-13 13:35 | P.DS_ITS ---
DS: Providers Provider Date of Service: 03/13/24 Date of admission: 03/12/24 07:30 Primary care physician: Rajiv Martino MD Consults: 03/12/24 10:39 Consult to Hospitalist Routine Comment: Consulting Provider: Hospitalist Reason For Exam: Routine medical management DS: Diagnosis Discharge Diagnosis (1) HTN (hypertension): Status: Acute DS: Summary Hospital Course Hospital Course: The patient underwent a successful right total hip arthroplasty on 03/12/24, was transferred to PACU and then to the floor to recover. During their stay, their vitals were stable, afebrile at . Labs were unremarkable, H/H 10.0/29.5. POD 1 he was started on ASA 325mg tabs bid a day for DVT ppx, they also received Physical Therapy services twice a day. Physical therapy should include gait training, core and lumbar strength, glute strength. Posterior precautions intact. WBAT. Prior to discharge, her dressing was changed, incision clean dry and intact, new Aquacel dressing applied. The Aquacel dressing should remain intact and dry at all times. Any concerns with the dressing, please contact orthopedic office. No showering. The plan is to be discharged home with [facility], he has a iwll in place and will see Urology in 2 weeks to determine if will can be removed. Time Attestation Discharge Coordination Time (in mins): 30 Quality: Safe Use of Opioids Does Pt have an Active Cancer Diagnosis on the Problem List?: No Quality: Stroke Does the patient have a stroke diagnosis?: No Physical Exam Vital Signs: Vital Signs: Last Vital Signs Temp 98.1 F 03/13/24 08:00 Pulse 73 03/13/24 08:00 Resp 17 03/13/24 08:00 BP 146/78 H 03/13/24 08:00 Pulse Ox 100 03/13/24 08:00 O2 Del Method Room Air 03/13/24 08:00 O2 Flow Rate 2 03/12/24 14:51 FiO2 32 03/12/24 13:50 BMI result Body Mass Index 23.0 DS: Data Data Completed and Pending Completed studies during hospitalization [Text1]: Procedures Excision of Lumbar Vertebral Disc, Open Approach (01/15/24) Fusion of Lumbar Vertebral Joint with Interbody Fusion Device, Anterior Approach, Anterior Column, Open Approach (01/15/24) Insertion of Interspinous Process Spinal Stabilization Device into Lumbar Vertebral Joint, Open Approach (01/15/24) Pending studies at discharge: Pending at discharge 03/12/24 10:57 Surgical [PTH] Routine Labs on day of discharge: Laboratory Results - last 24 hr 03/13/24 05:37 WBC 7.3 RBC 3.28 L D Hgb 10.0 L D Hct 29.5 L D MCV 89.9 MCH 30.5 MCHC 33.9 RDW 13.1 Plt Count 144 L MPV 9.5 Immature Gran % (Auto) 0.4 Neut % (Auto) 83.3 H Lymph % (Auto) 7.7 L [place] % (Auto) 8.5 Eos % (Auto) 0.0 Baso % (Auto) 0.1 Lymph # (Auto) 0.6 L [place] # (Auto) 0.6 Eos # (Auto) 0.0 Baso # (Auto) 0.0 Abs Immat Gran (auto) 0.03 Absolute Neuts (auto) 6.1 Absolute Nucleated RBC 0.000 Nucleated RBC % (auto) 0.0 Sodium 135 Potassium 4.2 Chloride 103 Carbon Dioxide 25 Anion Gap 11 L BUN 19 H Creatinine 0.64 Estim Creat Clear Calc 128.5 Estimated GFR > 60 Fasting Glucose 119 H Calcium 8.6 Discharge Plan Discharge Anticipated Discharge Date/Time: 03/13/24 13:22 Patient Disposition: Home Health Service Discharge Diagnosis: rt inder Referrals: Julisa STATON [Outside] - 1 Day (Julisa STATON will call you to schedule appointments) Sheeba Falcon PA-C [Physician [employer]] - 2 Weeks (03/28/24 09:30 [facility]geons Sheeba Falcon PA-C) Discharge Medications: New celecoxib 200 mg Capsule 200 mg PO BID 30 Days Qty: 60 0RF acetaminophen 325 mg Tablet 650 mg PO Q6H PRN (Reason: Pain, Mild (Pain Scale 1-3)) 30 Days Qty: 240 0RF aspirin 325 mg Tablet 325 mg PO BID 42 Days Qty: 84 0RF docusate sodium 100 mg Capsule 100 mg PO BID 14 Days Qty: 28 0RF oxycodone 5 mg Tablet 5 mg PO Q4H PRN (Reason: Pain, Moderate(Pain Scale 4-6)) 7 Days Qty: 42 0RF Rx Instructions: Partial Fill upon patient request. tamsulosin 0.4 mg Capsule 0.4 mg PO DAILY 14 Days Qty: 14 0RF Continued (DME) walker Misc See Rx Instructions .MEDSUPPLY Qty: 1 0RF Rx Instructions: Folding Front wheeled walker -DURATION 99 DAYS (DME) Raised toilet seat See Rx Instructions .ROUTE .MEDSUPPLY Qty: 1 0RF Rx Instructions: DURATION-99 DAYS lisinopril 20 mg tablet 20 mg PO BID 90 Days Qty: 180 3RF amlodipine 2.5 mg tablet 2.5 mg PO BID Qty: 180 3RF atorvastatin 40 mg tablet 40 mg PO BEDTIME metoprolol succinate [Toprol XL] 50 mg tablet extended release 24 hr 50 mg PO BEDTIME psyllium husk (with sugar) [Metamucil (with sugar)] 3 gram/7 gram Powder 2 tbsp PO DAILY betamethasone valerate 0.1 % cream 1 applic topical BID PRN (Reason: Rash) omeprazole 20 mg capsule,delayed release(DR/EC) 20 mg PO .qod Discontinued aspirin 81 mg tablet,delayed release (DR/EC) 81 mg PO BEDTIME ibuprofen 600 mg Tablet 600 mg PO Q8H PRN (Reason: Pain) Discharge Orders: Discharge Order (Routine); Ordered 03/13/24 Ordered By: Sheeba Falcon Diet: Regular diet Activity on Discharge: Use cane or walker Stand Alone Forms: Patient Portal Discharge page Print Language: Macedonian Care Plan Goals: Restore function of joint Health Concerns: Follow up with Dr Puente office for removal of will Plan of Treatment: Physical Therapy Pain management DVT prophylaxis Assessment: * Physical Therapy for Total hip arthroplasty: wbat, posterior precautions, gait training, ROM, strength * Limit stair climbing * No showering, no tub bath-keep dressing clean, dry and intact * No driving x6 weeks * Continue Aspirin twice a day x 6 weeks * Follow up with [facility] Orthopedics in 2 weeks: * 03/28/2409:[facility] SurgeonsSheeba Falcon PA-C
--- NOTE | 2024-03-13 13:36 | W.MHC.F2F ---
Service Date Service Date: 03/13/24 Encounter Date of encounter: 03/13/24 Reasons for Services Signs and symptoms assessed: Weakness, poor balance, poor gait mechanics Reason for nursing home: other ([facility] ) Reason for physical therapy: home safety and mobility, therapeutic exercises, restore joint function, gait/transfer training and ADL training Reason for occupational therapy: home safety and mobility, therapeutic exercises, restore joint function, gait/transfer training, ADL training and energy conservation Homebound: Leaving the home is medically contraindicated at this time without the asist of a device and/or another person due th the listed conditions above and below. Reason homebound: unsteady gait / fall risk, pain with ambulation, poor balance / fall risk and unable to drive Homebound supporting statement: Pt. is considered home bound due to recent surgery. Unable to drive, poor balance, poor gait mechanics. Certification: Based on the above findings, I certify that this patient is confined to the home and needs intermittent nursing home care, physical therapy and/or speech therapy, or continues to need occupational therapy. The patient is under my care, and I have initiated the establishment of the plan of care. The patient will be followed by a physician who will periodically review the plan of care. Time Spent With Patient Time: Total time managing care of this patient today ____ minutes.
--- NOTE | 2024-03-13 14:46 | PC.NURSE ---
PT SWITCHED OVER TO LEG BAG ON DISCHARGE , PT EDUCATED ON LEG BAG AND HOW TO EMPTY , PT GIVEN OVERNIGHT BAG AND EDUCATED ON HOW TO ATTACH BAG .
--- NOTE | 2024-03-18 08:44 | W.PM.OPN ---
Operative Note Operative Note Date of Service: 03/12/24 Narrative: Date of Service: 03/12/24 Pre-op diagnosis: Right hip OA Post-op diagnosis: same Procedure: Right SHRUTHI Implants: Styrker Trident 2 multi hole 62 [place] Accolade 2 # 7 127 deg, +2.5 36 ceramic Surgeon: Gordo Ibarra MD Anesthesia: GETA and regional Was an Vice President Digital Strategist used for this Procedure?: Yes Vice President Digital Strategist: Linda Vo Estimated blood loss (mL): 250 IV fluids (mL): 1,000 Pathology: other Condition: stable Disposition: PACU Procedure in detail: Patient was brought into the operating room and placed in the right lateral decubitus position. All bony prominences were well padded and the limb was prepped and draped in standard sterile fashion. A time-out was called to identify proper site procedure proper surgeon IV antibiotics and 1 g of transaxemic acid were administered. I began by making a curvilinear incision over the posterolateral aspect of the greater trochanter. Dissection was taken down to the tensor fascia which was incised in line with the incision and a Charnley retractor was placed. Cautery was used to maintain hemostasis. The hip was internally rotated and the external rotators were identified. The vessels were cauterized and a full-thickness capsular/external rotator layer was developed starting just proximal to the piriformis. This layer was tagged and a dull Hohmann retractor was placed underneath the neck in the hip was dislocated. A neck cut was made 1 cm proximal to the lesser trochanter and the head and neck were removed and measured 58mm on the back table. I then removed the labrum and cauterized the fovea. I started with a 48 reamer and medialized to the inner table. He has a diminutive posterior wall. I sequentially reamed up to a size 62 and impacted a 62mm cup at 45 degrees of inclination and 25 degrees of version. Given his posterior wall I placed 2 acetabular screws using standard AO technique. I then placed a 20 deg posterior lipped liner and turned my attention to the femur. I identified the piriformis insertion and used this as a starting point for my parish cutter. The medius tendon was protected with a Hibs retractor. A Charnley awl was inserted in the canal and a curved curette used to remove the lateral bone. I irrigated copiously. I then sequentially broached in the patient's natural version to a size 7 and placed my trial implants. I used a #7/127/+2.5 based on my pre-operative template. Using a trail head I took the hip through range of motion. I was satisfied with the stability. I removed all instrumentation and copiously irrigated. I placed my final femoral implant and again took the hip through range of motion and was satisfied with the stability and length. The final +2.5 implant was impacted in place and the hip reduced. I then irrigated for 3 minutes with iodine and placed 1 g of local transaxemic acid. I performed a capsular closure with 2.0 fiberwire, Julius's fascia with 0 Vicryl, subcuticular with 2-0 Vicryl and the skin with gary. Patient was placed into a sterile dressing. Patient was extubated brought to the recovery room in stable condition. There were no known complications.
== END 2024-03-13 14:46 | disposition home health service (06) | DRG 470 ==
LOC: HO.SSSA 07:35 → HO.S3 12:58
PROVIDERS: Anesthesiology; Physician Assistant; Admitting Provider Orthopaedic Surgery; PCP Internal Medicine; Visit Provider Orthopaedic Surgery
PROC: 0SR903A Replacement of Right Hip Joint with Ceramic Synthetic Substitute, Uncemented, Open Approach (ICD-10-PCS; CPT 27130; principal; 2024-03-12 09:30)
DX: M16.11 Unilateral primary osteoarthritis, right hip (principal); I25.10 Atherosclerotic heart disease of native coronary artery without angina pectoris; J44.9 Chronic obstructive pulmonary disease, unspecified; G47.33 Obstructive sleep apnea (adult) (pediatric); K21.9 Gastro-esophageal reflux disease without esophagitis; R33.9 Retention of urine, unspecified; E78.5 Hyperlipidemia, unspecified; Z79.899 Other long term (current) drug therapy
CPT/HCPCS: 27130; 36415; 72170; 80048; 85025; 85027; 86850; 86900; 86901; 87640; 87641; 88304; 88311; 96361; 96365; 96375; 97161; 97165; C1713; C1758; C1776; J0131; J0690; J1100; J1170; J2405; J2704; J2795; J3010; J7120

== ENCOUNTER → 2024-03-12 07:30 | Outpatient (BNV) | payer MEDICARE, BC, SELFPAY | PROVIDERS: Admitting Provider Orthopaedic Surgery; PCP Internal Medicine; Visit Provider Orthopaedic Surgery | DX: Z47.1 Aftercare following joint replacement surgery (principal); Z96.641 Presence of right artificial hip joint | CPT/HCPCS: 27130; 99024; G0180 ==

== ENCOUNTER → 2024-03-12 07:30 | Outpatient (BNV) | payer MEDICARE, BC, SELFPAY | PROVIDERS: Admitting Provider Orthopaedic Surgery; PCP Internal Medicine; Visit Provider Physician Assistant | DX: I10 Essential (primary) hypertension (principal); R33.9 Retention of urine, unspecified | CPT/HCPCS: 99222; 99231 ==

== ENCOUNTER 2024-03-19 09:16 | Outpatient (REF) | payer MEDICARE, BC, SELFPAY ==
--- NOTE | ~2024-03-19 | XR_ITS ---
EXAMINATION: XR LUMBOSACRAL SPINE WITH OBLIQUES CLINICAL INFORMATION: Arthrodesis status. COMPARISON: 09/06/2023, 03/07/2024. TECHNIQUE: AP, lateral, neutral, flexion and extension views of the lumbar spine. FINDINGS: Degenerative changes in the imaged lower thoracic spine. Tips of 2 screws minimally imaged overlying the right iliac bone. Tubular device of indeterminate etiology overlies the central lower pelvis, incompletely imaged. Status post interval posterior fusion at L4-L5 with bilateral rods and pedicular screws as well as a disc spacer. Hardware appears intact. Grade 1 anterolisthesis of L4 on L5 persists with flexion and extension. Multilevel spondylosis in the remainder of the lumbar spine with marked loss of disc space height at L2-L3, L3-L4 and L5-S1. Minimal grade 1 retrolisthesis of L1 on L2, L2 on L3 and L3 on L4. XR/XR lumbar spine 4V min IMPRESSION: 1. Status post interval posterior fusion at L4-L5. Hardware appears intact. 2. Multilevel spondylosis in the remainder of the lumbar spine with marked loss of disc space height at L2-L3, L3-L4 and L5-S1.
== END 2024-03-19 09:17 | disposition home or self-care (01) ==
LOC: HO.HOSX 09:16
PROVIDERS: Visit Provider Physician Assistant
DX: Z98.1 Arthrodesis status (principal)
CPT/HCPCS: 72110; 99212

== ENCOUNTER 2024-03-19 12:55 | Outpatient (AMB) | payer MEDICARE, BC, SELFPAY ==
--- NOTE | 2024-03-19 13:18 | A.SPINEOV_ITS ---
Intake Visit Reasons: 2nd post op with Xray Intake Note: Mr. Clarke is here for 2nd post op appointment. Surgery Aid Required: No Allergies COW HAIR Allergy (Unknown, Uncoded 03/12/24 07:39) + IN ALLERGY TESTING Assessment & Plan Assessment & Plan (1) S/P spinal fusion: Code(s): Z98.1 - Arthrodesis status Category: Surgical Plan Procedure: L4-5 OLIF Foster comes in today for his 2nd postoperative visit. He continues to heal very well from his spine surgery. Of note, he recently had a right hip surgery completed by our orthopedics department. He states this has gone very well. He is ambulating up and down the street and working with physical therapy. He reports no concerns regarding his spine surgery, and states he has no pain in his left leg. He has not feel he has weakness in his left leg either. We discussed the possibility of returning to regular activities such as tennis, which he plans to do in the next 3-4 weeks. No new neurological deficits. Patient is able to ambulate well, rises from a seated position without difficulty. There is no need for continued routine follow-up with Foster. He may be discharged as a patient. Mohit Ozuna MD,PhD [facility] Orders: Orders XR lumbar spine 4V min Today Z98.1 - Arthrodesis status Coding Level of Care Code Global (70314) Diagnoses S/P spinal fusion Z98.1
== END 2024-03-19 13:46 | disposition home or self-care (01) ==
PROVIDERS: PCP Internal Medicine; Visit Provider Physician Assistant
DX: Z98.1 Arthrodesis status (principal)
CPT/HCPCS: 99024

== ENCOUNTER 2024-03-26 09:31 | Outpatient (AMB) | payer MEDICARE, BC, SELFPAY ==
--- NOTE | 2024-03-26 09:39 | A.OFFVIS_ITS ---
Intake Visit Reasons: VT/inpatient follow up Intake Note: Patient is present for Voiding Trial. Patient was in Urinary Retention after Surgery with Dr Parry Patient Presents with Marshall Catheter. Instructed he will have his bladder filled with Sterile water by Nurse After bladder is filled we will have him try to fully empty out his bladder and Bladder Scan will be obtained after. Patient states that his Urinary bag has been filling up well no issues. PVR:0ml Allergies COW HAIR Allergy (Unknown, Uncoded 03/12/24 07:39) + IN ALLERGY TESTING Medication List - Last Reconciled 03/26/24 by Suman Puente MD acetaminophen 650 mg (2 x 325 mg) PO Q6H PRN 30 days amlodipine 2.5 mg PO BID aspirin 325 mg PO BID 42 days atorvastatin 40 mg PO BEDTIME betamethasone valerate 0.1% 1 appl topical BID PRN celecoxib 200 mg PO BID 30 days docusate sodium 100 mg PO BID 14 days finasteride 5 mg PO DAILY 14 days lisinopril 20 mg PO BID 90 days metoprolol succinate ER (Toprol XL) 50 mg PO BEDTIME omeprazole 20 mg PO .qod oxycodone 5 mg PO Q4H PRN 7 days psyllium husk (with sugar) 3 gram/7 gram (Metamucil (with sugar)) 2 tbsp PO DAILY [Raised toilet seat DURATION-99 DAYS] tamsulosin 0.4 mg PO BEDTIME 90 days walker Folding Front wheeled walker -DURATION 99 DAYS HPI Comments Details: Foster is a pleasant male. He is a patient of Dr. Martino. He is seen for the following urologic conditions - bladder outlet obstruction Had urinary retention following surgery 2nd time this has occurred Past voiding trial today Describes minimal symptoms prior to surgery Will continue with Flomax and review in 2 months with PVR PFSH Medical History Osteoarthritis of right hip Retrognathia Bifascicular block HTN (hypertension) GERD (gastroesophageal reflux disease) Pneumonitis COPD (chronic obstructive pulmonary disease) Hyperlipidemia CAD (coronary artery disease) Mediastinal lymphadenopathy Pulmonary nodules MANDI (obstructive sleep apnea) Surgical History History of lumbar surgery (01/15/24) History of arthroscopy of both knees Hx of colonoscopy Hx of vein stripping Hx of bilateral cataract extraction Hx of bilateral inguinal hernia repair History of total knee replacement Family History Father Cancer Mother No problems noted. 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 Review of Systems Const Denies chills and Denies fever(s) Card Reports no additional complaints and Denies syncope Resp Denies cough GI Denies abdominal pain and Denies heartburn Reports as per HPI and Denies change in libido Neuro Denies syncope Psych Denies change in libido Endo Denies change in libido Physical Exam Const General: cooperative, healthy appearing, comfortable and no acute distress Orientation/consciousness: patient oriented x3 HEENT Face and sinus: Yes normal facial exam Mouth: moist mucous membranes Neck Neck: Yes normal visual inspection, Yes full ROM and Yes trachea midline Chest Chest palpation & inspection: normal inspection of the chest Resp Effort & Inspection: normal respiratory effort, able to speak in complete sentences and no respiratory distress GI Inspection: Yes normal to inspection Back/Spine/Pelvis Cervical Spine: normal cervical lordosis Thoracic/Lumbar Spine: thoracic and lumbar spine normal to inspection Skin General skin exam: no rashes or lesions noted Neuro General: patient oriented x3, gait normal, tone normal and moves all extremities Extrem General: Yes normal to inspection and Yes capillary refill normal Office Procedures Bladder/Catheter Procedure Details: Patient presents to office for VT s/p hospital stay for hip surgery. 120mls sterile water instilled into bladder through catheter. 20 fr catheter removed, patient tolerated well. Patient given urinal, MA to bladder scan. Will see Dr. Puente after bladder scan complete. 27221-[id number] of Bladder Procedure code (CPT) selection complete Post Void Residual Post Residual Void Post Void Residual (PVR): 0 48610-Amfy Void Residual by ultrasound Assessment & Plan Assessment & Plan (1) Bladder outlet obstruction: Code(s): N32.0 - Bladder-neck obstruction Category: Medical Plan Flomax for next 2 months Orders: Orders AMB Bladder/Catheter Procedure Today Z96.641 - Presence of right artificial hip joint AMB Post Void Residual by ultrasound Today N99.89 - Other postprocedural complications and disorders of genitourinary system, R33.8 - Other retention of urine Medications: Changed From tamsulosin 0.4 mg PO DAILY 14 days 14 caps 0RF N32.0 - Bladder-neck obstruction To tamsulosin 0.4 mg PO BEDTIME 90 days 90 caps 0RF N32.0 - Bladder-neck obstruction Patient Instructions: Imaging studies, laboratory and physical exam results were discussed and reviewed in detail. No major barriers to patient understanding were identified. An opportunity to ask questions regarding the treatment plan was provided. All questions were answered. The patient expressed understanding and agreement with the above treatment plan. The patient is aware they should contact our office by phone for worsening of their current condition or the appearance of new urologic symptoms. Compliance is encouraged with any medications and followup testing that is ordered. It is a privilege to participate in the urologic care of your patient. If you have any questions or concerns regarding treatment for the above conditions, or other urologic issues, please do not hesitate to contact me. The office telephone contact is [phone]. This note is constructed using voice recognition software. While every effort has been made to ensure accuracy streets and buildings decorator errors may have been included. Yours sincerely, Dr Suman Puente MD, THOM[facility] - Urology Providers of Expert, Compassionate Care for the Genitourinary System Coding Level of Care Code Est Pt Level 4 (37044) Diagnoses Bladder outlet obstruction N32.0 CPT Codes Bladder/Catheter Procedure - CPT: 47641-Lhueyzwawp of Bladder ([id number]) Post Residual Void - PVR CPT Code: 47898-Fihm Void Residual by ultrasound ([id number])
== END 2024-03-26 10:18 | disposition home or self-care (01) ==
PROVIDERS: PCP Internal Medicine; Visit Provider Urology
DX: N32.0 Bladder-neck obstruction (principal); R33.9 Retention of urine, unspecified
CPT/HCPCS: 51700; 99214

== ENCOUNTER → 2024-03-26 09:31 | Outpatient (BNVA) | payer MEDICARE, BC, SELFPAY | PROVIDERS: PCP Internal Medicine; Visit Provider Urology | DX: N32.0 Bladder-neck obstruction (principal); N99.89 Other postprocedural complications and disorders of genitourinary system; R33.8 Other retention of urine; Z79.899 Other long term (current) drug therapy | CPT/HCPCS: 51700; 51798; 99212 ==

== ENCOUNTER 2024-03-28 09:20 | Outpatient (AMB) | payer MEDICARE, BC, SELFPAY ==
--- NOTE | 2024-03-28 09:28 | A.OFFVIS_ITS ---
Intake Visit Reasons: PO RT SHRUTHI 03/12/24 NE Intake Note: Foster a 68 year old male presents today for a post operative right SHRUTHI, DOS 03/12/24 NE. Patient reports doing well, states his pain has been tolerable and no concerns today. He starts outpatient therapy on 04/02/24. Allergies COW HAIR Allergy (Unknown, Uncoded 03/28/24 09:35) + IN ALLERGY TESTING HPI HPI PO RT SHRUTHI 03/12/24 NE: Details: 68-year-old male who returns to the office today for post-op right SHRUTHI, 03/12/[address] Ibarra. He continues to have tolerable pain and is doing well overall. He has not been using cane while ambulating. He is scheduled for outpatient physical therapy on 04/02/24. He has no other concerns today. [facility] Medical History Osteoarthritis of right hip Retrognathia Bifascicular block HTN (hypertension) GERD (gastroesophageal reflux disease) Pneumonitis COPD (chronic obstructive pulmonary disease) Hyperlipidemia CAD (coronary artery disease) Mediastinal lymphadenopathy Pulmonary nodules MANDI (obstructive sleep apnea) Surgical History History of lumbar surgery (01/15/24) History of arthroscopy of both knees Hx of colonoscopy Hx of vein stripping Hx of bilateral cataract extraction Hx of bilateral inguinal hernia repair History of total knee replacement Family History Father Cancer Mother No problems noted. 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 No erythema or drainage. No pain with hip ROM. Mild discomfort with hip flexion. NVI. Assessment & Plan Assessment & Plan (1) History of total right hip replacement: Code(s): Z96.641 - Presence of right artificial hip joint Category: Surgical Plan Haiku removed, steri strips applied. He will begin to transition to Outpatient PT to continue working on Gait training, ROM and glute strength. No driving for another 4 weeks. He will require ppx abx for dental procedures. He will f/u in 4 weeks, sooner if needed. Patient Instructions: Scribed for Sheeba Falcon PA-C, by Siddharth Peña front office medical assistant, on 03/28/2024 at 9:30 AM EST. I, Sheeba Falcon PA-C, have personally reviewed and agree with the information entered by the scribe. Coding Level of Care Code Global (31789) Diagnoses History of total right hip replacement Z96.641
== END 2024-03-28 10:08 | disposition home or self-care (01) ==
PROVIDERS: PCP Internal Medicine; Visit Provider Physician Assistant
DX: Z96.641 Presence of right artificial hip joint (principal)
CPT/HCPCS: 99024

== ENCOUNTER → 2024-03-28 09:20 | Outpatient (BNVA) | payer MEDICARE, BC, SELFPAY | PROVIDERS: PCP Internal Medicine; Visit Provider Physician Assistant | DX: Z96.641 Presence of right artificial hip joint (principal); M16.11 Unilateral primary osteoarthritis, right hip | CPT/HCPCS: 99212 ==

== ENCOUNTER 2024-04-22 08:30 | Outpatient (REF) | payer MEDICARE, BC, SELFPAY ==
--- NOTE | ~2024-04-22 | XR_ITS ---
EXAMINATION: XR PELVIS CLINICAL INFORMATION: Pain COMPARISON: Pelvis radiograph 03/12/2024 TECHNIQUE: AP view of the pelvis. FINDINGS: Status post right total hip arthroplasty. No evidence of hardware fracture or complication. Partially imaged lumbar fusion hardware. Mild osteoarthritis of the left hip similar to prior. Atherosclerotic vascular calcification. XR/XR pelvis 1-2V IMPRESSION: 1. Status post right total hip arthroplasty. No evidence of hardware fracture or complication. 2. Mild osteoarthritis of the left hip similar to prior.
== END 2024-04-22 08:31 | disposition home or self-care (01) ==
LOC: HO.HOSX 08:30
PROVIDERS: Visit Provider Orthopaedic Surgery
DX: Z47.1 Aftercare following joint replacement surgery (principal); Z96.641 Presence of right artificial hip joint
CPT/HCPCS: 72170; 99212

== ENCOUNTER 2024-04-22 09:24 | Outpatient (AMB) | payer MEDICARE, BC, SELFPAY ==
--- NOTE | 2024-04-22 09:30 | A.OFFVIS_ITS ---
Intake Visit Reasons: PO 6 week RT SHRUTHI 03/12/24 NE Intake Note: Foster is a 68 year old male who presents today for a post operative appointment s/p Right SHRUTHI 03/12/24. Patient reports that he is feeling good. He explains that he tweaked the hip yesterday and feels that his hip flexor is tight. Allergies COW HAIR Allergy (Unknown, Uncoded 03/28/24 09:35) + IN ALLERGY TESTING HPI HPI PO 6 week RT SHRUTHI 03/12/24 NE: Details: Doing well s/p right SHRUTHI He is walking and has no complaints. [facility] Medical History Osteoarthritis of right hip Retrognathia Bifascicular block HTN (hypertension) GERD (gastroesophageal reflux disease) Pneumonitis COPD (chronic obstructive pulmonary disease) Hyperlipidemia CAD (coronary artery disease) Mediastinal lymphadenopathy Pulmonary nodules MANDI (obstructive sleep apnea) Surgical History History of lumbar surgery (01/15/24) History of arthroscopy of both knees Hx of colonoscopy Hx of vein stripping Hx of bilateral cataract extraction Hx of bilateral inguinal hernia repair History of total knee replacement Family History Father Cancer Mother No problems noted. 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 Right SHRUTHI in expected post operative position with no hardware complications or evidence of loosening Assessment & Plan Assessment & Plan (1) History of total right hip replacement: Code(s): Z96.641 - Presence of right artificial hip joint Category: Surgical Plan: S/p right SHRUTHI wand recent lumbar fusion Cont activity as tolerated with no running or jumping. f.u 6 weeks Orders: Orders XR pelvis 1-2V Today M25.559 - Pain in unspecified hip Coding Level of Care Code Global (23180) Diagnoses History of total right hip replacement Z96.641
== END 2024-04-22 09:44 | disposition home or self-care (01) ==
PROVIDERS: PCP Internal Medicine; Visit Provider Orthopaedic Surgery
DX: Z96.641 Presence of right artificial hip joint (principal)
CPT/HCPCS: 99024

== ENCOUNTER 2024-05-14 10:22 | Outpatient (AMB) | payer MEDICARE, BC, SELFPAY ==
[2024-05-14 10:47] VITALS: BP 120/60; PULSE 67; O2SAT 98; BMI 23.0
--- NOTE | 2024-05-14 10:47 | MHC.OFFVIS ---
Vital Signs 05/14/24 10:47 Height 6 ft 3 in Weight 184 lb 1.376 oz BMI 23.0 BP 120/60 Blood Pressure Location Lt brachial Position Sitting Pulse 67 Pulse Source Pulse Oximeter Pulse Oximetry (%) 98 Oxygen Delivery Method Room Air Intake Visit Reasons: COPD Intake Note: pt is here for follow up and states he is good, he had hip replacement and was dealing with sciatica. Dental Biller Required: No Allergies COW HAIR Allergy (Unknown, Uncoded 05/14/24 12:04) + IN ALLERGY TESTING Medication List - Last Reconciled 05/14/24 by Eldon Fenton MD acetaminophen 650 mg (2 x 325 mg) PO Q6H PRN 30 days amlodipine 2.5 mg PO BID amoxicillin 2,000 mg (4 x 500 mg) PO ONCE 1 day aspirin 81 mg PO DAILY atorvastatin 40 mg PO BEDTIME betamethasone valerate 0.1% 1 appl topical BID PRN lisinopril 20 mg PO BID 90 days metoprolol succinate ER (Toprol XL) 50 mg PO BEDTIME omeprazole 20 mg PO .qod psyllium husk (with sugar) 3 gram/7 gram (Metamucil (with sugar)) 2 tbsp PO DAILY [Raised toilet seat DURATION-99 DAYS] tamsulosin 0.4 mg PO BEDTIME 90 days walker Folding Front wheeled walker -DURATION 99 DAYS Do you need a note to return to daycare/school/sports/work: No HPI HPI COPD: Details: 68 YEARS OLD GENTLEMAN IS HERE FOR HIS FOLLOW-UP AFTER 4 MONTHS. HE HAS HAD HIP REPLACEMENT WITHOUT ANY ISSUES. STILL HAVING LOW BACK PAIN WITH SCIATIC RADICULITIS, BUT IT IS STABLE. PULMONARY FUNCTION HAS REMAINED STABLE, WITH MINIMAL INTERMITTENT COUGH AND SHORTNESS OF BREATH ON WALKING. HE HARDLY NEEDS TO USE. 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 HE CONTINUES TO USE HIS CPAP EVERY NIGHT, AND SLEEPS FAIRLY WELL. HOWEVER HIS CPAP DEVICE IS VERY OLD AND DOES NOT TRANSMIT ANY DATA FOR COMPLIANCE MONITORING. HE IS ALSO NOT GETTING ANY SUPPLIES PAID BY INSURANCE. PER HIS INSURANCE HE NEEDS TO HAVE A NEW UP TO DATE SLEEP STUDY, BEFORE HE CAN GET A NEW CPAP DEVICE. [facility] Medical History Osteoarthritis of right hip Retrognathia Bifascicular block HTN (hypertension) GERD (gastroesophageal reflux disease) Pneumonitis COPD (chronic obstructive pulmonary disease) Hyperlipidemia CAD (coronary artery disease) Mediastinal lymphadenopathy Pulmonary nodules MANDI (obstructive sleep apnea) Surgical History History of lumbar surgery (01/15/24) History of arthroscopy of both knees Hx of colonoscopy Hx of vein stripping Hx of bilateral cataract extraction Hx of bilateral inguinal hernia repair History of total knee replacement Family History Father Cancer Mother No problems noted. 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 Review of Systems Const All systems reviewed & are unremarkable except as noted in HPI and below Eyes Reports no additional complaints ENT Reports nasal congestion (MILD INTERMITTENT) Resp Reports cough (VERY LITTLE IN THE MORNING.) and Denies wheezing GI Reports no additional complaints Reports no additional complaints Musc Reports no additional complaints Neuro Reports no additional complaints Aller/Immun Denies wheezing Physical Exam Vital Signs: Last Vital Signs Pulse 67 05/14/24 10:47 BP 120/60 05/14/24 10:47 Pulse Ox 98 05/14/24 10:47 Oxygen Delivery Method Room Air 05/14/24 10:47 BMI result Body Mass Index 23.0 Const General: healthy appearing, comfortable, no acute distress, alert and awake Orientation/consciousness: patient oriented x3 HEENT Head: Yes normal to inspection General nose exam: No nasal polyps present and No nasal discharge present Face and sinus: Yes sinuses nontender Mouth: oropharynx normal Teeth and gingiva: other (RETROGANTHIA OF THE LOWER JAW) Throat: Yes posterior oropharynx normal Eyes General: appearance normal, both eyes and all related structures Neck Neck: Yes normal visual inspection, Yes no lymphadenopathy, Yes trachea midline and Yes no JVD Thyroid: Thyroid normal Chest Chest palpation & inspection: normal inspection of the chest, normal palpation of entire chest wall and no tenderness Resp Other: PERCUSSION NOTE HYPER-RESONANT, BREATH SOUNDS ARE EQUAL ON BOTH SIDES. NO WHEEZES RHONCHI OR CREPITATIONS ARE HEARD TODAY. Cardio Palpation: normal PMI Rate: regular rate Rhythm: regular rhythm Heart sounds: no gallops and no murmurs Peripheral pulses: Peripheral pulses 2+ throughout GI Palpation (GI): Soft to palpation, nontender, No hepatosplenomegaly present and no masses Auscultation: normal bowel sounds Back/Spine/Pelvis Thoracic/Lumbar Spine: thoracic and lumbar spine normal to inspection Skin General skin exam: no rashes or lesions noted Neuro General: patient oriented x3 and no focal motor deficits Cranial nerves: Yes CN's II-XII intact bilaterally Extrem General: Yes normal to inspection, Yes no clubbing, cyanosis or edema and Yes no calf tenderness Psych Appearance: grossly normal and well kempt Speech and movement: Normal speech and movement present Assessment & Plan Assessment & Plan (1) COPD (chronic obstructive pulmonary disease): Comment: THIS 68 YEARS OLD GENTLEMAN DOES NOT HAVE HISTORY OF SMOKING, BUT HIS PARENTS SMOKED AND HE WAS EXPOSED TO SECONDHAND SMOKING. PER SPIROMETRY HE HAS MODERATELY SEVERE OBSTRUCTIVE AIRWAY DISORDER. CLINICALLY HE IS TOTALLY ASYMPTOMATIC. Code(s): J44.9 - Chronic obstructive pulmonary disease, unspecified Category: Medical Plan: PATIENT HAS NOT NEEDED TO USE ANY BRONCHODILATORS. (2) Pulmonary nodules: Comment: CT SCAN findings of 2014 , 2016 and 2019 reviewed . The nodules are non specific , benign and inflammatory ,some calcified . All considered to be BENIGN . Code(s): R91.8 - Other nonspecific abnormal finding of lung field Category: Medical Plan: NO NEED YEARLY CT SCAN (3) MANDI (obstructive sleep apnea): Comment: HE HAS H/O MANDI, MOSTLY ON BASIS OF RETROGANTHIA OF LOWER JAW . WELL TRETAED WITH CPAP, WHICH HE USES VERY REGULARLY , NASAL PILLOWS -9 CMs . IN BETWEEN HE HAS TRIED DENTAL BRACES BUT HE FELT MORE UN COMFORTABLE. HE IS NOW BACK TO USING CPAP. HIS CPAP DEVICE IS VERY OLD AND WOULD NEED REPLACEMENT. FOR GETTING A NEW CPAP DEVICE HE IS REQUIRED TO HAVE ANOTHER SLEEP STUDY. Code(s): G47.33 - Obstructive sleep apnea (adult) (pediatric) Category: Medical Plan: I DISCUSSED WITH HIM AND PLAN IS TO ORDER A HOME-BASED SLEEP STUDY, ONCE HE HAS RECOVERED FROM HIS HIP SURGERY. Orders: Orders RT home sleep study Today M26.19 - Other specified anomalies of jaw-cranial base relationship Coding Level of Care Code Est Pt Level 3 (35762) Diagnoses COPD (chronic obstructive pulmonary disease) J44.9 Pulmonary nodules R91.8 MANDI (obstructive sleep apnea) G47.33
== END 2024-05-14 11:23 | disposition home or self-care (01) ==
PROVIDERS: PCP Internal Medicine; Visit Provider Internal Medicine
DX: J44.9 Chronic obstructive pulmonary disease, unspecified (principal); R91.8 Other nonspecific abnormal finding of lung field; G47.33 Obstructive sleep apnea (adult) (pediatric)
CPT/HCPCS: 99213

== ENCOUNTER → 2024-05-14 10:22 | Outpatient (BNVA) | payer MEDICARE, BC, SELFPAY | PROVIDERS: PCP Internal Medicine; Visit Provider Internal Medicine | DX: J44.9 Chronic obstructive pulmonary disease, unspecified (principal); G47.33 Obstructive sleep apnea (adult) (pediatric); M26.19 Other specified anomalies of jaw-cranial base relationship; Z99.89 Dependence on other enabling machines and devices; R91.8 Other nonspecific abnormal finding of lung field | CPT/HCPCS: 99212 ==

== ENCOUNTER 2024-05-21 08:59 | Outpatient (AMB) | payer MEDICARE, BC, SELFPAY ==
--- NOTE | 2024-05-21 09:25 | MHC.OFFVIS ---
Intake Visit Reasons: 2M Med Review(Tamsulosin) Intake Note: Patient is present for 2m med review(tamsulosin) Urology Medication:tamsulosin Antibiotic Allergy:none Blood Thinner:aspirin Multiple Drill Operator Required: No Allergies COW HAIR Allergy (Unknown, Uncoded 06/10/24 08:29) + IN ALLERGY TESTING HPI Comments Details: Foster is a pleasant male. He is a patient of Dr. Martino. He is seen for the following urologic conditions - bladder outlet obstruction Bladder emptying follow-up Twelve month follow-up Had urinary retention following surgery 2nd time this has occurred Past voiding trial today Describes minimal symptoms prior to surgery [facility] Medical History Osteoarthritis of right hip Retrognathia Bifascicular block HTN (hypertension) GERD (gastroesophageal reflux disease) Pneumonitis COPD (chronic obstructive pulmonary disease) Hyperlipidemia CAD (coronary artery disease) Mediastinal lymphadenopathy Pulmonary nodules MANDI (obstructive sleep apnea) Surgical History History of lumbar surgery (01/15/24) History of arthroscopy of both knees Hx of colonoscopy Hx of vein stripping Hx of bilateral cataract extraction Hx of bilateral inguinal hernia repair History of total knee replacement Family History Father Cancer Mother No problems noted. 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 Review of Systems Const Denies chills and Denies fever(s) Card Reports no additional complaints and Denies syncope Resp Denies cough GI Denies abdominal pain and Denies heartburn Reports as per HPI and Denies change in libido Neuro Denies syncope Psych Denies change in libido Endo Denies change in libido Physical Exam Const General: cooperative, healthy appearing, comfortable and no acute distress Orientation/consciousness: patient oriented x3 HEENT Face and sinus: Yes normal facial exam Mouth: moist mucous membranes Neck Neck: Yes normal visual inspection, Yes full ROM and Yes trachea midline Chest Chest palpation & inspection: normal inspection of the chest Resp Effort & Inspection: normal respiratory effort, able to speak in complete sentences and no respiratory distress GI Inspection: Yes normal to inspection Back/Spine/Pelvis Cervical Spine: normal cervical lordosis Thoracic/Lumbar Spine: thoracic and lumbar spine normal to inspection Skin General skin exam: no rashes or lesions noted Neuro General: patient oriented x3, gait normal, tone normal and moves all extremities Extrem General: Yes normal to inspection and Yes capillary refill normal Results AMB Urinalysis, Automated UA Leukoctes 0 Alize/uL Last Edit by JUAN MIGUEL Castillo on 05/21/24 09:45 UA Nitrite Negative Last Edit by JUAN MIGUEL Castillo on 05/21/24 09:45 UA Urobilinogen 0.2 mg/dL Last Edit by JUAN MIGUEL Castillo on 05/21/24 09:45 UA Protein 0 mg/dL Last Edit by JUAN MIGUEL Castillo on 05/21/24 09:45 UA pH 6.5 Last Edit by JUAN MIGUEL Castillo on 05/21/24 09:45 UA Blood 0 Pj/uL Last Edit by JUAN MIGUEL Castillo on 05/21/24 09:45 UA Specific [place] 1.010 Last Edit by JUAN MIGUEL Castillo on 05/21/24 09:45 UA Ketone Negative Last Edit by JUAN MIGUEL Castillo on 05/21/24 09:45 UA Bilirubin 0 mg/dL Last Edit by JUAN MIGUEL Castillo on 05/21/24 09:45 UA Glucose 0 mg/dL Last Edit by JUAN MIGUEL Castillo on 05/21/24 09:45 Results Reviewed Results Reviewed: Laboratory Last Values Urine pH (Auto) 6.5 05/21/24 09:44 Specific [place] (Auto) 1.010 05/21/24 09:44 Urine Protein (Auto) 0 mg/dL 05/21/24 09:44 Glucose (UA)(Auto) 0 mg/dL 05/21/24 09:44 Urine Ketones (Auto) Negative 05/21/24 09:44 Urine Blood (Auto) 0 Pj/uL 05/21/24 09:44 Urine Nitrite (Auto) Negative 05/21/24 09:44 Urine Bilirubin (Auto) 0 mg/dL 05/21/24 09:44 Urine Urobilinogen (Auto) 0.2 mg/dL 05/21/24 09:44 Leukocyte Esterase (Auto) 0 Alize/uL 05/21/24 09:44 Assessment & Plan Assessment & Plan (1) Bladder outlet obstruction: Code(s): N32.0 - Bladder-neck obstruction Category: Medical Plan 12 month follow-up Orders: Orders AMB Urinalysis Automated 05/21/24 Z13.9 - Encounter for screening, unspecified Patient Instructions: Imaging studies, laboratory and physical exam results were discussed and reviewed in detail. No major barriers to patient understanding were identified. An opportunity to ask questions regarding the treatment plan was provided. All questions were answered. The patient expressed understanding and agreement with the above treatment plan. The patient is aware they should contact our office by phone for worsening of their current condition or the appearance of new urologic symptoms. Compliance is encouraged with any medications and followup testing that is ordered. It is a privilege to participate in the urologic care of your patient. If you have any questions or concerns regarding treatment for the above conditions, or other urologic issues, please do not hesitate to contact me. The office telephone contact is [phone]. This note is constructed using voice recognition software. While every effort has been made to ensure accuracy contractor field hauling errors may have been included. Yours sincerely, Dr Suman Puente MD, [facility] - Urology Providers of Expert, Compassionate Care for the Genitourinary System Coding Level of Care Code Est Pt Level 3 (92733) Diagnoses Bladder outlet obstruction N32.0
== END 2024-05-21 10:28 | disposition home or self-care (01) ==
PROVIDERS: PCP Internal Medicine; Visit Provider Urology
DX: N32.0 Bladder-neck obstruction (principal)
CPT/HCPCS: 99213

== ENCOUNTER → 2024-05-21 08:59 | Outpatient (BNVA) | payer MEDICARE, BC, SELFPAY | PROVIDERS: PCP Internal Medicine; Visit Provider Urology | DX: N32.0 Bladder-neck obstruction (principal) | CPT/HCPCS: 81003; 99212 ==

== ENCOUNTER 2024-05-29 07:46 | Outpatient (REF) | payer MEDICARE, BC, SELFPAY ==
[2024-05-29 10:21] LABS: MANUAL DIFF FLAG NO
[2024-05-29 10:24] LABS: Basophils Percent Auto 0.6 % (0-2); Eosinophils Absolute Auto 0.1 X10*3/uL (0.0-0.4); Eosinophils Percent Auto 1.7 % (0-4); Hematocrit 38.5 % (42.0-52.0); Hemoglobin 12.6 g/dl (14.0-18.0); Imm Gran Abs Auto 0.01 X10*3/uL (0.00-0.03); Imm Gran Pct Auto 0.3 % (0.0-0.4); Lymphocytes Absolute Auto 0.9 X10*3/uL (1.2-4.9); Lymphocytes Percent Auto 23.9 % (20-40); Mean Corpuscular HGB Conc 32.7 g/dl (31.0-36.0); Mean Corpuscular Volume 88.7 fL (80.0-98.0); Mean Platelet Volume 9.4 fL (9.4-12.4); Monocytes Absolute Auto 0.4 X10*3/uL (0.1-1.2); Monocytes Percent Auto 11.5 % (2-11); Neutrophils Absolute Auto 2.2 x10*3/uL (2.0-8.3); Platelet Count 160 X10*3/uL (160-400); Red Blood Count 4.34 X10*6/uL (4.60-5.80); Red Cell Distribution Width 13.6 % (11.0-16.0); White Blood Count 3.6 X10*3/uL (4.8-10.8)
[2024-05-29 11:14] LABS: Alanine Aminotransferase 23 U/L (0-40); Albumin Level 4.1 g/dL (3.5-5.0); Alkaline Phosphatase 96 U/L (39-117); Anion Gap 9 (12-20); Aspartate Amino Transferase 33 U/L (5-37); Bilirubin Total 0.8 mg/dL (0.0-1.0); Blood Urea Nitrogen 16 mg/dL (9-16); Calcium 9.3 mg/dL (8.4-10.2); Carbon Dioxide 29 mmol/L (22-29); Chloride 104 mmol/L (96-108); Estimated Glomerular Filt Rate > 60; Glucose Random 85 mg/dL (60-115); Potassium 4.1 mmol/L (3.3-5.1); Sodium 138 mmol/L (135-145); Total Protein 7.4 g/dL (6.5-8.0)
== END 2024-05-29 07:47 | disposition home or self-care (01) ==
LOC: HO.10HDL 07:46
PROVIDERS: Visit Provider Internal Medicine
DX: I10 Essential (primary) hypertension (principal); M19.90 Unspecified osteoarthritis, unspecified site; D61.818 Other pancytopenia
CPT/HCPCS: 36415; 80053; 85025

== ENCOUNTER 2024-06-10 08:16 | Outpatient (AMB) | payer MEDICARE, BC, SELFPAY ==
[2024-06-10 08:24] VITALS: BMI 23.0
--- NOTE | 2024-06-10 08:24 | MHC.OFFVIS ---
Vital Signs 06/10/24 08:24 Height 6 ft 3 in Weight 184 lb BMI 23.0 Intake Visit Reasons: OV-6 week RT SHRUTHI 03/12/24 NE Intake Note: Foster is a 68 year old male who presents today for a follow up visit of his right hip, he is s/p Right SHRUTHI 03/12/24. Patient reports that he is still frustrated that he is having continued pain. His pain is felt when switching from gas to brake in the car, lifting the leg to get out of the car, some mild pain with stairs. He notes that he is surprised he cannot run yet. Allergies COW HAIR Allergy (Unknown, Uncoded 06/10/24 08:29) + IN ALLERGY TESTING HPI HPI OV-6 week RT SHRUTHI 03/12/24 NE: Details: 3 mo s/p right SHRUTHI. He has minimal pain except he cannot run. He wants to play tennis but feels that he is not ready to do tht. [facility] Medical History Osteoarthritis of right hip Retrognathia Bifascicular block HTN (hypertension) GERD (gastroesophageal reflux disease) Pneumonitis COPD (chronic obstructive pulmonary disease) Hyperlipidemia CAD (coronary artery disease) Mediastinal lymphadenopathy Pulmonary nodules MANDI (obstructive sleep apnea) Surgical History History of lumbar surgery (01/15/24) History of arthroscopy of both knees Hx of colonoscopy Hx of vein stripping Hx of bilateral cataract extraction Hx of bilateral inguinal hernia repair History of total knee replacement Family History Father Cancer Mother No problems noted. 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 I recommend strengthening with PT. f/u 3 mo (2) S/P spinal fusion: Code(s): Z98.1 - Arthrodesis status Category: Surgical Plan: Orders: Orders PT Evaluation and Treatment Today Z96.641 - Presence of right artificial hip joint, Z98.1 - Arthrodesis status Coding Level of Care Code Global (41297) Diagnoses History of total right hip replacement Z96.641 S/P spinal fusion Z98.1
== END 2024-06-10 09:11 | disposition home or self-care (01) ==
PROVIDERS: PCP Internal Medicine; Visit Provider Orthopaedic Surgery
DX: Z96.641 Presence of right artificial hip joint (principal); Z98.1 Arthrodesis status
CPT/HCPCS: 99024

== ENCOUNTER → 2024-06-10 08:16 | Outpatient (BNVA) | payer MEDICARE, BC, SELFPAY | PROVIDERS: PCP Internal Medicine; Visit Provider Orthopaedic Surgery | DX: Z96.641 Presence of right artificial hip joint (principal); Z98.1 Arthrodesis status | CPT/HCPCS: 99212 ==

== ENCOUNTER → 2024-07-01 09:54 | Outpatient (REF) | payer MEDICARE, BC, SELFPAY | LOC: HO.SL 09:54 | PROVIDERS: PCP Internal Medicine; Visit Provider Internal Medicine | DX: G47.33 Obstructive sleep apnea (adult) (pediatric) (principal); M26.19 Other specified anomalies of jaw-cranial base relationship | CPT/HCPCS: 95806 ==

== ENCOUNTER → 2024-07-01 10:04 | Outpatient (BNV) | payer MEDICARE, BC, SELFPAY | PROVIDERS: PCP Internal Medicine; Visit Provider Internal Medicine | DX: G47.33 Obstructive sleep apnea (adult) (pediatric) (principal) | CPT/HCPCS: 95806 ==

== ENCOUNTER 2024-08-14 14:00 | Outpatient (RCR) | payer MEDICARE, BC, SELFPAY ==
--- NOTE | 2024-06-25 14:25 | MHC.PT.EP ---
[facility] [place] Office [place] Office [place] Office [address] Radha Castorena [address] [phone] F: [phone] F: [phone] F: [phone] F: [phone] Physical Therapy Plan of Care Date of Evaluation: 06/25/24 Date of Surgery: Diagnosis: s/p R SHRUTHI 03/12/24 Assessment: Patient is a 68 year old R handed male who presents with s/s consistent with SHRUTHI, R hip pain, s/p SHRUTHI on 03/12/24. He is retired but likes to stay active biking and playing tennis. Patient past medical history includes SHRUTHI, TKA b/l, and lumbar fusion in December of this year. Current impairments include pain, balance, ROM, strength, activity tolerance and functional mobility. Functional limitations include decreased ability to walk, bike, stand, play tennis, run, jog and be active. Patient is motivated with good rehab potential. Skilled PT will address impairments and functional limitations in order to achieve goals. 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 Manual therapy to restore motion and function. Therapeutic exercise to improve strength and flexibility. Neuromuscular re-education for posture and balance. Therapeutic activities to return to functional activities of daily living. Electronically signed by: Khoi Tellez, PT Please sign and return to therapist. Thank you for your referral.
--- NOTE | 2024-09-20 06:53 | MHC.PT.DC ---
[facility] [place] Office [place] Office [place] Office [address] Radha Castorena [address] [phone] F: [phone] F: [phone] F: [phone] F: [phone] Physical Therapy Discharge Report Diagnosis: s/p R SHRUTHI 03/12/24 Date of Surgery: Date of Evaluation: 06/25/24 Date of Discharge: 08/31/24 Treatments to Date: 8 Cancellations to Date: No Shows to Date: Discharge Status: Achieved Goals Independent with HEP Discharge Summary: 08/14/24: I with HEP. SLB > 30 seconds. Strength 4+/5 grossly. pain still limiting function at times though he has progressed functionally in a significant way. he will attempt to proceed with HEP for 4 weeks until follow up. 08/07/24: pt continues to progress well. progress higher level ex with no new s/s. able to bike 6 miles pulling grandson. 07/31/24: pt progressing well. increasing higher level ex with no new s/s. continue to progress as tolerated. 07/26/24: pt progressing well. walking more outside of PT. less s/s. soreness does persist at times with certain exercises but strength and function have improved. 07/24/24: pt progressing well with skilled PT. no adverse reactions. added lateral walking + with no adverse reactions. pt noting being able to walk 5+ miles with no increased s/s. 07/17; Pt conts to be challenged with balance exs. Pt impoved with gait and strength. Pt was able to s/l abd 45 degrees. 07/15/24: pt progressing well with skilled PT. no new s/s. added SNG and shuttle today with good response. continue to progress as tolerated. 07/10/24: pt notes feeling better for a few days, then had a cold and is achy today. continue to progress flex, balance, strength as tolerated. 07/05/24: pt progressing well with skilled PT. no adverse reactions. continue to progress as tolerated. reduced pain at end of treatment. 07/03; Pt balance challenged. Pt motivated to RBT tennis and running. Patient is a 68 year old R handed male who presents with s/s consistent with SHRUTHI, R hip pain, s/p SHRUTHI on 03/12/24. He is retired but likes to stay active biking and playing tennis. Patient past medical history includes SHRUTHI, TKA b/l, and lumbar fusion in December of this year. Current impairments include pain, balance, ROM, strength, activity tolerance and functional mobility. Functional limitations include decreased ability to walk, bike, stand, play tennis, run, jog and be active. Patient is motivated with good rehab potential. Skilled PT will address impairments and functional limitations in order to achieve goals. Electronically signed by: Khoi Tellez, PT Please sign and return to therapist. Thank you for your referral.
== END 2024-09-20 06:53 | disposition home or self-care (01) ==
LOC: HO.PTCHIC 14:00
PROVIDERS: PCP Internal Medicine; Visit Provider Orthopaedic Surgery
DX: Z96.641 Presence of right artificial hip joint (principal); Z98.1 Arthrodesis status
CPT/HCPCS: 97110; 97112; 97162; 97530

== ENCOUNTER 2024-08-28 12:54 | Outpatient (REF) | payer MEDICARE, BC, SELFPAY ==
--- NOTE | ~2024-08-28 | US_ITS ---
EXAMINATION: RIGHT LOWER EXTREMITY ULTRASOUND CLINICAL INFORMATION: Cyst of hamstring. COMPARISON: None available. TECHNIQUE: High frequency linear ultrasound transducer was used to examine the area of clinical concern. FINDINGS: Between the semitendinosus and semimembranosus, there appears to be a complex cystic area present with a solid center. Solid portion measures 7 x 2 x 4 mm. No other abnormalities are seen. US/US extremity nonvascular IMPRESSION: Complex cystic area with solid center. This may be related to a traumatic injury. MRI is recommended for further evaluation. Electronically signed by: Karson Fallon MD 11/04/2024 03:44 PM EST
== END 2024-08-28 12:55 | disposition home or self-care (01) ==
LOC: HO.US 12:54
PROVIDERS: PCP Internal Medicine; Visit Provider Internal Medicine
DX: L72.0 Epidermal cyst (principal)
CPT/HCPCS: 76882

== ENCOUNTER 2024-09-03 10:52 | Outpatient (REF) | payer MEDICARE, BC, SELFPAY ==
[2024-09-03 13:12] LABS: MANUAL DIFF FLAG NO
[2024-09-03 13:15] LABS: Basophils Percent Auto 0.5 % (0-2); Eosinophils Absolute Auto 0.1 X10*3/uL (0.0-0.4); Eosinophils Percent Auto 1.3 % (0-4); Hematocrit 36.7 % (42.0-52.0); Hemoglobin 12.3 g/dl (14.0-18.0); Imm Gran Abs Auto 0.01 X10*3/uL (0.00-0.03); Imm Gran Pct Auto 0.3 % (0.0-0.4); Lymphocytes Absolute Auto 0.9 X10*3/uL (1.2-4.9); Lymphocytes Percent Auto 22.6 % (20-40); Mean Corpuscular HGB Conc 33.5 g/dl (31.0-36.0); Mean Corpuscular Hemoglobin 30.1 pg (27.0-33.0); Mean Corpuscular Volume 89.7 fL (80.0-98.0); Mean Platelet Volume 8.7 fL (9.4-12.4); Monocytes Absolute Auto 0.4 X10*3/uL (0.1-1.2); Monocytes Percent Auto 10.8 % (2-11); Neutrophils Absolute Auto 2.5 x10*3/uL (2.0-8.3); Neutrophils Percent Auto 64.5 % (45-73); Platelet Count 157 X10*3/uL (160-400); Red Blood Count 4.09 X10*6/uL (4.60-5.80); Red Cell Distribution Width 14.2 % (11.0-16.0); White Blood Count 3.8 X10*3/uL (4.8-10.8)
[2024-09-03 13:44] LABS: Alanine Aminotransferase 23 U/L (0-40); Albumin Level 3.8 g/dL (3.5-5.0); Alkaline Phosphatase 84 U/L (39-117); Anion Gap 10 (12-20); Aspartate Amino Transferase 29 U/L (5-37); Bilirubin Total 0.7 mg/dL (0.0-1.0); Blood Urea Nitrogen 13 mg/dL (9-16); Calcium 9.1 mg/dL (8.4-10.2); Carbon Dioxide 27 mmol/L (22-29); Chloride 104 mmol/L (96-108); Cholesterol 106 mg/dL (<200); Estimated Glomerular Filt Rate > 60; Glucose Fasting 93 mg/dL (60-99); HDL Cholesterol 33 mg/dL (>40); LDL Cholesterol Calculated 63 mg/dL (<100); Potassium 4.3 mmol/L (3.3-5.1); Sodium 137 mmol/L (135-145); Triglycerides 52 mg/dL (<150)
== END 2024-09-03 10:53 | disposition home or self-care (01) ==
LOC: HO.10HDL 10:52
PROVIDERS: Visit Provider Internal Medicine
DX: I10 Essential (primary) hypertension (principal); E78.00 Pure hypercholesterolemia, unspecified; K21.9 Gastro-esophageal reflux disease without esophagitis; N40.1 Benign prostatic hyperplasia with lower urinary tract symptoms; Z12.5 Encounter for screening for malignant neoplasm of prostate
CPT/HCPCS: 36415; 80053; 80061; 84153; 85025

== ENCOUNTER 2024-09-11 13:21 | Outpatient (AMB) | payer MEDICARE, BC, SELFPAY ==
[2024-09-11 13:30] VITALS: BP 132/70; PULSE 64; O2SAT 100; BMI 23.1
--- NOTE | 2024-09-11 13:30 | A.OFFVIS_ITS ---
Vital Signs 09/11/24 13:30 Height 6 ft 3 in Weight 185 lb 3.013 oz BMI 23.1 BP 132/70 Blood Pressure Location Lt brachial Position Sitting Pulse 64 Pulse Source Pulse Oximeter Pulse Oximetry (%) 100 Oxygen Delivery Method Room Air Intake Visit Reasons: COPD Intake Note: pt is here for follow up and states he is alright Book Reviewer Required: No Allergies COW HAIR Allergy (Unknown, Uncoded 09/11/24 13:39) + IN ALLERGY TESTING Medication List - Last Reconciled 09/11/24 by Eldon Fenton MD acetaminophen 650 mg (2 x 325 mg) PO Q6H PRN 30 days amlodipine 2.5 mg PO BID aspirin 81 mg PO DAILY aspirin 81 mg PO DAILY atorvastatin 40 mg PO BEDTIME betamethasone valerate 0.1% 1 appl topical BID PRN lisinopril 20 mg PO BID 90 days metoprolol succinate ER (Toprol XL) 50 mg PO BEDTIME omeprazole 20 mg PO BID psyllium husk (with sugar) 3 gram/7 gram (Metamucil (with sugar)) 2 tbsp PO DAILY [Raised toilet seat DURATION-99 DAYS] walker Folding Front wheeled walker -DURATION 99 DAYS Do you need a note to return to daycare/school/sports/work: No HPI HPI COPD: Details: 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 COMES AFTER 4 MONTHS FOR FOLLOW-UP. IN THE INTERIM HE DID HAVE HOME-BASED SLEEP STUDY WHICH CONFIRMED THE DIAGNOSIS OF OBSTRUCTIVE SLEEP APNEA. HE HAS GOTTEN THE NEW CPAP MACHINE WHICH IS WORKING VERY WELL, CURRENTLY HE IS USING NASAL MASK WHICH IS MORE COMFORTABLE. HE IS USING THE CPAP AT LEAST FOR 7 HOURS EVERY NIGHT AND ON A DAILY BASIS. DENIES ANY DAYTIME SLEEPINESS. [facility] Medical History Osteoarthritis of right hip Retrognathia Bifascicular block HTN (hypertension) GERD (gastroesophageal reflux disease) Pneumonitis COPD (chronic obstructive pulmonary disease) Hyperlipidemia CAD (coronary artery disease) Mediastinal lymphadenopathy Pulmonary nodules MANDI (obstructive sleep apnea) Surgical History History of lumbar surgery (01/15/24) History of arthroscopy of both knees Hx of colonoscopy Hx of vein stripping Hx of bilateral cataract extraction Hx of bilateral inguinal hernia repair History of total knee replacement Family History Father Cancer Mother No problems noted. 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 Review of Systems Const All systems reviewed & are unremarkable except as noted in HPI and below Eyes Reports no additional complaints ENT Reports nasal congestion (MILD INTERMITTENT) Resp Reports cough (VERY LITTLE IN THE MORNING.) and Denies wheezing GI Reports no additional complaints Reports no additional complaints Musc Reports no additional complaints Neuro Reports no additional complaints Aller/Immun Denies wheezing Physical Exam Vital Signs: Last Vital Signs Pulse 64 09/11/24 13:30 BP 132/70 09/11/24 13:30 Pulse Ox 100 09/11/24 13:30 Oxygen Delivery Method Room Air 09/11/24 13:30 BMI result Body Mass Index 23.1 Const General: healthy appearing, comfortable, no acute distress, alert and awake Orientation/consciousness: patient oriented x3 HEENT Head: Yes normal to inspection General nose exam: No nasal polyps present and No nasal discharge present Face and sinus: Yes sinuses nontender Mouth: oropharynx normal Teeth and gingiva: other (RETROGANTHIA OF THE LOWER JAW) Throat: Yes posterior oropharynx normal Eyes General: appearance normal, both eyes and all related structures Neck Neck: Yes normal visual inspection, Yes no lymphadenopathy, Yes trachea midline and Yes no JVD Thyroid: Thyroid normal Chest Chest palpation & inspection: normal inspection of the chest, normal palpation of entire chest wall and no tenderness Resp Other: PERCUSSION NOTE HYPER-RESONANT, BREATH SOUNDS ARE EQUAL ON BOTH SIDES. NO WHEEZES RHONCHI OR CREPITATIONS ARE HEARD TODAY. Cardio Palpation: normal PMI Rate: regular rate Rhythm: regular rhythm Heart sounds: no gallops and no murmurs Peripheral pulses: Peripheral pulses 2+ throughout GI Palpation (GI): Soft to palpation, nontender, No hepatosplenomegaly present and no masses Auscultation: normal bowel sounds Back/Spine/Pelvis Thoracic/Lumbar Spine: thoracic and lumbar spine normal to inspection Skin General skin exam: no rashes or lesions noted Neuro General: patient oriented x3 and no focal motor deficits Cranial nerves: Yes CN's II-XII intact bilaterally Extrem General: Yes normal to inspection, Yes no clubbing, cyanosis or edema and Yes no calf tenderness Psych Appearance: grossly normal and well kempt Speech and movement: Normal speech and movement present Results Reviewed Results Reviewed: COMPLIANCE REPORT FOR THE LAST 30 NIGHTS REVIEWED USED 30/30 NIGHTS,. 100% AVERAGE UAGE PER NIGHT 7 HOURS 52 MINUTES. PRESSURE USED 9 CM. RESIDUAL AHI ONLY 0.6 Assessment & Plan Assessment & Plan (1) Retrognathia: Comment: HE HAS PROMINENT RETROGANTHIA OF THE LOWER JAW, THE CAUSE OF HIS OBSTRUCTIVE SLEEP APNEA Code(s): M26.19 - Other specified anomalies of jaw-cranial base relationship Category: Medical Plan: NO SURGICAL TREATMENT IS INDICATED (2) MANDI (obstructive sleep apnea): Comment: HE HAS H/O MANDI, MOSTLY ON BASIS OF RETROGANTHIA OF LOWER JAW . WELL TRETAED WITH CPAP, WHICH HE USES VERY REGULARLY , NASAL MASK -9 CMs . COMPLIANCE IS EXCELLENT AND HE IS DEFINITELY BENEFITING FROM THE USE OF CPAP. Code(s): G47.33 - Obstructive sleep apnea (adult) (pediatric) Category: Medical Plan: REVIEWED THE RESULTS OF COMPLIANCE REPORT WITH HIM AND COMMENDED FOR EXCELLENT COMPLIANCE. ADVISED TO CONTINUE USING THE CPAP EVERY NIGHT (3) COPD (chronic obstructive pulmonary disease): Comment: THIS 68 YEARS OLD GENTLEMAN DOES NOT HAVE HISTORY OF SMOKING, BUT HIS PARENTS SMOKED AND HE WAS EXPOSED TO SECONDHAND SMOKING. PER SPIROMETRY HE HAS MODERATELY SEVERE OBSTRUCTIVE AIRWAY DISORDER. CLINICALLY HE IS TOTALLY ASYMPTOMATIC. HE IS NOT REQUIRING USE OF ANY BRONCHODILATOR INHALER. Code(s): J44.9 - Chronic obstructive pulmonary disease, unspecified Category: Medical Plan: NO SPECIFIC MEDICATION NEEDED HIS COPD. REPORT IN CASE YOU START HAVING ANY COUGH OR WHEEZING ATTACKS . Coding Level of Care Code Est Pt Level 3 (40894) Diagnoses Retrognathia M26.19 MANDI (obstructive sleep apnea) G47.33 COPD (chronic obstructive pulmonary disease) J44.9
== END 2024-09-11 13:49 | disposition home or self-care (01) ==
PROVIDERS: PCP Internal Medicine; Visit Provider Internal Medicine
DX: M26.19 Other specified anomalies of jaw-cranial base relationship (principal); G47.33 Obstructive sleep apnea (adult) (pediatric); J44.9 Chronic obstructive pulmonary disease, unspecified
CPT/HCPCS: 99213

== ENCOUNTER → 2024-09-11 13:21 | Outpatient (BNVA) | payer MEDICARE, BC, SELFPAY | PROVIDERS: PCP Internal Medicine; Visit Provider Internal Medicine | DX: J44.9 Chronic obstructive pulmonary disease, unspecified (principal); G47.33 Obstructive sleep apnea (adult) (pediatric); M26.19 Other specified anomalies of jaw-cranial base relationship | CPT/HCPCS: 99212 ==

== ENCOUNTER 2024-09-16 08:27 | Outpatient (REF) | payer MEDICARE, BC, SELFPAY ==
--- NOTE | ~2024-09-16 | XR_ITS ---
EXAMINATION: XR PELVIS 1 VIEW CLINICAL INFORMATION: Pain in unspecified hip M25.559. COMPARISON: XR Pelvis 04/22/2024 TECHNIQUE: AP view of the pelvis. FINDINGS: No fracture. There is an unchanged appearance of right hip prosthesis. On the left there is degenerative change of the hip joint space which is similar to the prior studyalignment is anatomic. Sacroiliac joints and pubic symphysis are normal. Partially visualized lumbar fusion hardware. No abnormal soft tissue calcifications. XR/XR pelvis 1-2V IMPRESSION: Stable appearance post right hip arthroplasty and moderate degenerative change of the left hip. Electronically signed by: Isaac Rosenbaum MD 10/30/2024 01:49 PM EST
== END 2024-09-16 08:28 | disposition home or self-care (01) ==
LOC: HO.HOSX 08:27
PROVIDERS: Visit Provider Orthopaedic Surgery
DX: Z47.1 Aftercare following joint replacement surgery (principal); Z96.641 Presence of right artificial hip joint; Z98.1 Arthrodesis status
CPT/HCPCS: 72170; 99212

== ENCOUNTER 2024-09-16 08:59 | Outpatient (AMB) | payer MEDICARE, BC, SELFPAY ==
--- NOTE | 2024-09-16 09:13 | A.OFFVIS_ITS ---
Vital Signs 09/16/24 09:14 Height 6 ft 3 in Weight 185 lb BMI 23.1 Intake Visit Reasons: OV- 3 month f/u RT SHRUTHI 03/12/24 NE Intake Note: Foster is a 68 year old male who presents today for a follow up visit of his right hip, he is s/p Right SHRUTHI 03/12/24. Patient reports that he has continued pain in the right hip. he explains that his pain is felt inside the hip. He najera s been walking at least a mile daily, some days are easier than others. He feels very sore and stiff in the morning and it tends to feel better when walking. Allergies COW HAIR Allergy (Unknown, Uncoded 09/11/24 13:39) + IN ALLERGY TESTING HPI HPI OV- 3 month f/u RT SHRUTHI 03/12/24 NE: Details: Foster is a 68 year old male who presents today for a follow up visit of his right hip, he is s/p Right SHRUTHI 03/12/24. Patient reports that he has continued pain in the right hip. he explains that his pain is felt inside the hip. He has been walking at least a mile daily, some days are easier than others. He feels very sore and stiff in the morning and it tends to feel better when walking. REPLACED BY [facility] Medical History Osteoarthritis of right hip Retrognathia Bifascicular block HTN (hypertension) GERD (gastroesophageal reflux disease) Pneumonitis COPD (chronic obstructive pulmonary disease) Hyperlipidemia CAD (coronary artery disease) Mediastinal lymphadenopathy Pulmonary nodules MANDI (obstructive sleep apnea) Surgical History History of lumbar surgery (01/15/24) History of arthroscopy of both knees Hx of colonoscopy Hx of vein stripping Hx of bilateral cataract extraction Hx of bilateral inguinal hernia repair History of total knee replacement Family History Father Cancer Mother No problems noted. 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 He has mild discomfort with impingement testing but a negative Stinchfield. His tenderness over the abductors bilaterally and on the right he has tenderness at the anterior superior iliac spine and attached hip flexor. Results Reviewed Results Reviewed: I personally reviewed relevant radiographs. Stable right SHRUTHI in expected post operative position with no hardware complications or evidence of loosening Assessment & Plan Assessment & Plan (1) History of total right hip replacement: Code(s): Z96.641 - Presence of right artificial hip joint Category: Surgical Plan: Foster is status post right hip replacement and spinal fusion was performed with in the past 9 months. Objectively speaking his mechanics have improved dramatically. He is able to walk normally in the upright position. He states he can walk several miles but his hip pain bothers him. When he says hip he feels like it is anterior and lateral pain. It occasionally extends into his back it occasionally extends into his groin. He typically describes a warmup. In a cool down. That are painful but once he gets going he can walk many miles without pain. Based on his radiographs in his physical exam there is no evidence of hip complication. His symptoms are persisting and hard to pin down. I think he might benefit from a short course of Celebrex. He stays ibuprofen was causing his blood pressure to increase. I would like to see him back in 6 weeks (2) S/P spinal fusion: Code(s): Z98.1 - Arthrodesis status Category: Surgical Plan: Orders: Orders XR pelvis 1-2V Today M25.559 - Pain in unspecified hip Coding Level of Care Code Est Pt Level 3 (12987) Diagnoses History of total right hip replacement Z96.641 S/P spinal fusion Z98.1
[2024-09-16 09:14] VITALS: BMI 23.1
== END 2024-09-16 09:56 | disposition home or self-care (01) ==
PROVIDERS: PCP Internal Medicine; Visit Provider Orthopaedic Surgery
DX: M25.551 Pain in right hip (principal); Z47.1 Aftercare following joint replacement surgery; Z96.641 Presence of right artificial hip joint
CPT/HCPCS: 99213

== ENCOUNTER 2024-09-20 12:52 | Outpatient (AMB) | payer MEDICARE, BC, SELFPAY ==
--- NOTE | 2024-09-20 13:04 | A.SPINEOV_ITS ---
Intake Visit Reasons: L foot & R toe numb Intake Note: Mr. Clarke is here today c/o Left foot/Right toe numbness. 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 He underwent a lumbar decompression for neurogenic claudication symptoms to which he responded well. He denies radiating pain down his legs. He comes in to discuss numbness of his feet. This has been going on for years. Friends told him to see me to make sure that he will not develop a drop foot. He has numbness of his left foot and the still part of his right foot. The numbness is constant present. Walking can make it worse. Again, he denies pain. On exam, he has absent ankle reflexes. The knee reflexes are bilaterally intact. He has normal strength. Differential diagnosis is residual nerve damage from his central stenosis or polyneuropathy. The symptoms seems to be fairly stable over prolonged period of time and therefore I advised him to observe the symptoms. If real progression of occurs then an EMG would be the next step. I spent 25 minutes in his consult for physical exam and discussing plan of care. Carroll Ozuna MD, PhD Spine Fellowship Trained Neurosurgeon Director, [facility] Coding Level of Care Code Est Pt Level 3 (01504) Diagnoses Numbness of feet R20.0
== END 2024-09-20 13:46 | disposition home or self-care (01) ==
LOC: HO.HNS 12:53
PROVIDERS: PCP Internal Medicine; Visit Provider Neurological Surgery
DX: R20.0 Anesthesia of skin (principal)
CPT/HCPCS: 99213

== ENCOUNTER → 2024-09-20 12:52 | Outpatient (BNVA) | payer MEDICARE, BC, SELFPAY | PROVIDERS: PCP Internal Medicine; Visit Provider Neurological Surgery | DX: R20.0 Anesthesia of skin (principal) | CPT/HCPCS: 99212 ==

== ENCOUNTER 2024-10-28 09:04 | Outpatient (AMB) | payer MEDICARE, BC, SELFPAY ==
--- NOTE | 2024-10-28 09:09 | A.OFFVIS_ITS ---
Vital Signs 10/28/24 09:18 Height 6 ft 3 in Weight 185 lb BMI 23.1 Intake Visit Reasons: OV- RT SHRUTHI 03/12/24 NE Intake Note: Foster is a 68 year old male who presents today for a follow up visit of his right hip, he is s/p Right SHRUTHI 03/12/24. At his last visit he was given an Rx for Celebrex, at first he thought that this was helping but now reports that his symptoms have not changes. He continues to have anterior and lateral pain of this right hip. Allergies COW HAIR Allergy (Unknown, Uncoded 09/11/24 13:39) + IN ALLERGY TESTING HPI HPI OV- RT SHRUTHI 03/12/24 NE: Details: Foster comes in today now 8 months status post right hip replacement and almost a year status post lumbar fusion. He states he continues to have pain in the posterior aspect of the right hip. This is usually present but he was also able to hike on small a day height without pain. He describes feeling okay when he wakes up but the more he does the more he tends to have this posterior pain. He does find it is alleviated with activity sometimes and at other times he finds it is irritated by activity. He has occasional groin pain but his pain is predominantly just posterior to the greater trochanter on the right side. REPLACED BY [facility] Medical History Osteoarthritis of right hip Retrognathia Bifascicular block HTN (hypertension) GERD (gastroesophageal reflux disease) Pneumonitis COPD (chronic obstructive pulmonary disease) Hyperlipidemia CAD (coronary artery disease) Mediastinal lymphadenopathy Pulmonary nodules MANDI (obstructive sleep apnea) Surgical History History of total right hip replacement (03/12/24) History of lumbar surgery (01/15/24) History of arthroscopy of both knees Hx of colonoscopy Hx of vein stripping Hx of bilateral cataract extraction Hx of bilateral inguinal hernia repair History of total knee replacement Family History Father Cancer Mother No problems noted. 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 No pain with hip range of motion passively and n egative impingement and negative Stinchfield. Assessment & Plan Assessment & Plan (1) History of total right hip replacement: Onset Date: 03/12/24 Comment: Dr. Ibarra Code(s): Z96.641 - Presence of right artificial hip joint Category: Surgical Plan: (2) S/P spinal fusion: Code(s): Z98.1 - Arthrodesis status Category: Surgical Plan: (3) Tendonitis involving right hip abductors: Code(s): M76.891 - Other specified enthesopathies of right lower limb, excluding foot Category: Medical Plan: Foster is a 68-year-old gentleman who, overall, is doing very well status post spinal fusion and hip replacement. He is standing upright and walking without difficulty but continues to have persistent pain of the hip abductors on the right side. I suspect this is a combination of the changes in his anatomy and multiple surgeries. I reviewed with them exercises and the anatomy but I would also like to refer him to my colleague Dr. Pate for a targeted injection in the hip abductor region. I will make a referral and I would also increase his Celebrex to b.i.d.. I would like to see him back in 3 months. Orders: Referrals Pain Management Referral M76.891 - Other specified enthesopathies of right lower limb, excluding foot, Z96.641 - Presence of right artificial hip joint, Z98.1 - Arthrodesis status Medications: Changed From celecoxib (Celebrex) 200 mg PO DAILY 30 caps 2RF To celecoxib (Celebrex) 200 mg PO BID 180 caps 2RF Coding Level of Care Code Est Pt Level 3 (09140) Diagnoses History of total right hip replacement Z96.641 S/P spinal fusion Z98.1 Tendonitis involving right hip abductors M76.895
[2024-10-28 09:18] VITALS: BMI 23.1
--- OUTSIDE RECORDS SUMMARY | 2024-10-30 13:45 | XMS_ITS ---
[facility] Address [address] [place] [address] Care Team Providers Care Trust Clerk Name Role Phone Rajiv Martino MD Primary Care Provider John Rosales Unavailable [phone] Allergies No Known Allergies REASON FOR VISIT Last Visit PCP 04/25/23, Painful thick toenails which are aggrevated by shoes and causes difficulty standing/walking Medications Medication SIG (Take, Route, Frequency, Duration) Notes Start Date End Date Status Lisinopril 20 MG 1 tablet Orally Once a day Active Omeprazole 20 MG 1 capsule 30 minutes before morning meal Orally every other day Active Sulfamethoxazole Not -Taking Work Note . . . pt is disabled from work due to injection and may return on 07/02/16 06/29/2016 Unknown Atorvastatin Calcium 40 MG 1 tablet Orally Once a day Active Aspirin 81 MG 1 tablet Orally Once a day Active Social History Alcohol Screen Question Answer Notes Did you have a drink contain ing alcohol in the past year? Yes How often did you have a dri nk containing alcohol in the past year? 2 to 4 times a month (2 points) Points 2 Interpretation Negative Tobacco use other than smoking: Question Answer Notes Are you an other tobacco user? No Vital Signs Height 6 ft 3 in in 05/19/2023 Weight 180 lbs 05/19/2023 BMI 22.5 kg/m2 05/19/2023 Encounters Encounter Location Date Provider Diagnosis [facility] [address] [place] [address] 05/19/2023 John Alexander Plantar Fasciitis 728.71 ; Tinea unguium B35.1 ; Pain in right toe(s) M79.674 and Pain in left toe(s) M79.675 Assessments Encounter Date Diagnosis (ICD Code) Assessment Notes Treatment Notes Treatment Clinical Notes Section Notes 05/19/2023 Plantar Fasciitis (ICD9-CM - 728.71) 05/19/2023 Tinea unguium (ICD-10 - B35.1) 05/19/2023 Pain in right toe(s) (ICD-10 - M79.674) 05/19/2023 Pain in left toe(s) (ICD-10 - M79.675) Plan Of Treatment Next Appt Details Follow Up: prn, Reason: Procedure Notes * Category Sub-Category Detail Notes Debride Nails 1-5 Procedure: Nail debrideme nt performed extensively to reduce/remove overall nail length and girth, subungual debris, and necrotic tissue, by manual and electrical means by use of a nail nipper and/or dremel, to more viable healthy nail plate or bed tissue 1-5. Silver nitrate used for any petechial bleeding as necessary. Patient chooses, no pharmaceutical tx (29812) Progress Notes * Foster GUILLENDOB: 4 (67 yo M)Acc No.[id number]:05/19/2023 Progress Notes Patient:?Foster Guillen Provider:?John Alexander DPM :1955???Age:67 Y???Sex:Male Akhil e:05/19/2023 Address:[address] [place] [address] Pcp:Rajiv Martino MD Subjective: * Chief Complaints: * ???Last Visit PCP 04/25/23Pain ful thick toenails which are aggrevated by shoes and causes difficulty standing/walking * HPI: ???Foot Pain:?Nature:?tenderness, swelling, sharp.?Location?Outside, Midfoot, Left .?Duration:?1 month.?Onset/Cause:?gradual.?Course:?worse.?Aggrevated:?work, exercise.?Treatments:?rest, ice.?Quality/Severity?7, scale 1-10.?Painful Nails:?Pt States Last PCP Visit:?Date:?04/25/2023 * ROS:?General/Constitutional:?Nausea?denies.?Vomiting?denies.?Hunger Thirst?denies.?Loss appetite?denies.?Chills?denies.?Fatigue?denies.?Fever?denies.?Night Sweats?denies.?Unexplained weight loss?denies.?Unexplained weight gain?denies.?HEENTM:?Dentures?denies.?Dizziness?denies.?Glasses/contacts?denies.?Retinopathy?de nies.?Blurred/double vision?denies.?TMJ?denies.?Discharge/drainage?denies.?Implants?denies.?Sore throat?denies.?Dental implants?denies.?Hard of hearing ?denies.?Difficulty chewing/swallowing/speaking?denies.?Nose bleeds?denies.?Sore mouth?denies.?Respiratory:?On Oxygen?denies.?Pneumonia/pleurisy?denies.?Bronchitis?denies.?Emphysema?denies.?C oughing?denies.?Cough blood?denies.?Shortness of breath?denies.?Wheezing?denies.?Cardiovascular:?Pacemaker?denies.?MVP?denies.?WPW?denies.?CHF?denies.?Heart attack?denies.?Septal defect?denies.?Rapid beat?denies.?Chest pain ?denies.?Atrial Fib.?denies.?Murmur/Palpitations?denies.?Gastrointestinal:?Hemorrhoids?denies.?Stomach/Abdominal pain?denies.?Dark blood stool?denies.?Irritable bowel ?denies.?Constipation?denies.?Diarrhea?denies.?Hematology:?Swelling?denies.?Clots?denies.?Varicose Veins?admits.?Bruising?admits.?Bleeding problem?denies.?Genitourinary:?Blood urine?denies.?Frequent/Painfu/urination/bladder control?denies.?Kidney stones?denies.?Infection (UTI)?denies.?Nephropathy?denies.?sex trans dis (STD)?denies.?Prostate?denies.?Musculoskeletal:?Hammertoes?admits.?Bunions?denies.?Back Pain?denies.?Muscle Cramps/ Resting?admits.?Muscle cramps / walking?denies.?Generalized aches and pains?denies.?Weakness?denies.?Integ.:?Escobar?denies.?Scars?denies.?Corns/calluses?denies.?Ingrown nails?denies.?Painful nails?denies.?Open Sores?denies.?Rashes?denies.?Neurologic:?Difficulty sleeping?denies.?Brain disorder?denies.?Numbness?denies.?Balance trouble?denies.?Confusion?denies.?Fainting/blackouts?denies.?Tingling?denies.?Tr emors?denies.? * Medical History:? * Surgical History:?hernia 07/28 3, 09/2014knee surgery X3 08/2011, 11/2011, 01/2013 * Hospitalization/Major Diagno stic Procedure:?Denies Past Hospitalization * Family History:?Mother: dece ased, diagnosed with Unspecified essential hypertension, Unspecified cerebral artery occlusion with cerebral infarction.?Father: , diagnosed with Other malignant neoplasm of unspecified site.?Maternal uncle: heart attack, stroke, diagnosed with Unspecified heart disease, Unspecified cerebral artery occlusion with cerebral infarction.?Spouse: alive.?Paternal Grand Mother: diagnosed with Family history of arthritis.?Paternal uncle: diagnosed with Other malignant neoplasm of unspecified site.? * Social History:?Tobacco Use:?Tobacco Use/Smoking?Are you a:: nonsmoker , Additional Findings: Tobacco Non-User: Current non-smoker.?Tobacco use other than smoking?Are you an other tobacco user??No ???Drugs/Alcohol:?Drugs?Have you used drugs other than those for medical reasons in the past 12 months??No ?Alcohol Screen?Did you have a drink containing alcohol in the past year??Yes ?How often did you have a drink containing alcohol in the past year??2 to 4 times a month (2 points) ?Points?2 ?Interpretation?Negative ???Miscellaneous:?Caffeine: yes, frequency:, 1-2 cups per day. ?Children: yes. ?Exercise: yes, tennis, photography, caring for grandson 5 days a week, 6 hr days. ?Marital status: . 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 * Medications:?TakingAspirin 8 1 MG Tablet Delayed Release 1 tablet Orally Once a dayAtorvastatin Calcium 40 MG Tablet 1 tablet Orally Once a dayLisinopril 20 MG Tablet 1 tablet Orally Once a dayOmeprazole 20 MG Capsule Delayed Release 1 capsule 30 minutes before morning meal Orally , Notes: every other dayTaking Aspirin 81 MG Tablet Delayed Release 1 tablet Orally Once a dayTaking Atorvastatin Calcium 40 MG Tablet 1 tablet Orally Once a dayTaking Lisinopril 20 MG Tablet 1 tablet Orally Once a dayTaking Omeprazole 20 MG Capsule Delayed Release 1 capsule 30 minutes before morning meal Orally , Notes: every other dayNot-Taking/PRNSulfamethoxazole Not-Taking/PRN Sulfamethoxazole UnknownWork Note . . . . pt is disabled from work due to injection and may return on 07/02/16Medication List reviewed and reconciled with the patientUnknown Work Note . . . . pt is disabled from work due to injection and may return on 07/02/16Medication List reviewed and reconciled with the patient * Allergies:?N.K.D.A.yes[Aller gies Verified] Objective: * Vitals:?Ht: 6 ft 3 in, Wt:18 0, BMI:22.5, Shoe size: 14 EEEE, Ht-cm: 190.5 cm, Wt-k.65 kg. * Examination: ???General Examination: ?GENERAL APPEARANCE:?pleasant, alert, well nourished, well developed, well hydrated, with good attention to hygene/body habitus, and in no acute distress.?ORIENTED:?person,place, and time.?Neurological: ?SENSORY:?Neurological exam is normal, pain sensation normal, vibration sensation intact, pinprick sensation is normal in the lower extremities, denies, tingling, burning, anesthesia, paresthesia, hyperesthesia, B/L.?TINEL'S COMPRESSION:?Negative tarsal tunnel, latha pedis, and medial calcaneal nerves B/L.?BABINSKI REFLEX:?absent.?Neuroma Pain: ?PALPATION:?No interspace pain noted on palpation.?Vascular: ?DP PULSES:?2/4, B/L.?PT PULSES:?2/4, B/L.?CAPILLARY FILL TIME:?3 secs. per digit, B/L.?SKIN TEMPERTURE GRADIENT OF THE LOWER EXTERMITIES:?warm to cool, proximal to distal, B/L.?HAIR GROWTH/TEXTURE/ELASTICITY/TURGOR:?normal, B/L.?PIGMENTATION:?normal, B/L.?EDEMA:?no edema.?TELANGECTASIA:?absent.?VARICOSITIES:?absent.?Dermatologic: ?SKIN FINDINGS:?Skin exam reveals normal texture, elasticity, and tugor. There are no masses. The interspaces are clear, B/L .?Orthopedic: ?MUSCLE STRENGTH:?5/5 all groups in a symmetrical fashion , B/L.?GAIT ABNORMALITY:?pronated, abducted, B/L.?Nails: ?NAILS are:?Elongated, overgrown, dystrophic, greater than 3mm thick, discolored and friable with crumbly malodorous subungual debris, with pain on palpation, T5.?Ingrown Nail: ?INSPECTION:? Reveals nail incurvation, pain on palpation, groove hypertrophy, groove ischemia, Bilateral nail borders, T5.? * Physical Examination:?L2999 Supplies:?Insoles-SSOT- graphite?comfort plus .? Assessment: * Assessment: 1.?Plantar Fasciitis - 728.7 1 (Primary)?2.?Tinea unguium - B35.1?3.?Pain in right toe(s) - M79.674?4.?Pain in left toe(s) - M79.675? Plan: * Treatment: * Procedures:?Debride Nails 1-5:?Procedure:?Nail debridement performed extensively to reduce/remove overall nail length and girth, subungual debris, and necrotic tissue, by manual and electrical means by use of a nail nipper and/or dremel, to more viable healthy nail plate or bed tissue 1-5. Silver nitrate used for any petechial bleeding as necessary. Patient chooses, no pharmaceutical tx (10225).? * Procedure Codes:?85750 LIZETH LEACH, 1-5, Modifiers: XS L2999 Insoles-Soft sole ($50) * Preventive Medicine:? ??Counseling:?Discussion:?-03: Office or other outpatient visit for the evaluation and management of a new patient, which required a medically appropriate history and/or examination and LOW level of DECISION MAKING for: 1 STABLE ACUTE UNCOMPLICATED PROBLEM, 2 OR MORE MINOR PROBLEMS, OR 1 STABLE CHRONIC PROBLEM, THAT POSE(S) A LOW RISK FOR MORBIDITY/MORTALITY. When using time for code selection, 30-44 min of total time was spent on the day of the encounter interpreting the data and educating the patient as to the nature of their condition, treatment options available according to their individual PMH, meds, allergies, and overall health/living conditions, as well as any potential risks or complications that may occur from a failure to adhere to, and participate in, the recommended course of therapy. The discussion included a complete verbal, and/or written explanation of the examination results, any x- rays taken, the proposed diagnosis, and outline of the treatment plan. A schedule for future care needs was also explained. The patient verbalized an understanding of the instructions at this time and agreed to be an active participant in their treatment. If the patient should think of any questions or concerns after the visit, I have encouraged the patient to call the office--oif pt wants old orthoses refurbished then he can drop off--$70 lab fee.?Orthotic Dispensing:?The patient presents today for fitting and dispensing of orthotics. The inserts were checked against the prescription and found to be accurate. They were properly fitted to the patient's feet in both weight-bearing and non-weight bearing attitudes. The patient was instructed to gradually increase the amount of time they are wearing the orthoses, starting with one hour the first day and thereon progressively increasing the amount of time used until they are comfortable to be worn all day and with all activities. They were asked to call the office if any signs of skin irritation were noted including redness, blistering or callous formation. The patient verbally indicated a full understanding of all the above information.? * Follow Up:?prn * Images: * Sign off status: Completed true * Provider:?John Alexander DPM Date:? 023 Generated for Daniel robles/Kevan/Anu on:?10/30/2024 01:45 PM EST History and Physical Notes * HPI (History of Present Illness) Category Sub-Category Detail Notes Category Not es Painful Nails Pt States Last PCP Visit: Date:: 04/25/2023 Foot Pain Aggrevated: work, exercise Onset/Cause: gradual Course: worse Duration: 1 month Nature: tenderness, swelling , sharp Treatments: rest, ice Quality/Severity 7, scale 1-10 Location Outside, Midfoot, Le ft Physical Examination Category Sub-Category Detail Notes Section Note s L2999 Supplies Insoles-SSOT- graphite comfort plus Examination Category Sub-Category Detail Notes Category Not es Ingrown Nail INSPECTION: Reveals nail inc urvation, pain on palpation, groove hypertrophy, groove ischemia, Bilateral nail borders, T5 Neuroma Pain PALPATION: No interspace pain noted on palpation Neurological SENSORY: Neurological exa m is normal, pain sensation normal, vibration sensation intact, pinprick sensation is normal in the lower extremities, denies, tingling, burning, anesthesia, paresthesia, hyperesthesia, B/L BABINSKI REFLEX: absent TINEL'S COMPRESSION: Negative tarsal mikaela jesus, latha pedis, and medial calcaneal nerves B/L Dermatologic SKIN FINDINGS: Skin exam reveal s normal texture, elasticity, and tugor. There are no masses. The interspaces are clear, B/L Orthopedic GAIT ABNORMALITY: pronated, abducted, B/L MUSCLE STRENGTH: 5/5 all groups in a symmetrical fashion , B/L General Examination GENERAL APPEARANCE: pleasant , alert, well nourished, well developed, well hydrated, with good attention to hygene/body habitus, and in no acute distress ORIENTED: person,place, and ti me Vascular DP PULSES(B): 2/4, B/L PT PULSES(B): 2/4, B/L CAPILLARY FILL TIME: 3 secs. per digit, B/L TEMPERTURE GRADIENT(C): warm to cool, pr oximal to distal, B/L TROPHIC CONDITION-TEXTURE/ELASTICITY/TURGOR/HAIR GROWTH(B): normal, B/L EDEMA(C): no edema TELANGECTASIA: absent VARICOSITIES: absent PIGMENTATION: normal, B/L Nails NAILS are: Elongated, overg rown, dystrophic, greater than 3mm thick, discolored and friable with crumbly malodorous subungual debris, with pain on palpation, T5
--- OUTSIDE RECORDS SUMMARY | 2024-10-30 13:46 | XMS_ITS ---
Author Organization [facility] Address [address] [place] [address] Care Team Providers Care Evp Business Development Name Role Phone Rajiv Martino MD Primary Care Provider John Rosales [phone] REASON FOR VISIT R/s 05/08/23 O/N apt Encounters Encounter Location Date Provider Diagnosis [address] [address] 05/04/2023 John Alexander Plan Of Treatment No Information Progress Notes * Foster BERMU[birth year]ZDOB:[birth year] (67 yo M)Acc No.[id number]:05/04/2023 Patient:?Foster Bermudez :1955???Age:67 Y???Sex:Male Address:[address] [place] [address] * true * Date:? Generated for Printi ng/Faarianeg/eTransmitting on:?10/30/2024 01:45 PM EST
--- OUTSIDE RECORDS SUMMARY | 2024-10-30 13:46 | XMS_ITS ---
Author Organization [facility] Address [address] [place] [address] Care Team Providers Care Plaque Maker Name Role Phone Rajiv Martino MD Primary Care Provider John Rosales [phone] Medications Medication SIG (Take, Route, Frequency, Duration) Notes Start Date End Date Status Omeprazole 20 MG 1 capsule 30 minutes before morning meal Orally every other day Active Sulfamethoxazole Not -Taking Work Note . . . pt is disabled from work due to injection and may return on 07/02/16 06/29/2016 Unknown Atorvastatin Calcium 40 MG 1 tablet Orally Once a day Active Lisinopril 20 MG 1 tablet Orally Once a day Active Baby Aspirin Active Social History Tobacco use other than smoking: Question Answer Notes Are you an other tobacco user? No Vital Signs Height 6 ft 3 in in 05/08/2023 Weight 180 lbs 05/08/2023 BMI 22.5 kg/m2 05/08/2023 Encounters Encounter Location Date Provider Diagnosis [facility] [address] [place] [address] 05/08/2023 John Alexander Plan Of Treatment No Information Progress Notes * Fotser GUILLENDOB: (68 yo M)Acc No.[id number]:05/08/2023 Progress Notes Patient:?Foster GUILLEN Provider:?John Alexander DPM :1955???Age:67 Y???Sex:Male Akhil e:05/08/2023 Address:[address] [place] [address] VIDA [id number] Pcp:Rajiv Martino MD Subjective: * Chief Complaints: * ??? * ROS:?General/Constitutional:?Nausea?denies.?Vomiting?denies.?Hunger Thirst?denies.?Loss appetite?denies.?Chills?denies.?Fatigue?denies.?Fever?denies.?Night Sweats?denies.?Unexplained weight loss?denies.?Unexplained weight gain?denies.?HEENTM:?Dentures?denies.?Dizziness?denies.?Glasses/contacts?denies.?Retinopathy?de nies.?Blurred/double vision?denies.?TMJ?denies.?Discharge/drainage?denies.?Implants?denies.?Sore throat?denies.?Dental implants?denies.?Hard of hearing ?denies.?Difficulty chewing/swallowing/speaking?denies.?Nose bleeds?denies.?Sore mouth?denies.?Respiratory:?On Oxygen?denies.?Pneumonia/pleurisy?denies.?Bronchitis?denies.?Emphysema?denies.?C oughing?denies.?Cough blood?denies.?Shortness of breath?denies.?Wheezing?denies.?Cardiovascular:?Pacemaker?denies.?MVP?denies.?WPW?denies.?CHF?denies.?Heart attack?denies.?Septal defect?denies.?Rapid beat?denies.?Chest pain ?denies.?Atrial Fib.?denies.?Murmur/Palpitations?denies.?Gastrointestinal:?Hemorrhoids?denies.?Stomach/Abdominal pain?denies.?Dark blood stool?denies.?Irritable bowel ?denies.?Constipation?denies.?Diarrhea?denies.?Hematology:?Swelling?denies.?Clots?denies.?Varicose Veins?admits.?Bruising?admits.?Bleeding problem?denies.?Genitourinary:?Blood urine?denies.?Frequent/Painfu/urination/bladder control?denies.?Kidney stones?denies.?Infection (UTI)?denies.?Nephropathy?denies.?sex trans dis (STD)?denies.?Prostate?denies.?Musculoskeletal:?Hammertoes?denies.?Bunions?denies.?Back Pain?denies.?Muscle Cramps/ Resting?admits.?Muscle cramps / walking?denies.?Generalized aches and pains?denies.?Weakness?denies.?Integ.:?Escobar?denies.?Scars?denies.?Corns/calluses?denies.?Ingrown nails?denies.?Painful nails?denies.?Open Sores?denies.?Rashes?denies.?Neurologic:?Difficulty sleeping?denies.?Brain disorder?denies.?Numbness?denies.?Balance trouble?denies.?Confusion?denies.?Fainting/blackouts?denies.?Tingling?denies.?Tr emors?denies.? * Medical History:?Cataracts, Hypertension, Chicken pox, Measles, Joint implants/screws, Back,Hip,and Knee pain, Arthritis, Covid-19, Psoriasis/eczema, Sciatica, Mumps. * Surgical History:?hernia 07/28 3, 09/2014, knee surgery X3 08/2011, 11/2011, 01/2013. * Family History:?Mother: dece ased, diagnosed with Unspecified essential hypertension, Unspecified cerebral artery occlusion with cerebral infarction.?Father: , diagnosed with Other malignant neoplasm of unspecified site.?Maternal uncle: heart attack, stroke, diagnosed with Unspecified heart disease, Unspecified cerebral artery occlusion with cerebral infarction.?Paternal Grand Mother: diagnosed with Family history of [...] a drink containing alcohol in the past year?: Yes, How often did you have a drink containing alcohol in the past year?: Monthly or less (1 point), Points: 1, Interpretation: Negative.?Miscellaneous:?Caffeine: yes, frequency:, 1-2 cups per day. ?Children: yes. ?Exercise: yes, tennis, photography, caring for grandson 5 days a week, 6 hr days. ?Marital status: . 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 * Medications:?Taking Baby Asp irin , Taking Atorvastatin Calcium 40 MG Tablet 1 tablet Orally Once a day , Taking Lisinopril 20 MG Tablet 1 tablet Orally Once a day , Taking Omeprazole 20 MG Capsule Delayed Release 1 capsule 30 minutes before morning meal Orally , Notes to Pharmacist: every other day, Not-Taking/PRN Sulfamethoxazole , Unknown Work Note . . . . pt is disabled from work due to injection and may return on 07/02/16 Objective: * Vitals:?Ht: 6 ft 3 in, Wt:18 0, BMI:22.5, Shoe size: 14 EEE, Ht-cm: 190.5 cm, Wt- k.65 kg. Assessment: Plan: * Treatment: * Images: * The named appointment provid er may or may not be the originator of this progress note, and it is not deemed complete until electronically signed by the appointment provider. Sign off status: Pending * Provider:?John Alexander DPM Date:? 023 Generated for Daniel robles/Kevan/Anu on:?10/30/2024 01:45 PM EST
--- OUTSIDE RECORDS SUMMARY | 2024-10-30 13:46 | XMS_ITS | Data Portability ---
Author Organization [facility] Address [address] [place] [address] Assessment Encounter Date Assessment Date Assessment LastModified by Organization Details LastModified Time 01/25/2023 01/25/2023 - left sciatica since 01/2022 - L4-L5: Left-sided disc herniation, left L5 impingement, moderate to severe central canal stenosis, severe facet arthropathy - L4-L5 spinal stenosis with likely neurogenic claudication - non-focal neurologic exam Overall improvement in left sciatica symptoms. He is able to tolerate activity to his desired capacity. He does not feel the need for further intervention at this time. --routine follow-up 6 months --we can repeat as needed left-sided L4-L5 and L5-S1 transforaminal ESIs Not available 01/25/2023 14:11:18 06/13/2023 06/13/2023 - left sciatica since 01/2022 - L4-L5: Left-sided disc herniation, left L5 impingement, moderate to severe central canal stenosis, severe facet arthropathy - L4-L5 spinal stenosis with likely neurogenic claudication - non-focal neurologic exam Patient returns with recurrent severe left-sided low back pain radiating to his left buttock left thigh calf and foot. Symptoms are again interfering with his ability to tolerate daily activity. Prior treatments were beneficial allowing him to participate adequately as desired for several months.. Repeating TFESI were therapeutic value discussed, patient would like to pursue. Additionally obtain an updated lumbar MRI at this time as patient is considering surgical intervention if symptoms continue to reoccur. --left L4-L5, L5-S1 TFESI --lumbar MRI --surgical consult- with [facility] neurosurgeon and/or surgeon in home area Not available 06/13/2023 15:03:23 06/23/2023 06/23/2023 - left sciatica since 01/2022 - L4-L5: Left-sided disc herniation, left L5 impingement, moderate to severe central canal stenosis, severe facet arthropathy - L4-L5 spinal stenosis with likely neurogenic claudication - non-focal neurologic exam LEFT L4-L5, L5-S1 TFESI completed yesterday without complication. Today patient reports mild decrease in his common left buttock area pain which is his chief complaint. He denies any concerning side effects, sign or symptom of infection. --follow-up as scheduled, sooner with any concerns Not available 06/23/2023 10:58:35 08/02/2023 08/02/2023 Impression: - left sciatica since 01/2022 - L4-L5: Left-sided disc herniation, left L5 impingement, moderate to severe central canal stenosis, severe facet arthropathy - L4-L5 spinal stenosis with likely neurogenic claudication - non-focal neurologic exam Patient returns with persistent left-sided low back and leg pain symptoms, unresponsive to recent trial of injections. Fortunately his neurologic exam remains grossly intact. Patient has known significant lumbar stenosis/foramina l stenosis/neural impingement underlying contributing to his persistent pain symptoms. Due to failure of treatment no additional treatment is recommended at this time. Pursuing surgical consult suggested, patient agrees. --surgical consult; suggestions close to his home provided --follow-up with any concerns Not available 08/02/2023 15:34:33 Plan of Treatment Reminders Order Date Submit Date Provider Last Modified By Organization Details Last Modified Time Details Appointments None recorded. Lab None recorded. Referral None recorded. Procedures epidural steroid injection, lumbar transforam inal (PROC) - Left L4-L5, L5-S1 TFESI 2022 023 [facility] Neurosurgery Office, [address] [place], [address], 13:44:52 Surgeries None recorded. Imaging MRI, lumbar spine, w/o contrast 2022 023 [facility] (Imaging), [address] [place], [address], 3 09:11:03 Medication Orders None recorded. Patient TargetsNo targets recorded. Patient Instructions Encounter Date Encounter Id Patient Instructions Last Modified By Organization Details Last Modified Time 01/25/2023 [id number] I spent a total of 30 minutes during this clinical encounter. This time was devoted to counseling and coordinating care including review of records, pertinent lab data and studies, as well as discussing diagnostic evaluations and work-up, planning therapeutic interventions and future disposition of care. This time included any additional research needed to obtain further information in formulating the plan of care of this patient. This included counseling the patient about their disease and diagnosis. Please refer to the assessment and plan for details. Name of DAYANARA: Lynn Yeh NP Portions of the medical record have been recorded by the DAYANARA. I have reviewed this information and attest to its accuracy. I performed a substantive portion of the visit. Greater than 50% of patient care time was spent by me in direct counseling /collaboration/ record review / medical decision making / patient interaction. [email or web address] Not available 01/18/2023 15:51:00 06/13/2023 [id number] I spent a total of 30 minutes during this clinical encounter. This time was devoted to counseling and coordinating care including review of records, pertinent lab data and studies, as well as discussing diagnostic evaluations and work-up, planning therapeutic interventions and future disposition of care. This time included any additional research needed to obtain further information in formulating the plan of care of this patient. This included counseling the patient about their disease and diagnosis. Please refer to the assessment and plan for details. Name of DAYANARA: Lynn Yeh NP Portions of the medical record have been recorded by the DAYANARA. I have reviewed this information and attest to its accuracy. I performed a substantive portion of the visit. Greater than 50% of patient care time was spent by me in direct counseling /collaboration/ record review / medical decision making / patient interaction. [email or web address] Not available 06/08/2023 18:22:03 06/23/2023 [id number] The patient was identified by name and date of and consented to this visit conducted a telehealth visit. Patient contact via their cell phone. The patient's recent medical history and prior records were reviewed by me before and during the visit. I spent a total of 15 minutes during this real-time, interactive, audio only, clinical encounter. Greater than 50% of the time was spent to go to counseling and coordinating care including review of records, pertinent lab data and studies, as well as discussing diagnostic evaluations and workups, planning therapeutic interventions and future disposition of care. At this time including any additional research needed to obtain further information in formulating the plan of care of this patient. This included counseling the patient about his disease and diagnosis. Not available 06/23/2023 10:58:55 08/02/2023 [id number] Name of DAYANARA: Adriana Yeh NP Portions of the medical record have been recorded by the DAYANARA. I have reviewed this information and attest to its accuracy. I performed a substantive portion of the visit. Greater than 50% of patient care time was spent by me in direct counseling /collaboration/ record review / medical decision making / patient interaction. I spent a total of 30 minutes during this clinical encounter. This time was devoted to counseling and coordinating care including review of records, pertinent lab data and studies, as well as discussing diagnostic evaluations and work-up, planning therapeutic interventions and future disposition of care. This time included any additional research needed to obtain further information in formulating the plan of care of this patient. This included counseling the patient about their disease and diagnosis. Please refer to the assessment and plan for details. [email or web address] Not available 07/26/2023 14:49:47 Reason for Referral None Reported. Results Created Date Observation Date Name Description Value Unit Range Abnormal Flag Note LastModifiedBy Organization Detail LastModifiedTime 08/01/2007/28/2023 MRI, lumba r spine , w/o contr ast No observ ation record ed. [email or web address] [facility] (Imaging) [address] [place] [address], [id number], 08/01/2023 10:03:05 08/03/2007/28/2023 MRI, lumba r spine , w/o contr ast No observ ation record ed. BARCODE [facility] (Imaging) [address] [place], [address], 08/03/2023 10:40:28 Result Notes None recorded. Procedures Surgical History None recorded. Imaging Results Imaging Date Name Status LastModified by [facility] ([facility] Details LastModified Time 07/28/2023 MRI, lumbar spine, w/o contrast completed [email or web address] [facility] (Imaging) [address] [place] [address], [id number], 08/01/2023 10:03:05 07/28/2023 MRI, lumbar spine, w/o contrast completed [facility] (Imaging) [address] [place] [address], [id number], 08/03/2023 10:40:28 Procedure Notes None recorded. Medical Equipment None Reported. Medications Name Sig Start Date Stop Date Status Note LastModified by Organization Details LastModified Time atorvastatin 40 mg tablet TAKE 1 TABLET BY MOUTH EVERY DAY FOR 90 DAYS active Not Available Not Available No t Available azithromycin 250 mg tablet TAKE 2 TABLETS BY MOUTH TODAY, THEN TAKE 1 TABLET DAILY FOR 4 DAYS active Not Available Not Available No t Available lisinopril 20 mg tablet TAKE 1 TABLET BY MOUTH EVERY DAY active Not Available Not Available No t Available betamethasone valerate 0.1 % topical cream APPLY DIRECTED TO AFFECTED AREA TWICE A DAY NEEDED active Not Available Not Available No t Available lisinopril 30 mg tablet TAKE 1 TABLET BY MOUTH EVERY DAY active Not Available Not Available No t Available omeprazole 20 mg capsule,delay ed release TAKE 1 CAPSULE BY MOUTH EVERY DAY active Not Available Not Available No t Available amoxicillin 250 mg capsule TAKE 2 CAPSULES BY MOUTH 3 TIMES A DAY FOR 7 DAYS active Not Available Not Available No t Available ibuprofen 600 mg tablet TAKE 1 TABLET BY MOUTH EVERY 6 TO 8 HOURS NEEDED FOR PAIN active Not Available Not Available No t Available albuterol sulfate HFA 90 mcg/actuation aerosol inhaler INHALE 2 PUFFS EVERY 6 HOURS NEEDED FOR SHORTNESS OF BREATH OR WHEEZING active Not Available Not Available No t Available Vitals None Recorded Social History None recorded. Functional Status None recorded. Mental Status None recorded. Family History Nothing Reported. Medical History No medical history recorded. Past Encounters Encounter ID Performer Location Encounter Start Date Encounter Closed Date Diagnosis/Indication Diagnosis SNOMED-CT Code Diagnosis ICD10 Code [id number] Sagrario Godfrey MD [facility] [address] [facility], [address] [place] [address] 07/20/2022 11:02:15 07/20/2022 14:11:10 Lumbar radiculopathy 716988311 M54.16 [id number] Sagrario Godfrey MD [facility] [address] [address] 08/16/2022 07:20:21 08/17/2022 10:37:35 Lumbar radiculopathy 883812107 M54.16 [id number] Sagrario Godfrey MD [facility] [address] [id number] 09/07/2022 10:35:54 09/07/2022 11:37:41 Lumbar radiculopathy [id number] M54.16 [id number] Sagrario Godfrey MD [facility] OP [address] [facility] [address] [place] [address] 09/29/2022 10:58:47 09/29/2022 11:55:48 Spinal stenosis of lumbar region [id number] M48.062 [id number] Lynn Yeh NP [facility] 6 OP [address]36 [facility] [address] [place] [address] 09/30/2022 10:33:21 09/30/2022 11:30:31 Lumbar radiculopathy 167193050 M54.16 [id number] Sagrario Godfrey MD [facility] [address] [address] 11/02/2022 13:35:30 11/02/2022 14:34:52 Lumbar radiculopathy [id number] M54.16 [id number] Sagrario Godfrey MD [facility] 6 OP [address]36 [facility] [address] [place] [id number] 12/15/2022 10:25:30 12/15/2022 11:43:29 Lumbar radiculopathy [id number] M54.16 [id number] Lynn Yeh NP [facility] 6 OP [address] [facility] [address] [place] [address] 12/16/2022 07:04:05 12/16/2022 09:35:30 Lumbar radiculopathy [id number] M54.16 [id number] Sagrario Godfrey MD [facility] [address] [address] 01/25/2023 13:31:01 01/25/2023 13:57:12 Lumbar radiculopathy [id number] M54.16 [id number] Sagrario Godfrey MD [facility] [address] [address] 06/13/2023 13:17:34 06/14/2023 06:57:29 Lumbar radiculopathy 023050192 M54.16 [id number] Sagrario Godfrey MD [facility] [address] [address] 06/22/2023 11:20:58 06/22/2023 11:58:01 Lumbosacral radiculopathy 6018861 M54.17 [id number] Lynn Yeh NP [facility] [address] [address] 06/23/2023 07:06:54 06/23/2023 13:43:35 Displacement of lumbar intervertebral disc without myelopathy 50318655 M51.26 Lumbosacra l radiculitis 09834981 M54.17 Chronic low back pain 27 3160346 M54.50 [id number] Sagrario Godfrey MD [facility] [address] [address] 08/02/2023 11:56:14 08/02/2023 12:47:20 Displacement of lumbar intervertebral disc without myelopathy 51855679 M51.26 Lumbosacra l radiculitis 14344079 M54.17 Chronic low back pain 27 2473136 M54.50 Health Concerns Section Related Observation LastModified by Organization Detai ls LastModified Time None Recorded Concern Status LastModified by Organization Details LastModified Time None Recorded Advance Directives Directive None Recorded Payers Encounter Date Sequence Insurance Name Policy Number Policy Mcdowell Covered Member ID Mcdowell Member ID Guarantor Name 01/25/2023 1 MEDICARE B-[place]: [employer] Foster Clarke [id number] Foster Clarke 01/25/2023 2 BS-OR: 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) [id number] Foster Clarke [id number] Foster Clarke 06/13/2023 1 MEDICARE B-OR: [facility] [employer] Foster Clarke [id number] Foster Clarke 06/13/2023 2 BS-OR: 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) 113 Foster Clarke [id number] Foster Clarke 06/22/2023 1 MEDICARE B-OR: [facility] [employer] Foster Clarke [id number] Foster Clarke 06/22/2023 2 BS-OR: [employer] (O) 113 Foster Clarke [id number] Foster Clarke 06/23/2023 1 MEDICARE B-OR: [facility] [employer] Foster Clarke [id number] Foster Clarke 06/23/2023 2 BS-OR: [employer] 113 Foster Clarke [id number] Foster Clarke 08/02/2023 1 MEDICARE B-OR: [facility] [employer] Foster Clarke [id number] Foster Clarke 08/02/2023 2 BS-OR: [employer] 113 Foster Clarke [id number] Foster Clarke Notes Date Note Type Note Provider Name and Address Organization Details Recorded Time 3 text/html The patient returns to the spine center.In the interim, 6 weeks post TFESI with increase in activity levels including tennis and walkingChief complaint:1. left buttock and posterior thigh, left anterior2. left hip painPain intensity: 0-6/10alleviating factors: sitting, Katina method stretchingexacerbating factors: sometimes start of walking, runningTreatments:Pain Medication: noneinjection history:12/15/22 Left L4-L5, L5-S1 TFESI09/29/22 LEFT L4-L5, L5-S1 TFESIphysical therapy: continues strong HEP, also trialed Shaan method on his own without reliefWalking tolerance has improvedThere has been no significant interim change in their medical status. There has been no interim motor or sensory deficits. The patient continues to deny bowel or bladder changes, saddle anesthesia or gait instability.Imagin08/02/22 MRI Lumbar Spine (Heaters)Grade 1 anterolisthesis with severe facet arthropathy at the L4-L5 level. Broad-based left paracentral to left subarticular zone disc protrusion distorting the ventral thecal sac and impinging upon the left L5 nerve root.L4/L5 Viblxsdt-bp-vcgwdk central canal stenosis with encroach upon the right neural foramen mildly distorting the right L4 nerve root.Severe chronic degenerative disc disease at the L2-L3 and L5-S1 levels without central canal stenosis. Sagrario Godfrey MD [address] [place] [address], [phone], [facility] 01/25/2023 14:11:40 3 text/html The patient returns to the spine center.In the interim, 5 month f.u. Prior injection based treatment provided 3 months relief of his common left-sided low back and left leg pain symptoms. He returns today stating the symptoms have become significantly reoccurred, now again interfering with his ability to tolerate daily activity. He is questioning need for surgical intervention.Chief complaint:1. left buttock and posterior thigh, left anterior that intermittently travels into the foot2. left hip painPain intensity: 0-8/10alleviating factors: sittingexacerbating factors: sometimes start of walking, runningTreatments:Pain Medication: ibuprofen 800mginjection history:12/15/22 Left L4-L5, L5-S1 TFESI -09/29/22 LEFT L4-L5, L5-S1 TFESIphysical therapy: continues strong HEP, also trialed Shaan method on his own without reliefWalking tolerance has improvedThere has been no significant interim change in their medical status. There has been no interim motor or sensory deficits. The patient continues to deny bowel or bladder changes, saddle anesthesia or gait instability.Imagin08/02/22 MRI Lumbar Spine (Heaters)Grade 1 anterolisthesis with severe facet arthropathy at the L4-L5 level. Broad-based left paracentral to left subarticular zone disc protrusion distorting the ventral thecal sac and impinging upon the left L5 nerve root.L4/L5 Thstvdnb-ba-varaya central canal stenosis with encroach upon the right neural foramen mildly distorting the right L4 nerve root.Severe chronic degenerative disc disease at the L2-L3 and L5-S1 levels without central canal stenosis. Sagrario Godfrey MD [address] [place] [address], [phone], [facility] 06/13/2023 15:03:43 3 text/html PROCEDURE: LUMBAR/SACRAL TRANSFORAMINAL EPIDURAL STEROID INJECTION PHYSICIAN: [email or web address] ChildISTANT: Lashonda Velazquez RN DIAGNOSIS: Lumbar Radiculopathy/Radiculitis PROCEDURE:1. LEFT L4-L5, L5-S1 LUMBAR/SACRAL TRANSFORAMINAL EPIDURAL STEROID INJECTION2. FLUOROSCOPIC GUIDANCE/LOCALIZATION ANESTHESIA: LOCAL INDICATIONS: The patient presents to the spine center interventional suite for transforaminal epidural steroid injection for c/o left lower extremity pain. Please see clinic notes for details. Lumbar MRI was reviewed with findings including degenerative disk disease/displacement/spinal stenosis at L4-L5. CONSENT FOR THE PROCEDURE:The patient was interviewed and the medical record reviewed. There were no medical, pharmacologic, radiographic or other structural contraindications to attempting fluoroscopically guided transforaminal epidural steroid injection. Risks and expected side effects as well as potential benefit of the procedure were reviewed with the patient, which included, but were not limited to infection, bleeding, nerve damage, weakness, paralysis, pain at the site of injection, spinal headache, potential for no affect or worsening of pain level, and reaction to medication, potentially leading to seizure, stroke, or . The possibility of corticosteroid mediated affect on Blood pressure, blood sugar, osteoporosis, and potential for avascular necrosis were addressed. Any voiced concerns were addressed and the patient agreed to proceed with the procedure. The printed consent form was signed and witnessed. A time out was performed prior to starting the procedure. DESCRIPTION OF THE PROCEDURE:The patient was escorted to the fluoroscopic suite and placed in a prone position. Automatic BP cuff and pulse oximetry were applied. The skin was prepped and draped in the normal sterile fashion using Chlorohexidine preparation. The skin between the and interspace was identified using AP fluoroscopic guidance. a left sided oblique fluoroscopic view was obtained demonstrating the pedicle, superior articulating process, and transverse process at each of those levels. Fluoroscopic findings demonstrated no evidence of prior spinal surgery or instrumentation. The skin and subcutaneous tissue at each intended target site, the 6 o'clock position below the L4 and L5 pedicle, was anesthetized with a total of 6ml of 1% lidocaine using a 25 gauge needle. Once the skin was anesthetized, a 22 gauge 3.5 inch spinal needle was advanced toward the 6 o'clock position of the pedicle at each level under intermittent fluoroscopic guidance. Confirmation of proper needle position was made with AP, oblique, and lateral fluoroscopic views. After negative aspiration for blood and cerebrospinal fluid, 1mL of omnipaque contrast was injected at each level using live fluoroscopy. Fluoroscopic imaging revealed a clear outline of the L4 and L5 spinal nerve with proximal spread of agent through the neural foramen without any evidence of vascular uptake. Then a solution containing 40mg kenalog and 1 milliliter of 1% lidocaine was slowly injected at each level. The needles were withdrawn using a sterile 1% lidocaine flush. The sites were cleaned and dressed with a sterile bandage. The patient tolerated the procedure well, and there was no evidence of procedural complications. The patient's vital signs were stable throughout the procedure and were as recorded in nursing records. The patient was able to ambulate to the recovery area using their own strength. There was no evidence of lower extremity weakness or motor deficits beyond the patients baseline. The patient's prior symptoms of pain were reduced. DISPOSITION: Follow up plans and appointments were discussed with the the patient. The patient will be phoned within a few days to assess progress. Post procedural instruction was given as documented in nursing records and having met discharge criteria, the patient was discharged from the same day holding area. ESTIMATED BLOOD LOSS: NONE SPECIMENS: NONE COMPLICATIONS: NONE Sagrario Godfrey MD [address] [place] [address], [phone], [facility] 06/22/2023 11:54:49 3 text/html Foster Peñaloza was called for a 1 day follow up following procedure.Type of injection:LEFT L4-L5, L5-S1 TFESICurrent pain score: 7/10Current pain location: Left buttock areaDegree of pain relief after injection:<25% pain relief after injectionAdverse side effects or complication post injection:No complications or adverse side effects reportedNo Increase pain after injectionNo Increase weakness and/or numbness after injectionNo Fevers, chills, signs of infection at injection site Follow up visit is scheduled. Patient instructed to call for any questions or concerns. Lynn Yeh NP [address] [place] [address], [phone], [facility] 06/23/2023 10:59:18 3 text/html The patient returns to the spine center.Patient is followed for;- left sciatica since 01/2022- L4-L5: Left-sided disc herniation, left L5 impingement, moderate to severe central canal stenosis, severe facet arthropathy- L4-L5 spinal stenosis with likely neurogenic claudication- non-focal neurologic examIn the interim, patient returns for a 5 week follow up post LEFT L4-L5, L5-S1 TFESI. Patient Returns today stating he had no lasting benefit from this injection or the prior one. he states pain symptoms in his low back and left leg had become more bothersome, significantly interfere with ability to tolerate daily activity. He is not pursued surgical consult yet. Pain intensity: lleviating factors: stretchingexacerbating factors: Sitting, lying down.Treatments:Pain Medication: noneinjection history:06/22/23 Left L4-L5, L5-S1 TFESI: <25% pain relief after injection12/15/22 Left L4-L5, L5-S1 TFESI - <25% pain relief after ddhofatho17/10/22 LEFT L4-L5, L5-S1 TFESI: 25% pain relief after injectionphysical therapy: continues strong HEP, also trialed Shaan method on his own without reliefWalking tolerance has improvedThere has been no significant interim change in their medical status. There has been no interim motor or sensory deficits. The patient continues to deny bowel or bladder changes, saddle anesthesia or gait instability. Imaging;06/2023 MRI Lumbar Spine ([facility])Impression:1. Slightly worsened anterolisthesis at the L4-L5 level with increased size of a broad-based central to left subarticular zone disc protrusion moderately compressing the thecal sac and impinging upon the left greater than right L5 nerve roots. Moderate to severe central canal stenosis and advanced facet arthropathy. Unroofed right foraminal disc protrusion and severe facet arthropathy with significant right foraminal encroachment and mass effect upon the right L4 nerve root. New edema in the right articular processes and right posterior paraspinal soft tissues, presumably stress related in etiology. Sagrario Godfrey MD [address] [place], [address], [facility] 08/02/2023 15:34:45
--- OUTSIDE RECORDS SUMMARY | 2024-10-30 13:46 | XMS_ITS | Patient Health Record ---
Author Organization [facility] Address [address] [place] [address] Care Team Providers Care Carpet Tile Layer Name Role Phone Rajiv Martino MD Primary Care Provider John Rosales Unavailable [phone] Allergies No Known Allergies Reason For Referral No Information Medications Medication SIG (Take, Route, Frequency, Duration) Notes Start Date End Date Status Lisinopril 20 MG 1 tablet Orally Once a day Active Omeprazole 20 MG 1 capsule 30 minutes before morning meal Orally every other day Active Sulfamethoxazole Not -Taking Work Note . . . pt is disabled from work due to injection and may return on 07/02/16 06/29/2016 Unknown Aspirin 81 MG 1 tablet Orally Once a day Active Atorvastatin Calcium 40 MG 1 tablet Orally [...] Are you an other tobacco user? No Plan Of Treatment Pending Test Test Name Order Date X ray : Foot, left 2V 02/11/2015 X ray : Foot, left 3V 06/29/2016 63551, [id number] INJECT TENDON ORIGIN/INSER T 06/29/2016 Insurance Providers Payer Name Payer Address Payer Phone Subscriber Number Group Number Insured Name Patient Relationship to Insured Coverage Start Date Coverage End Date Medicare National Gov[employer] [address] [place] [address] [id number] Foster Guillen Self - patient is the insured [facility] [address] [place] [address] [id number] MindyFoster merritt Self - patient is the insured Medical (General) History Medical History History ICD Code Cataracts Hypertension Chicken pox Measles Joint implants/screws Back,Hip,and Knee pain Arthritis covid-19 Psoriasis/eczema Sciatica Mumps Surgical History Surgery Date(Month/Year) hernia , 09/2014 knee surgery X3 08/2011, 11/2011, 01/19 013
== END 2024-10-28 09:44 | disposition home or self-care (01) ==
PROVIDERS: PCP Internal Medicine; Visit Provider Orthopaedic Surgery
DX: Z47.1 Aftercare following joint replacement surgery (principal); Z96.641 Presence of right artificial hip joint; Z98.1 Arthrodesis status; M76.891 Other specified enthesopathies of right lower limb, excluding foot
CPT/HCPCS: 99214

== ENCOUNTER → 2024-10-28 09:04 | Outpatient (BNVA) | payer MEDICARE, BC, SELFPAY | PROVIDERS: PCP Internal Medicine; Visit Provider Orthopaedic Surgery | DX: M76.891 Other specified enthesopathies of right lower limb, excluding foot (principal); Z96.641 Presence of right artificial hip joint; Z98.1 Arthrodesis status | CPT/HCPCS: 99212 ==

== ENCOUNTER 2024-11-22 09:29 | Outpatient (AMB) | payer MEDICARE, BC, SELFPAY ==
[2024-11-22 09:41] VITALS: BP 183/95; PULSE 75; O2SAT 99; BMI 23.5
--- NOTE | 2024-11-22 09:41 | MHC.OFFVIS ---
Vital Signs 11/22/24 09:41 Height 6 ft 3 in Weight 188 lb BMI 23.5 BP 183/95 H Blood Pressure Location Rt brachial Position Sitting Pulse 75 Pulse Source Pulse Oximeter Pulse Oximetry (%) 99 Oxygen Delivery Method Room Air Intake Visit Reasons: gluteus medius tendon injection Allergies COW HAIR Allergy (Unknown, Uncoded 11/22/24 09:42) + IN ALLERGY TESTING Medication List - Last Reconciled 11/22/24 by Sheryl Ríos, NURSING INFORMATION SYSTEMS COORDINATOR acetaminophen 650 mg (2 x 325 mg) PO Q6H PRN 30 days amlodipine 2.5 mg PO BID aspirin 81 mg PO DAILY aspirin 81 mg PO DAILY atorvastatin 40 mg PO BEDTIME betamethasone valerate 0.1% 1 appl topical BID PRN celecoxib (Celebrex) 200 mg PO BID lisinopril 20 mg PO BID 90 days metoprolol succinate ER (Toprol XL) 50 mg PO BEDTIME omeprazole 20 mg PO BID psyllium husk (with sugar) 3 gram/7 gram (Metamucil (with sugar)) 2 tbsp PO DAILY [Raised toilet seat DURATION-99 DAYS] walker Folding Front wheeled walker -DURATION 99 DAYS HPI HPI gluteus medius tendon injection: Details: 69-year-old male referred by Orthopedics for right hip pain following total hip replacement. Pain started in 05/09/2023. Rated 5 to 6/10 in intensity. Pain is described as being in the right lateral thigh region radiating towards the right knee as well as occasionally towards the front/groin. He has unable to continue functioning normally. He is retired. The intensity of the pain varies over the course of the day but is generally worse with movements. It is described as intermittent. It is also described as a pinching cramping crushing pain and sometimes squeezing tearing pain. He is currently taking Celebrex 200 mg twice daily. He has had extensive physical therapy for his right hip without any benefit. [facility] Medical History Osteoarthritis of right hip Retrognathia Bifascicular block HTN (hypertension) GERD (gastroesophageal reflux disease) Pneumonitis COPD (chronic obstructive pulmonary disease) Hyperlipidemia CAD (coronary artery disease) Mediastinal lymphadenopathy Pulmonary nodules MANDI (obstructive sleep apnea) Surgical History History of total right hip replacement (03/12/24) History of lumbar surgery (01/15/24) History of arthroscopy of both knees Hx of colonoscopy Hx of vein stripping Hx of bilateral cataract extraction Hx of bilateral inguinal hernia repair History of total knee replacement Family History Father Cancer Mother No problems noted. 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 Alert and oriented. Mood and affect appropriate. Follows and participates in conversation appropriately. Respiratory effort is unlabored. Able to transition from sit to stand unassisted. Ambulates with bilaterally normal heel strike and toe off. Able to stand and walk on toes and heels. Well healed scarred overlying the right lateral hip region. Office Procedures AMB Joint Injection/Aspiration Joint Injection/Aspiration Details: Right gluteus medius tendon injection, ultrasound guided After informed written consent was obtained, the patient was placed in the supine position. Pre-procedure oxygen saturation, heart rate, and blood pressure were recorded. The skin was prepped with Chloroprep, and draped in a sterile fashion. With the use of ultrasound the greater trochanter was identified and the gluteus medius tendon was traced. A 21 gauge 80 mm echostim needle was then advanced toward the trochanteric bursa. Once in position, and after negative aspiration, 40mg Kenalog mixed with 0.25% ropivcaine (8 mL total) was injected. There was no evidence of paresthesias throughout needle placement. The patient tolerated the procedure well and there was no evidence of procedural complications. The patient was observed in the procedure room for 20 minutes, vitals were stable, and discharged in stable condition. Coding Details: An image of the ultrasound guided injection was taken and saved to the patient's permanent record. Additional procedure code (CPT) needed Assessment & Plan Assessment & Plan (1) Tendonitis involving right hip abductors: Code(s): M76.891 - Other specified enthesopathies of right lower limb, excluding foot Category: Medical Plan Patient is status post right gluteus medius tendon injection. Patient tolerated procedure well and was discharged home in stable condition with discharge instructions. All questions were answered. Follow-up in 4-6 weeks to assess response to the injection. Coding Level of Care Code New Pt Level 3 (64508) Diagnoses Tendonitis involving right hip abductors M76.891
--- OUTSIDE RECORDS SUMMARY | 2024-11-22 10:07 | XMS_ITS | Patient Health Record ---
Author Organization [facility] Address [address] [place] [address] Care Team Providers Care Clinical Pharmacy Specialist Name Role Phone Rajiv Martino MD Primary Care Provider John Rosales Unavailable [phone] Allergies No Known Allergies Reason For Referral [...] X ray : Foot, left 3V 06/29/2016 46691, [id number] INJECT TENDON ORIGIN/INSER T 06/29/2016 Insurance Providers Payer Name Payer Address Payer Phone Subscriber Number Group Number Insured Name Patient Relationship to Insured Coverage Start Date Coverage End Date Medicare National Govt Sv[employer] [address] [place] [address] [id number] Foster Guillen Self - patient is the insured [facility] [address] [place] [address] [id number] MindyFoster merritt Self - patient is the insured Medical (General) History Medical History History ICD Code Cataracts Hypertension Chicken pox Measles Joint implants/screws Back,Hip,and Knee pain Arthritis covid-19 Psoriasis/eczema Sciatica Mumps Surgical History Surgery Date(Month/Year) hernia , 09/2014 knee surgery X3 08/2011, 11/2011, 01/19 013
--- OUTSIDE RECORDS SUMMARY | 2024-11-22 10:08 | XMS_ITS | Data Portability ---
Author Organization [facility] Address [address] [place] [address] Assessment Encounter Date Assessment Date Assessment LastModified [...] L5-S1 TFESI --lumbar MRI --surgical consult- with [facility] neurosurgeon and/or surgeon in home area Not [...] - Left L4-L5, L5-S1 TFESI 2022 023 [facility] Neurosurgery Office, [address] [place], [address], 13:44:52 Surgeries None recorded. Imaging MRI, lumbar spine, w/o contrast 2022 023 [facility] (Imaging), [address] [place], [address], 3 09:11:03 Medication Orders None recorded. Patient TargetsNo targets recorded. Patient Instructions Encounter Date Encounter Id Patient Instructions Last Modified By Organization Details Last Modified Time 01/25/2023 [id number] I spent a total of 30 minutes [...] / medical decision making / patient interaction. [email or web address] Not available 01/18/2023 15:51:00 06/13/2023 [id number] I spent a total of 30 minutes [...] / medical decision making / patient interaction. [email or web address] Not available 06/08/2023 18:22:03 06/23/2023 [id number] The patient was identified by name and [...] and diagnosis. Not available 06/23/2023 10:58:55 08/02/2023 [id number] Name of DAYANARA: Adriana Yeh NP Portions [...] ast No observ ation record ed. [email or web address] [facility] (Imaging) [address] [place] [address], [address], 08/01/2023 10:03:05 08/03/2007/28/2023 MRI, lumba r spine , w/o contr ast No observ ation record ed. BARCODE [facility] (Imaging) [address] [place], [address], 08/03/2023 10:40:28 Result Notes None recorded. Procedures Surgical History None recorded. Imaging Results Imaging Date Name Status LastModified by [facility] Details LastModified Time 07/28/2023 MRI, lumbar spine, w/o contrast completed [email or web address] [facility] (Imaging) [address] [place] [address], [address], 08/01/2023 10:03:05 07/28/2023 MRI, lumbar spine, w/o contrast completed [facility] (Imaging) [address] [place] [address], [address], 08/03/2023 10:40:28 Procedure Notes None recorded. Medical [...] Diagnosis/Indication Diagnosis SNOMED-CT Code Diagnosis ICD10 Code Diagnosis Note [id number] Sagrario Godfrey MD [facility] [address], [address] [place] [address] 07/20/2022 11:02:15 07/20/2022 14:11:10 Lumbar radiculopathy 952488102 M54.16 [id number] Sagrario Godfrey MD [facility] [address] [address] 08/16/2022 07:20:21 08/17/2022 10:37:35 Lumbar radiculopathy 291577002 M54.16 [id number] Sagrario Godfrey MD [facility] [address] [address] 09/07/2022 10:35:54 09/07/2022 11:37:41 Lumbar radiculopathy 506343471 M54.16 [id number] Sagrario Godfrey MD [facility] [address] [facility] [address] [place] [address] 09/29/2022 10:58:47 09/29/2022 11:55:48 Spinal stenosis of lumbar region 94622512 M48.062 [id number] Lynn Yeh NP [facility] 6 OP [address] [facility] [address] [place] [address] 09/30/2022 10:33:21 09/30/2022 11:30:31 Lumbar radiculopathy 015994958 M54.16 [id number] Sagrario Godfrey MD [facility] [address] [address] 11/02/2022 13:35:30 11/02/2022 14:34:52 Lumbar radiculopathy 535138870 M54.16 [id number] Sagrario Godfrey MD [facility] 6 OP [address] [facility] [address] [place] [address] 12/15/2022 10:25:30 12/15/2022 11:43:29 Lumbar radiculopathy 009629401 M54.16 [id number] Lynn Yeh NP [facility] 6 OP [address] [facility] [address] [place] [address] 12/16/2022 07:04:05 12/16/2022 09:35:30 Lumbar radiculopathy 266345241 M54.16 [id number] Sagrario Godfrey MD [facility] TS [address] [address] 01/25/2023 13:31:01 01/25/2023 13:57:12 Lumbar radiculopathy 176350395 M54.16 [id number] Sagrario Godfrey MD [facility] [address] [address] 06/13/2023 13:17:34 06/14/2023 06:57:29 Lumbar radiculopathy 167955725 M54.16 [id number] Sagrario Godfrey MD [facility] [address] [address] 06/22/2023 11:20:58 06/22/2023 11:58:01 Lumbosacral radiculopathy 0345300 M54.17 [id number] Lynn Yeh NP [facility] [address] [address] 06/23/2023 07:06:54 06/23/2023 13:43:35 Displacement of lumbar intervertebral disc without myelopathy 38268777 M51.26 Lumbosacra l radiculitis 84898277 M54.17 Chronic low back pain 27 4561058 M54.50 [id number] Sagrario Godfrey MD [facility] [address] [address] 08/02/2023 11:56:14 08/02/2023 12:47:20 Displacement of lumbar intervertebral disc without myelopathy 23694652 M51.26 Lumbosacra l radiculitis 49576286 M54.17 Chronic low back pain 27 1760174 M54.50 Health Concerns Section Related Observation LastModified by Organization Detai ls LastModified Time None Recorded Concern Status LastModified by Organization Details LastModified Time None Recorded Advance Directives Directive None Recorded Payers Encounter Date Sequence Insurance Name Policy Number Policy Mcdowell Covered Member ID Mcdowell Member ID Guarantor Name 01/25/2023 1 [place] [employer] Foster Clarke [id number] Foster Clarke 01/25/2023 2 [place]: 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) 113 Foster Clarke [id number] Foster Clarke 06/13/2023 1 MEDICARE B-[place]: [facility] Foster Clarke [id number] Foster Clarke 06/13/2023 2 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) 113 Foster Clarke [id number] Foster Clarke 06/22/2023 1 MEDICARE B-[place]: [facility] [employer] [facility] Foster Clarke [id number] Foster Clarke 06/22/2023 2 [facility]-[place]: [employer] EMPLOYEE PROGRAM (PPO) 113 Foster Clarke [id number] Foster Clarke 06/23/2023 1 MEDICARE B-[place]: [facility] [employer] SERVICES Foster Clarke [id number] Foster Clarke 06/23/2023 2 BS-[place]: [employer] EMPLOYEE PROGRAM 113 Fost[address] Clarke [id number] Foster Clarke 08/02/2023 1 MEDICARE B-[place]: [facility] [employer] SERVICES Foster Clarke [id number] Foster Clarke 08/02/2023 2 BS-[place]: [employer] EMPLOYEE PROGRAM 113 Foster Clarke [id number] Foster Clarke Notes Date Note Type Note [...] anesthesia or gait instability.Imagin08/02/22 MRI Lumbar Spine ([facility])Grade 1 anterolisthesis with severe facet arthropathy at the L4-L5 level. Broad-based left paracentral to left subarticular zone disc protrusion distorting the ventral thecal sac and impinging upon the left L5 nerve root.L4/L5 Bjykbkli-ht-omthkd central canal stenosis with encroach upon the right neural foramen mildly distorting the right L4 nerve root.Severe chronic degenerative disc disease at the L2-L3 and L5-S1 levels without central canal stenosis. Sagrario Godfrey MD [address] [place] [address], [address], [facility] 01/25/2023 14:11:40 3 text/html The patient [...] anesthesia or gait instability.Imagin08/02/22 MRI Lumbar Spine ([facility])Grade 1 anterolisthesis with severe facet arthropathy at the L4-L5 level. Broad-based left paracentral to left subarticular zone disc protrusion distorting the ventral thecal sac and impinging upon the left L5 nerve root.L4/L5 Tleuuvtt-eu-izcgch central canal stenosis with encroach upon the right neural foramen mildly distorting the right L4 nerve root.Severe chronic degenerative disc disease at the L2-L3 and L5-S1 levels without central canal stenosis. Sagrario Godfrey MD [address] [place] [address], [address], [facility] 06/13/2023 15:03:43 3 text/html PROCEDURE: LUMBAR/SACRAL TRANSFORAMINAL EPIDURAL STEROID INJECTION PHYSICIAN: Sagrario Godfrey MDASSISTANT: Lashonda Velazquez RN DIAGNOSIS: Lumbar Radiculopathy/Radiculitis PROCEDURE:1. [...] SPECIMENS: NONE COMPLICATIONS: NONE Sagrario Godfrey MD [address] [place] [address], [phone], [facility] 06/22/2023 11:54:49 3 text/html Foster Peñaloza [...] any questions or concerns. Lynn Yeh NP [address] [place] [address], [address], [place] - [facility] 06/23/2023 10:59:18 3 text/html The patient returns [...] L5-S1 TFESI - <25% pain relief after irscgisly67/10/22 LEFT L4-L5, L5-S1 TFESI: 25% pain relief after injectionphysical therapy: continues strong HEP, also trialed Shaan method on his own without reliefWalking tolerance has improvedThere has been no significant interim change in their medical status. There has been no interim motor or sensory deficits. The patient continues to deny bowel or bladder changes, saddle anesthesia or gait instability. Imaging;06/2023 MRI Lumbar Spine ([facility])Impression:1. Slightly worsened anterolisthesis at the L4-L5 level [...] related in etiology. Sagrario Godfrey MD [address] [place], [address], [place] - [facility] 08/02/2023 15:34:45
== END 2024-11-22 09:57 | disposition home or self-care (01) ==
PROVIDERS: PCP Internal Medicine; Referring Provider Orthopaedic Surgery; Visit Provider Internal Medicine
DX: M76.891 Other specified enthesopathies of right lower limb, excluding foot (principal)
CPT/HCPCS: 99203

== ENCOUNTER → 2024-11-22 09:29 | Outpatient (BNVA) | payer MEDICARE, BC, SELFPAY | PROVIDERS: PCP Internal Medicine; Referring Provider Orthopaedic Surgery; Visit Provider Internal Medicine | DX: M76.891 Other specified enthesopathies of right lower limb, excluding foot (principal) | CPT/HCPCS: 99202 ==

== ENCOUNTER → 2024-12-20 10:23 | Outpatient (BNVA) | payer MEDICARE, BC, SELFPAY | PROVIDERS: PCP Internal Medicine; Visit Provider Internal Medicine | DX: M76.891 Other specified enthesopathies of right lower limb, excluding foot (principal); Z96.641 Presence of right artificial hip joint | CPT/HCPCS: 99212 ==

== ENCOUNTER 2025-02-03 09:35 | Outpatient (AMB) | payer MEDICARE, BC, SELFPAY ==
--- NOTE | 2025-02-03 09:37 | A.OFFVIS_ITS ---
Intake Visit Reasons: OV - RT SHRUTHI 03/12/24 NE- s/p injection w/ Pain Intake Note: Foster is a 69 year old male who presents today for a follow up of his right hip. He is almost one year s/p Left SHRUTHI 03/12/24 and over a year S/p Lumbar fusion. At his last visit he was instructed to increase taking Celebrex from QD to BID and a referral was sent to Pain Management for an injection. He was seen with Dr. Pate on 11/22/2024 and given a Right Gluteus Medius Tendon Injection, he followed up about 6 weeks later with no relief from injection. Allergies COW HAIR Allergy (Unknown, Uncoded 02/03/25 09:39) + IN ALLERGY TESTING HPI HPI OV - RT SHRUTHI 03/12/24 NE- s/p injection w/ Pain: Details: Foster returns today status post right hip replacement. He is improving slightly. He has has some discomfort over his abductor tendon but it is slightly better than before. He is not sure if the injection worked however. He has stopped taking Celebrex. [facility] Medical History Osteoarthritis of right hip Retrognathia Bifascicular block HTN (hypertension) GERD (gastroesophageal reflux disease) Pneumonitis COPD (chronic obstructive pulmonary disease) Hyperlipidemia CAD (coronary artery disease) Mediastinal lymphadenopathy Pulmonary nodules MANDI (obstructive sleep apnea) Surgical History History of total right hip replacement (03/12/24) History of lumbar surgery (01/15/24) History of arthroscopy of both knees Hx of colonoscopy Hx of vein stripping Hx of bilateral cataract extraction Hx of bilateral inguinal hernia repair History of total knee replacement Family History Father Cancer Mother No problems noted. 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 Overall feels like he is improving. I recommend he follow up to see me in 6 months in the meantime continue activity as tolerated. Should he have a decrease in function he can contact me and we may consider some physical therapy for electrical stimulation of the abductor and gluteal musculature. Coding Level of Care Code Est Pt Level 2 (68840) Diagnoses Tendonitis involving right hip abductors M76.891
== END 2025-02-03 09:56 | disposition home or self-care (01) ==
LOC: HO.HOS 09:35
PROVIDERS: PCP Internal Medicine; Visit Provider Orthopaedic Surgery
DX: M76.891 Other specified enthesopathies of right lower limb, excluding foot (principal); Z96.641 Presence of right artificial hip joint
CPT/HCPCS: 99213

== ENCOUNTER → 2025-02-03 09:35 | Outpatient (BNVA) | payer MEDICARE, BC, SELFPAY | PROVIDERS: PCP Internal Medicine; Visit Provider Orthopaedic Surgery | DX: M76.891 Other specified enthesopathies of right lower limb, excluding foot (principal) | CPT/HCPCS: 99212 ==

== ENCOUNTER 2025-02-10 15:25 | Outpatient (AMB) | payer MEDICARE, BC, SELFPAY ==
[2025-02-10 15:36] VITALS: BP 144/76; PULSE 68; TEMP 36.5; O2SAT 98; BMI 24.0
--- NOTE | 2025-02-10 15:36 | MHC.PC.OV ---
Vital Signs 02/10/25 15:36 Height 6 ft 3 in Weight 192 lb BMI 24.0 BP 144/76 H Blood Pressure Location Lt brachial Position Sitting Pulse 68 Pulse Source Pulse Oximeter Temp 97.7 F Temp Source Temporal Artery Scan Pulse Oximetry (%) 98 Oxygen Delivery Method Room Air Intake Visit Reasons: Routine Safety Clothing And Equipment Developer Required: No Accompanied by: Self / Same As Patient Allergies COW HAIR Allergy (Unknown, Uncoded 02/10/25 15:37) + IN ALLERGY TESTING Tobacco use date assessed: 02/10/25 Fall risk assessment: No Falls in past year Dental Screening Dental Screen Date: 02/10/25 Did you have a dental visit in the last 12 months?: Yes Did you have a dental problem in the last 6 months where you did not have access to dental care?: No [facility] Medical History (Updated 02/10/25 @ 16:19 by Clint Jackson MD) Osteoarthritis of right hip Retrognathia Bifascicular block HTN (hypertension) GERD (gastroesophageal reflux disease) Pneumonitis COPD (chronic obstructive pulmonary disease) Hyperlipidemia CAD (coronary artery disease) Mediastinal lymphadenopathy Pulmonary nodules MANDI (obstructive sleep apnea) Surgical History History of total right hip replacement (03/12/24) History of lumbar surgery (01/15/24) History of arthroscopy of both knees Hx of colonoscopy Hx of vein stripping Hx of bilateral cataract extraction Hx of bilateral inguinal hernia repair History of total knee replacement Family History Father Cancer Mother No problems noted. 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 1. Little interest or pleasure in doing things: not at all 2. Feeling down, depressed, or hopeless: not at all 3. Trouble falling or staying asleep, or sleeping too much: not at all 4. Feeling tired or having little energy: not at all 5. Poor appetite or overeating: not at all 6. Feeling bad about yourself - or that you are a failure or have let yourself or your family down: not at all 7. Trouble concentrating on things, such as reading the newspaper or watching television: not at all 8. Moving or speaking so slowly that other people could have noticed. Or the opposite - being so fidgety or restless that you have been moving around a lot more than usual: not at all 9. Thoughts that you would be better off or of hurting yourself in some way: not at all Total score: 0 Source: Developed by Drs. Ag Zuniga, Aggie Hutchins, Moustapha Sandoval and colleagues, with an educational jessica from [employer] Thrive Questionnaire Date Thrive assessed: 03/13/24 I am a: Patient Within the past 12 months, did the food you bought not last and you didn't have the money to get more?: Never true Within the past 12 months, did you worry whether your food would run out before you got money to buy more?: Never true Do you have trouble paying for medicines?: No Do you have trouble getting transportation to medical appointments?: No Do you have trouble paying your heating and electricity bill?: No Do you have trouble taking care of your child, family member or friend?: No Do you have trouble with day-to-day activities such as bathing, preparing meals, shopping, managing finances, etc.?: No Are you currently unemployed and looking for a job?: No Are you interested in more education?: No THRIVE Score: 0 AUDIT C Alcohol Use Questionnaire (AUDIT-C) 1. How often do you have a drink containing alcohol?: 2-4 times a month 2. How many drinks containing alcohol do you have on a typical day when you are drinking?: 1 or 2 3. How often do you have six or more drinks on one occasion?: Never Total Score: 2 DWAYNE-7 AMB Questionnaire DWAYNE-7 Date DWAYNE - 7 assessed: 02/10/25 Feeling nervous, anxious, or on edge: 0 = Not at all Not being able to stop or control worryin = Not at all Worrying too much about different things: 0 = Not at all Trouble relaxin = Not at all Being so restless that it is hard to sit still: 0 = Not at all Becoming easily annoyed or irritable: 0 = Not at all Feeling afraid as if something awful might happen: 0 = Not at all Total DWAYNE-7 score (0-4 normal; 5-9 mild; 10-14 moderate; 15-21 severe): 0 Source: Developed by Drs. Ag Zuniga, Aggie Hutchins, Moustapha Sandoval and colleagues, with an educational jessica from [employer] Physical exam (Primary Care) Vital Signs: Last Vital Signs Temp 97.7 F 02/10/25 15:36 Pulse 68 02/10/25 15:36 BP 144/76 H 02/10/25 15:36 Pulse Ox 98 02/10/25 15:36 Oxygen Delivery Method Room Air 02/10/25 15:36 BMI result Body Mass Index 24.0 Tobacco/Smoking Status: Tobacco use Status Tobacco use date assessed 02/10/25 02/10/25 15:40 Patient Tobacco Use Status Former Tobacco user 02/10/25 15:51 PHQ-9: PHQ-9 Score PHQ-9: Total score 0 02/10/25 15:40 Thrive Assessment: Date of Thrive Assessment Date Thrive assessed 03/13/24 02/10/25 15:40 Coding Level of Care Code New Pt Level 4 (16947) Complex EM visit Add On G2211 Diagnoses GERD (gastroesophageal reflux disease) K21.9 Assessment & Plan Assessment & Plan (1) GERD (gastroesophageal reflux disease): Code(s): K21.9 - Gastro-esophageal reflux disease without esophagitis Category: Medical Plan: Refill for prescription done Plan History of Present Illness The patient is a 69-year-old male presenting with chronic musculoskeletal issues and GERD management concerns. He has a long-standing history of osteoarthritis, leading to bilateral knee replacements and a total hip arthroplasty. Post-surgical discomfort persists in the hip, inhibiting his full return to previous physical activities, such as frequent tennis playing. Sciatica has further compromised his mobility, with partial improvement achieved through prior corticosteroid interventions. The patient controls his GERD with omeprazole, taken on an alternate-day basis, as per his previous physician's guidance. This modified regimen has occasionally led to lapses in medication due to refill timing challenges. 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 Despite these concerns, he remains independent in daily activities and has no new health complaints. 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 - Gastrointestinal: Denies issues beyond those managed by GERD treatment. - Urinary: Denies any urinary problems. - Sleep: Reports sleeping well. - General: Denies any new health concerns. Physical Exam General: Appearance normal, both eyes and all related structures Nutritional Appearance: Well nourished Orientation/consciousness: Patient oriented x3 Limitations: Limitations due to arthritis and joint replacements; unable to play tennis as before Head: Normal to inspection Neck: Normal visual inspection Chest: Normal palpation of entire chest wall Respiratory: Normal respiratory effort Neurology: Patient oriented x3 Results Plan I will address the chronic musculoskeletal issues and GERD management. I plan to continue observing symptoms related to post-arthroplasty discomfort and sciatica, potentially involving orthopedics if necessary. We will maintain the current therapy for GERD, dispensing 90 pills of omeprazole, considering his alternate-day regimen. I ordered repeat labs for a comprehensive assessment of kidney, liver function, and lipid profile. Further, I advised consistent communication with the pharmacy for timely refills. Our follow-up is arranged for six months to review his status comprehensively. Patient was informed and verbally consented to the use of an ambient scribe for clinic note documentation during this visit. Discussion Notes During our discussion, I explained the importance of continued monitoring for post-surgical musculoskeletal pain and anticipated follow-up protocols if symptoms persist. We talked about the current strategy and dosing plan for his GERD medication, where I reinforced the importance of adhering to the prescribed regimen to avoid treatment lapses. I reviewed the potential need for additional referrals if his musculoskeletal symptoms do not improve or exacerbate. I conveyed the benefits of routine labs for comprehensive health monitoring. We arranged for a six-month follow-up visit, emphasizing the consistent communication with the pharmacy to maintain medication supply. Patient Instructions - Continue taking omeprazole every other day as instructed. - Contact the pharmacy in advance to manage medication refills effectively. - Participate in activities as tolerated and avoid any which exacerbate pain symptoms. - If experiencing increased discomfort or new symptoms, please report them promptly. - Attend the lab appointment for kidney, liver function, and cholesterol testing. - Follow up in six months or earlier if new issues arise. - Maintain current dietary and activity practices as discussed. Medications: New omeprazole 20 mg PO DAILY 90 caps 1RF
--- OUTSIDE RECORDS SUMMARY | 2025-02-10 18:18 | XMS_ITS | Data Portability ---
Author Organization [facility] Address [address] [place] [address] Assessment Encounter Date Assessment Date Assessment LastModified [...] L5-S1 TFESI --lumbar MRI --surgical consult- with [facility] neurosurgeon and/or surgeon in home area [...] - Left L4-L5, L5-S1 TFESI 2022 023 [facility] Office, [address] [place], [address], 13:44:52 Surgeries None recorded. Imaging MRI, lumbar spine, w/o contrast 2022 023 [facility] (Imaging), [address] [place], [address], 3 09:11:03 Medication Orders None recorded. Patient TargetsNo targets recorded. Patient Instructions Encounter Date Encounter Id Patient Instructions Last Modified By Organization Details Last Modified Time 01/25/2023 [id number] I spent a total of 30 minutes [...] / medical decision making / patient interaction. Not available 01/18/2023 15:51:00 06/13/2023 [id number] I spent a total of 30 minutes [...] / medical decision making / patient interaction. [email or web address] Not available 06/08/2023 18:22:03 06/23/2023 [id number] The patient was identified by name and [...] and diagnosis. Not available 06/23/2023 10:58:55 08/02/2023 [id number] Name of DAYANARA: Adriana Yeh NP Portions [...] ast No observ ation record ed. [email or web address] [facility] (Imaging) [address] [place] [address], [address], 08/01/2023 10:03:05 08/03/2007/28/2023 MRI, lumba r spine , w/o contr ast No observ ation record ed. [email or web address] [facility] (Imaging) [address] [place], [address], 08/03/2023 10:40:28 Result Notes None recorded. Procedures Surgical History None recorded. Imaging Results Imaging Date Name Status LastModified by [facility] Details LastModified Time 07/28/2023 MRI, lumbar spine, w/o contrast completed [email or web address] [facility] (Imaging) [address] [place] [address], [address], 08/01/2023 10:03:05 07/28/2023 MRI, lumbar spine, w/o contrast completed [facility] (Imaging) [address] [place] [address], [id number], 08/03/2023 10:40:28 Procedure Notes None recorded. Medical [...] SNOMED-CT Code Diagnosis ICD10 Code Diagnosis Note [id number] Sagrario Godfrey MD [facility] [address] [facility], [address] [place] [address] 07/20/2022 11:02:15 07/20/2022 14:11:10 Lumbar radiculopathy 019074315 M54.16 [id number] Sagrario Godfrey MD [facility] [address] [address] 08/16/2022 07:20:21 08/17/2022 10:37:35 Lumbar radiculopathy [id number] M54.16 [id number] Sagrario Godfrey MD [facility] [address] [address] 09/07/2022 10:35:54 09/07/2022 11:37:41 Lumbar radiculopathy 391941401 M54.16 [id number] Sagrario Godfrey MD [facility] 6 OP 736 [facility] CCP [address] [place] [address] 09/29/2022 10:58:47 09/29/2022 11:55:48 Spinal stenosis of lumbar region 55198844 M48.062 [id number] Lynn Yeh NP [facility] 6 OP 736 [facility] [address] [place] [address] 09/30/2022 10:33:21 09/30/2022 11:30:31 Lumbar radiculopathy 054067524 M54.16 [id number] Sagrario Godfrey MD [facility] [address] [address] 11/02/2022 13:35:30 11/02/2022 14:34:52 Lumbar radiculopathy 725061511 M54.16 [id number] Sagrario Godfrey MD [facility] 6 OP 736 [facility] [address] [place] [address] 12/15/2022 10:25:30 12/15/2022 11:43:29 Lumbar radiculopathy [id number] M54.16 [id number] Lynn Yeh NP [facility] 6 OP 736 [facility] C[facility] [address] [place] [address] 12/16/2022 07:04:05 12/16/2022 09:35:30 Lumbar radiculopathy 733308284 M54.16 [id number] Sagrario Godfrey MD [facility] TS [address] [address] 01/25/2023 13:31:01 01/25/2023 13:57:12 Lumbar radiculopathy 833034800 M54.16 [id number] Sagrario Godfrey MD [facility] [address] [address] 06/13/2023 13:17:34 06/14/2023 06:57:29 Lumbar radiculopathy 675741235 M54.16 [id number] Sagrario Godfrey MD [facility] [address] [address] 06/22/2023 11:20:58 06/22/2023 11:58:01 Lumbosacral radiculopathy 9384895 M54.17 [id number] Lynn Yeh NP [facility] [address] [address] 06/23/2023 07:06:54 06/23/2023 13:43:35 Displacement of lumbar intervertebral disc without myelopathy 42294470 M51.26 Lumbosacra l radiculitis 03302554 M54.17 Chronic low back pain 27 4409700 M54.50 [id number] Sagrario Godfrey MD [facility] [address] [address] 08/02/2023 11:56:14 08/02/2023 12:47:20 Displacement of lumbar intervertebral disc without myelopathy 42680800 M51.26 Lumbosacra l radiculitis 84557426 M54.17 Chronic low back pain 27 6696486 M54.50 Health Concerns Section Related Observation LastModified by Organization Detai ls LastModified Time None Recorded Concern Status LastModified by Organization Details LastModified Time None Recorded Advance Directives Directive None Recorded Payers Encounter Date Sequence Insurance Name Policy Number Policy Mcdowell Covered Member ID Mcdowell Member ID Guarantor Name 01/25/2023 1 [place]: [employer] Foster Clarke [id number] Foster Clarke 01/25/2023 2 [place]: 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) 113 Foster Clarke [id number] Foster Clarke 06/13/2023 1 MEDICARE [place]: [facility] Foster Clarke [id number] Foster Clarke 06/13/2023 2 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) 113 Foster Clarke [id number] Foster Clarke 06/22/2023 1 [place]: [facility] Foster Clarke [id number] Foster Clarke 06/22/2023 2 [facility]-[place]: [employer]PL[employer]EE [employer] (PPO) 113 Foster Clarke [id number] Foster Clarke 06/23/2023 1 MEDICARE [place]: [facility] [employer] Foster Clarke [id number] Foster Clarke 06/23/2023 2 [place]: [employer]AL EMPLOYEE PROGRAM 113 Foster Clarke [id number] Foster Clarke 08/02/2023 1 MEDICARE [place]: [facility] [employer] Foster Clarke [id number] Foster Clarke 08/02/2023 2 [place]: [employer]AL EMPLOYEE PROGRAM 113 Foster Clarke [id number] Foster Clarke Notes Date Note Type Note [...] anesthesia or gait instability.Imagin08/02/22 MRI Lumbar Spine ([place])Grade 1 anterolisthesis with severe facet arthropathy at the L4-L5 level. Broad-based left paracentral to left subarticular zone disc protrusion distorting the ventral thecal sac and impinging upon the left L5 nerve root.L4/L5 Dekkiwdb-ha-hyjdsx central canal stenosis with encroach upon the right neural foramen mildly distorting the right L4 nerve root.Severe chronic degenerative disc disease at the L2-L3 and L5-S1 levels without central canal stenosis. Sagrario Godfrey MD [address] [place] [address], [phone], [facility] 01/25/2023 14:11:40 3 text/html The patient returns [...] anesthesia or gait instability.Imagin08/02/22 MRI Lumbar Spine ([place])Grade 1 anterolisthesis with severe facet arthropathy at the L4-L5 level. Broad-based left paracentral to left subarticular zone disc protrusion distorting the ventral thecal sac and impinging upon the left L5 nerve root.L4/L5 Dwnqruah-at-koovid central canal stenosis with encroach upon the right neural foramen mildly distorting the right L4 nerve root.Severe chronic degenerative disc disease at the L2-L3 and L5-S1 levels without central canal stenosis. Sagrario Godfrey MD [address] [place] [address], [phone], [facility] 06/13/2023 15:03:43 3 text/html PROCEDURE: LUMBAR/SACRAL TRANSFORAMINAL [...] SPECIMENS: NONE COMPLICATIONS: NONE Sagrario Godfrey MD [address] [place] [address], [phone], [facility] 06/22/2023 11:54:49 3 text/html Foster Peñaloza was [...] any questions or concerns. Lynn Yeh NP [address] [place] [address], [phone], [place] [facility] 06/23/2023 10:59:18 3 text/html The patient returns [...] L5-S1 TFESI - <25% pain relief after oqjxmzokp31/10/22 LEFT L4-L5, L5-S1 TFESI: 25% pain relief after injectionphysical therapy: continues strong HEP, also trialed Shaan method on his own without reliefWalking tolerance has improvedThere has been no significant interim change in their medical status. There has been no interim motor or sensory deficits. The patient continues to deny bowel or bladder changes, saddle anesthesia or gait instability. Imaging;06/2023 MRI Lumbar Spine ([facility])Impression:1. Slightly worsened anterolisthesis at the [...] related in etiology. Sagrario Godfrey MD [address] [place], [address], [place] - [facility] 08/02/2023 15:34:45
--- OUTSIDE RECORDS SUMMARY | 2025-02-10 18:18 | XMS_ITS | Clinical Summary ---
Author Organization [facility] Address [address] [place] [address] Care Team Providers Care Precision Honer Name Role Phone Rajiv Martino Primary Care Provider [phone] Allergies No known active allergies Medications No known medications Social History Tobacco Use Types Packs/Day Years Used Date Smoking Tobacco: Never Assessed Sex and Gender Information Value Date Recorded Sex Assigned at Male 09/13/2023 10:10 AM EDT Legal Sex Male 3:05 PM EDT Gender Identity Male 09/13/2023 10:10 AM EDT Sexual Orientation Straight 09/13/2023 10 :10 AM EDT Last Filed Vital Signs Vital Sign Reading Time Taken Comments Blood Pressure 200/111 09/20/2023 9:39 AM EDT Pulse 90 09/20/2023 9:39 AM EDT Temperature - - Respiratory Rate 18 09/20/2023 9:39 AM EDT Oxygen Saturation 98% 09/20/2023 9:39 AM EDT Inhaled Oxygen Concentration - - Weight - - Height - - Body Mass Index - - Plan of Treatment Health Maintenance Due Date Last Done Comments Cologuard 1954 Colon Cancer Screening 1954 Colonoscopy 1954 FOBT / Fit Test 1954 Hepatitis C Screening 1954 Sigmoidoscopy 1954 Medicare AWV 1955 COVID-19 Vaccine ( season) 2024 09/12/2022, 04/21/2022, 08/26/2021, Additional history exists Influenza Vaccine (#1) 2024 , 08/19/2021, 08/14/2020 Alcohol/Substance Use Screening 11/20/2024 Depression Screening and Follow-Up 11/20/2024 Health Care Proxy Review 11/20/2024 Social Drivers of Health Annual Screening 11/20/2024 RSV Vaccine (60+ years old and patients) (1 - 1-dose 75+ series) 2029 DTaP,Tdap,and Td Vaccines (2 - Td or Tdap) 07/04/2032 07/04/2022 Zoster Vaccines Completed 10/28/2020, 08/14/2020 Pneumococcal Vaccine: 50+ Years Completed 03/08/2022 Hepatitis B Vaccines Aged Out No long er eligible based on patient's age to complete this topic Insurance MEDICARE [facility] FEDERAL Care Teams Precision Honer Relationship Specialty Start Date End Date Rajiv Martino [address] [place] [address] [place] [address] PCP - General Internal Medicine 08/02/23
--- OUTSIDE RECORDS SUMMARY | 2025-02-10 18:18 | XMS_ITS | Patient Health Record ---
Author Organization [facility] Address [address] [place] [address] Care Team Providers Care Food Services Manager Name Role Phone Rajiv Martino MD Primary Care Provider John Rosales Unavailable [phone] Allergies No Known Allergies Reason For Referral [...] X ray : Foot, left 3V 06/29/2016 [id number], [id number] INJECT TENDON ORIGIN/INSER T 06/29/2016 Insurance Providers Payer Name Payer Address Payer Phone Subscriber Number Group Number Insured Name Patient Relationship to Insured Coverage Start Date Coverage End Date Medicare [employer] [address] [place] [address] [id number] Foster Guillen Self - patient is the insured [facility] [address] [place] [address] [id number] MindyFoster merritt Self - patient is the insured Medical (General) History Medical History History ICD Code Cataracts Hypertension Chicken pox Measles Joint implants/screws Back,Hip,and Knee pain Arthritis covid-19 Psoriasis/eczema Sciatica Mumps Surgical History Surgery Date(Month/Year) hernia , 09/2014 knee surgery X3 08/2011, 11/2011, 01/19 013
--- OUTSIDE RECORDS SUMMARY | 2025-02-10 18:18 | XMS_ITS | Referral Summary ---
Author Organization [facility] Address [address] [place] [address] Care Team Providers Care Electrical Electronics Technician Name Role Phone Rajiv Martino Primary Care Provider Allergies No known active allergies Medications No [...] Mass Index - - Plan of Treatment Not on file Insurance MEDICARE [employer] FEDERAL Care Teams Electrical Electronics Technician Relationship Specialty Start Date End Date Rajiv Martino [address] [place] [address] [place] [address] PCP - General Internal Medicine 08/02/23
== END 2025-02-10 16:19 | disposition home or self-care (01) ==
LOC: HO.HMCHD 15:25
PROVIDERS: PCP Internal Medicine; Visit Provider Internal Medicine
DX: K21.9 Gastro-esophageal reflux disease without esophagitis (principal)

== ENCOUNTER → 2025-02-10 15:25 | Outpatient (BNVA) | payer MEDICARE, BC, SELFPAY | PROVIDERS: PCP Internal Medicine; Visit Provider Internal Medicine | DX: K21.9 Gastro-esophageal reflux disease without esophagitis (principal) | CPT/HCPCS: 99202 ==

== ENCOUNTER 2025-03-04 12:23 | Outpatient (AMB) | payer MEDICARE, BC, SELFPAY ==
[2025-03-04 12:27] VITALS: BP 120/70; PULSE 73; BMI 24.2
--- NOTE | 2025-03-04 12:27 | A.OFFVIS_ITS ---
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 No new cardiac symptoms. Underwent hip surgery last year and says still recuperating from that. He has not had complete good results as per him. Denies any active exertional chest pain. Denies shortness of breath, orthopnea, PND. No prolonged palpitation irregular heartbeat. Blood pressures generally been well controlled although occasionally notice elevated blood pressure around season change comes in clusters and then resolves. Occasionally blood pressures systolic 90 but with no symptoms. No syncopal episodes. [facility] Medical History Osteoarthritis of right hip Retrognathia Bifascicular block HTN (hypertension) GERD (gastroesophageal reflux disease) Pneumonitis COPD (chronic obstructive pulmonary disease) Hyperlipidemia CAD (coronary artery disease) Mediastinal lymphadenopathy Pulmonary nodules MANDI (obstructive sleep apnea) Surgical History History of total right hip replacement (03/12/24) History of lumbar surgery (01/15/24) History of arthroscopy of both knees Hx of colonoscopy Hx of vein stripping Hx of bilateral cataract extraction Hx of bilateral inguinal hernia repair History of total knee replacement Family History Father Cancer Mother No problems noted. 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 Cognitive needs: No Hearing needs: No Vision needs: No Review of Systems Const Denies chills, Denies fatigue, Denies fever(s), Denies frequent falls, Denies weakness, Denies weight gain and Denies weight loss ENT Denies dizziness Card Denies chest pain, Denies leg edema, Denies lightheadedness, Denies palpitations, Denies dyspnea, Denies dyspnea on exertion, Denies orthopnea and Denies other (loss of consciousness) Resp Denies cough, Denies dyspnea and Denies dyspnea on exertion GI Denies hematochezia and Denies change in stool character Musc Denies abnormal gait, Denies muscle weakness, Denies numbness, Denies radiating pain into limb and Denies tingling Neuro Denies Abnormal speech present, Denies abnormal gait, Denies dizziness, Denies frequent falls, Denies numbness, Denies tingling and Denies weakness Endo Denies fatigue and Denies palpitations Physical Exam Vital Signs: Last Vital Signs Pulse 73 03/04/25 12:27 BP 120/70 03/04/25 12:27 BMI result Body Mass Index 24.2 Const General: cooperative, comfortable, no acute distress, alert, awake and anxious Nutritional Appearance: thin Orientation/consciousness: patient oriented x3 Limitations: no limitations Neck Neck: Yes trachea midline, Yes supple and Yes no JVD Resp Effort & Inspection: normal respiratory effort Auscultation: clear to auscultation bilaterally Cardio Jugular venous distension: no JVD Palpation: normal PMI Rate: regular rate Rhythm: regular rhythm Heart sounds: S1 normal heart sound present, S2 normal heart sound present, no click, no gallops and no murmurs GI Auscultation: normal bowel sounds Skin General skin exam: no rashes or lesions noted Neuro General: patient oriented x3 and no focal motor deficits Speech: No Abnormal speech present Extrem General: Yes no clubbing, cyanosis or edema Office Procedures EKG Details: EKG shows normal sinus rhythm normal EKG 72696-Ylbjbhnegmtokluyc, Complete Assessment & Plan Assessment & Plan (1) CAD (coronary artery disease): Code(s): I25.10 - Atherosclerotic heart disease of red devil coronary artery without angina pectoris Category: Medical Plan: Nonobstructive CAD by cardiac catheterization. Currently not having no symptoms suggestive of progressive CAD. At this point time I would suggest to continue to manage medically with aggressive risk factor modification. Continue low-dose aspirin therapy for life. Continue high-intensity statin therapy with target goal LDL less than 70 mg/dL. Continue aggressive blood pressure control. Encouraged to maintain activity level as tolerated. (2) HTN (hypertension): Code(s): I10 - Essential (primary) hypertension Category: Medical Plan: Blood pressure which has been labile with occasional significantly elevated blood pressure for cluster of time then resolves with occasional low blood pressures but without any orthostatic symptoms. At this point time continue current complex regimen which she was tolerated well. Continue low-salt diet. Advised to maintain adequate hydration. Orthostatic precautions were discussed. (3) Bifascicular block: Code(s): I45.2 - Bifascicular block Category: Medical Plan: Prior bifascicular block which is on today's EKG. Continue monitor EKG annually. No interventions required. Will follow up in the clinic in 2 years time, sooner p.r.n.. Thank you for allowing me to partake in his care Medications: Changed From omeprazole 20 mg PO DAILY 90 caps 1RF To omeprazole 20 mg PO DAILY PRN Coding Level of Care Code Est Pt Level 4 (70844) Complex EM visit Add On G2211 Diagnoses CAD (coronary artery disease) I25.10 HTN (hypertension) I10 Bifascicular block I45.2 CPT Codes EKG - CPT: 22099-Xqcpjekbbhwshflyg, Complete ([id number])
--- OUTSIDE RECORDS SUMMARY | 2025-03-04 15:09 | XMS_ITS | Patient Health Record ---
Author Organization [facility] Address [address] [place] [address] Care Team Providers Care Beauty Artist Name Role Phone Rajiv Martino MD Primary Care Provider John Rosales Unavailable [phone] Allergies No Known Allergies Reason For Referral [...] X ray : Foot, left 3V 06/29/2016 30207, [id number]- INJECT TENDON ORIGIN/INSER T 06/29/2016 Insurance Providers Payer Name Payer Address Payer Phone Subscriber Number Group Number Insured Name Patient Relationship to Insured Coverage Start Date Coverage End Date Medicare National Govt Svcs Inc [address] [place] [address] [id number] Foster Guillen Self - patient is the insured [facility] [address] [place] [address] [id number] MindyFoster merritt Self - patient is the insured Medical (General) History Medical History History ICD Code Cataracts Hypertension Chicken pox Measles Joint implants/screws Back,Hip,and Knee pain Arthritis covid-19 Psoriasis/eczema Sciatica Mumps Surgical History Surgery Date(Month/Year) hernia , 09/2014 knee surgery X3 08/2011, 11/2011, 01/19 013
--- OUTSIDE RECORDS SUMMARY | 2025-03-04 15:09 | XMS_ITS | Data Portability ---
Author Organization [facility] Address [address] [facility] [address] [place] [address] Assessment Encounter Date Assessment Date Assessment LastModified [...] L5-S1 TFESI --lumbar MRI --surgical consult- with [facility] neurosurgeon and/or surgeon in home area [...] - Left L4-L5, L5-S1 TFESI 2022 023 [facility], [address] [place], [address], 13:44:52 Surgeries None recorded. Imaging MRI, lumbar spine, w/o contrast 2022 023 [facility] (Imaging), [address] [place], [address], 3 09:11:03 Medication Orders None recorded. Patient TargetsNo targets recorded. Patient Instructions Encounter Date Encounter Id Patient Instructions Last Modified By Organization Details Last Modified Time 01/25/2023 [id number] I spent a total of 30 minutes [...] / medical decision making / patient interaction. [email or web address] Not available 01/18/2023 15:51:00 06/13/2023 [id number] I spent a total of 30 minutes [...] / medical decision making / patient interaction. [email or web address] Not available 06/08/2023 18:22:03 06/23/2023 [id number] The patient was identified by name and [...] and diagnosis. Not available 06/23/2023 10:58:55 08/02/2023 [id number] Name of DAYANARA: Adriana Yeh NP Portions [...] ast No observ ation record ed. [email or web address] [facility] (Imaging) [address] [place] [address], [address], 08/01/2023 10:03:05 08/03/2007/28/2023 MRI, lumba r spine , w/o contr ast No observ ation record ed. BARCODE [facility] (Imaging) [address] [place], [address], 08/03/2023 10:40:28 Result Notes None recorded. Procedures Surgical History None recorded. Imaging Results Imaging Date Name Status LastModified by [facility] Details LastModified Time 07/28/2023 MRI, lumbar spine, w/o contrast completed [email or web address] [facility] (Imaging) [address] [place] [address], [address], 08/01/2023 10:03:05 07/28/2023 MRI, lumbar spine, w/o contrast completed [facility] (Imaging) [address] [place] [address], [address], 08/03/2023 10:40:28 Procedure Notes None recorded. Medical [...] SNOMED-CT Code Diagnosis ICD10 Code Diagnosis Note [id number] Sagrario Godfrey MD [facility] [address] [facility], [address] [place] [address] 07/20/2022 11:02:15 07/20/2022 14:11:10 Lumbar radiculopathy 084453762 M54.16 [id number] Sagrario Godfrey MD [facility] [address] [address] 08/16/2022 07:20:21 08/17/2022 10:37:35 Lumbar radiculopathy 086720242 M54.16 [id number] Sagrario Godfrey MD [facility] [address] [address] 09/07/2022 10:35:54 09/07/2022 11:37:41 Lumbar radiculopathy 791270658 M54.16 [id number] Sagrario Godfrey MD [facility] 6 OP 736 [facility] CCP [address] [place] [address] 09/29/2022 10:58:47 09/29/2022 11:55:48 Spinal stenosis of lumbar region 45229007 M48.062 [id number] Lynn Yeh NP [facility] 6 OP 736 [facility] CCP [address] [place] [address] 09/30/2022 10:33:21 09/30/2022 11:30:31 Lumbar radiculopathy 293792056 M54.16 [id number] Sagrario Godfrey MD [facility] [address] [address] 11/02/2022 13:35:30 11/02/2022 14:34:52 Lumbar radiculopathy 557402732 M54.16 [id number] Sagrario Godfrey MD [facility] 6 OP 736 [facility] CCP [address] [place] [address] 12/15/2022 10:25:30 12/15/2022 11:43:29 Lumbar radiculopathy 743650587 M54.16 [id number] Lynn Yeh NP [facility] 6 OP 736 [facility] CCP [address] [place] [address] 12/16/2022 07:04:05 12/16/2022 09:35:30 Lumbar radiculopathy 740153524 M54.16 [id number] Sagrario Godfrey MD [facility] TS [address] [address] 01/25/2023 13:31:01 01/25/2023 13:57:12 Lumbar radiculopathy 127294566 M54.16 [id number] Sagrario Godfrey MD [facility] [address] [address] 06/13/2023 13:17:34 06/14/2023 06:57:29 Lumbar radiculopathy 219962281 M54.16 [id number] Sagrario Godfrey MD [facility] [address] [address] 06/22/2023 11:20:58 06/22/2023 11:58:01 Lumbosacral radiculopathy 6096393 M54.17 [id number] Lynn Yeh NP [facility] [address] [address] 06/23/2023 07:06:54 06/23/2023 13:43:35 Displacement of lumbar intervertebral disc without myelopathy 37945271 M51.26 Lumbosacra l radiculitis 49350007 M54.17 Chronic low back pain 27 4118426 M54.50 [id number] Sagrario Godfrey MD [facility] [address] [address] 08/02/2023 11:56:14 08/02/2023 12:47:20 Displacement of lumbar intervertebral disc without myelopathy 75811656 M51.26 Lumbosacra l radiculitis 71486320 M54.17 Chronic low back pain 27 2849778 M54.50 Health Concerns Section Related Observation LastModified by Organization Detai ls LastModified Time None Recorded Concern Status LastModified by Organization Details LastModified Time None Recorded Advance Directives Directive None Recorded Payers Encounter Date Sequence Insurance Name Policy Number Policy Mcdowell Covered Member ID Mcdowell Member ID Guarantor Name 01/25/2023 1 [place]: [employer] Foster Clarke [id number] Foster Clarke 01/25/2023 2 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) 113 Foster Clarke [id number] Foster lCarke 06/13/2023 1 [place]: [facility] Foster Clarke [id number] Foster Clarke 06/13/2023 2 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) 113 Foster Clarke [id number] Fostre Clarke 06/22/2023 1 [place] [facility] G[facility]MENT SERVICES Foster Clarke [id number] Foster Clarke 06/22/2023 2 [facility]: [employer] EMPL[employer]EE PROGRAM (PPO) 113 Foster Clarke [id number] Foster Clarke 06/23/2023 1 [place] [facility] [employer] Foster Clarke [id number] Foster Clarke 06/23/2023 2 [place]PL[place]GRAM 113 Foster Clarke [id number] Foster Clarke 08/02/2023 1 [place] [facility] [employer] Foster Clarke [id number] Foster Clarke 08/02/2023 2 [place]PLOYEE PROGRAM 113 Foster Clarke [id number] Foster Clarke Notes Date Note Type Note [...] anesthesia or gait instability.Imagin08/02/22 MRI Lumbar Spine ([facility])Grade 1 anterolisthesis with severe facet arthropathy at the L4-L5 level. Broad-based left paracentral to left subarticular zone disc protrusion distorting the ventral thecal sac and impinging upon the left L5 nerve root.L4/L5 Ufgbfkoz-ew-ondsxn central canal stenosis with encroach upon the right neural foramen mildly distorting the right L4 nerve root.Severe chronic degenerative disc disease at the L2-L3 and L5-S1 levels without central canal stenosis. Sagrario Godfrey MD [address] [place] [address], [address], [facility] 01/25/2023 14:11:40 3 text/html The [...] anesthesia or gait instability.Imagin08/02/22 MRI Lumbar Spine ([facility])Grade 1 anterolisthesis with severe facet arthropathy at the L4-L5 level. Broad-based left paracentral to left subarticular zone disc protrusion distorting the ventral thecal sac and impinging upon the left L5 nerve root.L4/L5 Ehurloys-ol-cinfux central canal stenosis with encroach upon the right neural foramen mildly distorting the right L4 nerve root.Severe chronic degenerative disc disease at the L2-L3 and L5-S1 levels without central canal stenosis. Sagrario Godfrey MD [address] [place] [address], [address], [facility] 06/13/2023 15:03:43 3 text/html PROCEDURE: [...] SPECIMENS: NONE COMPLICATIONS: NONE Sagrario Godfrey MD [address] [place] [address], [address], [facility] 06/22/2023 11:54:49 3 text/html Foster [...] any questions or concerns. Lynn Yeh NP [address] [place] [address], [address], [place] [facility] 06/23/2023 10:59:18 3 text/html The patient [...] L5-S1 TFESI - <25% pain relief after /10/22 LEFT L4-L5, L5-S1 TFESI: 25% pain relief after injectionphysical therapy: continues strong HEP, also trialed Shaan method on his own without reliefWalking tolerance has improvedThere has been no significant interim change in their medical status. There has been no interim motor or sensory deficits. The patient continues to deny bowel or bladder changes, saddle anesthesia or gait instability. Imaging;06/2023 MRI Lumbar Spine ([facility])Impression:1. Slightly worsened anterolisthesis at the L4-L5 [...] related in etiology. Sagrario Godfrey MD [address] [place], [address], [place] - [facility] 08/02/2023 15:34:45
--- OUTSIDE RECORDS SUMMARY | 2025-03-04 15:09 | XMS_ITS | Referral Summary ---
Author Organization [facility] Address [address] [place] [address] Care Team Providers Care Senior Catering Sales Manager Name Role Phone Rajiv Martino Primary Care Provider [phone] Allergies No known active allergies Medications No [...] file Insurance MEDICARE BCBS FEDERAL Care Teams Senior Catering Sales Manager Relationship Specialty Start Date End Date Rajiv Martino [address] [place] [address] [place] [address] PCP - General Internal Medicine 08/02/23
--- OUTSIDE RECORDS SUMMARY | 2025-03-04 15:09 | XMS_ITS | Clinical Summary ---
Author Organization [facility] Address [address] [place] [address] Care Team Providers Care Custodial Aide Name Role Phone Rajiv Martino Primary Care Provider [phone] Allergies No known active allergies Medications No [...] 2024 09/12/2022, 04/21/2022, 08/26/2021, Additional history exists Alcohol/Substance Use Screening 11/20/2024 Depression Screening and Follow-Up 11/20/2024 Health Care Proxy Review 11/20/2024 Social Drivers of Health Annual Screening 11/20/2024 Influenza Vaccine (Season Ended) 2025 09/12/2022, 08/19/2021, 08/14/2020 RSV Vaccine (60+ years old and patients) (1 - 1-dose 75+ series) 2029 DTaP,Tdap,and Td Vaccines (2 - Td or Tdap) 07/04/2032 07/04/2022 Zoster Vaccines Completed 10/28/2020, 08/14/2020 Pneumococcal Vaccine: 50+ Years Completed 03/08/2022 Hepatitis B Vaccines Aged Out No long er eligible based on patient's age to complete this topic Insurance MEDICARE [facility] FEDERAL Care Teams Custodial Aide Relationship Specialty Start Date End Date Rajiv Martino [address] [place] [address] [place] [address] PCP - General Internal Medicine 08/02/23
== END 2025-03-04 12:48 | disposition home or self-care (01) ==
LOC: HO.HCS 12:23
PROVIDERS: PCP Internal Medicine; Visit Provider Internal Medicine Cardiovascular Disease
DX: I25.10 Atherosclerotic heart disease of native coronary artery without angina pectoris (principal); I10 Essential (primary) hypertension; I45.2 Bifascicular block
CPT/HCPCS: 93010; 99214; G2211

== ENCOUNTER → 2025-03-04 12:23 | Outpatient (BNVA) | payer MEDICARE, BC, SELFPAY | PROVIDERS: PCP Internal Medicine; Visit Provider Internal Medicine Cardiovascular Disease | DX: I25.10 Atherosclerotic heart disease of native coronary artery without angina pectoris (principal); I10 Essential (primary) hypertension; I45.2 Bifascicular block | CPT/HCPCS: 93005; 99212 ==

== ENCOUNTER 2025-03-10 07:28 | Outpatient (REF) | payer MEDICARE, BC, SELFPAY ==
--- OUTSIDE RECORDS SUMMARY | 2025-03-10 07:32 | XMS_ITS | Referral Summary ---
Author Organization [facility] Address [address] [place] [address] Care Team Providers Care Powder Nipper Name Role Phone Rajiv Martino Primary Care Provider [phone] Allergies No known active allergies Medications No [...] file Insurance MEDICARE BCBS FEDERAL Care Teams Powder Nipper Relationship Specialty Start Date End Date Rajiv Martino [address] [place] [address] [place] [address] PCP - General Internal Medicine 08/02/23
--- OUTSIDE RECORDS SUMMARY | 2025-03-10 07:32 | XMS_ITS | Patient Health Record ---
Author Organization [facility] Address [address] [place] [address] Care Team Providers Care Supervisor Soakers Name Role Phone Rajiv Maritno MD Primary Care Provider John Rosales Unavailable [phone] Allergies No Known Allergies Reason For Referral [...] X ray : Foot, left 3V 06/29/2016 13937, [id number]- INJECT TENDON ORIGIN/INSER T 06/29/2016 Insurance Providers Payer Name Payer Address Payer Phone Subscriber Number Group Number Insured Name Patient Relationship to Insured Coverage Start Date Coverage End Date Medicare National Govt Svcs Inc [address] [place] [address] [id number] Foster Guillen Self - patient is the insured [facility] [address] [place] [address] [id number] MindyFoster merritt Self - patient is the insured Medical (General) History Medical History History ICD Code Cataracts Hypertension Chicken pox Measles Joint implants/screws Back,Hip,and Knee pain Arthritis covid-19 Psoriasis/eczema Sciatica Mumps Surgical History Surgery Date(Month/Year) hernia , 09/2014 knee surgery X3 08/2011, 11/2011, 01/19 013
--- OUTSIDE RECORDS SUMMARY | 2025-03-10 07:32 | XMS_ITS | Data Portability ---
Author Organization [facility] Address [address] [facility] [address] [place] [address] Assessment Encounter Date Assessment Date Assessment LastModified [...] L5-S1 TFESI --lumbar MRI --surgical consult- with [facility] neurosurgeon and/or surgeon in home area Not [...] - Left L4-L5, L5-S1 TFESI 2022 023 [facility] Neurosurgery Office, [address] [place], [address], 13:44:52 Surgeries None recorded. Imaging MRI, lumbar spine, w/o contrast 2022 023 [facility] (Imaging), [address] [place], [address], 3 09:11:03 Medication Orders None recorded. Patient TargetsNo targets recorded. Patient Instructions Encounter Date Encounter Id Patient Instructions Last Modified By Organization Details Last Modified Time 01/25/2023 [id number] I spent a total of 30 minutes [...] patient interaction. Not available 01/18/2023 15:51:00 06/13/2023 [id number] I spent a total of 30 minutes [...] / medical decision making / patient interaction. [email or web address] Not available 06/08/2023 18:22:03 06/23/2023 [id number] The patient was identified by name and [...] and diagnosis. Not available 06/23/2023 10:58:55 08/02/2023 [id number] Name of DAYANARA: Adriana Yeh NP Portions [...] ast No observ ation record ed. [email or web address] [facility] (Imaging) [address] [place] [address], [id number], 08/01/2023 10:03:05 08/03/2007/28/2023 MRI, lumba r spine , w/o contr ast No observ ation record ed. BARCODE [facility] (Imaging) [address] [place], [address], 08/03/2023 10:40:28 Result Notes None recorded. Procedures Surgical History None recorded. Imaging Results Imaging Date Name Status LastModified by [facility] Details LastModified Time 07/28/2023 MRI, lumbar spine, w/o contrast completed [email or web address] [facility] (Imaging) [address] [place] [address], [id number], 08/01/2023 10:03:05 07/28/2023 MRI, lumbar spine, w/o contrast completed [facility] (Imaging) [address] [place] [address], [id number], 08/03/2023 10:40:28 Procedure Notes None recorded. Medical [...] SNOMED-CT Code Diagnosis ICD10 Code Diagnosis Note [id number] Sagrario Godfrey MD [facility] [address] [facility], [address] [place] [address] 07/20/2022 11:02:15 07/20/2022 14:11:10 Lumbar radiculopathy 315014717 M54.16 [id number] Sagrario Godfrey MD [facility] [address] [address] 08/16/2022 07:20:21 08/17/2022 10:37:35 Lumbar radiculopathy [id number] M54.16 [id number] Sagrario Godfrey MD [facility] [address] [address] 09/07/2022 10:35:54 09/07/2022 11:37:41 Lumbar radiculopathy 949015486 M54.16 [id number] Sagrario Godfrey MD [facility] 6 OP 736 [facility] CCP [address] [place] [address] 09/29/2022 10:58:47 09/29/2022 11:55:48 Spinal stenosis of lumbar region 00118055 M48.062 [id number] Lynn Yeh NP [facility] 6 OP 736 [facility] [address] [place] [address] 09/30/2022 10:33:21 09/30/2022 11:30:31 Lumbar radiculopathy 417251247 M54.16 [id number] Sagrario Godfrey MD [facility] [address] [address] 11/02/2022 13:35:30 11/02/2022 14:34:52 Lumbar radiculopathy [id number] M54.16 [id number] Sagrario Godfrey MD [facility] 6 OP 736 [facility] [address] [place] [address] 12/15/2022 10:25:30 12/15/2022 11:43:29 Lumbar radiculopathy 303249541 M54.16 [id number] Lynn Yeh NP [facility] 6 OP 736 [facility] C[facility] [address] [place] [address] 12/16/2022 07:04:05 12/16/2022 09:35:30 Lumbar radiculopathy 623919833 M54.16 [id number] Sagrario Godfrey MD [facility] TS [address] [address] 01/25/2023 13:31:01 01/25/2023 13:57:12 Lumbar radiculopathy 790036801 M54.16 [id number] Sagrario Godfrey MD [facility] [address] [address] 06/13/2023 13:17:34 06/14/2023 06:57:29 Lumbar radiculopathy 713799649 M54.16 [id number] Sagrario Godfrey MD [facility] [address] [address] 06/22/2023 11:20:58 06/22/2023 11:58:01 Lumbosacral radiculopathy 9869367 M54.17 [id number] Lynn Yeh NP [facility] [address] [address] 06/23/2023 07:06:54 06/23/2023 13:43:35 Displacement of lumbar intervertebral disc without myelopathy 05865138 M51.26 Lumbosacra l radiculitis 80359665 M54.17 Chronic low back pain 27 9837771 M54.50 [id number] Sagrario Godfrey MD [facility] [address] [address] 08/02/2023 11:56:14 08/02/2023 12:47:20 Displacement of lumbar intervertebral disc without myelopathy 98442037 M51.26 Lumbosacra l radiculitis 14074589 M54.17 Chronic low back pain 27 2737773 M54.50 Health Concerns Section Related Observation LastModified by Organization Detai ls LastModified Time None Recorded Concern Status LastModified by Organization Details LastModified Time None Recorded Advance Directives Directive None Recorded Payers Encounter Date Sequence Insurance Name Policy Number Policy Mcdowell Covered Member ID Mcdowell Member ID Guarantor Name 01/25/2023 1 [place] [employer] Foster Clarke [id number] Foster Clarke 01/25/2023 2 [place] 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) 113 Foster Clarke [id number] Foster Clarke 06/13/2023 1 [place] [facility] Foster Clarke [id number] oFster Clarke 06/13/2023 2 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) 113 Foster Clarke [id number] Foster Clarke 06/22/2023 1 [place] [facility] Foster Clarke [id number] Foster Clarke 06/22/2023 2 [facility]: [employer] [place]PL[employer] PROGRAM (PPO) 113 Foster Clarke [id number] Foster Clarke 06/23/2023 1 [place] [facility] [employer] Foster Clarke [id number] Foster Clarke 06/23/2023 2 [place] 113 Foster Clarke [id number] Foster Clarke 08/02/2023 1 [place] [facility] [employer] Foster Clarke [id number] Foster Clarke 08/02/2023 2 [place] [employer] [place] 113 Foster Clarke [id number] Foster Clarke Notes Date Note Type Note [...] anesthesia or gait instability.Imagin08/02/22 MRI Lumbar Spine ([place])Grade 1 anterolisthesis with severe facet arthropathy at the L4-L5 level. Broad-based left paracentral to left subarticular zone disc protrusion distorting the ventral thecal sac and impinging upon the left L5 nerve root.L4/L5 Tynpyfuh-if-ubcfrs central canal stenosis with encroach upon the right neural foramen mildly distorting the right L4 nerve root.Severe chronic degenerative disc disease at the L2-L3 and L5-S1 levels without central canal stenosis. Sagrario Godfrey MD [address] [place] [address], [phone], [facility] 01/25/2023 14:11:40 3 text/html [...] anesthesia or gait instability.Imagin08/02/22 MRI Lumbar Spine ([place])Grade 1 anterolisthesis with severe facet arthropathy at the L4-L5 level. Broad-based left paracentral to left subarticular zone disc protrusion distorting the ventral thecal sac and impinging upon the left L5 nerve root.L4/L5 Mfodndpz-sx-bpcrrr central canal stenosis with encroach upon the right neural foramen mildly distorting the right L4 nerve root.Severe chronic degenerative disc disease at the L2-L3 and L5-S1 levels without central canal stenosis. Sagrario Godfrey MD [address] [place] [address], [phone], [facility] 06/13/2023 15:03:43 3 text/html [...] SPECIMENS: NONE COMPLICATIONS: NONE Sagrario Godfrey MD [address] [place] [address], [phone], [facility] 06/22/2023 11:54:49 3 text/html [...] any questions or concerns. Lynn Yeh NP [address] [place] [address], [phone], [place] [facility] 06/23/2023 10:59:18 3 text/html The patient [...] L5-S1 TFESI - <25% pain relief after gshnjizkr15/10/22 LEFT L4-L5, L5-S1 TFESI: 25% pain relief after injectionphysical therapy: continues strong HEP, also trialed Shaan method on his own without reliefWalking tolerance has improvedThere has been no significant interim change in their medical status. There has been no interim motor or sensory deficits. The patient continues to deny bowel or bladder changes, saddle anesthesia or gait instability. Imaging;06/2023 MRI Lumbar Spine ([facility])Impression:1. Slightly worsened anterolisthesis at the L4-L5 level [...] related in etiology. Sagrario Godfrey MD [address] [place], [address], [place] [facility] 08/02/2023 15:34:45
--- OUTSIDE RECORDS SUMMARY | 2025-03-10 07:32 | XMS_ITS | Clinical Summary ---
Author Organization [facility] Address [address] [place] [address] Care Team Providers Care Auto Job Estimator Name Role Phone Rajiv Martino Primary Care Provider [phone] Allergies No known active allergies Medications No [...] age to complete this topic Insurance MEDICARE [facility] FEDERAL Care Teams Auto Job Estimator Relationship Specialty Start Date End Date Rajiv Martino [address] [place] [address] [place] [address] PCP - General Internal Medicine 08/02/23
[2025-03-10 08:24] LABS: Hematocrit 38.8 % (42.0-52.0); Hemoglobin 13.3 g/dl (14.0-18.0); Mean Corpuscular HGB Conc 34.3 g/dl (31.0-36.0); Mean Corpuscular Hemoglobin 31.2 pg (27.0-33.0); Mean Corpuscular Volume 91.1 fL (80.0-98.0); Mean Platelet Volume 9.3 fL (9.4-12.4); Platelet Count 148 X10*3/uL (160-400); Red Blood Count 4.26 X10*6/uL (4.60-5.80); Red Cell Distribution Width 13.6 % (11.0-16.0); White Blood Count 3.3 X10*3/uL (4.8-10.8)
[2025-03-10 08:39] LABS: Appearance Urine Clear; Color Urine Yellow; Glucose Urine UA Negative (Negative); Leukocyte Esterase Urine Negative (Negative); Nitrite Urine Negative (Negative); Urine Blood Negative (Negative); Urine Ketones Negative (Negative); Urine Protein Negative (Neg-Trace)
[2025-03-10 09:13] LABS: Alanine Aminotransferase 30 U/L (0-40); Albumin Level 4.1 g/dL (3.5-5.0); Alkaline Phosphatase 80 U/L (39-117); Anion Gap 11 (12-20); Aspartate Amino Transferase 46 U/L (5-37); Bilirubin Direct 0.3 mg/dL (0.0-0.5); Bilirubin Total 1.2 mg/dL (0.0-1.0); Blood Urea Nitrogen 15 mg/dL (9-16); Calcium 9.1 mg/dL (8.4-10.2); Carbon Dioxide 27 mmol/L (22-29); Chloride 106 mmol/L (96-108); Cholesterol 118 mg/dL (<200); Estimated Glomerular Filt Rate > 60; Glucose Random 90 mg/dL (60-115); HDL Cholesterol 34 mg/dL (>40); LDL Cholesterol Calculated 72 mg/dL (<100); Sodium 140 mmol/L (135-145); Total Protein 7.1 g/dL (6.5-8.0); Triglycerides 62 mg/dL (<150)
[2025-03-10 09:19] LABS: Thyroid Stimulating Hormone 1.61 uIU/mL (0.32-4.0)
== END 2025-03-10 07:29 | disposition home or self-care (01) ==
LOC: HO.LAB 07:28
PROVIDERS: PCP Internal Medicine; Visit Provider Internal Medicine
DX: I10 Essential (primary) hypertension (principal)
CPT/HCPCS: 36415; 80048; 80061; 80076; 81003; 84443; 85027

== ENCOUNTER 2025-03-17 13:21 | Outpatient (AMB) | payer MEDICARE, BC, SELFPAY ==
--- NOTE | 2025-03-17 13:25 | A.OFFVIS_ITS ---
Vital Signs 03/17/25 13:27 Height 6 ft 3 in Weight 192 lb 14.472 oz BMI 24.1 BP 110/64 Blood Pressure Location Lt brachial Position Sitting Pulse 81 Pulse Source Pulse Oximeter Pulse Oximetry (%) 93 Oxygen Delivery Method Room Air Intake Visit Reasons: COPD Intake Note: pt is here for follow up and states he is doing well, Environmental Compliance Specialist Required: No Allergies COW HAIR Allergy (Unknown, Uncoded 03/17/25 13:44) + IN ALLERGY TESTING Medication List - Last Reconciled 03/17/25 by Eldon Fenton MD amlodipine 2.5 mg PO BID aspirin 81 mg PO DAILY atorvastatin 40 mg PO BEDTIME betamethasone valerate 0.1% 1 appl topical BID PRN lisinopril 20 mg PO BID 90 days metoprolol succinate ER (Toprol XL) 50 mg PO BEDTIME omeprazole 20 mg PO DAILY PRN psyllium husk (with sugar) 3 gram/7 gram (Metamucil (with sugar)) 2 tbsp PO DAILY Do you need a note to return to daycare/school/sports/work: No HPI HPI COPD: Details: THIS 69 YEARS OLD GENTLEMAN IS HERE FOR 6 MONTHS FOLLOW-UP. HE DOES HAVE CHRONIC OBSTRUCTIVE PULMONARY DISEASE BUT IS STAYING VERY STABLE AND HE DOES NOT EVEN NEED TO USE THE RESCUE INHALER. ONLY OCCASIONAL COUGH WHICH IS NONPRODUCTIVE , MAINLY RELATED TO SEASONAL ALLERGIES. DENIES ANY WHEEZING OR CHEST PAIN . 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 USES CPAP REGULARLY AND SLEEPS WELL. HAS NO ISSUE WITH THE MASK OR CPAP DEVICE [facility] Medical History Osteoarthritis of right hip Retrognathia Bifascicular block HTN (hypertension) GERD (gastroesophageal reflux disease) Pneumonitis COPD (chronic obstructive pulmonary disease) Hyperlipidemia CAD (coronary artery disease) Mediastinal lymphadenopathy Pulmonary nodules MANDI (obstructive sleep apnea) Surgical History History of total right hip replacement (03/12/24) History of lumbar surgery (01/15/24) History of arthroscopy of both knees Hx of colonoscopy (~08/05/15) Hx of vein stripping Hx of bilateral cataract extraction Hx of bilateral inguinal hernia repair History of total knee replacement Family History Father Cancer Mother No problems noted. 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 Cognitive needs: No Hearing needs: No Vision needs: No Review of Systems Const All systems reviewed & are unremarkable except as noted in HPI and below Eyes Reports no additional complaints ENT Reports nasal congestion (MILD INTERMITTENT) Resp Reports cough (VERY LITTLE IN THE MORNING.) and Denies wheezing GI Reports no additional complaints Reports no additional complaints Musc Reports no additional complaints Neuro Reports no additional complaints Aller/Immun Denies wheezing Physical Exam Vital Signs: Last Vital Signs Pulse 81 03/17/25 13:27 BP 110/64 03/17/25 13:27 Pulse Ox 93 03/17/25 13:27 Oxygen Delivery Method Room Air 03/17/25 13:27 BMI result Body Mass Index 24.1 Const General: healthy appearing, comfortable, no acute distress, alert and awake Orientation/consciousness: patient oriented x3 HEENT Head: Yes normal to inspection General nose exam: No nasal polyps present and No nasal discharge present Face and sinus: Yes sinuses nontender Mouth: oropharynx normal Teeth and gingiva: other (RETROGANTHIA OF THE LOWER JAW) Throat: Yes posterior oropharynx normal Eyes General: appearance normal, both eyes and all related structures Neck Neck: Yes normal visual inspection, Yes no lymphadenopathy, Yes trachea midline and Yes no JVD Thyroid: Thyroid normal Chest Chest palpation & inspection: normal inspection of the chest, normal palpation of entire chest wall and no tenderness Resp Other: PERCUSSION NOTE HYPER-RESONANT, BREATH SOUNDS ARE EQUAL ON BOTH SIDES. NO WHEEZES RHONCHI OR CREPITATIONS ARE HEARD TODAY. Cardio Palpation: normal PMI Rate: regular rate Rhythm: regular rhythm Heart sounds: no gallops and no murmurs Peripheral pulses: Peripheral pulses 2+ throughout GI Palpation (GI): Soft to palpation, nontender, No hepatosplenomegaly present and no masses Auscultation: normal bowel sounds Back/Spine/Pelvis Thoracic/Lumbar Spine: thoracic and lumbar spine normal to inspection Skin General skin exam: no rashes or lesions noted Neuro General: patient oriented x3 and no focal motor deficits Cranial nerves: Yes CN's II-XII intact bilaterally Extrem General: Yes normal to inspection, Yes no clubbing, cyanosis or edema and Yes no calf tenderness Psych Appearance: grossly normal and well kempt Speech and movement: Normal speech and movement present Results Reviewed Results Reviewed: COMPLIANCE REPORT FOR THE LAST 30 NIGHTS IS REVIEWED AND IT IS EXCELLENT. HE IS 100% COMPLIANT WITH AVERAGE USE PER NIGHT 7 HOURS 48 MINUTES. RESIDUAL AHI ONLY 0.7 Assessment & Plan Assessment & Plan (1) COPD (chronic obstructive pulmonary disease): Comment: THIS 68 YEARS OLD GENTLEMAN DOES NOT HAVE HISTORY OF SMOKING, BUT HIS PARENTS SMOKED AND HE WAS EXPOSED TO SECONDHAND SMOKING. PER SPIROMETRY HE HAS MODERATELY SEVERE OBSTRUCTIVE AIRWAY DISORDER. CLINICALLY HE IS TOTALLY ASYMPTOMATIC. HE IS NOT REQUIRING USE OF ANY BRONCHODILATOR INHALER. Code(s): J44.9 - Chronic obstructive pulmonary disease, unspecified Category: Medical Plan: NO NEED OF ANY ACTIVE TREATMENT (2) MANDI (obstructive sleep apnea): Comment: HE HAS H/O MANDI, MOSTLY ON BASIS OF RETROGNATHIA OF LOWER JAW . WELL TRETAED WITH CPAP, WHICH HE USES VERY REGULARLY , NASAL MASK -9 CMs . COMPLIANCE IS EXCELLENT AND HE IS DEFINITELY BENEFITING FROM THE USE OF CPAP. Code(s): G47.33 - Obstructive sleep apnea (adult) (pediatric) Category: Medical Plan: COMMENDED FOR GOOD COMPLIANCE AND HE IS ADVISED TO KEEP ON USING THE CPAP EVERY NIGHT Coding Level of Care Code Est Pt Level 3 (42687) Diagnoses COPD (chronic obstructive pulmonary disease) J44.9 MANDI (obstructive sleep apnea) G47.33
[2025-03-17 13:27] VITALS: BP 110/64; PULSE 81; O2SAT 93; BMI 24.1
--- OUTSIDE RECORDS SUMMARY | 2025-03-17 15:53 | XMS_ITS | Patient Health Record ---
Author Organization [facility] Address [address] [place] [address] Care Team Providers Care Heel Nailing Machine Operator Name Role Phone Rajiv Martino MD Primary Care Provider John Rosales Unavailable [phone] Allergies No Known Allergies Reason For Referral [...] X ray : Foot, left 3V 06/29/2016 [id number], [id number] INJECT TENDON ORIGIN/INSER T 06/29/2016 Insurance Providers Payer Name Payer Address Payer Phone Subscriber Number Group Number Insured Name Patient Relationship to Insured Coverage Start Date Coverage End Date Medicare [employer] [address] [place] [address] [id number] Foster Guillen Self - patient is the insured [facility] [address] [place] [address] [id number] MindyFoster merritt Self - patient is the insured Medical (General) History Medical History History ICD Code Cataracts Hypertension Chicken pox Measles Joint implants/screws Back,Hip,and Knee pain Arthritis covid-19 Psoriasis/eczema Sciatica Mumps Surgical History Surgery Date(Month/Year) hernia , 09/2014 knee surgery X3 08/2011, 11/2011, 01/19 013
--- OUTSIDE RECORDS SUMMARY | 2025-03-17 15:53 | XMS_ITS | Data Portability ---
Author Organization [facility] Address [address] [facility] [address] [place] [address] Assessment Encounter Date Assessment Date Assessment LastModified [...] --lumbar MRI --surgical consult- with [facility] neurosurgeon and/or surgeon in home area [...] - Left L4-L5, L5-S1 TFESI 2022 023 [facility] Neurosurgery Office, [address] [place], [address], 13:44:52 Surgeries None recorded. Imaging MRI, lumbar spine, w/o contrast 2022 023 [facility] (Imaging), [address] [place], [address], 3 09:11:03 Medication Orders None recorded. Patient TargetsNo targets recorded. Patient Instructions Encounter Date Encounter Id Patient Instructions Last Modified By Organization Details Last Modified Time 01/25/2023 [id number] I spent a total of 30 minutes [...] / medical decision making / patient interaction. [email or web address] Not available 01/18/2023 15:51:00 06/13/2023 [id number] I spent a total of 30 minutes [...] / medical decision making / patient interaction. [email or web address] Not available 06/08/2023 18:22:03 06/23/2023 [id number] The patient was identified by name and [...] and diagnosis. Not available 06/23/2023 10:58:55 08/02/2023 [id number] Name of DAYANARA: Adriana Yeh NP Portions [...] ast No observ ation record ed. [email or web address] [facility] (Imaging) [address] [place] [address], [address], 08/01/2023 10:03:05 08/03/2007/28/2023 MRI, lumba r spine , w/o contr ast No observ ation record ed. BARCODE [facility] (Imaging) [address] [place], [address], 08/03/2023 10:40:28 Result Notes None recorded. Procedures Surgical History None recorded. Imaging Results Imaging Date Name Status LastModified by [facility] Details LastModified Time 07/28/2023 MRI, lumbar spine, w/o contrast completed [email or web address] [facility] (Imaging) [address] [place] [address], [address], 08/01/2023 10:03:05 07/28/2023 MRI, lumbar spine, w/o contrast completed [facility] (Imaging) [address] [place] [address], [address], 08/03/2023 10:40:28 Procedure Notes None recorded. Medical [...] SNOMED-CT Code Diagnosis ICD10 Code Diagnosis Note [id number] Sagrario Godfrey MD [facility] [address] [facility], [address] [place] [address] 07/20/2022 11:02:15 07/20/2022 14:11:10 Lumbar radiculopathy [id number] M54.16 [id number] Sagrario Godfrey MD SEM[facility] [address] [address] 08/16/2022 07:20:21 08/17/2022 10:37:35 Lumbar radiculopathy 852563387 M54.16 [id number] Sagrario Godfrey MD [facility] [address] [address] 09/07/2022 10:35:54 09/07/2022 11:37:41 Lumbar radiculopathy 044712178 M54.16 [id number] Sagrario Godfrey MD [facility] 6 OP 736 [facility] CCP [address] [place] [address] 09/29/2022 10:58:47 09/29/2022 11:55:48 Spinal stenosis of lumbar region 06366602 M48.062 [id number] Lynn Yeh NP [facility] 6 OP 736 [facility] C[facility] [address] [place] [address] 09/30/2022 10:33:21 09/30/2022 11:30:31 Lumbar radiculopathy 985757675 M54.16 [id number] Sagrario Godfrey MD SEM[facility] [address] [address] 11/02/2022 13:35:30 11/02/2022 14:34:52 Lumbar radiculopathy 225396562 M54.16 [id number] Sagrario Godfrey MD [facility] 6 OP 736 [facility] CCP [address] [place] [address] 12/15/2022 10:25:30 12/15/2022 11:43:29 Lumbar radiculopathy 870762857 M54.16 [id number] Lynn Yeh NP [facility] 6 OP 736 [facility] CCP [address] [place] [address] 12/16/2022 07:04:05 12/16/2022 09:35:30 Lumbar radiculopathy 429514339 M54.16 [id number] Sagrario Godfrey MD [facility] TS [address] [address] 01/25/2023 13:31:01 01/25/2023 13:57:12 Lumbar radiculopathy 737456404 M54.16 [id number] Sagrario Godfrey MD [facility] [address] [address] 06/13/2023 13:17:34 06/14/2023 06:57:29 Lumbar radiculopathy 319206470 M54.16 [id number] Sagrario Godfrey MD [facility] [address] [address] 06/22/2023 11:20:58 06/22/2023 11:58:01 Lumbosacral radiculopathy 2799945 M54.17 [id number] Lynn Yeh NP [facility] [address] [address] 06/23/2023 07:06:54 06/23/2023 13:43:35 Displacement of lumbar intervertebral disc without myelopathy 34971399 M51.26 Lumbosacra l radiculitis 44725574 M54.17 Chronic low back pain 27 4753368 M54.50 [id number] Sagrario Godfrey MD SEM[facility] [address] [address] 08/02/2023 11:56:14 08/02/2023 12:47:20 Displacement of lumbar intervertebral disc without myelopathy 59176401 M51.26 Lumbosacra l radiculitis 27692686 M54.17 Chronic low back pain 27 5859776 M54.50 Health Concerns Section Related Observation LastModified by Organization Detai ls LastModified Time None Recorded Concern Status LastModified by Organization Details LastModified Time None Recorded Advance Directives Directive None Recorded Payers Encounter Date Sequence Insurance Name Policy Number Policy Mcdowell Covered Member ID Mcdowell Member ID Guarantor Name 01/25/2023 1 [place] [employer] Foster Clarke [id number] Foster Clarke 01/25/2023 2 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) 113 Foster Clarke [id number] Foster Clarke 06/13/2023 1 MED[place]: [facility] Foster Clarke [id number] Foster Clarke 06/13/2023 2 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) 113 Foster Clarke [id number] Foster Clarke 06/22/2023 1 [place]: [facility] GOVERNMENT SERVICES Foster Clarke [id number] Foster Clarke 06/22/2023 2 [facility]: [employer] EMPL[place]EE PROGRAM (PPO) 113 Foster Clarke [id number] Foster Clarke 06/23/2023 1 [place] [facility] [employer] Foster Clarke [id number] Foster Clarke 06/23/2023 2 [place]EE [place]GRAM 113 Foster Clarke [id number] Foster Clarke 08/02/2023 1 [place] [facility] [employer] Foster Clarke [id number] Foster Clarke 08/02/2023 2 [place]PL[place] PROGRAM 113 Foster Clarke [id number] Foster Clarke Notes Date Note Type Note [...] anesthesia or gait instability.Imagin08/02/22 MRI Lumbar Spine ([place])Grade 1 anterolisthesis with severe facet arthropathy at the L4-L5 level. Broad-based left paracentral to left subarticular zone disc protrusion distorting the ventral thecal sac and impinging upon the left L5 nerve root.L4/L5 Uemblebv-ee-brdokz central canal stenosis with encroach upon the right neural foramen mildly distorting the right L4 nerve root.Severe chronic degenerative disc disease at the L2-L3 and L5-S1 levels without central canal stenosis. Sagrario Godfrey MD [address] [place] [address], [phone], [facility] 01/25/2023 14:11:40 3 text/html The [...] anesthesia or gait instability.Imagin08/02/22 MRI Lumbar Spine ([place])Grade 1 anterolisthesis with severe facet arthropathy at the L4-L5 level. Broad-based left paracentral to left subarticular zone disc protrusion distorting the ventral thecal sac and impinging upon the left L5 nerve root.L4/L5 Rporfldc-ft-icsuuf central canal stenosis with encroach upon the right neural foramen mildly distorting the right L4 nerve root.Severe chronic degenerative disc disease at the L2-L3 and L5-S1 levels without central canal stenosis. Sagrario Godfrey MD [address] [place] [address], [phone], [facility] 06/13/2023 15:03:43 3 text/html PROCEDURE: [...] SPECIMENS: NONE COMPLICATIONS: NONE Sagrario Godfrey MD [address] [place] [address], [phone], [facility] 06/22/2023 11:54:49 3 text/html Foster [...] any questions or concerns. Lynn Yeh NP [address] [place] [address], [phone], [place] - [facility] - [facility] 06/23/2023 10:59:18 3 text/html The patient returns [...] L5-S1 TFESI - <25% pain relief after lnfaoibno94/10/22 LEFT L4-L5, L5-S1 TFESI: 25% pain relief after injectionphysical therapy: continues strong HEP, also trialed Shaan method on his own without reliefWalking tolerance has improvedThere has been no significant interim change in their medical status. There has been no interim motor or sensory deficits. The patient continues to deny bowel or bladder changes, saddle anesthesia or gait instability. Imaging;06/2023 MRI Lumbar Spine ([facility])Impression:1. Slightly worsened anterolisthesis at the L4-L5 [...] related in etiology. Sagrario Godfrey MD [address] [place], [address], [place] - [facility] - [facility] 08/02/2023 15:34:45
--- OUTSIDE RECORDS SUMMARY | 2025-03-17 15:53 | XMS_ITS | Referral Summary ---
Author Organization [facility] Address [address] [place] [address] Care Team Providers Care Configuration Technician Name Role Phone Rajiv Martino Primary Care Provider [phone] Allergies No known active allergies Medications No [...] file Insurance MEDICARE BCBS FEDERAL Care Teams Configuration Technician Relationship Specialty Start Date End Date Rajiv Martino [address] [place] [address] [place] [address] PCP - General Internal Medicine 08/02/23
--- OUTSIDE RECORDS SUMMARY | 2025-03-17 15:53 | XMS_ITS | Clinical Summary ---
Author Organization [facility] Address [address] [place] [address] Care Team Providers Care New Vehicle Sales Consultant Name Role Phone Rajiv Martino Primary Care Provider [phone] Allergies No known active allergies Medications No [...] age to complete this topic Insurance MEDICARE [facility] FEDERAL Care Teams New Vehicle Sales Consultant Relationship Specialty Start Date End Date Rajiv Martino [address] [place] [address] [place] [address] PCP - General Internal Medicine 08/02/23
== END 2025-03-17 13:44 | disposition home or self-care (01) ==
LOC: HO.HPS 13:22
PROVIDERS: PCP Internal Medicine; Visit Provider Internal Medicine
DX: J44.9 Chronic obstructive pulmonary disease, unspecified (principal); G47.33 Obstructive sleep apnea (adult) (pediatric)
CPT/HCPCS: 99213

== ENCOUNTER → 2025-03-17 13:21 | Outpatient (BNVA) | payer MEDICARE, BC, SELFPAY | PROVIDERS: PCP Internal Medicine; Visit Provider Internal Medicine | DX: J44.9 Chronic obstructive pulmonary disease, unspecified (principal); G47.33 Obstructive sleep apnea (adult) (pediatric) | CPT/HCPCS: 99212 ==

== ENCOUNTER 2025-05-20 09:33 | Outpatient (AMB) | payer MEDICARE, BC, SELFPAY ==
--- NOTE | 2025-05-20 09:38 | MHC.OFFVIS ---
Intake Visit Reasons: 1y/PVR Intake Note: Patient is present for 1 yr follow up with [facility] Urology Medication:tamsulosin Antibiotic Allergy:none Blood Thinner:aspirin PVR: 28 ml's Cloth Seconds Sorter Required: No Accompanied by: Self / Same As Patient Allergies COW HAIR Allergy (Unknown, Uncoded 03/17/25 13:44) + IN ALLERGY TESTING HPI Comments Details: Foster is a pleasant male. He is a patient of Dr. Martino. He is seen for the following urologic conditions - bladder outlet obstruction Bladder emptying follow-up Twelve month follow-up PVR remains low Continues with tamsulosin Lower urinary tract symptoms Had urinary retention following surgery 2nd time this has occurred Past voiding trial Describes minimal symptoms prior to surgery [facility] Medical History Osteoarthritis of right hip Retrognathia Bifascicular block HTN (hypertension) GERD (gastroesophageal reflux disease) Pneumonitis COPD (chronic obstructive pulmonary disease) Hyperlipidemia CAD (coronary artery disease) Mediastinal lymphadenopathy Pulmonary nodules MANDI (obstructive sleep apnea) Surgical History History of total right hip replacement (03/12/24) History of lumbar surgery (01/15/24) History of arthroscopy of both knees Hx of colonoscopy (~08/05/15) Hx of vein stripping Hx of bilateral cataract extraction Hx of bilateral inguinal hernia repair History of total knee replacement Family History Father Cancer Mother No problems noted. 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 Cognitive needs: No Hearing needs: No Vision needs: No Review of Systems Const Denies chills and Denies fever(s) Card Reports no additional complaints and Denies syncope Resp Denies cough GI Denies abdominal pain and Denies heartburn Reports as per HPI and Denies change in libido Neuro Denies syncope Psych Denies change in libido Endo Denies change in libido Physical Exam Const General: cooperative, healthy appearing, comfortable and no acute distress Orientation/consciousness: patient oriented x3 HEENT Face and sinus: Yes normal facial exam Mouth: moist mucous membranes Neck Neck: Yes normal visual inspection, Yes full ROM and Yes trachea midline Chest Chest palpation & inspection: normal inspection of the chest Resp Effort & Inspection: normal respiratory effort, able to speak in complete sentences and no respiratory distress GI Inspection: Yes normal to inspection Back/Spine/Pelvis Cervical Spine: normal cervical lordosis Thoracic/Lumbar Spine: thoracic and lumbar spine normal to inspection Skin General skin exam: no rashes or lesions noted Neuro General: patient oriented x3, gait normal, tone normal and moves all extremities Extrem General: Yes normal to inspection and Yes capillary refill normal Office Procedures Post Void Residual Post Residual Void Post Void Residual (PVR): 28 37323-Dtjs Void Residual by ultrasound Assessment & Plan Assessment & Plan (1) Bladder outlet obstruction: Code(s): N32.0 - Bladder-neck obstruction Category: Medical Plan P.r.n. follow-up Orders: Orders AMB Urinalysis Automated Today Z13.9 - Encounter for screening, unspecified AMB Post Void Residual by ultrasound Today N32.0 - Bladder-neck obstruction Patient Instructions: This note is constructed using voice recognition software. While every effort has been made to ensure accuracy digital production manager errors may have been included. Imaging studies, laboratory and physical exam results were discussed and reviewed in detail. No major barriers to patient understanding were identified. An opportunity to ask questions regarding the treatment plan was provided. All questions were answered. The patient expressed understanding and agreement with the above treatment plan. The patient is aware they should contact our office by phone for worsening of their current condition or the appearance of new urologic symptoms. Compliance is encouraged with any medications and followup testing that is ordered. It is a privilege to participate in the urologic care of your patient. If you have any questions or concerns regarding treatment for the above conditions, or other urologic issues, please do not hesitate to contact me. The office telephone contact is [phone]. Sincerely, Dr Suman Puente MD, [facility] - Urology Compassionate Specialist Care for the Genitourinary System Coding Level of Care Code Est Pt Level 4 (61733) Diagnoses Bladder outlet obstruction N32.0 CPT Codes Post Residual Void - PVR CPT Code: 89776-Qznf Void Residual by ultrasound ([id number])
--- OUTSIDE RECORDS SUMMARY | 2025-05-20 10:18 | XMS_ITS | Data Portability ---
Author Organization [facility] Address [address] [address] Assessment Encounter Date Assessment Date Assessment LastModified [...] - Left L4-L5, L5-S1 TFESI 2022 023 [facility] [address] [place], [address], 13:44:52 Surgeries None recorded. Imaging MRI, lumbar spine, w/o contrast 2022 023 [facility] (Imaging), [address] [place], [address], 09:11:03 Medication Orders None recorded. Patient TargetsNo targets recorded. Patient Instructions Encounter Date Encounter Id Patient Instructions Last Modified By Organization Details Last Modified Time 01/25/2023 [id number] I spent a total of 30 minutes [...] / medical decision making / patient interaction. [email or web address] Not available 01/18/2023 15:51:00 06/13/2023 [id number] I spent a total of 30 minutes [...] decision making / patient interaction. Not available 06/08/2023 18:22:03 06/23/2023 [id number] The patient was identified by name and [...] and diagnosis. Not available 06/23/2023 10:58:55 08/02/2023 [id number] Name of DAYANARA: Adriana Yeh NP Portions [...] ast No observ ation record ed. [email or web address] [facility] (Imaging) [address] [place], [address], 08/01/2023 10:03:05 08/03/20 23 07/28/2023 MRI, lumba r spine , w/o contr ast No observ ation record ed. BARCODE [facility] (Imaging) [address] [place], [address], 08/03/2023 10:40:28 Result Notes None recorded. Medical Equipment None Reported. [...] SNOMED-CT Code Diagnosis ICD10 Code Diagnosis Note [id number] Sagrario Godfrey MD [facility] [address] [place] [address], [address] [place] [address] 07/20/2022 11:02:15 07/20/2022 14:11:10 Lumbar radiculopathy 281155147 M54.16 [id number] Sagrario Godfrey MD [facility] [address] [address] 08/16/2022 07:20:21 08/17/2022 10:37:35 Lumbar radiculopathy 129766736 M54.16 [id number] Sagrario Godfrey MD [facility] [address] [address] 09/07/2022 10:35:54 09/07/2022 11:37:41 Lumbar radiculopathy 033043565 M54.16 [id number] Sagrario Godfrey MD [facility] [address] [address] 09/29/2022 10:58:47 09/29/2022 11:55:48 Spinal stenosis of lumbar region 42247178 M48.062 [id number] Sagrario Godfrey MD [facility] [address] [address] 09/30/2022 10:33:21 09/30/2022 11:30:31 Lumbar radiculopathy 113901813 M54.16 [id number] Sagrario Godfrey MD [facility] [place] [place] [facility] [address] [address] 11/02/2022 13:35:30 11/02/2022 14:34:52 Lumbar radiculopathy 181301847 M54.16 [id number] Sagrario Godfrey MD [facility] [address] [address] 12/15/2022 10:25:30 12/15/2022 11:43:29 Lumbar radiculopathy 407797491 M54.16 [id number] Sagrario Godfrey MD [facility] [address] [address] 12/16/2022 07:04:05 12/16/2022 09:35:30 Lumbar radiculopathy 668941301 M54.16 [id number] Sagrario Godfrey MD [facility] [place] [facility] [address] [address] 01/25/2023 13:31:01 01/25/2023 13:57:12 Lumbar radiculopathy 992991438 M54.16 [id number] Sagrario Godfrey MD [facility] [address] [address] 06/13/2023 13:17:34 06/14/2023 06:57:29 Lumbar radiculopathy 011257322 M54.16 [id number] Sagrario Godfrey MD [facility] [address] [place] [address] 06/22/2023 11:20:58 06/22/2023 11:58:01 Lumbosacral radiculopathy 1372730 M54.17 [id number] Lynn Yeh NP [facility] [place] [facility] [address] [address] 06/23/2023 07:06:54 06/23/2023 13:43:35 Displacement of lumbar intervertebral disc without myelopathy 13460463 M51.26 Lumbosacra l radiculitis 25815380 M54.17 Chronic low back pain 27 8729267 M54.50 [id number] Sagrario Godfrey MD [facility] [place] [place] [facility] [address] [address] 08/02/2023 11:56:14 08/02/2023 12:47:20 Displacement of lumbar intervertebral disc without myelopathy 67099235 M51.26 Lumbosacra l radiculitis 70173044 M54.17 Chronic low back pain 27 6521005 M54.50 Health Concerns Section Related Observation LastModified by Organization Detai ls LastModified Time None Recorded Concern Status LastModified by Organization Details LastModified Time None Recorded Advance Directives Directive None Recorded Payers Insurance Date Sequence Insurance Name Policy Number Policy Mcdowell Covered Member ID Mcdowell Member ID Guarantor Name 08/02/2023 2 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) 113 Foster Clarke [id number] Foster Clarke 08/02/2023 2 [place] (MEDICARE [place]PLACEMENT/AD VANTAGE - PPO) 113 Foster Clarke [id number] Foster Clarke 08/02/2023 1 [place]ATIONAL GOVERNMENT SERVICES Foster Clarke [id number] Foster Clarke 08/02/2023 2 [place] 113 Foster Clarke [id number] Foster Clarke Notes Date Note Type Note [...] anesthesia or gait instability.Imagin08/02/22 MRI Lumbar Spine ([place])Grade 1 anterolisthesis with severe facet arthropathy at the L4-L5 level. Broad-based left paracentral to left subarticular zone disc protrusion distorting the ventral thecal sac and impinging upon the left L5 nerve root.L4/L5 Dxyviikw-tw-lkmeof central canal stenosis with encroach upon the right neural foramen mildly distorting the right L4 nerve root.Severe chronic degenerative disc disease at the L2-L3 and L5-S1 levels without central canal stenosis. Sagrario Godfrey MD [address] [place] [address], [address], [facility] 01/25/2023 14:11:40 3 text/html The [...] anesthesia or gait instability.Imagin08/02/22 MRI Lumbar Spine ([place])Grade 1 anterolisthesis with severe facet arthropathy at the L4-L5 level. Broad-based left paracentral to left subarticular zone disc protrusion distorting the ventral thecal sac and impinging upon the left L5 nerve root.L4/L5 Xvnufhmx-cq-izfhsj central canal stenosis with encroach upon the right neural foramen mildly distorting the right L4 nerve root.Severe chronic degenerative disc disease at the L2-L3 and L5-S1 levels without central canal stenosis. Sagrario Godfrey MD [address] [place] [address], [phone], [facility] 06/13/2023 15:03:43 3 text/html PROCEDURE: [...] SPECIMENS: NONE COMPLICATIONS: NONE Sagrario Godfrey MD [address] [place] [address], [phone], [facility] 06/22/2023 11:54:49 3 text/html Foster [...] any questions or concerns. Lynn Yeh NP [address] [place], [address], [facility] 06/23/2023 10:59:18 3 text/html The [...] L5-S1 TFESI - <25% pain relief after fosyryrzo71/10/22 LEFT L4-L5, L5-S1 TFESI: 25% pain relief after injectionphysical therapy: continues strong HEP, also trialed Shaan method on his own without reliefWalking tolerance has improvedThere has been no significant interim change in their medical status. There has been no interim motor or sensory deficits. The patient continues to deny bowel or bladder changes, saddle anesthesia or gait instability. Imaging;06/2023 MRI Lumbar Spine ([facility])Impression:1. Slightly worsened anterolisthesis at the L4-L5 [...] stress related in etiology. Sagrario Godfrey MD [address] [place] [address], [phone], [facility] 08/02/2023 15:34:45
--- OUTSIDE RECORDS SUMMARY | 2025-05-20 10:18 | XMS_ITS | Patient Health Record ---
Author Organization [facility] Address [address] [place] [address] Care Team Providers Care Clinical Medical Transcriptionist Name Role Phone Rajiv Martino MD Primary Care Provider Mohan Fermin Jr Unavailable [phone] Reason For Referral No Information Medications Medication SIG (Take, Route, Fr equency, Duration) Notes Start Date End Date Status Suprep Bowel Prep 1 as directed Orally 1 for 1 dose 04/29/2015 Active Lisinopril 20 MG 1 tablet Orally Once a day Active Ibuprofen 600 MG 1 tablet as needed O rally every 6 hrs Active Omeprazole 20 MG 1 capsule Orally Once a day Active Problems Problem Type SNOMED Code ICD Code Onset Dates Problem Status W/U Status Risk Notes Problem 672505968 Esophageal reflux (530.81) Active confirmed Problem 74527715 Hemorrhoids (455.6) Active confirmed Problem 258884753 Colon cancer screening (V76.51) Active confirmed Plan Of Treatment Future Test Test Name Order Date COLONOSCOPY 04/29/2015 Insurance Providers Payer Name Payer Address Payer Phone Subscriber Number Group Number Insured Name Patient Relationship to Insured Coverage Start Date Coverage End Date [facility] [address] [place], [place] [id number] KATIE ALEX Self - patient is the insured Medical (General) History Medical History History ICD Code colonoscopy 12/29/2004 hypertension Denies MT,DM,CVA,Lung disease,renal dise ase Surgical History Surgery Date(Month/Year) right inguinal herniorrhaphy knee surgery vasectomy left knee replacement left knee arthroscopy right knee arthroscopy hernia repair cataract-lens implants
--- OUTSIDE RECORDS SUMMARY | 2025-05-20 10:18 | XMS_ITS | Patient Health Record ---
Author Organization [facility] Address [address] [place] [address] Care Team Providers Care Bulb Grower Name Role Phone Rajiv Martino MD Primary Care Provider John Rosales Unavailable [phone] Allergies No Known Allergies Reason For Referral [...] X ray : Foot, left 3V 06/29/2016 [id number], [id number] INJECT TENDON ORIGIN/INSER T 06/29/2016 Insurance Providers Payer Name Payer Address Payer Phone Subscriber Number Group Number Insured Name Patient Relationship to Insured Coverage Start Date Coverage End Date Medicare National [employer] [address] [place] [address] [id number] Foster Guillen Self - patient is the insured [facility] [address] [place] [address] [id number] MindyFoster merritt Self - patient is the insured Medical (General) History Medical History History ICD Code Cataracts Hypertension Chicken pox Measles Joint implants/screws Back,Hip,and Knee pain Arthritis covid-19 Psoriasis/eczema Sciatica Mumps Surgical History Surgery Date(Month/Year) hernia , 09/2014 knee surgery X3 08/2011, 11/2011, 01/19 013
--- OUTSIDE RECORDS SUMMARY | 2025-05-20 10:18 | XMS_ITS | Clinical Summary ---
Author Organization [facility] Address [address] [place] [address] Care Team Providers Care Senior Quality Assurance Specialist Name Role Phone Rajiv Martino Primary Care Provider [phone] Allergies No known active allergies Medications No [...] MEDICARE [facility] Care Teams Senior Quality Assurance Specialist Relationship Specialty Start Date End Date Rajiv Martino [address] [place] [address] [place] [address] PCP - General Internal Medicine 08/02/23
== END 2025-05-20 10:38 | disposition home or self-care (01) ==
LOC: HO.HUSH 09:34
PROVIDERS: PCP Internal Medicine; Visit Provider Urology
DX: Z13.9 Encounter for screening, unspecified (principal); N32.0 Bladder-neck obstruction
CPT/HCPCS: 99214

== ENCOUNTER → 2025-05-20 09:33 | Outpatient (BNVA) | payer MEDICARE, BC, SELFPAY | PROVIDERS: PCP Internal Medicine; Visit Provider Urology | DX: N32.0 Bladder-neck obstruction (principal); Z13.9 Encounter for screening, unspecified; Z79.899 Other long term (current) drug therapy; Z79.82 Long term (current) use of aspirin | CPT/HCPCS: 51798; 81003; 99212 ==

== ENCOUNTER 2025-08-25 08:26 | Outpatient (AMB) | payer MEDICARE, BC, SELFPAY ==
--- NOTE | 2025-08-25 08:29 | MHC.OFFVIS ---
Vital Signs 08/25/25 08:37 Height 6 ft 3 in Weight 191 lb BMI 23.9 Intake Visit Reasons: OV - RT SHRUTHI 03/12/24 NE Intake Note: Foster is a 69 year old male who presents today for a follow up of his Right Hip, he is about 6 months s/p Right SHRUTHI 03/12/25. He has been struggling with abductor tendonitis status post lumbar fusion and hip replacement. Patient reports that he is doing well and is improving. Allergies COW HAIR Allergy (Unknown, Uncoded 08/25/25 08:37) + IN ALLERGY TESTING HPI HPI OV - RT SRHUTHI 03/12/24 NE: Details: Foster is a 69 year old male who presents today for a follow up of his Right Hip, he is about 6 months s/p Right SHRUTHI 03/12/24. He has been struggling with abductor tendonitis status post lumbar fusion and hip replacement. Patient reports that he is doing well and is improving. He is playing tennis and walking without pain. He does have occasional inflammation and discomfort but it seems to come and go. Overall he is satisfied. [facility] Medical History Osteoarthritis of right hip Retrognathia Bifascicular block HTN (hypertension) GERD (gastroesophageal reflux disease) Pneumonitis COPD (chronic obstructive pulmonary disease) Hyperlipidemia CAD (coronary artery disease) Mediastinal lymphadenopathy Pulmonary nodules MANDI (obstructive sleep apnea) Surgical History History of total right hip replacement (03/12/24) History of lumbar surgery (01/15/24) History of arthroscopy of both knees Hx of colonoscopy (~08/05/15) Hx of vein stripping Hx of bilateral cataract extraction Hx of bilateral inguinal hernia repair History of total knee replacement Family History Father Cancer Mother No problems noted. 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 Normal gait mechanics. Assessment & Plan Assessment & Plan (1) History of total right hip replacement: Onset Date: 03/12/24 Comment: Dr. Ibarra Code(s): Z96.641 - Presence of right artificial hip joint Category: Surgical Plan: Foster about 18 months status post right hip replacement. He had a slow go postoperatively but has recovered fully in his doing well. Continue to stay active and limp he will let me know if there are any changes. Coding Level of Care Code Est Pt Level 3 (37380) Diagnoses History of total right hip replacement Z96.641
[2025-08-25 08:37] VITALS: BMI 23.9
--- OUTSIDE RECORDS SUMMARY | 2025-08-25 08:56 | XMS_ITS | Patient Health Record ---
Author Organization [facility] Address [address] [place] [address] Care Team Providers Care Tieing Machine Operator Name Role Phone Rajiv Martino MD Primary Care Provider John Renner Unavailable [phone] Allergies No Known Allergies Reason For Referral [...] X ray : Foot, left 3V 06/29/2016 [id number], [id number] INJECT TENDON ORIGIN/INSER T 06/29/2016 Insurance Providers Payer Name Payer Address Payer Phone Subscriber Number Group Number Insured Name Patient Relationship to Insured Coverage Start Date Coverage End Date Medicare National [employer] [address] [place] [address] [id number] Mindy Foster Self - patient is the insured [facility] [address] [place] [address] [id number] MindyFoster merritt Self - patient is the insured Medical (General) History Medical History History ICD Code Cataracts Hypertension Chicken pox Measles Joint implants/screws Back,Hip,and Knee pain Arthritis covid-19 Psoriasis/eczema Sciatica Mumps Surgical History Surgery Date(Month/Year) hernia , 09/2014 knee surgery X3 08/2011, 11/2011, 01/19 013
--- OUTSIDE RECORDS SUMMARY | 2025-08-25 08:56 | XMS_ITS | Patient Health Record ---
Author Organization [facility] Address [address] [place] [address] [place] [address] Care Team Providers Care Electrician Manager Name Role Phone NONE, NONE Primary Care Provider Mohan Escamilla Jr Reason For Referral No Information Medications Medication [...] Problem Status W/U Status Risk Notes Problem 060909958 Esophageal reflux (530.81) Active confirmed Problem 60111928 Hemorrhoids (455.6) Active confirmed Problem 999710235 Colon cancer screening (V76.51) Active confirmed Plan Of Treatment Future Test Test Name Order Date COLONOSCOPY 04/29/2015 Next Appt Details Provider Name:Mohan owen Jr, 10/27/2025 10:40:00 AM, [address] [place] [address], [address], [place], [address], Insurance Providers Payer Name Payer Address Payer Phone Subscriber Number Group Number Insured Name Patient Relationship to Insured Coverage Start Date Coverage End Date MEDICARE OF [place] [address] [place] [address] [id number] KATIE ALEX Self - patient is the insured [facility] [address] [place], [place] [id number] [phone] [id number] KATIE ALEX Self - patient is the insured Medical (General) History Medical History History ICD Code colonoscopy 12/29/2004 hypertension Denies [place],DM,CVA,Lung disease,renal dise ase Surgical History Surgery Date(Month/Year) right inguinal herniorrhaphy knee surgery vasectomy left knee replacement left knee arthroscopy right knee arthroscopy hernia repair cataract-lens implants
--- OUTSIDE RECORDS SUMMARY | 2025-08-25 08:56 | XMS_ITS | Clinical Summary ---
Author Organization [facility] Address [address] [place] [address] Care Team Providers Care Accountant Systems Name Role Phone Rajiv Martino Primary Care [...] Screening 1955 Sigmoidoscopy 1955 Medicare AWV 1956 Alcohol/Substance Use Screening 11/20/2024 Depression Screening and Follow-Up 11/20/2024 Fall Risk Screening 11/20/2024 Health Care Proxy Review 11/20/2024 Social Drivers of Health Annual Screening 11/20/2024 COVID-19 Vaccine ( season) 2025 09/12/2022, 04/21/2022, 08/26/2021, Additional history exists Influenza Vaccine (#1) 2025 2, 08/19/2021, 08/14/2020 RSV Vaccine (60+ years old and patients) (1 - 1-dose 75+ series) 2029 DTaP,Tdap,and Td Vaccines (2 - Td or Tdap) 07/04/2032 07/04/2022 Zoster Vaccines Completed 10/28/2020, 08/14/2020 Pneumococcal Vaccine: 50+ Years Completed 03/08/2022 Hepatitis B Vaccines Aged Out No long er eligible based on patient's age to complete this topic Insurance MEDICARE [facility] Care Teams Accountant Systems Relationship Specialty Start Date End Date Rajiv Martino [address] [place] [address] [place] [address] PCP - General Internal Medicine 08/02/23
== END 2025-08-25 08:48 | disposition home or self-care (01) ==
LOC: HO.HOS 08:26
PROVIDERS: PCP Internal Medicine; Visit Provider Orthopaedic Surgery
DX: Z47.89 Encounter for other orthopedic aftercare (principal); Z96.641 Presence of right artificial hip joint
CPT/HCPCS: 99213

== ENCOUNTER → 2025-08-25 08:26 | Outpatient (BNVA) | payer MEDICARE, BC, SELFPAY | PROVIDERS: PCP Internal Medicine; Visit Provider Orthopaedic Surgery | DX: Z09 Encounter for follow-up examination after completed treatment for conditions other than malignant neoplasm (principal); Z96.641 Presence of right artificial hip joint | CPT/HCPCS: 99212 ==

== ENCOUNTER 2025-09-11 15:53 | Outpatient (AMB) | payer MEDICARE, BC, SELFPAY ==
[2025-09-11 15:59] VITALS: BP 142/70; PULSE 67; O2SAT 98; BMI 24.0
--- NOTE | 2025-09-11 15:59 | MHC.OFFVIS ---
Vital Signs 09/11/25 15:59 Height 6 ft 3 in Weight 191 lb 12.835 oz BMI 24.0 BP 142/70 H Blood Pressure Location Lt brachial Position Sitting Pulse 67 Pulse Source Pulse Oximeter Pulse Oximetry (%) 98 Oxygen Delivery Method Room Air Intake Visit Reasons: COPD Intake Note: pt is here for follow up of MANDI/copd. feeling well Quantitative Analyst Marketing Required: No Automotive Service Professional: Automotive Service Professional offered & declined Allergies COW HAIR Allergy (Unknown, Uncoded 09/11/25 16:13) + IN ALLERGY TESTING Medication List - Last Reconciled 09/11/25 by Eldon Fenton MD amlodipine 2.5 mg PO BID aspirin 81 mg PO DAILY atorvastatin 40 mg PO BEDTIME betamethasone valerate 0.1% 1 appl topical BID PRN lisinopril 20 mg PO BID 90 days metoprolol succinate ER (Toprol XL) 50 mg PO BEDTIME omeprazole 20 mg PO DAILY PRN psyllium husk (with sugar) 3 gram/7 gram (Metamucil (with sugar)) 2 tbsp PO DAILY Do you need a note to return to daycare/school/sports/work: No HPI HPI COPD: Details: 69 YEARS OLD VERY PLEASANT GENTLEMAN IS HERE FOR HIS 6 MONTHS FOLLOW-UP FOR MANDI AND COPD. HE DOES HAVE MILD TO MODERATE DEGREE OF COPD BUT IT IS NOT ACTIVE. IN THE LAST 6 MONTHS HE HAS NOT USED ANY INHALER. HE SAY IS THAT EVEN IF HE HAD TO USE IT ONCE IT DID NOT MAKE ANY DIFFERENCE. SO HE PLANS TO GO WITHOUT ANY INHALER. FOR SLEEP APNEA HE USES HIS CPAP VERY REGULARLY EVERY NIGHT AND SLEEPS GOOD FOR MORE THAN. 7 HOURS PER NIGHT HE MAY HAVE ISSUE WITH THE MASK ONCE IN A WHILE BUT HE DOES CHANGE THE MASK NEEDED NO DIFFICULTY WITH THE CPAP DEVICE. HE REMAINS ACTIVE AND NOW HE HAS STARTED PLAYING TENNIS. [facility] Medical History Osteoarthritis of right hip Retrognathia Bifascicular block HTN (hypertension) GERD (gastroesophageal reflux disease) Pneumonitis COPD (chronic obstructive pulmonary disease) Hyperlipidemia CAD (coronary artery disease) Mediastinal lymphadenopathy Pulmonary nodules MANDI (obstructive sleep apnea) Surgical History History of total right hip replacement (03/12/24) History of lumbar surgery (01/15/24) History of arthroscopy of both knees Hx of colonoscopy (~08/05/15) Hx of vein stripping Hx of bilateral cataract extraction Hx of bilateral inguinal hernia repair History of total knee replacement Family History Father Cancer Mother No problems noted. 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 Cognitive needs: No Hearing needs: No Vision needs: No Review of Systems Const All systems reviewed & are unremarkable except as noted in HPI and below Eyes Reports no additional complaints ENT Reports nasal congestion (MILD INTERMITTENT) Resp Reports cough (VERY LITTLE IN THE MORNING.) and Denies wheezing GI Reports no additional complaints Reports no additional complaints Musc Reports no additional complaints Neuro Reports no additional complaints Aller/Immun Denies wheezing Physical Exam Vital Signs: Last Vital Signs Pulse 67 09/11/25 15:59 BP 142/70 H 09/11/25 15:59 Pulse Ox 98 09/11/25 15:59 Oxygen Delivery Method Room Air 09/11/25 15:59 BMI result Body Mass Index 24.0 Const General: healthy appearing, comfortable, no acute distress, alert and awake Orientation/consciousness: patient oriented x3 HEENT Head: Yes normal to inspection General nose exam: No nasal polyps present and No nasal discharge present Face and sinus: Yes sinuses nontender Mouth: oropharynx normal Teeth and gingiva: other (RETROGANTHIA OF THE LOWER JAW) Throat: Yes posterior oropharynx normal Eyes General: appearance normal, both eyes and all related structures Neck Neck: Yes normal visual inspection, Yes no lymphadenopathy, Yes trachea midline and Yes no JVD Thyroid: Thyroid normal Chest Chest palpation & inspection: normal inspection of the chest, normal palpation of entire chest wall and no tenderness Resp Other: PERCUSSION NOTE HYPER-RESONANT, BREATH SOUNDS ARE EQUAL ON BOTH SIDES. NO WHEEZES RHONCHI OR CREPITATIONS ARE HEARD TODAY. Cardio Palpation: normal PMI Rate: regular rate Rhythm: regular rhythm Heart sounds: no gallops and no murmurs Peripheral pulses: Peripheral pulses 2+ throughout GI Palpation (GI): Soft to palpation, nontender, No hepatosplenomegaly present and no masses Auscultation: normal bowel sounds Back/Spine/Pelvis Thoracic/Lumbar Spine: thoracic and lumbar spine normal to inspection Skin General skin exam: no rashes or lesions noted Neuro General: patient oriented x3 and no focal motor deficits Cranial nerves: Yes CN's II-XII intact bilaterally Extrem General: Yes normal to inspection, Yes no clubbing, cyanosis or edema and Yes no calf tenderness Psych Appearance: grossly normal and well kempt Speech and movement: Normal speech and movement present Results Reviewed Results Reviewed: COMPLIANCE REPORT FOR THE LAST 30 NIGHTS SHOWS THAT HE USES 100% OF THE NIGHTS AND AVERAGE USAGE PER NIGHT IS 4 7 HOURS 31 MINUTES. THERE IS ONLY MILD AIR LEAK. RESIDUAL AHI 0.7 Assessment & Plan Assessment & Plan (1) COPD (chronic obstructive pulmonary disease): Comment: THIS 69 YEARS OLD GENTLEMAN DOES NOT HAVE HISTORY OF SMOKING, BUT HIS PARENTS SMOKED AND HE WAS EXPOSED TO SECONDHAND SMOKING. PER SPIROMETRY HE HAS MODERATELY SEVERE OBSTRUCTIVE AIRWAY DISORDER. CLINICALLY HE IS TOTALLY ASYMPTOMATIC. HE IS NOT REQUIRING USE OF ANY BRONCHODILATOR INHALER. Code(s): J44.9 - Chronic obstructive pulmonary disease, unspecified Category: Medical Plan: I OFFERED TO PRESCRIBE ALBUTEROL FOR EMERGENCY USE BUT HE DOES NOT WANT TO HAVE IT ON HAND (2) MANDI (obstructive sleep apnea): Comment: HE DOES HAVE OBSTRUCTIVE SLEEP APNEA SECONDARY TO RETROGNATHIA OF THE LOWER JAW. USES CPAP VERY REGULARLY AND SLEEPS GOOD . CHECKED HIS COMPLIANCE FOR THE LAST 30 NIGHTS AND IT IS EXCELLENT Code(s): G47.33 - Obstructive sleep apnea (adult) (pediatric) Category: Medical Plan: COMMENDED FOR GOOD COMPLIANCE AND ADVISED TO KEEP ON USING THE CPAP REGULARLY. HE CAN COME ONCE A YEAR FOR FOLLOW-UP . (3) Retrognathia: Comment: HE HAS PROMINENT RETROGANTHIA OF THE LOWER JAW, THE CAUSE OF HIS OBSTRUCTIVE SLEEP APNEA Code(s): M26.19 - Other specified anomalies of jaw-cranial base relationship Category: Medical Plan: PATIENT IS AWARE OF THIS ISSUE Coding Level of Care Code Est Pt Level 3 (57334) Diagnoses COPD (chronic obstructive pulmonary disease) J44.9 MANDI (obstructive sleep apnea) G47.33 Retrognathia M26.19
--- OUTSIDE RECORDS SUMMARY | 2025-09-11 19:21 | XMS_ITS | Data Portability ---
Author Organization [facility] UROLOGY Address [address] [address] Assessment Encounter Date Assessment Date Assessment LastModified [...] L5-S1 TFESI --lumbar MRI --surgical consult- with [facility] neurosurgeon and/or surgeon in home area [...] - Left L4-L5, L5-S1 TFESI 2022 023 [facility], [address] [place], [address], 13:44:52 Surgeries None recorded. Imaging MRI, lumbar spine, w/o contrast 2022 023 [facility] (Imaging), [address] [place], [address], 09:11:03 Medication Orders None recorded. Patient TargetsNo targets recorded. Patient Instructions Encounter Date Encounter Id Patient Instructions Last Modified By Organization Details Last Modified Time 01/25/2023 [id number] I spent a total of 30 minutes [...] / medical decision making / patient interaction. [email or web address] Not available 01/18/2023 15:51:00 06/13/2023 [id number] I spent a total of 30 minutes [...] / medical decision making / patient interaction. [email or web address] Not available 06/08/2023 18:22:03 06/23/2023 [id number] The patient was identified by name and [...] and diagnosis. Not available 06/23/2023 10:58:55 08/02/2023 [id number] Name of ADYANARA: Adriana Yeh NP Portions of the medical [...] ast No observ ation record ed. [email or web address] [facility] (Imaging) [address] [place], [address], 08/01/2023 10:03:05 08/03/20 23 07/28/2023 MRI, lumba r spine , w/o contr ast No observ ation record ed. [email or web address] [facility] (Imaging) [address] [place], [address], 08/03/2023 10:40:28 Result Notes None recorded. Medical [...] Diagnosis SNOMED-CT Code Diagnosis ICD10 Code Diagnosis IMO Codes Diagnosis Note [id number] Sagrario Godfrey MD [facility] [address] [place] [address], [address] [address] 07/20/2022 11:02:15 07/20/2022 14:11:10 Lumbar radiculopathy 666459382 M54.16 [id number] Sagrario Godfrey MD [facility] [address] [address] 08/16/2022 07:20:21 08/17/2022 10:37:35 Lumbar radiculopathy 971251798 M54.16 [id number] Sagrario Godfrey MD [facility] [address] [address] 09/07/2022 10:35:54 09/07/2022 11:37:41 Lumbar radiculopathy 264031442 M54.16 [id number] Sagrario Godfrey MD [facility] [address] [address] 09/29/2022 10:58:47 09/29/2022 11:55:48 Spinal stenosis of lumbar region 29088156 M48.062 [id number] Sagrario Godfrey MD [facility] [address] [address] 09/30/2022 10:33:21 09/30/2022 11:30:31 Lumbar radiculopathy 537968480 M54.16 [id number] Sagrario Godfrey MD [facility] TS [address] [address] 11/02/2022 13:35:30 11/02/2022 14:34:52 Lumbar radiculopathy 627802537 M54.16 [id number] Sagrario Godfrey MD [facility] [address] [address] 12/15/2022 10:25:30 12/15/2022 11:43:29 Lumbar radiculopathy 307162524 M54.16 [id number] Sagrario Godfrey MD [facility] [address] [address] 12/16/2022 07:04:05 12/16/2022 09:35:30 Lumbar radiculopathy 341549327 M54.16 [id number] Sagrario Godfrey MD [facility] TS [address] [address] 01/25/2023 13:31:01 01/25/2023 13:57:12 Lumbar radiculopathy 219208261 M54.16 [id number] Sagrario Godfrey MD [facility] [address] [address] 06/13/2023 13:17:34 06/14/2023 06:57:29 Lumbar radiculopathy 445132396 M54.16 [id number] Sagrario Godfrey MD [facility] [address] CCP [address] [place] [address] 06/22/2023 11:20:58 06/22/2023 11:58:01 Lumbosacral radiculopathy 0393551 M54.17 [id number] Lynn Yeh NP [facility] [address] [address] 06/23/2023 07:06:54 06/23/2023 13:43:35 Displacement of lumbar intervertebral disc without myelopathy 19012710 M51.26 Lumbosacra l radiculitis 70931220 M54.17 Chronic low back pain 27 7402008 M54.50 [id number] Sagrario Godfrey MD [facility] [address] [address] 08/02/2023 11:56:14 08/02/2023 12:47:20 Displacement of lumbar intervertebral disc without myelopathy 32974334 M51.26 Lumbosacra l radiculitis 84382061 M54.17 Chronic low back pain 27 8506767 M54.50 Health Concerns Section Related Observation LastModified by Organization Detai ls LastModified Time None Recorded Concern Status LastModified by Organization Details LastModified Time None Recorded Advance Directives Directive None Recorded Payers Insurance Date Sequence Insurance Name Policy Number Policy Mcdowell Covered Member ID Mcdowell Member ID Guarantor Name 08/02/2023 2 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) 113 Foster Clarke [id number] Foster Clarke 08/02/2023 2 [place]/AD VANTAGE - PPO) 113 Foster Clarke [id number] Foster Clarke 08/02/2023 1 [place] Foster Clarke [id number] Foster Clarke 08/02/2023 2 [place] 113 Foster Clarke [id number] Foster Clarke Notes Date Note Type Note [...] anesthesia or gait instability.Imagin08/02/22 MRI Lumbar Spine ([facility])Grade 1 anterolisthesis with severe facet arthropathy at the L4-L5 level. Broad-based left paracentral to left subarticular zone disc protrusion distorting the ventral thecal sac and impinging upon the left L5 nerve root.L4/L5 Bzwnozex-wz-kugwxb central canal stenosis with encroach upon the right neural foramen mildly distorting the right L4 nerve root.Severe chronic degenerative disc disease at the L2-L3 and L5-S1 levels without central canal stenosis. Sagrario Godfrey MD [address] [place] [address], [address], [facility] 01/25/2023 14:11:40 3 text/html The patient returns [...] anesthesia or gait instability.Imagin08/02/22 MRI Lumbar Spine ([facility])Grade 1 anterolisthesis with severe facet arthropathy at the L4-L5 level. Broad-based left paracentral to left subarticular zone disc protrusion distorting the ventral thecal sac and impinging upon the left L5 nerve root.L4/L5 Sohiotls-km-ewwdts central canal stenosis with encroach upon the right neural foramen mildly distorting the right L4 nerve root.Severe chronic degenerative disc disease at the L2-L3 and L5-S1 levels without central canal stenosis. Sagrario Godfrey MD [address] [place] [address], [address], [facility] 06/13/2023 15:03:43 3 text/html PROCEDURE: LUMBAR/SACRAL TRANSFORAMINAL [...] SPECIMENS: NONE COMPLICATIONS: NONE Sagrario Godfrey MD [address] [place], [address], [facility] 06/22/2023 11:54:49 3 text/html Foster Peñaloza was [...] any questions or concerns. Lynn Yeh NP [address] [place] [address], [address], [facility] 06/23/2023 10:59:18 3 text/html The patient returns [...] L5-S1 TFESI - <25% pain relief after pdzfuvskp65/10/22 LEFT L4-L5, L5-S1 TFESI: 25% pain relief after injectionphysical therapy: continues strong HEP, also trialed Shaan method on his own without reliefWalking tolerance has improvedThere has been no significant interim change in their medical status. There has been no interim motor or sensory deficits. The patient continues to deny bowel or bladder changes, saddle anesthesia or gait instability. Imaging;06/2023 MRI Lumbar Spine ([facility])Impression:1. Slightly worsened anterolisthesis at the L4-L5 level [...] stress related in etiology. Sagrario Godfrey MD [address] [place] [address], [phone], [facility] 08/02/2023 15:34:45
--- OUTSIDE RECORDS SUMMARY | 2025-09-11 19:21 | XMS_ITS | Clinical Summary ---
Author Organization [facility] Address [address] [place] [address] Care Team Providers Care Artillery Meteorological Man Name Role Phone Rajiv Martino Primary Care Provider [phone] Allergies No known active allergies Medications No [...] age to complete this topic Insurance MEDICARE [facility] Care Teams Artillery Meteorological Man Relationship Specialty Start Date End Date Rajiv Martino [address] [place] [address] [place] [address] PCP - General Internal Medicine 08/02/23
--- OUTSIDE RECORDS SUMMARY | 2025-09-11 19:21 | XMS_ITS | Patient Health Record ---
Author Organization [facility] Address [address] [place] [address] Care Team Providers Care Development Professional Name Role Phone Rajiv Martino MD Primary Care Provider John Renner Unavailable [phone] Allergies No Known Allergies Reason For Referral [...] X ray : Foot, left 3V 06/29/2016 [id number], [id number] INJECT TENDON ORIGIN/INSER T 06/29/2016 Insurance Providers Payer Name Payer Address Payer Phone Subscriber Number Group Number Insured Name Patient Relationship to Insured Coverage Start Date Coverage End Date Medicare National [employer] [address] [facility] [address] [id number] Mindy Foster Self - patient is the insured [facility] [address] [place] [address] [id number] MindyFoster merritt Self - patient is the insured Medical (General) History Medical History History ICD Code Cataracts Hypertension Chicken pox Measles Joint implants/screws Back,Hip,and Knee pain Arthritis covid-19 Psoriasis/eczema Sciatica Mumps Surgical History Surgery Date(Month/Year) hernia , 09/2014 knee surgery X3 08/2011, 11/2011, 01/19 013
--- OUTSIDE RECORDS SUMMARY | 2025-09-11 19:21 | XMS_ITS | Patient Health Record ---
Author Organization [facility] Address [address] [place] [address] Care Team Providers Care International Freight Forwarder Name Role Phone NONE, NONE Primary Care Provider Mohan Escamilla Jr Reason For Referral No Information Medications Medication SIG (Take, Route, Fr equency, Duration) Notes Start Date End Date Status Suprep Bowel Prep 1 as directed Orally 1 ; Duration: 1 dose 04/29/2015 Active Lisinopril 20 MG 1 tablet Orally Once a day Active Ibuprofen 600 MG 1 tablet as needed O rally every 6 hrs Active Omeprazole 20 MG 1 capsule Orally Once a day Active Problems Problem Type SNOMED Code ICD Code Onset Dates Problem Status W/U Status Risk Notes Problem Esophageal reflux (096183034) Esophageal reflux (530.81) Active confirmed Problem Hemorrhoids (92597942) Hemorrhoids (455.6) Active confirmed Problem Colon cancer screening (273232797) Colon cancer screening (V76.51) Active confirmed Plan Of Treatment Future Test Test Name Order Date COLONOSCOPY 04/29/2015 Next Appt Details Provider Name:Mohan owen Jr, 10/27/2025 10:40:00 AM, [address], [address], [place], [address], Insurance Providers Payer Name Payer Address Payer Phone Subscriber Number Group Number Insured Name Patient Relationship to Insured Coverage Start Date Coverage End Date [place] [address] [place] [address] [id number] KATIE ALEX Self - patient is the insured [facility] [address] [place], [place] [id number] [phone] [id number] KATIE ALEX Self - patient is the insured Medical (General) History Medical History History ICD Code colonoscopy 12/29/2004 hypertension Denies NM,DM,CVA,Lung disease,renal dise ase Surgical History Surgery Date(Month/Year) right inguinal herniorrhaphy knee surgery vasectomy left knee replacement left knee arthroscopy right knee arthroscopy hernia repair cataract-lens implants
== END 2025-09-11 16:14 | disposition home or self-care (01) ==
LOC: HO.HPS 15:54
PROVIDERS: PCP Internal Medicine; Visit Provider Internal Medicine
DX: J44.9 Chronic obstructive pulmonary disease, unspecified (principal); G47.33 Obstructive sleep apnea (adult) (pediatric); M26.19 Other specified anomalies of jaw-cranial base relationship
CPT/HCPCS: 99213

== ENCOUNTER → 2025-09-11 15:53 | Outpatient (BNVA) | payer MEDICARE, BC, SELFPAY | PROVIDERS: PCP Internal Medicine; Visit Provider Internal Medicine | DX: G47.33 Obstructive sleep apnea (adult) (pediatric) (principal); Z99.89 Dependence on other enabling machines and devices; M26.19 Other specified anomalies of jaw-cranial base relationship; J44.9 Chronic obstructive pulmonary disease, unspecified; Z79.82 Long term (current) use of aspirin | CPT/HCPCS: 99212 ==